=== PATIENT | female | born 1935 | race Caucasian/White ===

== ENCOUNTER → 2016-12-10 | Outpatient (CLI) | payer MEDICARE, BC ==
[2016-12-10 12:11] LABS: Calcium 8.6 mg/dL (8.4-10.2); Potassium 5.7 mmol/L (3.5-5.1)
[2016-12-10 12:31] LABS: Hemoglobin A1C 6.6 % (4.2-6.1)
== END | disposition home or self-care (01) ==
LOC: LABWHC1 10:55
PROVIDERS: ATTEND Internal Medicine
DX: E11.21 Type 2 diabetes mellitus with diabetic nephropathy (principal)
CPT/HCPCS: 36415; 80048; 82043; 83036

== ENCOUNTER → 2017-03-11 | Outpatient (CLI) | payer MEDICARE, BC ==
--- NOTE | 2017-03-12 08:35 | MM ---
Reason for exam: follow-up at short interval from prior study. Last mammogram was performed 9 months ago. History: Patient is postmenopausal. Physical Findings: Nurse did not find any significant physical abnormalities on exam. MG 3D Diag Mammo W/Cad RT CC, MLO, and XCCL view(s) were taken of the right breast. Prior study comparison: June 11, 2016, bilateral MG 3d screening mammo w/cad. May 16, 2015, bilateral MG screening mammo w CAD. The breast tissue is extremely dense which could obscure a lesion on mammography. Benign calcifications. Nodular density in the right breast is less conspicuous. These results were verbally communicated with the patient and result sheet given to the patient on 03/11/17. ASSESSMENT: Benign, BI-RAD 2 RECOMMENDATION: Return to routine screening mammogram schedule for both breasts. Back on schedule for June 2017.
== END | disposition home or self-care (01) ==
LOC: RADMAMWWP 14:19
PROVIDERS: ATTEND Internal Medicine
DX: R92.8 Other abnormal and inconclusive findings on diagnostic imaging of breast (principal)
CPT/HCPCS: G0206; G0279

== ENCOUNTER → 2017-03-12 | Outpatient (CLI) | payer MEDICARE, BC ==
[2017-03-12 14:38] LABS: Calcium 8.7 mg/dL (8.4-10.2); Potassium 5.5 mmol/L (3.5-5.1)
[2017-03-12 20:40] LABS: Hemoglobin A1C 6.7 % (4.2-6.1)
== END | disposition home or self-care (01) ==
LOC: LABWHC1 13:42
PROVIDERS: ATTEND Internal Medicine
DX: E11.21 Type 2 diabetes mellitus with diabetic nephropathy (principal)
CPT/HCPCS: 36415; 80048; 83036

== ENCOUNTER → 2017-06-07 | Outpatient (CLI) | payer MEDICARE, BC ==
[2017-06-07 12:31] LABS: Calcium 8.4 mg/dL (8.4-10.2); Potassium 5.3 mmol/L (3.5-5.1)
[2017-06-07 13:31] LABS: Hemoglobin A1C 6.8 % (4.2-6.1)
== END | disposition home or self-care (01) ==
LOC: LABWHC1 11:13
PROVIDERS: ATTEND Internal Medicine
DX: E11.21 Type 2 diabetes mellitus with diabetic nephropathy (principal)
CPT/HCPCS: 36415; 80048; 83036

== ENCOUNTER → 2017-06-23 | Outpatient (CLI) | payer MEDICARE, BC ==
--- NOTE | 2017-06-24 12:07 | MM ---
Reason for exam: screening (asymptomatic). Last mammogram was performed 3 months ago. History: Patient is postmenopausal. Physical Findings: A clinical breast exam by your physician is recommended on an annual basis and results should be correlated with mammographic findings. MG 3D Screening Mammo W/Cad Bilateral CC and MLO view(s) were taken. Prior study comparison: March 11, 2017, right breast MG 3d diag mammo w/cad RT. June 11, 2016, bilateral MG 3d screening mammo w/cad. May 02, 2014, bilateral MG screening mammo w CAD. January 19, 2013, bilateral digital screening mammo w/CAD. December 16, 2011, bilateral digital screening mammo w/CAD. The breast tissue is heterogeneously dense. This may lower the sensitivity of mammography. Scattered asymmetric densities are unchanged. No significant changes when compared with prior studies. ASSESSMENT: Negative, BI-RAD 1 RECOMMENDATION: Routine screening mammogram of both breasts in 1 year.
== END | disposition home or self-care (01) ==
LOC: RADMAMWWP 15:10
PROVIDERS: ATTEND Internal Medicine
DX: Z12.31 Encounter for screening mammogram for malignant neoplasm of breast (principal)
CPT/HCPCS: 77063; G0202

== ENCOUNTER → 2017-12-17 | Outpatient (CLI) | payer MEDICARE, BC ==
[2017-12-17 12:02] LABS: Albumin 3.9 g/dL (3.5-5.0); Calcium 9.2 mg/dL (8.4-10.2); Potassium 5.7 mmol/L (3.5-5.1); Total Bilirubin 0.3 mg/dL (0.2-1.3)
[2017-12-17 12:11] LABS: Basophils # (A) 0.1 k/uL (0-0.2); Basophils % (A) 1 %; Eosinophils # (A) 0.2 k/uL (0-0.7); Eosinophils % (A) 3 %; HCT 34.9 % (34.0-46.0); HGB 10.5 gm/dL (11.4-16.0); Hypochromasia Slight; Lymphocytes # (A) 1.5 k/uL (1.0-4.8); Lymphocytes % (A) 21 %; MCH 28.8 pg (25.0-35.0); MCHC 30.2 g/dL (31.0-37.0); MCV 95.2 fL (80.0-100.0); Mean Platelet Volume 8.1; Monocytes # (A) 0.4 k/uL (0-1.0); Monocytes % (A) 6 %; Neutrophils # (A) 4.8 k/uL (1.3-7.7); Neutrophils % (A) 67 %; Platelet Count 220 k/uL (150-450); RBC 3.66 m/uL (3.80-5.40); RDW 13.3 % (11.5-15.5); WBC 7.2 k/uL (3.8-10.6)
[2017-12-17 19:09] LABS: Hemoglobin A1C 6.6 % (4.0-6.0)
== END | disposition home or self-care (01) ==
LOC: LABWHC1 10:59
PROVIDERS: ATTEND Internal Medicine
DX: E11.21 Type 2 diabetes mellitus with diabetic nephropathy (principal)
CPT/HCPCS: 36415; 80053; 83036; 85025

== ENCOUNTER 2018-01-14 11:04 | Emergency (ER) | payer MEDICARE, BC ==
[2018-01-14 11:20] VITALS: RESP 18
--- NOTE | 2018-01-14 13:37 | ED ---
General Adult HPI - General Chief complaint: Recheck/Abnormal Lab/Rx Stated complaint: foot infection Time Seen by Provider: 01/14/18 12:27 Source: patient Mode of arrival: wheelchair Limitations: no limitations - History of Present Illness Initial comments: Patient is an 82-year-old female presents with a chief complaint of lower extremity edema bilaterally and a blister and weeping of her left great toe. Patient states that his being on for about 2 days. She states that her toe was more painful yesterday than it is today. Patient cannot identify any inciting incidences. Aggravating factors include bearing weight the patient is still able to ambulate. Alleviating factors or resting with her legs up. Timing is constant. Patient has a history of congestive heart failure and diabetes - Related Data Home Medications Medication Instructions Recorded Confirmed Isosorbide Mononitrate ER [Imdur] 30 mg PO DAILY 07/04/14 01/14/18 glyBURIDE,MICRONIZED [Glyburide 6 mg PO DAILY 07/04/14 01/14/18 Micronized] ALPRAZolam [Xanax] 0.25 mg PO BID PRN 11/11/14 01/14/18 Atenolol [Tenormin] 50 mg PO DAILY 11/11/14 01/14/18 Cranberry Conc/C/Bacill Coag 1 each PO HS 11/11/14 01/14/18 [Cranberry Tablet] Cranberry Conc/C/Bacill Coag 2 each PO DAILY 11/11/14 01/14/18 [Cranberry Tablet] Insulin Glargine [Lantus] 8 units SQ HS 11/11/14 01/14/18 Miconazole 2% Vaginal Cream 1 applic TOPICAL DAILY PRN 11/11/14 01/14/18 [Monistat 7] Simvastatin [Zocor] 40 mg PO DAILY 11/11/14 01/14/18 amLODIPine [Norvasc] 10 mg PO DAILY 11/14/14 01/14/18 Furosemide [Lasix] 20 mg PO DAILY 01/14/18 01/14/18 Vit A/Vit C/Vit E/Zinc/Copper 1 cap PO BID 01/14/18 01/14/18 [ICAPS SOFTGEL] Allergies Allergy/AdvReac Type Severity Reaction Status Date / Time ciprofloxacin [From Cipro] Allergy Swelling Verified 01/14/18 15:21 zolpidem tartrate AdvReac Severe Hallucinati Verified 01/14/18 15:21 [From Ambien] ons Review of Systems ROS Statement: Those systems with pertinent positive or pertinent negative responses have been documented in the HPI. ROS Other: All systems not noted in ROS Statement are negative. Constitutional: Denies: fever, chills Skin: Reports: lesions (Blister on the anterior aspect of her left great toe) Past Medical History Past Medical History: Coronary Artery Disease (CAD), Diabetes Mellitus, Hyperlipidemia, Hypertension History of Any Multi-Drug Resistant Organisms: None Reported Past Surgical History: Cholecystectomy, Heart Catheterization With Stent, Orthopedic Surgery Additional Past Surgical History / Comment(s): CATARACTS BL knees Hysterctomy bladder suspension Date of Last Stent Placement:: unkown Past Psychological History: No Psychological Hx Reported Smoking Status: Former smoker Past Alcohol Use History: None Reported Past Drug Use History: None Reported General Exam Limitations: no limitations General appearance: alert, in no apparent distress Head exam: Present: atraumatic, normocephalic Eye exam: Present: normal appearance ENT exam: Present: normal exam Respiratory exam: Present: normal lung sounds bilaterally. Absent: respiratory distress, wheezes Cardiovascular Exam: Present: regular rate, normal rhythm GI/Abdominal exam: Present: soft. Absent: distended, tenderness Rectal exam: Present: deferred Extremities exam: Present: pedal edema, other (Patient has a lateral lower show any pitting edema with evidence of chronic venous stasis. Calves are nontender. Examination of the patient's left foot shows what appears to be a blood blister on the top part of her left great toe. Blister was opened with an 18-gauge needle, it was nonpainful, nonpurulent. Cultures were sent). Absent: calf tenderness Neurological exam: Present: alert, oriented X3, CN II-XII intact, normal gait Psychiatric exam: Present: normal affect, normal mood Skin exam: Present: warm, dry, intact Course Vital Signs 01/14/18 01/14/18 01/14/18 11:17 11:20 13:41 Temperature 97.8 F Pulse Rate 87 82 Respiratory 18 18 18 Rate Blood Pressure 204/109 216/81 O2 Sat by Pulse 93 L 97 Oximetry 01/14/18 15:00 Temperature 97.7 F Pulse Rate 76 Respiratory 18 Rate Blood Pressure 211/82 O2 Sat by Pulse 96 Oximetry Medical Decision Making - Medical Decision Making Patient presents with a chief complaint of lower extremity edema and a blister on her left toe. On initial evaluation, vital signs are stable. Patient is very hypertensive at 204/109, patient is in no acute distress. Patient will be evaluated for congestive heart failure as she has a previous history. Examination of the left foot does not appear to be infected. There is no tenderness to palpation, there is no red streaking, there is no induration or warmth. The vesicle on her left toe was drained with an 18-gauge needle. Fluid was mostly serous with old clotted blood. There is no foul odor. Cultures were sent. 3:34 PM Evaluation this patient is unremarkable. Chest x-ray did not show evidence of congestive heart failure, BNP is only mildly elevated. Patient is clinically not in heart failure. On reevaluation, the patient is comfortable however she is still hypertensive. The patient's son, who is a nurse upstairs, states that he has her medications and the car she did not get them this morning. It was agreed upon that the patient would receive her dose upon discharge. The patient was instructed to follow-up with primary care in 1-2 days or return to the emergency department for reevaluation if symptoms worsen or change. Patient and her son are agreeable with the current care plan. - Lab Data Result diagrams: 01/14/18 13:30 01/14/18 13:30 Lab Results 01/14/18 01/14/18 01/14/18 Range/Units 13:30 13:30 13:30 WBC 7.8 (3.8-10.6) k/uL RBC 3.39 L (3.80-5.40) m/uL Hgb 9.9 L (11.4-16.0) gm/dL Hct 31.3 L (34.0-46.0) % MCV 92.3 (80.0-100.0) fL MCH 29.2 (25.0-35.0) pg MCHC 31.6 (31.0-37.0) g/dL RDW 13.9 (11.5-15.5) % Plt Count 197 (150-450) k/uL Neutrophils % 67 % Lymphocytes % 23 % Monocytes % 6 % Eosinophils % 2 % Basophils % 1 % Neutrophils # 5.2 (1.3-7.7) k/uL Lymphocytes # 1.8 (1.0-4.8) k/uL Monocytes # 0.5 (0-1.0) k/uL Eosinophils # 0.2 (0-0.7) k/uL Basophils # 0.0 (0-0.2) k/uL Hypochromasia Slight Sodium 142 (137-145) mmol/L Potassium 5.3 H (3.5-5.1) mmol/L Chloride 108 H (98-107) mmol/L Carbon Dioxide 22 (22-30) mmol/L Anion Gap 12 mmol/L BUN 65 H (7-17) mg/dL Creatinine 2.33 H (0.52-1.04) mg/dL Est GFR (CKD-EPI)AfAm 22 (>60 ml/min/1.73 sqM) Est GFR (CKD-EPI)NonAf 19 (>60 ml/min/1.73 sqM) Glucose 90 (74-99) mg/dL Calcium 8.9 (8.4-10.2) mg/dL Troponin I (0.000-0.034) ng/mL NT-Pro-B Natriuret Pep 582 pg/mL 01/14/18 Range/Units 13:30 WBC (3.8-10.6) k/uL RBC (3.80-5.40) m/uL Hgb (11.4-16.0) gm/dL Hct (34.0-46.0) % MCV (80.0-100.0) fL MCH (25.0-35.0) pg MCHC (31.0-37.0) g/dL RDW (11.5-15.5) % Plt Count (150-450) k/uL Neutrophils % % Lymphocytes % % Monocytes % % Eosinophils % % Basophils % % Neutrophils # (1.3-7.7) k/uL Lymphocytes # (1.0-4.8) k/uL Monocytes # (0-1.0) k/uL Eosinophils # (0-0.7) k/uL Basophils # (0-0.2) k/uL Hypochromasia Sodium (137-145) mmol/L Potassium (3.5-5.1) mmol/L Chloride (98-107) mmol/L Carbon Dioxide (22-30) mmol/L Anion Gap mmol/L BUN (7-17) mg/dL Creatinine (0.52-1.04) mg/dL Est GFR (CKD-EPI)AfAm (>60 ml/min/1.73 sqM) Est GFR (CKD-EPI)NonAf (>60 ml/min/1.73 sqM) Glucose (74-99) mg/dL Calcium (8.4-10.2) mg/dL Troponin I <0.012 (0.000-0.034) ng/mL NT-Pro-B Natriuret Pep pg/mL Disposition Clinical Impression: Blister, Lower extremity edema Disposition: HOME SELF-CARE Condition: Good Instructions: Leg Edema (ED) Referrals: Lalo Eng MD [Primary Care Provider] - 1-2 days
--- NOTE | 2018-01-14 14:01 | XR ---
EXAMINATION TYPE: XR chest 2V DATE OF EXAM: 01/14/2018 COMPARISON: 11/13/2014 HISTORY: Bilateral lower extremity swelling and chest pain. TECHNIQUE: Frontal and lateral views of the chest are obtained. FINDINGS: There is no focal air space opacity, pleural effusion, or pneumothorax seen. The cardiac silhouette size is mildly enlarged. The osseous structures are intact. Degenerative changes of the thoracic spine, clavicular joints and acromio clavicular joints are moderate. IMPRESSION: No acute cardiopulmonary process.
--- NOTE | 2018-01-14 14:03 | XR ---
EXAMINATION TYPE: XR foot complete LT DATE OF EXAM: 01/14/2018 CLINICAL HISTORY: Left lower extremity generalized edema and left foot pain. TECHNIQUE: Frontal, lateral, and oblique images of the left foot are obtained. COMPARISON: None FINDINGS: There is moderate generalized edema of the left lower extremity. There is generalized osseo us demineralization. Moderate degenerative changes of the distal interphalangeal joints and mild at t he first metatarsophalangeal joint are present. Hallux valgus deformity is seen. Small vessel calcifi c atheromatous changes are noted. Moderate plantar and small Achilles enthesophytes are also seen. Th ere is no acute fracture/dislocation evident in the left foot. IMPRESSION: Moderate generalized left lower extremity subcutaneous edema with no acute fracture or di slocation.
[2018-01-14 14:08] LABS: Basophils % (A) 1 %; Eosinophils # (A) 0.2 k/uL (0-0.7); Eosinophils % (A) 2 %; HCT 31.3 % (34.0-46.0); HGB 9.9 gm/dL (11.4-16.0); Hypochromasia Slight; Lymphocytes # (A) 1.8 k/uL (1.0-4.8); Lymphocytes % (A) 23 %; MCH 29.2 pg (25.0-35.0); MCHC 31.6 g/dL (31.0-37.0); MCV 92.3 fL (80.0-100.0); Mean Platelet Volume 8.5; Monocytes # (A) 0.5 k/uL (0-1.0); Monocytes % (A) 6 %; Neutrophils # (A) 5.2 k/uL (1.3-7.7); Neutrophils % (A) 67 %; Platelet Count 197 k/uL (150-450); RBC 3.39 m/uL (3.80-5.40); RDW 13.9 % (11.5-15.5); WBC 7.8 k/uL (3.8-10.6)
[2018-01-14 14:17] LABS: Calcium 8.9 mg/dL (8.4-10.2); Potassium 5.3 mmol/L (3.5-5.1)
[2018-01-14 15:17] VITALS: BP 211/82; PULSE 76; TEMP 97.7
== END 2018-01-14 15:59 | disposition home or self-care (01) ==
LOC: EC 11:04
DX: S90.422A Blister (nonthermal), left great toe, initial encounter (principal); R60.0 Localized edema; I87.8 Other specified disorders of veins; E78.5 Hyperlipidemia, unspecified; I11.9 Hypertensive heart disease without heart failure; I50.9 Heart failure, unspecified; I25.10 Atherosclerotic heart disease of native coronary artery without angina pectoris; E11.9 Type 2 diabetes mellitus without complications; Z87.891 Personal history of nicotine dependence; Z79.4 Long term (current) use of insulin; Z79.899 Other long term (current) drug therapy; Z88.1 Allergy status to other antibiotic agents; Z88.8 Allergy status to other drugs, medicaments and biological substances; X58.XXXA Exposure to other specified factors, initial encounter
CPT/HCPCS: 36415; 71046; 80048; 83880; 84484; 85025; 87070; 87075; 87205; 99283

== ENCOUNTER 2018-05-05 17:21 | Emergency (ER) | payer MEDICARE, BC ==
--- NOTE | 2018-05-05 21:17 | XR ---
EXAMINATION TYPE: XR ankle complete RT DATE OF EXAM: 05/05/2018 COMPARISON: NONE HISTORY: Fall. Ankle pain TECHNIQUE: 3 views FINDINGS: There is soft tissue swelling around the ankle joint. There is a plantar calcaneal spur. An kle mortise is anatomic. I see no fracture. IMPRESSION: Soft tissue swelling. No fracture.
--- NOTE | 2018-05-05 21:18 | XR ---
EXAMINATION TYPE: XR foot complete RT DATE OF EXAM: 05/05/2018 COMPARISON: NONE HISTORY: Fall. Foot pain TECHNIQUE: 3 views FINDINGS: There is soft tissue swelling of the foot. There is plantar calcaneal spur. Metatarsals are intact. I see no fracture nor dislocation. IMPRESSION: Soft tissue swelling. No fracture.
--- NOTE | 2018-05-05 21:19 | XR ---
EXAMINATION TYPE: XR Hip Complete RT DATE OF EXAM: 05/05/2018 COMPARISON: NONE HISTORY: Hip pain TECHNIQUE: 2 views FINDINGS: There is some acetabular spurring. I see no fracture nor dislocation. There is vascular rosenda cification. IMPRESSION: No acute abnormality of the right hip.
--- NOTE | 2018-05-05 21:20 | XR ---
EXAMINATION TYPE: XR knee complete RT 3 views DATE OF EXAM: 05/05/2018 COMPARISON: None HISTORY: Knee pain FINDINGS: There is a right knee prosthesis. Components are in anatomic position. There is vascular calcificati on. I see no fracture. IMPRESSION: No acute abnormality of the right knee.
--- NOTE | 2018-05-05 21:21 | XR ---
EXAMINATION TYPE: XR shoulder complete LT DATE OF EXAM: 05/05/2018 COMPARISON: NONE HISTORY: Shoulder pain TECHNIQUE: 3 views FINDINGS: There is subacromial joint space narrowing. There is spurring at the glenohumeral joint. I see no fracture. IMPRESSION: Osteoarthritis and subacromial impingement. No fracture.
--- NOTE | 2018-05-05 22:05 | ED ---
Lower Extremity Injury HPI - General Chief Complaint: Extremity Injury, Lower Stated Complaint: fall/rt leg injury Time Seen by Provider: 05/05/18 19:37 Source: patient, family Mode of arrival: wheelchair Limitations: no limitations - History of Present Illness Initial Comments: 82-year-old female patient presents the emergency department today for evaluation of right leg pain and left shoulder pain after experiencing a fall approximately one week ago. Patient states that she has pain to the right hip, right knee, right ankle, and right foot. States the pain is worse on the right ankle and foot. She states that she also is having pain to the left shoulder. Patient states that she always has pain and left shoulder however this is worse than usual. Patient states that she tripped and fell over her walker. Denies any falls since then. She denies hitting her head or losing consciousness during the fall. She denies any numbness or tingling to her extremities. States that the right ankle and foot is more swollen than usual. Denies any redness, fever, or chills. Denies any neck or back pain. Patient denies any headache, chest pain, shortness of breath, dizziness, weakness, abdominal pain, nausea, vomiting, or difficulties with bowel movements or urination. - Related Data Home Medications Medication Instructions Recorded Confirmed Isosorbide Mononitrate ER [Imdur] 30 mg PO DAILY 07/04/14 05/05/18 glyBURIDE,MICRONIZED [Glyburide 6 mg PO DAILY 07/04/14 05/05/18 Micronized] ALPRAZolam [Xanax] 0.25 mg PO TID PRN 11/11/14 05/05/18 Atenolol [Tenormin] 50 mg PO DAILY 11/11/14 05/05/18 Insulin Glargine [Lantus] 30 units SQ HS 11/11/14 05/05/18 Simvastatin [Zocor] 40 mg PO DAILY 11/11/14 05/05/18 Aspirin EC [Ecotrin Low Dose] 81 mg PO DAILY 05/05/18 05/05/18 Focus Factor 1 tab PO BID 05/05/18 05/05/18 Vit C/E/Zn/Coppr/Lutein/Zeaxan 1 cap PO BID 05/05/18 05/05/18 [Preservision Areds 2 Softgel] amLODIPine [Norvasc] 5 mg PO DAILY 05/05/18 05/05/18 Allergies Allergy/AdvReac Type Severity Reaction Status Date / Time ciprofloxacin [From Cipro] Allergy Swelling Verified 05/05/18 20:03 zolpidem tartrate AdvReac Severe Hallucinati Verified 05/05/18 20:03 [From Ambien] ons Review of Systems ROS Statement: Those systems with pertinent positive or pertinent negative responses have been documented in the HPI. ROS Other: All systems not noted in ROS Statement are negative. Past Medical History Past Medical History: Coronary Artery Disease (CAD), Diabetes Mellitus, Hyperlipidemia, Hypertension History of Any Multi-Drug Resistant Organisms: None Reported Past Surgical History: Cholecystectomy, Heart Catheterization With Stent, Orthopedic Surgery Additional Past Surgical History / Comment(s): CATARACTS BL knees Hysterctomy bladder suspension Date of Last Stent Placement:: unkown Past Psychological History: No Psychological Hx Reported Smoking Status: Former smoker Past Alcohol Use History: None Reported Past Drug Use History: None Reported General Exam Limitations: no limitations General appearance: alert, in no apparent distress, other (This is a well- developed, obese elderly female patient in no acute distress. Vital signs upon presentation are temperature 97.9F, pulse 61, respirations 20, blood pressure 160/58, pulse ox 96% on room air.) Eye exam: Present: normal appearance, PERRL, EOMI. Absent: scleral icterus, conjunctival injection, periorbital swelling ENT exam: Present: normal exam, normal oropharynx, mucous membranes moist Neck exam: Present: normal inspection, other (Nontender, no step-off, no deformity to firm midline palpation of the posterior cervical spine. Full range of motion without pain or limitation.). Absent: tenderness, meningismus, lymphadenopathy Respiratory exam: Present: normal lung sounds bilaterally. Absent: respiratory distress, wheezes, rales, rhonchi, stridor Cardiovascular Exam: Present: regular rate, normal rhythm, normal heart sounds. Absent: systolic murmur, diastolic murmur, rubs, gallop, clicks GI/Abdominal exam: Present: soft, normal bowel sounds. Absent: distended, tenderness, guarding, rebound, rigid Extremities exam: Present: full ROM, tenderness (Tenderness surrounding the right ankle and dorsal aspect of the foot.), normal capillary refill, other ( Patient has right ankle and right foot swelling. No evidence of erythema. Pedal and posttibial pulses are 2+ and equal bilaterally. Skin is pink, warm, and dry. Cap refills less than 3 seconds. Patient has light brown area of ecchymosis over the right anterior knee. There is no evidence of surface trauma to the right hip. No hip tenderness. Left shoulder skin is pink, warm, and dry. Cap refill to the left hand is less than 3 seconds. Radial pulses are 2+ and equal bilaterally. There is no joint tenderness or surrounding the left shoulder. Patient does have started pain at approximately 90 abduction of the left arm.). Absent: normal inspection, pedal edema, joint swelling, calf tenderness Back exam: Present: normal inspection. Absent: vertebral tenderness Neurological exam: Present: alert, oriented X3, CN II-XII intact Psychiatric exam: Present: normal affect, normal mood Skin exam: Present: warm, dry, intact, normal color. Absent: rash Course Vital Signs 05/05/18 05/05/18 17:25 22:21 Temperature 97.9 F 98.4 F Pulse Rate 61 52 L Respiratory 20 18 Rate Blood Pressure 168/58 158/67 O2 Sat by Pulse 96 97 Oximetry Medical Decision Making - Medical Decision Making 82-year-old female patient presented to the emergency department today for evaluation of right leg, ankle, and foot pain as well as left shoulder pain after experiencing a trip and fall approximately one week ago. Physical examination did reveal swelling to the right ankle and foot. Neurovascular status was intact to both lower and upper extremities. X-rays were obtained of the right hip, right knee, right ankle, and right foot. There are does show soft tissue swelling surrounding the right ankle and foot however no fractures are identified in any of the x-rays. Left shoulder x-ray was also obtained, did show some arthritic changes but no evidence of acute fracture. I did discuss findings and results with the patient and her family. I did discuss the patient most likely has a sprain to the right ankle and foot. She'll be placed in ankle stirrup splint. Patient declines pain medication at this time stating that she will take Tylenol at home. She is instructed to follow-up with orthopedics for further evaluation. Return parameters discussed in detail. She verbalizes understanding and agrees with this plan. - Radiology Data Radiology results: report reviewed, image reviewed 3 views of the left shoulder were obtained. There is subacromial joint space narrowing. There is spurring at the glenohumeral joint. I see no fracture. Impression by Dr. Hernandez shows osteoarthritis and subacromial impingement. No fracture. 3 views of the right knee are obtained. There is right knee prosthesis. Components are in anatomic position. There is vascular calcification. I see no fracture. Impression by Dr. Hernandez shows no acute abnormality of the right knee. 2 views of the right hip are obtained. There is some acetabular spurring. I see no fracture or dislocation. There is vascular calcification. Impression by Dr. Hernandez shows no acute abnormality of the right hip. 3 views of the right foot are obtained. There is soft tissue swelling of the foot. There is plantar calcaneal spur. Metatarsals are intact. I see no fracture nor dislocation. Impression by Dr. Hernandez shows soft tissue swelling. No fracture. 3 views of the right ankle are obtained. There is soft tissue swelling around the ankle joint. There is a plantar calcaneal spur. Ankle mortise is anatomic. I see no fracture. Impression by Dr. Hernandez shows soft tissue swelling with no fracture. Disposition Clinical Impression: Right ankle sprain, Osteoarthritis, Calcaneal spur, right, Left shoulder strain Disposition: HOME SELF-CARE Condition: Good Instructions: Ankle Sprain (ED), Osteoarthritis (ED), Shoulder Sprain (ED) Additional Instructions: Keep splint in place for comfort and support. Rest, ice, and elevate the right leg. Follow-up with orthopedics for recheck as soon as possible. Take Tylenol and sparingly ibuprofen for pain control. Return here immediately for any new, worsening, or concerning symptoms. Is patient prescribed a controlled substance at d/c from ED?: No Referrals: Lalo Eng MD [Primary Care Provider] - 1-2 days Carroll Angela MD [Medical Doctor] - 1-2 days Time of Disposition: 22:05
[2018-05-05 22:23] VITALS: BP 158/67; PULSE 52; RESP 18; TEMP 98.4
== END 2018-05-05 22:21 | disposition home or self-care (01) ==
LOC: EC 17:21
DX: S93.401A Sprain of unspecified ligament of right ankle, initial encounter (principal); S46.912A Strain of unspecified muscle, fascia and tendon at shoulder and upper arm level, left arm, initial encounter; M77.31 Calcaneal spur, right foot; M19.012 Primary osteoarthritis, left shoulder; S80.211A Abrasion, right knee, initial encounter; M25.552 Pain in left hip; I25.10 Atherosclerotic heart disease of native coronary artery without angina pectoris; E11.9 Type 2 diabetes mellitus without complications; E78.5 Hyperlipidemia, unspecified; I10 Essential (primary) hypertension; Z95.5 Presence of coronary angioplasty implant and graft; Z87.891 Personal history of nicotine dependence; Z79.4 Long term (current) use of insulin; Z79.82 Long term (current) use of aspirin; Z79.899 Other long term (current) drug therapy; Z88.1 Allergy status to other antibiotic agents; Z88.8 Allergy status to other drugs, medicaments and biological substances; W01.0XXA Fall on same level from slipping, tripping and stumbling without subsequent striking against object, initial encounter
CPT/HCPCS: 73030; 73502; 73562; 73610; 73630; 99283; 29515; L4350

== ENCOUNTER → 2018-07-28 | Outpatient (CLI) | payer MEDICARE, BC ==
--- NOTE | 2018-07-29 10:21 | MM ---
Reason for exam: additional evaluation requested from prior study. Last mammogram was performed 1 year and 1 month ago. History: Patient is postmenopausal. Physical Findings: Nurse Summary: less than 0.5cm nodule in the right breast at 9 o'clock (nurse kp). MG 3D Diag Mammo W/Cad NATA Bilateral CC and MLO view(s) were taken. Prior study comparison: June 23, 2017, bilateral MG 3d screening mammo w/cad. March 11, 2017, right breast MG 3d diag mammo w/cad RT. The breast tissue is extremely dense which could obscure a lesion on mammography. Finding: There are typically benign vascular calcifications in both breasts. There is no discrete abnormality. These results were verbally communicated with the patient and result sheet given to the patient on 07/28/18. ASSESSMENT: Incomplete: need additional imaging evaluation, BI-RAD 0 RECOMMENDATION: Ultrasound of the right breast. (palpable)
--- NOTE | 2018-07-29 10:22 | USB ---
Reason for exam: additional evaluation requested from abnormal screening. History: Patient is postmenopausal. US Breast Limited RT Right limited breast ultrasound including focal area of concern, retroareolar and axilla demonstrates no cystic or solid lesion seen greater than 0.50cm. These results were verbally communicated with the patient and result sheet given to the patient on 07/28/18. ASSESSMENT: Negative, BI-RAD 1 RECOMMENDATION: Routine screening mammogram of both breasts in 1 year. Manage patient on a clinical basis.
== END | disposition home or self-care (01) ==
LOC: RADMAMWWP 13:27
PROVIDERS: ATTEND Internal Medicine
DX: R92.8 Other abnormal and inconclusive findings on diagnostic imaging of breast (principal)
CPT/HCPCS: 77066; 76642; G0279; 77062

== ENCOUNTER 2018-07-29 11:01 | Emergency (ER) | payer MEDICARE, BC ==
[2018-07-29 12:40] LABS: Basophils # (A) 0.1 k/uL (0-0.2); Basophils % (A) 1 %; Eosinophils # (A) 0.4 k/uL (0-0.7); Eosinophils % (A) 6 %; HCT 34.1 % (34.0-46.0); HGB 10.7 gm/dL (11.4-16.0); Hypochromasia Slight; Lymphocytes # (A) 1.9 k/uL (1.0-4.8); Lymphocytes % (A) 27 %; MCH 29.6 pg (25.0-35.0); MCHC 31.3 g/dL (31.0-37.0); MCV 94.6 fL (80.0-100.0); Mean Platelet Volume 8.3; Monocytes # (A) 0.4 k/uL (0-1.0); Monocytes % (A) 6 %; Neutrophils # (A) 4.2 k/uL (1.3-7.7); Neutrophils % (A) 59 %; Platelet Count 217 k/uL (150-450); RDW 13.4 % (11.5-15.5)
[2018-07-29 12:56] LABS: Albumin 3.6 g/dL (3.5-5.0); Calcium 8.8 mg/dL (8.4-10.2); Potassium 5.2 mmol/L (3.5-5.1); Total Bilirubin 0.4 mg/dL (0.2-1.3); Total Protein 6.8 g/dL (6.3-8.2)
[2018-07-29] MEDS ORDERED: SODIUM CHLORIDE 0.9% 1,000 ML IV SCH (13:30)
--- NOTE | 2018-07-29 13:32 | ED ---
Recheck HPI - General Chief Complaint: Recheck/Abnormal Lab/Rx Stated Complaint: Abnormal Labs Time Seen by Provider: 07/29/18 12:08 Source: patient Mode of arrival: wheelchair Limitations: no limitations - History of Present Illness Initial Comments: to a 82-year-old female past medical history of renal disease, type 2 diabetes, hypertension, coronary artery disease, COPD who presents today for chief complaint of abnormal lab values. Patient states that she was called at 8:30 this morning about an elevated BUN/creatinine levels by her primary care physician, as told to present to the emergency department. She was speaking with Dr. Eng's nurse practitioner. Patient states that she has felt shaky for the last 2 days and was concerned that maybe this was associated. Patient does admit to not eating as much because things do not sound appetizing. Patient does admit to low back pain, however she states this is chronic and she has been sitting in a chair. The pain increases with certain positions. Patient denies any other associated symptoms. Patient denies any recent fever, chills, shortness of breath, chest pain, UE/LE weakness, abdominal pain, nausea or vomiting, numbness or tingling, dysuria or hematuria, constipation or diarrhea, headaches or visual changes, or any other complaints. - Related Data Home Medications Medication Instructions Recorded Confirmed Isosorbide Mononitrate ER [Imdur] 30 mg PO DAILY 07/04/14 07/29/18 glyBURIDE,MICRONIZED [Glyburide 6 mg PO DAILY 07/04/14 07/29/18 Micronized] ALPRAZolam [Xanax] 0.25 mg PO TID PRN 11/11/14 07/29/18 Focus Factor 1 tab PO BID 05/05/18 07/29/18 Vit C/E/Zn/Coppr/Lutein/Zeaxan 1 cap PO BID 05/05/18 07/29/18 [Preservision Areds 2 Softgel] Aspirin EC [Ecotrin] 325 mg PO DAILY 07/29/18 07/29/18 Furosemide [Lasix] 20 mg PO DAILY 07/29/18 07/29/18 Ibuprofen [Motrin Ib] 200 mg PO Q8H PRN 07/29/18 07/29/18 Metoprolol Tartrate [Lopressor] 50 mg PO DAILY 07/29/18 07/29/18 Previous Rx's Medication Instructions Recorded Sulfamethox-Tmp 800-160Mg [Bactrim 1 tab PO Q12HR 3 Days #6 tab 07/29/18 DS 800-160 mg] Allergies Allergy/AdvReac Type Severity Reaction Status Date / Time ciprofloxacin [From Cipro] Allergy Swelling Verified 07/29/18 15:22 zolpidem tartrate AdvReac Severe Hallucinati Verified 07/29/18 15:22 [From Ambien] ons Review of Systems ROS Statement: Those systems with pertinent positive or pertinent negative responses have been documented in the HPI. ROS Other: All systems not noted in ROS Statement are negative. Constitutional: Denies: fever, chills Eyes: Denies: eye discharge, vision change ENT: Denies: ear pain, throat pain Respiratory: Denies: cough, dyspnea, wheezes, hemoptysis, stridor Cardiovascular: Denies: chest pain, palpitations, dyspnea on exertion, edema Endocrine: Denies: fatigue Gastrointestinal: Denies: abdominal pain, nausea, vomiting, diarrhea, constipation, hematemesis, melena, hematochezia Genitourinary: Denies: urgency, dysuria, frequency, hematuria Musculoskeletal: Reports: back pain (chronic) Neurological: Denies: headache, weakness, numbness, paresthesias, confusion, abnormal gait Past Medical History Past Medical History: Coronary Artery Disease (CAD), Heart Failure, Diabetes Mellitus, Hyperlipidemia, Hypertension History of Any Multi-Drug Resistant Organisms: None Reported Past Surgical History: Cholecystectomy, Heart Catheterization With Stent, Orthopedic Surgery Additional Past Surgical History / Comment(s): CATARACTS BL knees Hysterctomy bladder suspension Date of Last Stent Placement:: unkown Past Psychological History: No Psychological Hx Reported Smoking Status: Former smoker Past Alcohol Use History: None Reported Past Drug Use History: None Reported General Exam - General Exam Comments Initial Comments: General: The patient is awake and alert, in no distress, and does not appear acutely ill. Eye: +3 mm pupils are equal, round and reactive to light, extra-ocular movements are intact. No nystagmus. There is normal conjunctiva bilaterally. No signs of icterus. Ears, nose, mouth and throat: There are moist mucous membranes and no oral lesions. Neck: The neck is supple, there is no tenderness or JVD. Cardiovascular: There is a regular rate and rhythm. No murmur, rub or gallop is appreciated. Respiratory: Lungs are clear to auscultation, respirations are non-labored, breath sounds are equal. No wheezes, stridor, rales, or rhonchi. Gastrointestinal: Soft, non-distended, non-tender abdomen without masses or organomegaly noted. There is no rebound or guarding present. No CVA tenderness. Bowel sounds are unremarkable. Musculoskeletal: Normal ROM at the lumbar spine, with midline tenderness to palpation of the lumbar spine. Strength 5/5 of the UE and LE equally b/l. Sensation intact of the face, UE, LE equally b/l. DP and radial pulses equal bilaterally 2+. Neurological: A&O x 3. CN II-XII intact, There are no obvious motor or sensory deficits. Coordination appears grossly intact. Speech is normal. Pt is able to walk to the bathroom with coordinated movement/balance. Skin: Skin is warm and dry and no rashes or lesions are noted. Psychiatric: Cooperative, appropriate mood & affect, normal judgment. Limitations: no limitations Course Vital Signs 07/29/18 07/29/18 11:35 15:00 Temperature 98.3 F Pulse Rate 59 L 61 Respiratory 18 18 Rate Blood Pressure 173/62 171/74 O2 Sat by Pulse 95 99 Oximetry Medical Decision Making - Medical Decision Making Benign physical exam. EKG obtained (-) for acute changes. No peaking of T- waves. BUN and Cr were evaluated and compared to previous values, no significant change. Remainder of laboratory values within acceptable limits. Dr. Eng contacted by phone who stated that if patient is presenting for only lab values he doesnt see need for hospitalization and will see patient in office Wednesday. Pt was given 500mL bolus of fluids. [place] for low back pain, this was reproducible and pt has history of chronic low back pain and states it is same in characteristic. UA sample was not able to be collected for 3 hours- ( +) nitrates. Pt states she previously tolerated Bactrim. Pt RX faxed over. Case discussed in detail with Dr. Lin. At this time we feel pt is stable for d/c with return any change or worsening symptoms. Patient and mother agreed plan, denies questions at this time. Patient discharged in stable condition. Vital signs stable-patient blood pressure mildly elevated however patient has not taken any of her home medications today. - Lab Data Result diagrams: 07/29/18 12:30 07/29/18 12:30 Lab Results 07/29/18 07/29/18 07/29/18 Range/Units 12:30 12:30 15:58 WBC 7.0 (3.8-10.6) k/uL RBC 3.60 L (3.80-5.40) m/uL Hgb 10.7 L (11.4-16.0) gm/dL Hct 34.1 (34.0-46.0) % MCV 94.6 (80.0-100.0) fL MCH 29.6 (25.0-35.0) pg MCHC 31.3 (31.0-37.0) g/dL RDW 13.4 (11.5-15.5) % Plt Count 217 (150-450) k/uL Neutrophils % 59 % Lymphocytes % 27 % Monocytes % 6 % Eosinophils % 6 % Basophils % 1 % Neutrophils # 4.2 (1.3-7.7) k/uL Lymphocytes # 1.9 (1.0-4.8) k/uL Monocytes # 0.4 (0-1.0) k/uL Eosinophils # 0.4 (0-0.7) k/uL Basophils # 0.1 (0-0.2) k/uL Hypochromasia Slight Sodium 142 (137-145) mmol/L Potassium 5.2 H (3.5-5.1) mmol/L Chloride 108 H (98-107) mmol/L Carbon Dioxide 24 (22-30) mmol/L Anion Gap 10 mmol/L BUN 95 H (7-17) mg/dL Creatinine 2.79 H (0.52-1.04) mg/dL Est GFR (CKD-EPI)AfAm 17 (>60 ml/min/1.73 sqM) Est GFR (CKD-EPI)NonAf 15 (>60 ml/min/1.73 sqM) Glucose 132 H (74-99) mg/dL Calcium 8.8 (8.4-10.2) mg/dL Total Bilirubin 0.4 (0.2-1.3) mg/dL AST 16 (14-36) U/L ALT 17 (9-52) U/L Alkaline Phosphatase 101 (38-126) U/L Total Protein 6.8 (6.3-8.2) g/dL Albumin 3.6 (3.5-5.0) g/dL Urine Color Yellow Urine Appearance Turbid H (Clear) Urine pH 7.5 (5.0-8.0) Ur Specific [place] 1.011 (1.001-1.035) Urine Protein 1+ H (Negative) Urine Glucose (UA) Negative (Negative) Urine Ketones Negative (Negative) Urine Blood Small H (Negative) Urine Nitrite Positive H (Negative) Urine Bilirubin Negative (Negative) Urine Urobilinogen <2.0 (<2.0) mg/dL Ur Leukocyte Esterase Large H (Negative) Urine RBC 3 (0-5) /hpf Urine WBC 53 H (0-5) /hpf Urine WBC Clumps Moderate H (None) /hpf Ur Squamous Epith Cells 9 H (0-4) /hpf Urine Bacteria Few H (None) /hpf - EKG Data -: EKG Interpreted by Me (and Dr. Lin) EKG Comments: ventricular rate 57 bpm, NE interval 162 ms, QRS duration 74 ms, QT/QTC 436/424 ms-sinus bradycardia. There are no ST elevations, T-wave peaking or inversions. Normal EKG.EKG was evaluated by myself as well as Dr. Lin. Disposition Clinical Impression: Elevated serum creatinine, Elevated BUN, UTI (urinary tract infection) Disposition: HOME SELF-CARE Condition: Good Instructions: Urinary Tract Infection in Women (ED) Additional Instructions: Please use medication as discussed. Please follow-up with family doctor on Wednesday. Please return to emergency room if the symptoms increase or worsen or for any other concerns. Prescriptions: Sulfamethox-Tmp 800-160Mg [Bactrim DS 800-160 mg] 1 tab PO Q12HR 3 Days #6 tab Is patient prescribed a controlled substance at d/c from ED?: No Referrals: Lalo Eng MD [Primary Care Provider] - 1-2 days Time of Disposition: 17:37
[2018-07-29] MEDS ORDERED: SODIUM CHLORIDE 0.9% 500 ML IV ONE (13:57)
[2018-07-29] MEDS ORDERED: HYDROcodone/APAP 7.5-325MG 1 EACH TAB PO ONE (15:29)
[2018-07-29 16:20] LABS: Appearance,Urine Turbid (Clear); Bacteria,Urine Few /hpf; Bilirubin,Urine Negative (Negative); Blood,Urine Small (Negative); Color,Urine Yellow; Glucose,Urine (UA) Negative (Negative); Ketones,Urine Negative (Negative); Leukocyte Esterase,Urine Large (Negative); Nitrite,Urine Positive (Negative); PH, Urine 7.5 (5.0-8.0); Protein,Urine 1+ (Negative); RBC,Urine 3 /hpf (0-5); Specific Gravity,Urine 1.011 (1.001-1.035); Squamous Epithelial Cell,Urine 9 /hpf (0-4); Urobilinogen,Urine <2.0 mg/dL (<2.0); WBC,Urine 53 /hpf (0-5)
[2018-07-29 18:03] VITALS: BP 172/74; PULSE 59; RESP 16; TEMP 97.6
== END 2018-07-29 17:50 | disposition home or self-care (01) ==
LOC: EC 11:01
DX: N39.0 Urinary tract infection, site not specified (principal); R79.89 Other specified abnormal findings of blood chemistry; G89.29 Other chronic pain; M54.5 Low back pain; I25.10 Atherosclerotic heart disease of native coronary artery without angina pectoris; I11.0 Hypertensive heart disease with heart failure; I50.9 Heart failure, unspecified; E11.9 Type 2 diabetes mellitus without complications; Z79.82 Long term (current) use of aspirin; Z79.899 Other long term (current) drug therapy; Z88.1 Allergy status to other antibiotic agents; Z88.8 Allergy status to other drugs, medicaments and biological substances; Z87.891 Personal history of nicotine dependence; Z95.5 Presence of coronary angioplasty implant and graft
CPT/HCPCS: 36415; 80053; 81001; 85025; 87077; 87086; 87186; 93005; 96360; 99283

== ENCOUNTER 2018-08-04 10:13 | Inpatient (IN) | payer MEDICARE, BC ==
[2018-08-04] MEDS ORDERED: ONDANSETRON 4 MG/2 ML VIAL IVP PRN (10:28)
[2018-08-04] MEDS ORDERED: NALOXONE 0.4 MG/ML 1 ML VIAL IV PRN (10:28)
--- NOTE | 2018-08-04 11:15 | XR ---
EXAMINATION TYPE: XR chest 1V portable DATE OF EXAM: 08/04/2018 Comparison: 01/14/2018 Clinical History: 82-year-old female with chest pain Findings: Heart borderline in size. Slightly low lung volumes with crowded vascular markings and strandy atelec tasis mid and lower lungs. Mild interstitial prominence is unchanged. Left base is underpenetrated an d not well assessed. Impression: Chronic changes, possible chronic bronchitis/asthma. The left base is underpenetrated and not well as sessed.
--- NOTE | 2018-08-04 11:30 | P.HPIM ---
History of Present Illness H&P Date: 08/04/18 Chief Complaint: failed outpatient therapy for UTI, weakness and fatigue The patient is a 82-year-old female with a past with a history of coronary artery disease with stenting, congestive heart failure of unknown type , essential hypertension, type 2 diabetes with peripheral neuropathy and chronic kidney disease Who was referred here for direct admission by her PCP Dr. Eng. Per her PCP. The patient was treated for a UTI with Ceftin and has failed outpatient therapy, the patient reports being seen in the ER and diagnosed with a UTI and was discharged home on Bactrim which she took 6 doses, she was subsequently discharged switched to Ceftin by her PCP. During this time the patient has had ongoing weakness fatigue and loss of appetite , she denies any dysuria , but notes polyuria, suprapubic/lower abdominal pain and has had subjective fevers and chills and night sweats . The patient is pretty vague about her chest symptoms today , reporting that she's had some chest pounding and 2 days ago had some mild nonradiating midsternal chest pressure that was unrelated to exertion, she does complain of shortness of breath and reports a intermittently productive cough over the last 3 weeks that she reports now seems to be getting better. Review of records indicates the patient was positive for a UTI growing E. coli and Proteus Mirabilis. Labs from previous ED visit 08/01/18 elevated serum creatinine at 3.3, serum potassium 5.7 Review of Systems Pertinent positives per HPI, all other review of systems are otherwise negative Past Medical History Past Medical History: Coronary Artery Disease (CAD), Heart Failure, Diabetes Mellitus, Hyperlipidemia, Hypertension History of Any Multi-Drug Resistant Organisms: None Reported Past Surgical History: Cholecystectomy, Heart Catheterization With Stent, Orthopedic Surgery Additional Past Surgical History / Comment(s): CATARACTS BL knees Hysterctomy bladder suspension Date of Last Stent Placement:: unkown Past Psychological History: No Psychological Hx Reported Smoking Status: Former smoker Past Alcohol Use History: None Reported Past Drug Use History: None Reported - Past Family History Father Family Medical History: Myocardial Infarction ([place]) Mother Family Medical History: Pneumonia Daughter(s) Family Medical History: Cancer Additional Family Medical History / Comment(s): Daughter has GIST Medications and Allergies Home Medications Medication Instructions Recorded Confirmed Type Isosorbide Mononitrate ER [Imdur] 30 mg PO DAILY 07/04/14 08/04/18 History glyBURIDE,MICRONIZED [Glyburide 6 mg PO DAILY 07/04/14 08/04/18 History Micronized] ALPRAZolam [Xanax] 0.25 mg PO TID PRN 11/11/14 08/04/18 History Focus Factor 1 tab PO BID 05/05/18 08/04/18 History Vit C/E/Zn/Coppr/Lutein/Zeaxan 1 cap PO BID 05/05/18 08/04/18 History [Preservision Areds 2 Softgel] Aspirin EC [Ecotrin] 325 mg PO DAILY 07/29/18 08/04/18 History Furosemide [Lasix] 20 mg PO DAILY 07/29/18 08/04/18 History Ibuprofen [Motrin Ib] 200 mg PO Q8H PRN 07/29/18 08/04/18 History Metoprolol Tartrate [Lopressor] 50 mg PO DAILY 07/29/18 08/04/18 History Diphenox-Atrop 2.5-0.025 mg 1 tab PO QID PRN 08/04/18 08/04/18 History [Lomotil] Famotidine [Pepcid] 20 mg PO DAILY 08/04/18 08/04/18 History traMADol HCL [Ultram] 50 - 100 mg PO Q4HR PRN 08/04/18 08/04/18 History Allergies Allergy/AdvReac Type Severity Reaction Status Date / Time zolpidem tartrate AdvReac Severe Hallucinati Verified 08/04/18 12:03 [From Ambien] ons ciprofloxacin [From Cipro] AdvReac Nausea & Verified 08/04/18 12:03 Vomiting Sulfa (Sulfonamide AdvReac Nausea & Verified 08/04/18 12:03 Antibiotics) Vomiting Physical Exam Vitals: Vital Signs Temp Pulse Resp BP Pulse Ox 08/04/18 10:48 97.5 F L 55 L 18 164/60 100 08/04/18 10:45 97.5 F L 55 L 18 164/60 100 Intake and Output 08/03/18 08/04/18 08/04/18 22:59 06:59 14:59 Other: Weight 92.1 kg Constitutional: No acute distress, conversant, pleasant Eyes: Anicteric sclerae, moist conjunctiva, no lid-lag, PERRLA ENMT: NC/AT,Oropharynx clear, no erythema, exudates Neck:Supple, FROM, no masses, or JVD, No carotid bruits; No thyromegaly Lungs: Clear to auscultation, Clear to percussion, Normal respiratory effort, no accessory muscle use Cardiovascular: Heart regular in rate and rhythm, No murmurs, gallops, or rubs no peripheral edema Abdominal: Soft Nontender, nom distended, no guarding, no rebound or rigidity, Normoactive bowel sounds No hepatomegaly, No splenomegaly, No palpable mass No abdominal wall hernia noted Skin: Normal temperature, tone, texture, turgor, No induration No subcutaneous nodules, No rash, lesions, No ulcers Extremities:No digital cyanosis No clubbing, Pedal pulses intact and symmetrical Radial pulses intact and symmetrical Normal gait and station, No calf tenderness Psychiatric: Alert and oriented to person, place and time, Appropriate affect Intact judgement Neuro: Muscles Strength 5/5 in all 4 extremities, Sensation to light touch grossly present throughout, Cranial nerves II-XII grossly intact. No focal sensory deficits Results CBC & Chem 7: 08/04/18 11:04 08/04/18 11:04 Assessment and Plan Assessment: Chronic medical problems Congestive heart failure of unknown type Osteoarthritis (1) Atypical chest pain Current Visit: Yes Status: Acute Code(s): R07.89 - OTHER CHEST PAIN SNOMED Code(s): 938453231 (2) Acute kidney injury superimposed on chronic kidney disease Current Visit: Yes Status: Acute Code(s): N17.9 - ACUTE KIDNEY FAILURE, UNSPECIFIED; N18.9 - CHRONIC KIDNEY DISEASE, UNSPECIFIED SNOMED Code(s): 75278656 (3) Type 2 diabetes mellitus with peripheral neuropathy Current Visit: Yes Status: Acute Code(s): E11.42 - TYPE 2 DIABETES MELLITUS WITH DIABETIC POLYNEUROPATHY SNOMED Code(s): 2230751229385 (4) Urinary tract infection Current Visit: No Status: Acute Code(s): N39.0 - URINARY TRACT INFECTION, SITE NOT SPECIFIED SNOMED Code(s): 45364807 Plan: The patient is placed on observation pending new Admission labs and workup with atypical chest pain with known history of coronary artery disease with stenting and ongoing CAD risk factors. Continue to observe to rule out ACS, start routine chest pain orders, check EKG, troponins, started on aspirin and resumed on her home antihypertensive regimen. We'll plan to consult cardiology for further recommendations. Also concern for acute kidney injury, possibly precipitated by previous Bactrim use to treat UTI E. coli and Proteus mirabilis. We'll plan to recheck a urinalysis and get reflex cultures. We'll continue antibiotics if indicated. We'll consult nephrology obtain a renal ultrasound and initiate IV fluids at NS @ 100 cc/hr. we'll start patient on Accu -Cheks check an A1c, with correctional scale insulin. Previous A1c's 6.3 indicate well-controlled diabetes. Continue to follow patient's clinical course CODE STATUS Full code Discussed plan of care with : Patient/daughter/son DVT prophylaxis: Heparin subcu Anticipated discharge 1-2 days
[2018-08-04 11:42] LABS: Albumin 3.7 g/dL (3.5-5.0); Calcium 8.6 mg/dL (8.4-10.2); Total Bilirubin 0.3 mg/dL (0.2-1.3); Total Protein 6.8 g/dL (6.3-8.2)
[2018-08-04 11:44] LABS: Basophils # (A) 0.1 k/uL (0-0.2); Basophils % (A) 1 %; Eosinophils # (A) 0.1 k/uL (0-0.7); Eosinophils % (A) 2 %; HCT 37.3 % (34.0-46.0); HGB 10.4 gm/dL (11.4-16.0); Hypochromasia Marked; Lymphocytes # (A) 1.4 k/uL (1.0-4.8); Lymphocytes % (A) 22 %; MCHC 27.8 g/dL (31.0-37.0); Mean Platelet Volume 7.9; Monocytes # (A) 0.4 k/uL (0-1.0); Monocytes % (A) 6 %; Neutrophils # (A) 4.2 k/uL (1.3-7.7); Neutrophils % (A) 68 %; Platelet Count 188 k/uL (150-450); RBC 3.84 m/uL (3.80-5.40); RDW 13.4 % (11.5-15.5); WBC 6.3 k/uL (3.8-10.6)
[2018-08-04 11:51] LABS: Creatine Kinase 51 U/L (30-135)
[2018-08-04] MEDS ORDERED: DEXTROSE 50%-WATER 50 ML SYRINGE IVP STA (11:56)
[2018-08-04] MEDS ORDERED: INSULIN REGULAR 100 UNIT/ML VIAL IV ONE (11:56)
[2018-08-04] MEDS ORDERED: SODIUM BICARB 8.4% 50 ML SYR (1 MEQ/ML) IV ONE (11:57)
[2018-08-04 12:02] LABS: Appearance,Urine Clear (Clear); Bacteria,Urine Rare /hpf; Bilirubin,Urine Negative (Negative); Blood,Urine Negative (Negative); Color,Urine Light Yellow; Glucose,Urine (UA) Negative (Negative); Ketones,Urine Negative (Negative); Leukocyte Esterase,Urine Small (Negative); Nitrite,Urine Negative (Negative); PH, Urine 5.5 (5.0-8.0); Protein,Urine Trace (Negative); RBC,Urine <1 /hpf (0-5); Specific Gravity,Urine 1.009 (1.001-1.035); Squamous Epithelial Cell,Urine 1 /hpf (0-4); Urobilinogen,Urine <2.0 mg/dL (<2.0); WBC,Urine 8 /hpf (0-5)
[2018-08-04 12:03] LABS: Glucose,Whole Blood 57 mg/dL (75-99)
[2018-08-04 12:04] LABS: Creatine Kinase MB 1.5 ng/mL (0.0-2.4); Troponin I <0.012 ng/mL (0.000-0.034)
--- NOTE | 2018-08-04 12:19 | P.NPCON ---
History of Present Illness - Reason for Consult acute renal failure, chronic renal failure - History of Present Illness Reason for consultation: Acute kidney injury on chronic kidney disease History of present illness: Patient is a 82-year-old female sitting in a consultation for acute kidney injury on chronic kidney disease. 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 Patient presented to the hospital with generalized weakness and dizziness. Patient states she came to the ER about a week ago and was diagnosed with a UTI. Her urine culture from July 29 is positive for Proteus and E. coli. She was discharged home on Bactrim which she took for 4 days and then saw her PCP in the office. At that time Bactrim was discontinued and she was given Ceftin which she took for another 3-4 days. Currently she denies any hematuria or dysuria. She did have an episode of vomiting 2 days ago but none since then. Denies recent use of NSAIDs. 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 She does have history of diabetes mellitus which was diagnosed over 30 years ago. Creatinine today is up to 3.32 and potassium is 6.0. Oral intake is good. Denies chest pain or shortness of breath. Vital signs are stable. General: The patient appeared well nourished and normally developed. HEENT: Head exam is unremarkable. Neck is without jugular venous distension. LUNGS: Lungs are clear to auscultation and percussion. Breath sounds decreased. HEART: Rate and Rhythm are regular. First and second heart sounds normal. No murmurs, rubs or gallops. ABDOMEN: Abdominal exam reveals normal bowel sounds. Non-tender and non- distended. No evidence of peritonitis. EXTREMITITES: No clubbing, cyanosis, or edema. Past Medical History Past Medical History: Coronary Artery Disease (CAD), Heart Failure, Diabetes Mellitus, Hyperlipidemia, Hypertension History of Any Multi-Drug Resistant Organisms: None Reported Past Surgical History: Cholecystectomy, Heart Catheterization With Stent, Orthopedic Surgery Additional Past Surgical History / Comment(s): CATARACTS BL knees Hysterctomy bladder suspension Date of Last Stent Placement:: unkown Past Psychological History: No Psychological Hx Reported Smoking Status: Former smoker Past Alcohol Use History: None Reported Past Drug Use History: None Reported Medications and Allergies Home Medications Medication Instructions Recorded Confirmed Type Isosorbide Mononitrate ER [Imdur] 30 mg PO DAILY 07/04/14 08/04/18 History glyBURIDE,MICRONIZED [Glyburide 6 mg PO DAILY 07/04/14 08/04/18 History Micronized] ALPRAZolam [Xanax] 0.25 mg PO TID PRN 11/11/14 08/04/18 History Focus Factor 1 tab PO BID 05/05/18 08/04/18 History Vit C/E/Zn/Coppr/Lutein/Zeaxan 1 cap PO BID 05/05/18 08/04/18 History [Preservision Areds 2 Softgel] Aspirin EC [Ecotrin] 325 mg PO DAILY 07/29/18 08/04/18 History Furosemide [Lasix] 20 mg PO DAILY 07/29/18 08/04/18 History Ibuprofen [Motrin Ib] 200 mg PO Q8H PRN 07/29/18 08/04/18 History Metoprolol Tartrate [Lopressor] 50 mg PO DAILY 07/29/18 08/04/18 History Diphenox-Atrop 2.5-0.025 mg 1 tab PO QID PRN 08/04/18 08/04/18 History [Lomotil] Famotidine [Pepcid] 20 mg PO DAILY 08/04/18 08/04/18 History traMADol HCL [Ultram] 50 - 100 mg PO Q4HR PRN 08/04/18 08/04/18 History Allergies Allergy/AdvReac Type Severity Reaction Status Date / Time zolpidem tartrate AdvReac Severe Hallucinati Verified 08/04/18 12:03 [From Ambien] ons ciprofloxacin [From Cipro] AdvReac Nausea & Verified 08/04/18 12:03 Vomiting Sulfa (Sulfonamide AdvReac Nausea & Verified 08/04/18 12:03 Antibiotics) Vomiting Physical Exam Vitals: Vital Signs Temp Pulse Resp BP Pulse Ox 08/04/18 10:48 97.5 F L 55 L 18 164/60 100 08/04/18 10:45 97.5 F L 55 L 18 164/60 100 Intake and Output 08/03/18 08/04/18 08/04/18 22:59 06:59 14:59 Other: Weight 92.1 kg Results - Lab Results Most recent lab results Calcium 8.6 mg/dL (8.4-10.2) 08/04/18 11:04 08/04/18 11:04 08/04/18 11:04 Assessment and Plan Plan: Assessment: 1. Nonoliguric acute kidney injury mostly prerenal secondary to UTI and Lasix. Additionally she was on Bactrim up until 3 days ago which can falsely elevate the creatinine. Creatinine 3.3 to on admission. Rule out urinary retention. 2. UTI with urine culture positive for E. coli and Proteus from July 29 status post treatment with Bactrim and Ceftin. Currently asymptomatic. 3. Metabolic acidosis secondary to acute kidney injury. 4. Hyperkalemia secondary to acute kidney injury and metabolic acidosis. 5. Insulin-dependent diabetes mellitus. 6. Chronic kidney disease stage IV secondary to diabetic kidney disease with baseline creatinine in the range of 2.3-2.6. 7. Hypertension with chronic kidney disease. Metoprolol resumed. Plan: Start normal saline at 100 mL an hour. I will give her 10 units of IV insulin with an amp of D50 and 2 A of sodium bicarbonate IV push now. Add oral sodium bicarbonate. Low potassium diet. Check bladder scan to rule out urinary retention. Encourage oral intake. Diuretics held. Check UA and urine culture. Follow-up renal ultrasound. Repeat electrolytes in the morning and potassium level this evening. Thank you for the consultation. I will continue to follow the patient with you during her hospital stay.
[2018-08-04 12:22] LABS: Glucose,Whole Blood 59 mg/dL (75-99)
[2018-08-04 13:05] LABS: Glucose,Whole Blood 72 mg/dL (75-99)
--- NOTE | 2018-08-04 13:39 | P.CRDCN ---
History of Present Illness History of present illness: Mrs. Pickens is a pleasant 82-year-old female past medical history significant for coronary artery disease s/p multiple stents, diabetes mellitus, hypertension, chronic kidney disease, carotid artery disease, mitral regurgitation and former nicotine dependence. She follows with Dr. Bowman in the office. We have been asked to see her in consultation for chest pain. She seems slightly confused about the circumstances but her daughter is at the bedside filling in the pieces. Apparently yesterday she had 2 episodes where she was extremely diaphoretic to the point her hair and clothes were wet. She called her daughter who came over and thought her sugar was low and gave her an orange juice then checked her sugar. After the juice her sugar was 92. During that time she was complaining of a discomfort in the midsternal region described as a feeling of someone pressing a thumb against her sternum and holding it there tightly. There was no radiation to the arm, back, neck or jaw. The pain subsided on its own with no specific alleviating factors. She has had no further symptoms of chest pain. She has been following recently with her PCP for a urinary tract infection and outpatient labs revealed creatinineof 3.3 which is change from her baseline of approximately 1.8-2.7. For this reason she was sent to the hospital as a direct admit. EKG reveals sinus bradycardia heart rate [address] or T-wave abnormalities. Chest x-ray is negative for an acute cardiopulmonary process with evidence of possible bronchitis. No heart failure noted. Laboratory data reviewed, hemoglobin 10.4, platelets 188, sodium 139, potassium 6.0, creatinine 3.32, cardiac enzymes negative 1. Current cardiac medication includes aspirin 325 mg daily, Lasix 20 mg daily, Imdur 30 mg daily and metoprolol 50 mg daily. History of cardiac catheterizations include 2000 she received a stent to the proximal ramus as well as proximal OM. 2006 she received a stent to the distal RCA and the proximal OM. Most recent echocardiogram from 2014 revealed mild to moderate mitral regurgitation with ejection fraction 55%. Most recent Lexiscan stress test performed in the office 2014 revealed evidence of reversible anterolateral ischemia. At that time conservative medical management was preferred by the patient as well as Dr. Bowman. Review of Systems At the time of my exam: CONSTITUTIONAL: Denies fever. Denies chills. EYES: Denies blurred vision. Denies vision changes. Denies eye pain. EARS, NOSE, MOUTH & THROAT: Denies headache. Denies sore throat. Denies ear pain. CARDIOVASCULAR: Denies chest pain. Denies shortness of breath. Denies orthopnea. Denies PND. Denies palpitations. RESPIRATORY: Denies cough. GASTROINTESTINAL: Denies abdominal pain. Denies diarrhea. Denies constipation. Denies nausea. Denies vomiting. MUSCULOSKELETAL: Denies myalgias. INTEGUMENTARY: Denies pruitis. Denies rash. NEUROLOGIC: Denies numbness. Denies tingling. Denies weakness. PSYCHIATRIC: Denies anxiety. Denies depression. ENDOCRINE: Denies fatigue. Denies weight change. Denies polydipsia. Denies polyurina. GENITOURINARY: Denies burning, hematuria or urgency with micturation. HEMATOLOGIC: Denies history of anemia. Denies bleeding. Past Medical History Past Medical History: Coronary Artery Disease (CAD), Heart Failure, Diabetes Mellitus, Hyperlipidemia, Hypertension Additional Past Medical History / Comment(s): Pt states yesterday morning she had drenching sweats/slurred speech and vision changes-family gave her OJ and checked blood sugar with result of 92. She had another episode of drenching sweats last evening. She has also recently been having chest discomfort with exertion/shakiness and ALEXANDER. She has been seen by her PCP and told she had a UTI and then was also informed that her labwork showed worsening BUN/ creatinine. Other hx: NIDDM type II, CKD, dry macular degeneration bilaterally , lower leg edema bilaterally, recent fall with small tear achilles tendon and back pain (spur), colovesicular fistula, UTIs. History of Any Multi-Drug Resistant Organisms: None Reported Past Surgical History: Cholecystectomy, Heart Catheterization With Stent, Orthopedic Surgery Additional Past Surgical History / Comment(s): CATARACTS BL knees Hysterctomy bladder suspension Date of Last Stent Placement:: unkown Smoking Status: Former smoker - Past Family History Father Family Medical History: Myocardial Infarction (ID) Mother Family Medical History: Pneumonia Daughter(s) Family Medical History: Cancer Additional Family Medical History / Comment(s): Daughter has GIST Medications and Allergies Home Medications Medication Instructions Recorded Confirmed Type Isosorbide Mononitrate ER [Imdur] 30 mg PO DAILY 07/04/14 08/04/18 History glyBURIDE,MICRONIZED [Glyburide 6 mg PO DAILY 07/04/14 08/04/18 History Micronized] ALPRAZolam [Xanax] 0.25 mg PO TID PRN 11/11/14 08/04/18 History Focus Factor 1 tab PO BID 05/05/18 08/04/18 History Vit C/E/Zn/Coppr/Lutein/Zeaxan 1 cap PO BID 05/05/18 08/04/18 History [Preservision Areds 2 Softgel] Aspirin EC [Ecotrin] 325 mg PO DAILY 07/29/18 08/04/18 History Furosemide [Lasix] 20 mg PO DAILY 07/29/18 08/04/18 History Ibuprofen [Motrin Ib] 200 mg PO Q8H PRN 07/29/18 08/04/18 History Metoprolol Tartrate [Lopressor] 50 mg PO DAILY 07/29/18 08/04/18 History Diphenox-Atrop 2.5-0.025 mg 1 tab PO QID PRN 08/04/18 08/04/18 History [Lomotil] Famotidine [Pepcid] 20 mg PO DAILY 08/04/18 08/04/18 History traMADol HCL [Ultram] 50 - 100 mg PO Q4HR PRN 08/04/18 08/04/18 History Allergies Allergy/AdvReac Type Severity Reaction Status Date / Time zolpidem tartrate AdvReac Severe Hallucinati Verified 08/04/18 12:03 [From Ambien] ons ciprofloxacin [From Cipro] AdvReac Nausea & Verified 08/04/18 12:03 Vomiting Sulfa (Sulfonamide AdvReac Nausea & Verified 08/04/18 12:03 Antibiotics) Vomiting Physical Exam Vitals: Vital Signs Temp Pulse Resp BP Pulse Ox 08/04/18 10:48 97.5 F L 55 L 18 164/60 100 08/04/18 10:45 97.5 F L 55 L 18 164/60 100 Intake and Output 08/03/18 08/04/18 08/04/18 22:59 06:59 14:59 Output Total 760 Balance -760 Output: Post Void Residual 760 Other: Weight 92.1 kg Blood pressure 164/60 heart rate 55 afebrile maintaining oxygen saturation on room air GENERAL: This is a 82-year-old female in no apparent distress at the time of my examination. HEENT: Head is atraumatic, normocephalic. Pupils are equal, round. Sclerae anicteric. Conjunctivae are clear. Mucous membranes of the mouth are moist. Neck is supple. There is no jugular venous distention. No carotid bruit is heard. LUNGS: Clear to auscultation no wheezes, rales or rhonchi. No chest wall tenderness is noted on palpation or with deep breathing. Diminished bilaterally. HEART: Regular rate and rhythm without murmurs, rubs or gallops. S1 and S2 heard. ABDOMEN: Soft, nontender. Bowel sounds are heard. No organomegaly noted. EXTREMITIES: No evidence of peripheral edema and no calf tenderness noted. VASCULAR: Radial and dorsalis pedis pulses palpated, no evidence of clubbing. NEUROLOGIC: Patient is awake, alert and oriented x3. Results 08/04/18 11:04 08/04/18 11:04 Cardiac Enzymes 08/04/18 08/04/18 Range/Units 11:04 11:04 AST 29 (14-36) U/L CK-MB (CK-2) 1.5 (0.0-2.4) ng/mL Troponin I <0.012 (0.000-0.034) ng/mL CBC 08/04/18 Range/Units 11:04 WBC 6.3 (3.8-10.6) k/uL RBC 3.84 (3.80-5.40) m/uL Hgb 10.4 L (11.4-16.0) gm/dL Hct 37.3 (34.0-46.0) % Plt Count 188 (150-450) k/uL Comprehensive Metabolic Panel 08/04/18 Range/Units 11:04 Sodium 139 (137-145) mmol/L Potassium 6.0 H (3.5-5.1) mmol/L Chloride 109 H (98-107) mmol/L Carbon Dioxide 20 L (22-30) mmol/L BUN 68 H (7-17) mg/dL Creatinine 3.32 H (0.52-1.04) mg/dL Glucose 56 L (74-99) mg/dL Calcium 8.6 (8.4-10.2) mg/dL AST 29 (14-36) U/L ALT 27 (9-52) U/L Alkaline Phosphatase 97 (38-126) U/L Total Protein 6.8 (6.3-8.2) g/dL Albumin 3.7 (3.5-5.0) g/dL Current Medications Generic Name Dose Route Start Last Admin Trade Name Freq PRN Reason Stop Dose Admin Acetaminophen 650 mg 08/04/18 10:23 Tylenol Tab PO Q4HR PRN Mild Pain Alprazolam 0.25 mg 08/04/18 11:08 Xanax PO TID PRN Anxiety Aspirin 325 mg 08/04/18 11:15 Aspirin PO DAILY [facility] Heparin Sodium (Porcine) 5,000 unit 08/04/18 16:00 Heparin SQ Q8HR [facility] Sodium Chloride 1,000 mls @ 100 mls/hr 08/04/18 10:30 Saline 0.9% IV .Q10H [facility] Insulin Aspart 0 unit 08/04/18 12:30 Novolog SQ ACHS [facility] Protocol Isosorbide Mononitrate 30 mg 08/04/18 11:15 Imdur PO DAILY [facility] Metoprolol Tartrate 50 mg 08/04/18 11:15 Lopressor PO DAILY [facility] Naloxone HCl 0.2 mg 08/04/18 10:28 Narcan IV Q2M PRN Opioid Reversal Ondansetron HCl 4 mg 08/04/18 10:28 Zofran IVP Q8HR PRN Nausea And Vomiting Sodium Bicarbonate 650 mg 08/04/18 12:00 Sodium Bicarbonate Tab PO BID JANICE Intake and Output 08/03/18 08/04/18 08/04/18 22:59 06:59 14:59 Output Total 760 Balance -760 Output: Post Void Residual 760 Other: Weight 92.1 kg Patient Weight 08/05/18 06:59 Weight 92.1 kg 08/04/18 11:04 08/04/18 11:04 Assessment and Plan Assessment: ASSESSMENT Chest pain, atypical for angina. Acute on chronic kidney disease Hyperkalemia Urinary tract infection History of coronary artery disease s/p multiple stent placements Hypertension Diabetes mellitus Mitral regurgitation History of carotid artery disease followed by Dr. Oshea with serial doppler studies. PLAN Obtain 2D echocardiogram and doppler study to assess cardiac structure and function. Obtain serial cardiac enzymes to rule out an acute coronary event. Continue with lopressor, imdur and aspirin at home doses. Add amlodipine 5 mg for blood pressure control. Cautious fluid administration. We will continue to follow closely and make recommendations accordingly. Thank you kindly for this consultation. Nurse Practitioner note has been reviewed, I agree with a documented findings and plan of care. Patient was seen and examined.
[2018-08-04] MEDS: INSULIN ASPART 100 UNIT/ML 1 ML 10 ML VIAL SQ SCH ×3 (15:15→20:49)
[2018-08-04] MEDS: ISOSORBIDE MONONITRATE ER 30 MG TAB.ER.24H PO SCH (15:19)
[2018-08-04] MEDS: METOPROLOL TARTRATE 50 MG TAB PO SCH (15:19)
[2018-08-04] MEDS: ACETAMINOPHEN TAB 325 MG TAB PO PRN (15:19)
[2018-08-04] MEDS: ASPIRIN 325 MG TAB PO SCH (15:21)
[2018-08-04 17:21] LABS: Glucose,Whole Blood 133 mg/dL (75-99)
[2018-08-04] MEDS: SODIUM BICARBONATE TAB 650 MG TAB PO SCH ×2 (17:46→20:52)
[2018-08-04] MEDS: amLODIPine 5 MG TAB PO SCH (17:47)
[2018-08-04] MEDS: SODIUM CHLORIDE 0.9% 1,000 ML IV SCH ×2 (17:47→20:53)
[2018-08-04] MEDS: HEPARIN SODIUM,PORCINE 5,000 UNIT/ML 1 ML VIAL SQ SCH ×2 (18:13→22:49)
[2018-08-04 18:32] LABS: Creatine Kinase 41 U/L (30-135)
[2018-08-04 18:45] LABS: Creatine Kinase MB 1.5 ng/mL (0.0-2.4); Troponin I <0.012 ng/mL (0.000-0.034)
[2018-08-04 20:33] LABS: Glucose,Whole Blood 93 mg/dL (75-99)
[2018-08-04] MEDS: HYDROcodone/APAP 5-325MG 1 EACH TAB PO PRN (20:52)
[2018-08-04] MEDS: MELATONIN 3 MG TABLET PO SCH (20:53)
[2018-08-04 23:13] LABS: Creatine Kinase 39 U/L (30-135)
[2018-08-04 23:26] LABS: Creatine Kinase MB 1.2 ng/mL (0.0-2.4); Troponin I <0.012 ng/mL (0.000-0.034)
--- NOTE | 2018-08-04 23:34 | US ---
EXAMINATION TYPE: US renals and bladder DATE OF EXAM: 08/04/2018 COMPARISON: NONE CLINICAL HISTORY: MILAD on CKD/UTI . UTI EXAM MEASUREMENTS: Right Kidney: 10.0 x 4.7 x 3.8 cm Left Kidney: 8.9 x 3.4 x 3.0 cm Right Kidney: Cortical thinning lobulated cortex ill defined borders. Left Kidney: Atrophic ill defined borders. Anechoic area seen LP 1.4 x 1.4 x 1.1cm. Bladder: Anechoic not fully distended. Echogenic area with shadowing seen bladder area. Bilateral Jets seen: No There is no evidence for hydronephrosis at this point in time. No nephrolithiasis is seen. The urina ry bladder is anechoic. IMPRESSION: There is bilateral renal cortical atrophy. No hydronephrosis. Left renal cortical cyst.
[2018-08-05] MEDS: ALPRAZolam 0.25 MG TAB PO PRN (00:52)
[2018-08-05] MEDS ORDERED: ALPRAZolam 0.5 MG TAB PO STA (04:56)
[2018-08-05 06:54] LABS: Glucose,Whole Blood 77 mg/dL (75-99)
[2018-08-05] MEDS: SODIUM CHLORIDE 0.9% 1,000 ML IV SCH ×2 (07:01→16:54)
[2018-08-05] MEDS: INSULIN ASPART 100 UNIT/ML 1 ML 10 ML VIAL SQ SCH ×4 (07:42→20:31)
[2018-08-05] MEDS: HEPARIN SODIUM,PORCINE 5,000 UNIT/ML 1 ML VIAL SQ SCH ×3 (07:57→23:29)
[2018-08-05] MEDS: HYDROcodone/APAP 5-325MG 1 EACH TAB PO PRN ×2 (07:57→20:30)
[2018-08-05] MEDS: amLODIPine 5 MG TAB PO SCH ×3 (07:58→15:56)
[2018-08-05] MEDS: ASPIRIN 325 MG TAB PO SCH (07:58)
[2018-08-05] MEDS: METOPROLOL TARTRATE 50 MG TAB PO SCH (07:58)
[2018-08-05] MEDS: ISOSORBIDE MONONITRATE ER 30 MG TAB.ER.24H PO SCH (07:58)
[2018-08-05 08:56] LABS: Calcium 7.9 mg/dL (8.4-10.2); Phosphorus 4.9 mg/dL (2.5-4.5); Potassium 5.9 mmol/L (3.5-5.1)
[2018-08-05] MEDS ORDERED: SODIUM BICARB 8.4% 50 ML SYR (1 MEQ/ML) IV STA (09:07)
[2018-08-05] MEDS ORDERED: DEXTROSE 50%-WATER 50 ML SYRINGE IVP STA ×2 (09:12→15:20)
[2018-08-05] MEDS ORDERED: INSULIN REGULAR 100 UNIT/ML VIAL SQ ONE (09:12)
[2018-08-05] MEDS ORDERED: INSULIN REGULAR 100 UNIT/ML VIAL IV ONE ×2 (09:44→15:20)
[2018-08-05] MEDS: SODIUM BICARBONATE TAB 650 MG TAB PO SCH ×2 (09:47→21:46)
--- NOTE | 2018-08-05 10:13 | P.PN ---
Subjective Patient is seen in follow-up for acute kidney injury on chronic kidney disease. 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 Patient presented to the hospital with generalized weakness and dizziness which have improved. Patient was hyperkalemic which has improved with medical management. Creatinine today is 3.4 and potassium is 5.9. She is noted to have urinary retention with postvoid residual of over 400 mL and had a Jenkins catheter placed this morning. Denies chest pain or shortness of breath. Oral intake is fair. Vital signs are stable. General: The patient appeared well nourished and normally developed. HEENT: Head exam is unremarkable. Neck is without jugular venous distension. LUNGS: Lungs are clear to auscultation and percussion. Breath sounds decreased. HEART: Rate and Rhythm are regular. First and second heart sounds normal. No murmurs, rubs or gallops. ABDOMEN: Abdominal exam reveals normal bowel sounds. Non-tender and non- distended. No evidence of peritonitis. EXTREMITITES: No clubbing, cyanosis, or edema. Objective - Vital Signs Vital signs: Vital Signs Temp 97.9 F 08/05/18 07:30 Pulse 57 L 08/05/18 07:30 Resp 18 08/05/18 08:00 BP 129/55 08/05/18 07:30 Pulse Ox 95 08/05/18 07:30 Intake & Output 08/04/18 08/05/18 08/05/18 18:59 06:59 18:59 Intake Total 240 336 Output Total 1 400 855 Balance 239 -400 -519 Weight 92.1 kg Intake: Oral 240 236 Other 100 Output: Urine 400 450 Straight 400 450 Post Void Residual 404 Stool 1 1 Other: Voiding Method Toilet Toilet Toilet Diaper Diaper Diaper # Voids 1 1 1 - Labs CBC & Chem 7: 08/04/18 11:04 08/05/18 07:39 Labs: Abnormal Lab Results - Last 24 Hours (Table) 08/04/18 08/04/18 08/04/18 Range/Units 10:40 11:04 11:04 Hgb 10.4 L (11.4-16.0) gm/dL MCHC 27.8 L (31.0-37.0) g/dL Potassium 6.0 H (3.5-5.1) mmol/L Chloride 109 H (98-107) mmol/L Carbon Dioxide 20 L (22-30) mmol/L BUN 68 H (7-17) mg/dL Creatinine 3.32 H (0.52-1.04) mg/dL Glucose 56 L (74-99) mg/dL POC Glucose (mg/dL) (75-99) mg/dL Calcium (8.4-10.2) mg/dL Phosphorus (2.5-4.5) mg/dL LDL Cholesterol, Calc (0-99) mg/dL HDL Cholesterol (40-60) mg/dL Urine Protein Trace H (Negative) Ur Leukocyte Esterase Small H (Negative) Urine WBC 8 H (0-5) /hpf Urine Bacteria Rare H (None) /hpf 08/04/18 08/04/18 08/04/18 Range/Units 12:01 12:20 13:02 Hgb (11.4-16.0) gm/dL MCHC (31.0-37.0) g/dL Potassium (3.5-5.1) mmol/L Chloride (98-107) mmol/L Carbon Dioxide (22-30) mmol/L BUN (7-17) mg/dL Creatinine (0.52-1.04) mg/dL Glucose (74-99) mg/dL POC Glucose (mg/dL) 57 L 59 L 72 L (75-99) mg/dL Calcium (8.4-10.2) mg/dL Phosphorus (2.5-4.5) mg/dL LDL Cholesterol, Calc (0-99) mg/dL HDL Cholesterol (40-60) mg/dL Urine Protein (Negative) Ur Leukocyte Esterase (Negative) Urine WBC (0-5) /hpf Urine Bacteria (None) /hpf 08/04/18 08/04/18 08/05/18 Range/Units 17:18 22:14 07:39 Hgb (11.4-16.0) gm/dL MCHC (31.0-37.0) g/dL Potassium 6.2 H* 5.9 H (3.5-5.1) mmol/L Chloride 108 H (98-107) mmol/L Carbon Dioxide (22-30) mmol/L BUN 70 H (7-17) mg/dL Creatinine 3.40 H (0.52-1.04) mg/dL Glucose 68 L (74-99) mg/dL POC Glucose (mg/dL) 133 H (75-99) mg/dL Calcium 7.9 L (8.4-10.2) mg/dL Phosphorus 4.9 H (2.5-4.5) mg/dL LDL Cholesterol, Calc 103 H (0-99) mg/dL HDL Cholesterol 37 L (40-60) mg/dL Urine Protein (Negative) Ur Leukocyte Esterase (Negative) Urine WBC (0-5) /hpf Urine Bacteria (None) /hpf Microbiology - Last 24 Hours (Table) 08/04/18 10:40 Urine Culture - Preliminary Urine,Voided Assessment and Plan Plan: Assessment: 1. Nonoliguric acute kidney injury mostly prerenal secondary to UTI and Lasix. Also component of urinary retention. Additionally she was on Bactrim up until 3 days ago which can falsely elevate the creatinine. Creatinine 3.3 to on admission and is 3.4 today. No evidence of hydronephrosis noted on renal ultrasound. 2. UTI with urine culture positive for E. coli and Proteus from July 29 status post treatment with Bactrim and Ceftin. Currently asymptomatic. 3. Metabolic acidosis secondary to acute kidney injury. Improved. 4. Hyperkalemia secondary to acute kidney injury and metabolic acidosis. Improved. 5. Insulin-dependent diabetes mellitus. 6. Chronic kidney disease stage IV secondary to diabetic kidney disease with baseline creatinine in the range of 2.3-2.6. Cortical thinning noted on renal ultrasound suggestive of underlying chronic kidney disease. 7. Hypertension with chronic kidney disease. Metoprolol resumed. 8. Urinary retention status post Jenkins catheter placement this morning. 9. Hyperphosphatemia secondary to acute kidney injury. Plan: I will decrease rate of normal saline to 70 mL an hour. I will give her 10 units of IV insulin with an amp of D50 and 2 A of sodium bicarbonate IV push today again. Maintain oral sodium bicarbonate. Low potassium diet. Diuretics held. Repeat potassium level this afternoon. Maintain Jenkins catheter. Add PhosLo twice daily with meals.
--- NOTE | 2018-08-05 10:45 | ECHOF ---
Referral Reason:cp MEASUREMENTS -------- HEIGHT: 154.9 cm WEIGHT: 92.1 kg BP: 164/60 RVIDd: 3.1 cm (< 3.3) IVSd: 1.2 cm (0.6 - 1.1) LVIDd: 5.2 cm (3.9 - 5.3) LVPWd: 1.2 cm (0.6 - 1.1) IVSs: 1.6 cm LVIDs: 3.8 cm LVPWs: 1.6 cm LAESV Index (A-L): 48.26 ml/m Ao Diam: 2.6 cm (2.0 - 3.7) AV Cusp: 1.6 cm (1.5 - 2.6) LA Diam: 3.2 cm (2.7 - 3.8) EPSS: 0.8 cm MV E Cali: 0.60 m/s MV DecT: 567 ms MV A Cali: 0.97 m/s MV E/A Ratio: 0.62 RAP: 5.00 mmHg RVSP: 15.32 mmHg MV EF SLOPE: 97.73 mm/s (70 - 150) MV EXCURSION: 0.58 cm (> 18.000) FINDINGS -------- Resting bradycardia (HR<60bpm). This was a technically adequate study. The left ventricular size is normal. There is mild concentric left ventricular hypertrophy. Overa ll left ventricular systolic function is normal with, an EF between 55 - 60 %. The right ventricle is normal in size and function. LA is severely dilated >40 ml/m2 The right atrium is normal in size. Aortic valve is trileaflet and is mildly thickened. There is no evidence of aortic regurgitation. There is no evidence of aortic stenosis. The mitral valve leaflets are mildly thickened. Mild mitral regurgitation is present. Trace tricuspid regurgitation present. Right ventricular systolic pressure is normal at < 35 mmHg. There is no evidence of pulmonary hypertension. The pulmonic valve was not well visualized. The aortic root size is normal. Normal inferior vena cava with normal inspiratory collapse consistent with estimated right atrial pre ssure of 5 mmHg. There is no pericardial effusion. CONCLUSIONS -------- 1. Resting bradycardia (HR<60bpm). 2. This was a technically adequate study. 3. The left ventricular size is normal. 4. There is mild concentric left ventricular hypertrophy. 5. Overall left ventricular systolic function is normal with, an EF between 55 - 60 %. 6. LA is severely dilated >40 ml/m2 7. Aortic valve is trileaflet and is mildly thickened. 8. The mitral valve leaflets are mildly thickened. 9. Mild mitral regurgitation is present. 10. Trace tricuspid regurgitation present. 11. Right ventricular systolic pressure is normal at < 35 mmHg. 12. There is no evidence of pulmonary hypertension. 13. The pulmonic valve was not well visualized. 14. The aortic root size is normal. 15. There is no pericardial effusion. ACCESS SERVICE REPRESENTATIVE: Mc Soliman RDCS
--- NOTE | 2018-08-05 12:12 | P.PN ---
Subjective Progress Note Date: 08/05/18 Patient reports feeling much better today, denies any chest pain or shortness of breath this morning. Has been doing good with her diet. No acute events overnight. Creatinine up to 3.4, potassium as high as 6.2 overnight now at 5.9 this a.m.. Objective - Vital Signs Vital signs: Vital Signs Temp 97.5 F L 08/05/18 11:31 Pulse 52 L 08/05/18 11:31 Resp 18 08/05/18 11:31 BP 116/53 08/05/18 11:31 Pulse Ox 95 08/05/18 11:31 Intake & Output 08/04/18 08/05/18 08/05/18 18:59 06:59 18:59 Intake Total 240 336 Output Total 1 400 855 Balance 239 -400 -519 Weight 92.1 kg Intake: Oral 240 236 Other 100 Output: Urine 400 450 Straight 400 450 Post Void Residual 404 Stool 1 1 Other: Voiding Method Toilet Toilet Toilet Diaper Diaper Diaper # Voids 1 1 1 - Exam Constitutional: No acute distress, conversant, pleasant Eyes: Anicteric sclerae, moist conjunctiva, no lid-lag, PERRLA ENMT: NC/AT,Oropharynx clear, no erythema, exudates Neck:Supple, FROM, no masses, or JVD, No carotid bruits; No thyromegaly Lungs: Clear to auscultation, Clear to percussion, Normal respiratory effort, no accessory muscle use Cardiovascular: Heart regular in rate and rhythm, No murmurs, gallops, or rubs no peripheral edema Abdominal: Soft Nontender, nom distended, no guarding, no rebound or rigidity, Normoactive bowel sounds No hepatomegaly, No splenomegaly, No palpable mass No abdominal wall hernia noted Skin: Normal temperature, tone, texture, turgor, No induration No subcutaneous nodules, No rash, lesions, No ulcers Extremities:No digital cyanosis No clubbing, Pedal pulses intact and symmetrical Radial pulses intact and symmetrical Normal gait and station, No calf tenderness Psychiatric: Alert and oriented to person, place and time, Appropriate affect Intact judgement Neuro: Muscles Strength 5/5 in all 4 extremities, Sensation to light touch grossly present throughout, Cranial nerves II-XII grossly intact. No focal sensory deficits - Labs CBC & Chem 7: 08/04/18 11:04 08/05/18 07:39 Labs: Abnormal Lab Results - Last 24 Hours (Table) 08/04/18 08/04/18 08/04/18 Range/Units 10:40 12:01 12:20 Potassium (3.5-5.1) mmol/L Chloride (98-107) mmol/L BUN (7-17) mg/dL Creatinine (0.52-1.04) mg/dL Glucose (74-99) mg/dL POC Glucose (mg/dL) 57 L 59 L (75-99) mg/dL Calcium (8.4-10.2) mg/dL Phosphorus (2.5-4.5) mg/dL LDL Cholesterol, Calc (0-99) mg/dL HDL Cholesterol (40-60) mg/dL Urine Protein Trace H (Negative) Ur Leukocyte Esterase Small H (Negative) Urine WBC 8 H (0-5) /hpf Urine Bacteria Rare H (None) /hpf 08/04/18 08/04/18 08/04/18 Range/Units 13:02 17:18 22:14 Potassium 6.2 H* (3.5-5.1) mmol/L Chloride (98-107) mmol/L BUN (7-17) mg/dL Creatinine (0.52-1.04) mg/dL Glucose (74-99) mg/dL POC Glucose (mg/dL) 72 L 133 H (75-99) mg/dL Calcium (8.4-10.2) mg/dL Phosphorus (2.5-4.5) mg/dL LDL Cholesterol, Calc (0-99) mg/dL HDL Cholesterol (40-60) mg/dL Urine Protein (Negative) Ur Leukocyte Esterase (Negative) Urine WBC (0-5) /hpf Urine Bacteria (None) /hpf 08/05/18 Range/Units 07:39 Potassium 5.9 H (3.5-5.1) mmol/L Chloride 108 H (98-107) mmol/L BUN 70 H (7-17) mg/dL Creatinine 3.40 H (0.52-1.04) mg/dL Glucose 68 L (74-99) mg/dL POC Glucose (mg/dL) (75-99) mg/dL Calcium 7.9 L (8.4-10.2) mg/dL Phosphorus 4.9 H (2.5-4.5) mg/dL LDL Cholesterol, Calc 103 H (0-99) mg/dL HDL Cholesterol 37 L (40-60) mg/dL Urine Protein (Negative) Ur Leukocyte Esterase (Negative) Urine WBC (0-5) /hpf Urine Bacteria (None) /hpf Microbiology - Last 24 Hours (Table) 08/04/18 10:40 Urine Culture - Preliminary Urine,Voided Assessment and Plan (1) Atypical chest pain Narrative/Plan: * EKG negative for any sedation acute ischemia, troponins have been less than 0.012 sequentially * History of coronary artery disease with multiple stenting, most recent Lexiscan stress test in 2014 showing reversible ischemia, 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 medical therapy * Echocardiogram showing ejection fraction of 55-60%, severely dilated left atrium * Continue antiplatelet therapy with aspirin, continue Lopressor, Imdur and Norvasc added for improved blood pressure control Current Visit: Yes Status: Acute Code(s): R07.89 - OTHER CHEST PAIN SNOMED Code(s): 643709909 (2) Acute kidney injury superimposed on chronic kidney disease Narrative/Plan: * Acute kidney injury superimposed on CKD stage IV likely prerenal secondary to previous UTI Lasix and being on Bactrim nephrology following * Continue fluids NS at 70 mL an hour * Patient with mild hyperkalemia 5.9 today patient to receive IV insulin with an amp of D50 and 2 A of sodium bicarb * Renal ultrasound indicating chronic kidney disease * Patient with urinary retention Jenkins catheter placed this morning Current Visit: Yes Status: Acute Code(s): N17.9 - ACUTE KIDNEY FAILURE, UNSPECIFIED; N18.9 - CHRONIC KIDNEY DISEASE, UNSPECIFIED SNOMED Code(s): 16769265 (3) Type 2 diabetes mellitus with peripheral neuropathy Narrative/Plan: * Blood sugars tightly controlled continue with sliding scale coverage as needed Current Visit: Yes Status: Acute Code(s): E11.42 - TYPE 2 DIABETES MELLITUS WITH DIABETIC POLYNEUROPATHY SNOMED Code(s): 0495358754581 (4) Urinary tract infection Narrative/Plan: * Previous urinary tract infection appears to be treated * Repeat UA on this admission not suggestive of an acute infection culture still pending Current Visit: No Status: Acute Code(s): N39.0 - URINARY TRACT INFECTION, SITE NOT SPECIFIED SNOMED Code(s): 78658170 (5) Urinary retention Narrative/Plan: * A Jenkins catheter placed, consult urology Dr. rios for further recommendations Current Visit: Yes Status: Acute Code(s): R33.9 - RETENTION OF URINE, UNSPECIFIED SNOMED Code(s): 259474630 Plan: Disposition * Anticipated discharge in 1-2 days
[2018-08-05] MEDS: CALCIUM ACETATE 667 MG CAP PO SCH ×2 (12:18→18:22)
[2018-08-05 12:19] LABS: Glucose,Whole Blood 72 mg/dL (75-99)
--- NOTE | 2018-08-05 15:08 | P.PN ---
Subjective Patient is seen and examined in no acute distress. Denies chest pain, shortness of breath, dizziness or palpitations. Cardiac enzymes negative 3, echocardiogram obtained reveals preserved left ventricular systolic function with ejection fraction 55-60%. Blood pressure after receiving amlodipine 94/44 117/51. Laboratory data reviewed, potassium 5.9, creatinine 3.4, LDL 103 and HDL 37. Objective - Vital Signs Vital signs: Vital Signs Temp 97.5 F L 08/05/18 11:31 Pulse 60 08/05/18 14:51 Resp 18 08/05/18 12:00 BP 114/45 08/05/18 14:51 Pulse Ox 95 08/05/18 11:31 Intake & Output 08/04/18 08/05/18 08/05/18 18:59 06:59 18:59 Intake Total 240 576 Output Total 1 400 855 Balance 239 -400 -279 Weight 92.1 kg Intake: Oral 240 476 Other 100 Output: Urine 400 450 Straight 400 450 Post Void Residual 404 Stool 1 1 Other: Voiding Method Toilet Toilet Toilet Diaper Diaper Diaper # Voids 1 1 1 # Bowel Movements 1 - Exam GENERAL: Well-appearing, well-nourished and in no acute distress. NECK: Supple without JVD or thyromegaly. LUNGS: Breath sounds clear to auscultation bilaterally. Respiration equal and unlabored. No wheezes, rales or rhonchi. HEART: Regular rate and rhythm without murmurs, rubs or gallops. S1 and S2 heard. EXTREMITIES: Normal range of motion, no edema. No clubbing or cyanosis. Peripheral pulses intact. - Labs CBC & Chem 7: 08/04/18 11:04 08/05/18 07:39 Labs: Abnormal Lab Results - Last 24 Hours (Table) 08/04/18 08/04/18 08/05/18 Range/Units 17:18 22:14 07:39 Potassium 6.2 H* 5.9 H (3.5-5.1) mmol/L Chloride 108 H (98-107) mmol/L BUN 70 H (7-17) mg/dL Creatinine 3.40 H (0.52-1.04) mg/dL Glucose 68 L (74-99) mg/dL POC Glucose (mg/dL) 133 H (75-99) mg/dL Calcium 7.9 L (8.4-10.2) mg/dL Phosphorus 4.9 H (2.5-4.5) mg/dL LDL Cholesterol, Calc 103 H (0-99) mg/dL HDL Cholesterol 37 L (40-60) mg/dL 08/05/18 Range/Units 12:17 Potassium (3.5-5.1) mmol/L Chloride (98-107) mmol/L BUN (7-17) mg/dL Creatinine (0.52-1.04) mg/dL Glucose (74-99) mg/dL POC Glucose (mg/dL) 72 L (75-99) mg/dL Calcium (8.4-10.2) mg/dL Phosphorus (2.5-4.5) mg/dL LDL Cholesterol, Calc (0-99) mg/dL HDL Cholesterol (40-60) mg/dL Microbiology - Last 24 Hours (Table) 08/04/18 10:40 Urine Culture - Final Urine,Voided Assessment and Plan Assessment: ASSESSMENT Chest pain, atypical for angina. Acute on chronic kidney disease Hyperkalemia Urinary tract infection History of coronary artery disease s/p multiple stent placements Hypertension Diabetes mellitus Mitral regurgitation History of carotid artery disease followed by Dr. Oshea with serial doppler studies. PLAN An acute coronary event has been ruled out. Discontinue amlodipine. Ongoing medical management of acute kidney injury and hyperkalemia. Conservative management from cardiac perspective. Follow up with Dr. Bowman upon discharge. Nurse Practitioner note has been reviewed, I agree with a documented findings and plan of care. Patient was seen and examined.
[2018-08-05] MEDS ORDERED: FUROSEMIDE 10 MG/ML 2 ML VIAL IV ONE (15:20)
--- NOTE | 2018-08-05 16:09 | P.GSCN ---
History of Present Illness Consult date: 08/05/18 History of present illness: The patient is an 82-year-old female who is in the hospital because of persistent urine infection and progression of her chronic renal failure. We are asked see the patient for incomplete bladder emptying. The patient had several episodes of 4-500 mL urine and the catheters placed. She has seen in the past for bladder issues. We are asked see the patient. The patient describes chronic incomplete bladder emptying prior to admission. She has frequent urination. She has chronic incontinence. She had an ultrasound that did not show any evidence of hydronephrosis. I do not think the incomplete bladder emptying is causing the renal insufficiency directly however incomplete treatment of infection could indeed contribute to this. She has intermittent constipation. She has no major back issues. Review of Systems - Constitutional Reports fatigue, Reports fever, Reports malaise - Genitourinary Genitourinary: Reports as per HPI Past Medical History Past Medical History: Coronary Artery Disease (CAD), Heart Failure, Diabetes Mellitus, Hyperlipidemia, Hypertension Additional Past Medical History / Comment(s): Pt states yesterday morning she had drenching sweats/slurred speech and vision changes-family gave her OJ and checked blood sugar with result of 92. She had another episode of drenching sweats last evening. She has also recently been having chest discomfort with exertion/shakiness and ALEXANDER. She has been seen by her PCP and told she had a UTI and then was also informed that her labwork showed worsening BUN/ creatinine. Other hx: NIDDM type II, CKD, dry macular degeneration bilaterally , lower leg edema bilaterally, recent fall with small tear achilles tendon and back pain (spur), colovesicular fistula, UTIs. History of Any Multi-Drug Resistant Organisms: None Reported Past Surgical History: Cholecystectomy, Heart Catheterization With Stent, Orthopedic Surgery Additional Past Surgical History / Comment(s): CATARACTS BL knees Hysterctomy bladder suspension Date of Last Stent Placement:: unkown Past Psychological History: No Psychological Hx Reported Smoking Status: Former smoker Past Alcohol Use History: None Reported Past Drug Use History: None Reported - Past Family History Father Family Medical History: Myocardial Infarction ([place]) Mother Family Medical History: Pneumonia Daughter(s) Family Medical History: Cancer Additional Family Medical History / Comment(s): Daughter has GIST Medications and Allergies Home Medications Medication Instructions Recorded Confirmed Type Isosorbide Mononitrate ER [Imdur] 30 mg PO DAILY 07/04/14 08/04/18 History glyBURIDE,MICRONIZED [Glyburide 6 mg PO DAILY 07/04/14 08/04/18 History Micronized] ALPRAZolam [Xanax] 0.25 mg PO TID PRN 11/11/14 08/04/18 History Focus Factor 1 tab PO BID 05/05/18 08/04/18 History Vit C/E/Zn/Coppr/Lutein/Zeaxan 1 cap PO BID 05/05/18 08/04/18 History [Preservision Areds 2 Softgel] Aspirin EC [Ecotrin] 325 mg PO DAILY 07/29/18 08/04/18 History Furosemide [Lasix] 20 mg PO DAILY 07/29/18 08/04/18 History Ibuprofen [Motrin Ib] 200 mg PO Q8H PRN 07/29/18 08/04/18 History Metoprolol Tartrate [Lopressor] 50 mg PO DAILY 07/29/18 08/04/18 History Diphenox-Atrop 2.5-0.025 mg 1 tab PO QID PRN 08/04/18 08/04/18 History [Lomotil] Famotidine [Pepcid] 20 mg PO DAILY 08/04/18 08/04/18 History traMADol HCL [Ultram] 50 - 100 mg PO Q4HR PRN 08/04/18 08/04/18 History Allergies Allergy/AdvReac Type Severity Reaction Status Date / Time zolpidem tartrate AdvReac Severe Hallucinati Verified 08/04/18 12:03 [From Ambien] ons ciprofloxacin [From Cipro] AdvReac Nausea & Verified 08/04/18 12:03 Vomiting Sulfa (Sulfonamide AdvReac Nausea & Verified 08/04/18 12:03 Antibiotics) Vomiting Surgical - Exam Vital Signs Temp Pulse Resp BP Pulse Ox 97.5 F L 55 L 18 164/60 100 08/04/18 10:45 08/04/18 10:45 08/04/18 10:45 08/04/18 10:45 08/04/18 10:45 - General well developed, well nourished, no distress - Eyes PERRL - ENT no hearing loss - Neck no masses, trachea midline - Respiratory normal expansion, normal respiratory effort - Cardiovascular Rhythm: regular Heart Sounds: normal: S2 - Abdomen Abdomen: soft, non tender - Genitourinary Patient has indwelling catheter. She has a grade 2-3 rectocele and a grade 1 cystocele - Neurologic normal coordination, normal sensation - Musculoskeletal normal posture - Psychiatric oriented to time, oriented to person, oriented to place, speech is normal, memory intact Results - Labs 08/04/18 11:04 08/05/18 14:32 Abnormal Lab Results - Last 24 Hours (Table) 08/04/18 08/04/18 08/05/18 Range/Units 17:18 22:14 07:39 Potassium 6.2 H* 5.9 H (3.5-5.1) mmol/L Chloride 108 H (98-107) mmol/L BUN 70 H (7-17) mg/dL Creatinine 3.40 H (0.52-1.04) mg/dL Glucose 68 L (74-99) mg/dL POC Glucose (mg/dL) 133 H (75-99) mg/dL Calcium 7.9 L (8.4-10.2) mg/dL Phosphorus 4.9 H (2.5-4.5) mg/dL LDL Cholesterol, Calc 103 H (0-99) mg/dL HDL Cholesterol 37 L (40-60) mg/dL 08/05/18 08/05/18 Range/Units 12:17 14:32 Potassium 5.6 H (3.5-5.1) mmol/L Chloride (98-107) mmol/L BUN (7-17) mg/dL Creatinine (0.52-1.04) mg/dL Glucose (74-99) mg/dL POC Glucose (mg/dL) 72 L (75-99) mg/dL Calcium (8.4-10.2) mg/dL Phosphorus (2.5-4.5) mg/dL LDL Cholesterol, Calc (0-99) mg/dL HDL Cholesterol (40-60) mg/dL Microbiology - Last 24 Hours (Table) 08/04/18 10:40 Urine Culture - Final Urine,Voided Diabetes panel 08/04/18 08/05/18 08/05/18 Range/Units 22:14 07:39 14:32 Sodium 139 (137-145) mmol/L Potassium 6.2 H* 5.9 H 5.6 H (3.5-5.1) mmol/L Chloride 108 H (98-107) mmol/L Carbon Dioxide 22 (22-30) mmol/L BUN 70 H (7-17) mg/dL Creatinine 3.40 H (0.52-1.04) mg/dL Glucose 68 L (74-99) mg/dL Calcium 7.9 L (8.4-10.2) mg/dL Triglycerides 105 (<150) mg/dL HDL Cholesterol 37 L (40-60) mg/dL Calcium panel 08/05/18 Range/Units 07:39 Calcium 7.9 L (8.4-10.2) mg/dL Phosphorus 4.9 H (2.5-4.5) mg/dL Pituitary panel 08/04/18 08/05/18 08/05/18 Range/Units 22:14 07:39 14:32 Sodium 139 (137-145) mmol/L Potassium 6.2 H* 5.9 H 5.6 H (3.5-5.1) mmol/L Chloride 108 H (98-107) mmol/L Carbon Dioxide 22 (22-30) mmol/L BUN 70 H (7-17) mg/dL Creatinine 3.40 H (0.52-1.04) mg/dL Glucose 68 L (74-99) mg/dL Calcium 7.9 L (8.4-10.2) mg/dL Adrenal panel 08/04/18 08/05/18 08/05/18 Range/Units 22:14 07:39 14:32 Sodium 139 (137-145) mmol/L Potassium 6.2 H* 5.9 H 5.6 H (3.5-5.1) mmol/L Chloride 108 H (98-107) mmol/L Carbon Dioxide 22 (22-30) mmol/L BUN 70 H (7-17) mg/dL Creatinine 3.40 H (0.52-1.04) mg/dL Glucose 68 L (74-99) mg/dL Calcium 7.9 L (8.4-10.2) mg/dL - Imaging US - abdomen: report reviewed US - pelvic: report reviewed Assessment and Plan Assessment: Impression: Chronic incomplete bladder emptying aggravated by hospitalization IV fluids and immobility. Recurrent urinary infection due to incomplete bladder emptying. Renal insufficiency u nrelated to incomplete bladder emptying Plan: The patient should have the catheter remain indwelling until she is ambulatory. At that point in time the catheter can be removed and we can monitor residuals. Most likely she will improve. I suspect she will have chronic incomplete bladder emptying based on history.
[2018-08-05 17:28] LABS: Glucose,Whole Blood 169 mg/dL (75-99)
[2018-08-05 19:59] LABS: Glucose,Whole Blood 137 mg/dL (75-99)
[2018-08-05] MEDS: MELATONIN 3 MG TABLET PO SCH (21:46)
[2018-08-06 07:10] LABS: Glucose,Whole Blood 98 mg/dL (75-99)
[2018-08-06] MEDS: ACETAMINOPHEN TAB 325 MG TAB PO PRN (07:32)
[2018-08-06] MEDS: ALPRAZolam 0.25 MG TAB PO PRN ×2 (07:33→23:14)
[2018-08-06] MEDS: CALCIUM ACETATE 667 MG CAP PO SCH ×2 (07:33→16:04)
[2018-08-06] MEDS: SODIUM BICARBONATE TAB 650 MG TAB PO SCH ×2 (07:33→20:46)
[2018-08-06] MEDS: METOPROLOL TARTRATE 50 MG TAB PO SCH (07:33)
[2018-08-06] MEDS: ASPIRIN 325 MG TAB PO SCH (07:33)
[2018-08-06] MEDS: HEPARIN SODIUM,PORCINE 5,000 UNIT/ML 1 ML VIAL SQ SCH ×3 (07:34→23:15)
[2018-08-06] MEDS: ISOSORBIDE MONONITRATE ER 30 MG TAB.ER.24H PO SCH (07:34)
[2018-08-06] MEDS: INSULIN ASPART 100 UNIT/ML 1 ML 10 ML VIAL SQ SCH ×4 (07:37→20:48)
[2018-08-06 08:43] LABS: Calcium 7.9 mg/dL (8.4-10.2); Potassium 5.4 mmol/L (3.5-5.1)
[2018-08-06] MEDS: SODIUM CHLORIDE 0.9% 1,000 ML IV SCH ×2 (10:42→23:15)
[2018-08-06 11:18] LABS: Glucose,Whole Blood 261 mg/dL (75-99)
--- NOTE | 2018-08-06 13:01 | P.PN ---
Subjective Progress Note Date: 08/06/18 Principal diagnosis: This is a 81-year-old female followed for acute kidney injury and chronic kidney disease or acute kidney injury is deemed to be from outlet obstruction and neurogenic bladder. A Jenkins catheter was placed in her urine output is 2605, creatinine is improved as well. Patient is fairly asymptomatic. Denies any fever chills cough shortness of breath. She did have some pain on Jenkins catheter insertion yesterday but none today. No nausea vomiting diarrhea abdominal pain. History of present illness; The patient is a 82-year-old female with a past with a history of coronary artery disease with stenting, congestive heart failure of unknown type , essential hypertension, type 2 diabetes with peripheral neuropathy and chronic kidney disease Who was referred here for direct admission by her PCP Dr. Eng. Per her PCP. The patient was treated for a UTI with Ceftin and has failed outpatient therapy, the patient reports being seen in the ER and diagnosed with a UTI and was discharged home on Bactrim which she took 6 doses, she was subsequently discharged switched to Ceftin by her PCP. During this time the patient has had ongoing weakness fatigue and loss of appetite , she denies any dysuria , but notes polyuria, suprapubic/lower abdominal pain and has had subjective fevers and chills and night sweats . The patient is pretty vague about her chest symptoms today , reporting that she's had some chest pounding and 2 days ago had some mild nonradiating midsternal chest pressure that was unrelated to exertion, she does complain of shortness of breath and reports a intermittently productive cough over the last 3 weeks that she reports now seems to be getting better. Review of records indicates the patient was positive for a UTI growing E. coli and Proteus Mirabilis. Labs from previous ED visit 08/01/18 elevated serum creatinine at 3.3, serum potassium 5.7 Objective - Vital Signs Vital signs: Vital Signs Temp 98.1 F 08/06/18 11:21 Pulse 54 L 08/06/18 11:21 Resp 18 08/06/18 11:21 BP 150/70 08/06/18 11:21 Pulse Ox 96 08/06/18 11:21 Intake & Output 08/05/18 08/06/18 08/06/18 18:59 06:59 18:59 Intake Total 576 2020 Output Total 1305 1300 1 Balance -729 720 -1 Intake: Intake, IV Titration 840 Amount Sodium Chloride 0.9% 1, 840 000 ml @ 70 mls/hr IV . [id number] [facility] Rx#:[id number] Oral 476 1180 Other 100 Output: Urine 900 1300 Straight 900 1300 Post Void Residual 404 Stool 1 1 Other: Voiding Method Indwelling Catheter Indwelling Catheter Indwelling Catheter # Voids 1 2 # Bowel Movements 1 1 Exam she is awake alert oriented comfortable HEENT exam no JVP neck is supple no facial asymmetry Lungs are clear to auscultation percussion good air entry bilaterally Heart sounds are unremarkable for any murmur rub gallop Abdomen soft nontender no masses felt Extremity exam was no edema Neurologically awake alert oriented - Labs CBC & Chem 7: 08/04/18 11:04 08/06/18 07:40 Labs: Abnormal Lab Results - Last 24 Hours (Table) 08/05/18 08/05/18 08/05/18 Range/Units 14:32 17:27 18:39 Potassium 5.6 H 5.3 H (3.5-5.1) mmol/L Chloride (98-107) mmol/L BUN (7-17) mg/dL Creatinine (0.52-1.04) mg/dL POC Glucose (mg/dL) 169 H (75-99) mg/dL Calcium (8.4-10.2) mg/dL 08/05/18 08/06/18 08/06/18 Range/Units 19:58 07:40 11:17 Potassium 5.4 H (3.5-5.1) mmol/L Chloride 108 H (98-107) mmol/L BUN 72 H (7-17) mg/dL Creatinine 2.96 H (0.52-1.04) mg/dL POC Glucose (mg/dL) 137 H 261 H (75-99) mg/dL Calcium 7.9 L (8.4-10.2) mg/dL Microbiology - Last 24 Hours (Table) 08/04/18 10:40 Urine Culture - Final Urine,Voided Assessment and Plan Assessment: Impression 1. Acute kidney injury from combination of Bactrim, neurogenic bladder. 2. Recently had E. coli and Proteus mirabilis UTI on 07/29/2018. For which she was discharged and Bactrim for about 4 days. 3. Chronic kidney disease with a baseline creatinine of 2.3 dated 01/14/2018 but she was 2.4 dated 06/28/2018. Likely diabetic nephropathy with microalbumin to creatinine ratio of 3 and 85 dated 12/10/2016 4. Hyperkalemia secondary to combination of outlet obstruction and retention of urine as well as acute kidney injury. Type IV RTA potassium is 5.4 this morning with a concurrent blood sugar of 89. Bicarb is 25. Recommendation. 1. Maintain IV fluids because of the hyperkalemia 2. Maintain sodium bicarb for the hyperkalemia 3. In the future will have to avoid all Lencho inhibitors ARB and potassium sparing diuretics
[2018-08-06] MEDS ORDERED: SODIUM POLYSTYRENE SULFONATE 15 GM/60 ML BOTTLE PO ONE (15:00)
--- NOTE | 2018-08-06 15:53 | P.PN ---
Subjective Progress Note Date: 08/06/18 Principal diagnosis: Urinary retention. Patient was seen and examined. No acute events overnight. Cathed yesterday, urine output 550cc overnight. She denies dysuria or abdominal pain. No fever, nausea, vomiting, CP, SOB, palpitations. Objective - Vital Signs Vital signs: Vital Signs Temp 98.1 F 08/06/18 11:21 Pulse 54 L 08/06/18 11:21 Resp 18 08/06/18 11:21 BP 150/70 08/06/18 11:21 Pulse Ox 96 08/06/18 11:21 Intake & Output 08/05/18 08/06/18 08/06/18 18:59 06:59 18:59 Intake Total 576 2020 Output Total 1305 1300 1 Balance -729 720 -1 Intake: Intake, IV Titration 840 Amount Sodium Chloride 0.9% 1, 840 000 ml @ 70 mls/hr IV . [id number] [facility] Rx#:[id number] Oral 476 1180 Other 100 Output: Urine 900 1300 Straight 900 1300 Post Void Residual 404 Stool 1 1 Other: Voiding Method Indwelling Catheter Indwelling Catheter Indwelling Catheter # Voids 1 2 # Bowel Movements 1 1 - Exam General: [non toxic], [no distress], [appears at stated age] Derm: [warm], [dry] Head: [atraumatic], [normocephalic], [symmetric] Eyes: [EOMI], [no lid lag], [anicteric sclera] Mouth: [no lip lesion], [mucus membranes moist] Cardiovascular: [S1S2 reg], [no murmur, rubs or gallops] Lungs: [CTA Bilaterally], [no rhonchi, no rales] , [no accessory muscle use] Abdominal: [soft], [ nontender to palpation], [no guarding], [no appreciable organomegaly] Ext: [no gross muscle atrophy], [no edema], [no contractures] Psych: [Alert], [oriented], [appropriate affect] - Labs CBC & Chem 7: 08/04/18 11:04 08/06/18 07:40 Labs: Abnormal Lab Results - Last 24 Hours (Table) 08/05/18 08/05/18 08/05/18 Range/Units 14:32 17:27 18:39 Potassium 5.6 H 5.3 H (3.5-5.1) mmol/L Chloride (98-107) mmol/L BUN (7-17) mg/dL Creatinine (0.52-1.04) mg/dL POC Glucose (mg/dL) 169 H (75-99) mg/dL Calcium (8.4-10.2) mg/dL 08/05/18 08/06/18 08/06/18 Range/Units 19:58 07:40 11:17 Potassium 5.4 H (3.5-5.1) mmol/L Chloride 108 H (98-107) mmol/L BUN 72 H (7-17) mg/dL Creatinine 2.96 H (0.52-1.04) mg/dL POC Glucose (mg/dL) 137 H 261 H (75-99) mg/dL Calcium 7.9 L (8.4-10.2) mg/dL Microbiology - Last 24 Hours (Table) 08/04/18 10:40 Urine Culture - Final Urine,Voided Assessment and Plan Assessment: Assessment and Plan 1. MILAD on CKD stage IV: Likely prerenal +/- intrarenal disesase due to use of Lasix, Bactrim and h/o DM (nephrosclerosis). Renal US shows BL cortical atrophy with no hydronephrosis. Urology recommends leaving in indwelling catheter until she is ambulatory. Continue Ca acetate 667 PO BID and NaHCO3 650 mg PO BID. Avoid nephrotoxins. Monitor and replace electrolytes. Continue NS at 70 cc/h. Strict Ins and Outs. Renal diet. FU Nephrology, Urology, BMP 2. Chest pain: Trop < 0.012 x 3, EKG showing sinus bradycardia (ACS ruled out). CXR shows possible chronic bronchitis or asthma. Echo shows EF 55-60% with mild LVH. Cardiology consulted - recommended outPT FU with Dr. Bowman. Telemetry monitoring. 3. Hyperkalemia: K 6.2 on admission. K 5.4 currently. Likely due to metabolic acidosis from renal dysfunction. Patient asymptomatic. EKG 08/05 shows sinus bradycardia, no peaked T waves. Continue NaHCO3 650 mg PO BID. Kayexalate 15 g x 1 today. Telemetry monitoring. FU BMP 4. CAD: h/o stents in 2000 and 2006. Recent Lexiscan in 2014 shows a reversible defect being followed with medical therapy by Dr. Bowman. Continue ASA 325 mg PO QD. Start Lipitor 40 mg PO QHS. FU outPT for discussion of DAPT. 5. DM: POC glucose 261. A1c 6.3 06/2018. ISS. Accuchecks QID. Hypoglycemic precautions. 6. HTN: BP 150/70. Isosorbide 30 mg PO QD, Metoprolol 50 mg PO QD. Monitor vitals, adjust medications as necessary. 7. DVT/GI Prophylaxis: Heparin 5000 units SUBCUT BID.
[2018-08-06 17:18] LABS: Glucose,Whole Blood 111 mg/dL (75-99)
[2018-08-06 19:53] LABS: Glucose,Whole Blood 175 mg/dL (75-99)
[2018-08-06] MEDS: MELATONIN 3 MG TABLET PO SCH (20:46)
[2018-08-06] MEDS: ATORVASTATIN 40 MG TAB PO SCH (20:49)
[2018-08-07 07:15] LABS: Glucose,Whole Blood 122 mg/dL (75-99)
[2018-08-07] MEDS: CALCIUM ACETATE 667 MG CAP PO SCH ×2 (08:02→17:39)
[2018-08-07] MEDS: ISOSORBIDE MONONITRATE ER 30 MG TAB.ER.24H PO SCH (08:02)
[2018-08-07] MEDS: SODIUM BICARBONATE TAB 650 MG TAB PO SCH ×2 (08:02→20:34)
[2018-08-07] MEDS: HEPARIN SODIUM,PORCINE 5,000 UNIT/ML 1 ML VIAL SQ SCH ×2 (08:03→16:02)
[2018-08-07] MEDS: METOPROLOL TARTRATE 50 MG TAB PO SCH (08:03)
[2018-08-07] MEDS: ASPIRIN 325 MG TAB PO SCH (08:03)
[2018-08-07] MEDS: INSULIN ASPART 100 UNIT/ML 1 ML 10 ML VIAL SQ SCH ×4 (08:04→20:34)
[2018-08-07 08:39] LABS: Calcium 7.9 mg/dL (8.4-10.2); Potassium 5.1 mmol/L (3.5-5.1)
[2018-08-07 11:18] LABS: Glucose,Whole Blood 172 mg/dL (75-99)
--- NOTE | 2018-08-07 11:21 | P.PN ---
Subjective Progress Note Date: 08/07/18 Principal diagnosis: Urinary retention, hyperkalemia Patient was seen and examined. No acute events overnight. Jenkins removed this morning the patient unable to urinate. Bladder scan reveals no retention of urine. Patient given water to drink. She denies any dysuria or abdominal pain. No constipation. She has no complaints today. Objective - Vital Signs Vital signs: Vital Signs Temp 97.7 F 08/07/18 05:52 Pulse 60 08/07/18 08:00 Resp 16 08/07/18 08:00 BP 123/71 08/07/18 05:52 Pulse Ox 95 08/07/18 05:52 Intake & Output 08/06/18 08/07/18 08/07/18 18:59 06:59 18:59 Intake Total 1150 Output Total 1102 1 Balance -1102 1150 -1 Weight 92.1 kg Intake: Intake, IV Titration 560 Amount Sodium Chloride 0.9% 1, 560 000 ml @ 70 mls/hr IV . [id number] [facility] Rx#:[id number] Oral 590 Output: Urine 1100 Stool 2 1 Other: Voiding Method Indwelling Catheter Indwelling Catheter # Voids 2 # Bowel Movements 1 - Exam General: [non toxic], [no distress], [appears at stated age] Derm: [warm], [dry] Head: [atraumatic], [normocephalic], [symmetric] Eyes: [EOMI], [no lid lag], [anicteric sclera] Mouth: [no lip lesion], [mucus membranes moist] Cardiovascular: [S1S2 reg], [no murmur, rubs or gallops] Lungs: [CTA Bilaterally], [no rhonchi, no rales] , [no accessory muscle use] Abdominal: [soft], [ nontender to palpation], [no guarding], [no appreciable organomegaly] Ext: [no gross muscle atrophy], [no edema], [no contractures] Psych: [Alert], [oriented], [appropriate affect] - Labs CBC & Chem 7: 08/04/18 11:04 08/07/18 08:01 Labs: Abnormal Lab Results - Last 24 Hours (Table) 08/06/18 08/06/18 08/06/18 Range/Units 11:17 17:16 19:51 Chloride (98-107) mmol/L BUN (7-17) mg/dL Creatinine (0.52-1.04) mg/dL Glucose (74-99) mg/dL POC Glucose (mg/dL) 261 H 111 H 175 H (75-99) mg/dL Calcium (8.4-10.2) mg/dL 08/07/18 08/07/18 Range/Units 07:14 08:01 Chloride 113 H (98-107) mmol/L BUN 56 H (7-17) mg/dL Creatinine 2.34 H (0.52-1.04) mg/dL Glucose 115 H (74-99) mg/dL POC Glucose (mg/dL) 122 H (75-99) mg/dL Calcium 7.9 L (8.4-10.2) mg/dL Assessment and Plan Assessment: Assessment and Plan 1. MILAD on CKD stage IV: Likely prerenal +/- intrarenal disesase due to use of Lasix, Bactrim and h/o DM (nephrosclerosis). Renal US shows BL cortical atrophy with no hydronephrosis. Jenkins removed, encourage ambulation. Trial of Flomax. Continue Ca acetate 667 PO BID and NaHCO3 650 mg PO BID. Avoid nephrotoxins. Monitor and replace electrolytes. Continue NS at 70 cc/h. Strict Ins and Outs. Renal diet. FU Nephrology, Urology, BMP 2. Chest pain: Trop < 0.012 x 3, EKG showing sinus bradycardia (ACS ruled out). CXR shows possible chronic bronchitis or asthma. Echo shows EF 55-60% with mild LVH. Cardiology consulted - recommended outPT FU with Dr. Bowman. Telemetry monitoring. 3. Hyperkalemia: K 6.2 on admission. K 5.1 currently. Likely due to metabolic acidosis from renal dysfunction. Patient asymptomatic. EKG 08/05 shows sinus bradycardia, no peaked T waves. Continue NaHCO3 650 mg PO BID. Telemetry monitoring. FU BMP 4. CAD: h/o stents in 2000 and 2006. Recent Lexiscan in 2014 shows a reversible defect being followed with medical therapy by Dr. Bowman. Continue ASA 325 mg PO QD. Start Lipitor 40 mg PO QHS. FU outPT for discussion of DAPT. 5. DM: POC glucose 115. A1c 6.3 06/2018. ISS. Accuchecks QID. Hypoglycemic precautions. 6. HTN: BP 150/70. Isosorbide 30 mg PO QD, Metoprolol 50 mg PO QD. Monitor vitals, adjust medications as necessary. 7. DVT/GI Prophylaxis: Heparin 5000 units SUBCUT BID.
[2018-08-07] MEDS: SODIUM CHLORIDE 0.9% 1,000 ML IV SCH (12:12)
--- NOTE | 2018-08-07 14:32 | P.PN ---
Subjective Progress Note Date: 08/07/18 Principal diagnosis: This is a 81-year-old female followed for acute kidney injury and chronic kidney disease or acute kidney injury is deemed to be from outlet obstruction and neurogenic bladder. A Jenkins catheter was placed in her urine output is 2605, creatinine improved as well. She was started on Flomax. The catheter has been removed and she is able to go but Patient is fairly asymptomatic. Denies any fever chills cough shortness of breath.No nausea vomiting diarrhea abdominal pain. She is somewhat anxious about being discharged as she lives in [place] and is somewhat for off. History of present illness; The patient is a 82-year-old female with a past with a history of coronary artery disease with stenting, congestive heart failure of unknown type , essential hypertension, type 2 diabetes with peripheral neuropathy and chronic kidney disease Who was referred here for direct admission by her PCP Dr. Eng. Per her PCP. The patient was treated for a UTI with Ceftin and has failed outpatient therapy, the patient reports being seen in the ER and diagnosed with a UTI and was discharged home on Bactrim which she took 6 doses, she was subsequently discharged switched to Ceftin by her PCP. During this time the patient has had ongoing weakness fatigue and loss of appetite , she denies any dysuria , but notes polyuria, suprapubic/lower abdominal pain and has had subjective fevers and chills and night sweats . The patient is pretty vague about her chest symptoms today , reporting that she's had some chest pounding and 2 days ago had some mild nonradiating midsternal chest pressure that was unrelated to exertion, she does complain of shortness of breath and reports a intermittently productive cough over the last 3 weeks that she reports now seems to be getting better. Review of records indicates the patient was positive for a UTI growing E. coli and Proteus Mirabilis. Labs from previous ED visit 08/01/18 elevated serum creatinine at 3.3, serum potassium 5.7 Objective - Vital Signs Vital signs: Vital Signs Temp 97.7 F 08/07/18 05:52 Pulse 60 08/07/18 08:00 Resp 16 08/07/18 08:00 BP 123/71 08/07/18 05:52 Pulse Ox 95 08/07/18 05:52 Intake & Output 09/08/07/18 08/07/18 18:59 06:59 18:59 Intake Total 1150 Output Total 1102 1 Balance -1102 1150 -1 Weight 92.1 kg Intake: Intake, IV Titration 560 Amount Sodium Chloride 0.9% 1, 560 000 ml @ 70 mls/hr IV . [id number] [facility] Rx#:[id number] Oral 590 Output: Urine 1100 Stool 2 1 Other: Voiding Method Indwelling Catheter Indwelling Catheter # Voids 2 # Bowel Movements 1 On examination is awake alert oriented comfortable HEENT exam no JVP neck is supple no facial asymmetry Lungs clear to auscultation fair air entry bilaterally Heart sounds are unremarkable for any murmur rub gallop Abdomen is obese protuberant non-tender Extreme exam reveals trace edema Neurologically awake alert oriented but generalized weakness - Labs CBC & Chem 7: 08/04/18 11:04 08/07/18 08:01 Labs: Abnormal Lab Results - Last 24 Hours (Table) 08/06/18 08/06/18 08/07/18 Range/Units 17:16 19:51 07:14 Chloride (98-107) mmol/L BUN (7-17) mg/dL Creatinine (0.52-1.04) mg/dL Glucose (74-99) mg/dL POC Glucose (mg/dL) 111 H 175 H 122 H (75-99) mg/dL Calcium (8.4-10.2) mg/dL 08/07/18 08/07/18 Range/Units 08:01 11:17 Chloride 113 H (98-107) mmol/L BUN 56 H (7-17) mg/dL Creatinine 2.34 H (0.52-1.04) mg/dL Glucose 115 H (74-99) mg/dL POC Glucose (mg/dL) 172 H (75-99) mg/dL Calcium 7.9 L (8.4-10.2) mg/dL Assessment and Plan Assessment: Impression 1. Acute kidney injury from combination of Bactrim, neurogenic bladder. Creatinine improved from a peak of 3.3 on 08/01/2018, and down to 2.34 this morning dated 08/07/2018. 2. Recently had E. coli and Proteus mirabilis UTI on 07/29/2018. For which she was discharged and Bactrim for about 4 days. 3. Chronic kidney disease with a baseline creatinine of 2.3 dated 01/14/2018 but she was 2.4 dated 06/28/2018. Likely diabetic nephropathy with microalbumin to creatinine ratio of 3 and 85 dated 12/10/2016 4. Hyperkalemia secondary to combination of outlet obstruction and retention of urine as well as acute kidney injury. Type IV RTA potassium was 6.2 at the time she will had acute kidney injury from Bactrim, is down to is 5.1 this morning with a concurrent blood sugar of and 15. Bicarb is 24. Recommendation. 1. Discontinue IV fluid. 2. Maintain sodium bicarb for the hyperkalemia 3. In the future will have to use any Lencho inhibitors ARB and potassium sparing diuretics under extreme caution
[2018-08-07] MEDS: ACETAMINOPHEN TAB 325 MG TAB PO PRN (16:01)
[2018-08-07 17:33] LABS: Glucose,Whole Blood 154 mg/dL (75-99)
[2018-08-07 20:28] LABS: Glucose,Whole Blood 242 mg/dL (75-99)
[2018-08-07] MEDS: ATORVASTATIN 40 MG TAB PO SCH (20:34)
[2018-08-07] MEDS: MELATONIN 3 MG TABLET PO SCH (20:34)
[2018-08-07 22:51] VITALS: RESP 16
[2018-08-08] MEDS: HEPARIN SODIUM,PORCINE 5,000 UNIT/ML 1 ML VIAL SQ SCH ×2 (00:49→08:00)
[2018-08-08] MEDS: SODIUM CHLORIDE 0.9% 1,000 ML IV SCH (05:07)
[2018-08-08 06:09] VITALS: BP 173/72; PULSE 70; TEMP 97.8
[2018-08-08] MEDS: HYDROcodone/APAP 5-325MG 1 EACH TAB PO PRN (06:18)
[2018-08-08 07:12] LABS: Glucose,Whole Blood 105 mg/dL (75-99)
[2018-08-08] MEDS: INSULIN ASPART 100 UNIT/ML 1 ML 10 ML VIAL SQ SCH ×2 (07:56→13:18)
[2018-08-08] MEDS: ASPIRIN 325 MG TAB PO SCH (07:57)
[2018-08-08] MEDS: SODIUM BICARBONATE TAB 650 MG TAB PO SCH (07:59)
[2018-08-08] MEDS: CALCIUM ACETATE 667 MG CAP PO SCH (08:00)
[2018-08-08] MEDS: ISOSORBIDE MONONITRATE ER 30 MG TAB.ER.24H PO SCH (08:00)
[2018-08-08] MEDS: METOPROLOL TARTRATE 50 MG TAB PO SCH (08:00)
[2018-08-08] MEDS ORDERED: TAMSULOSIN 0.4 MG CAP.ER.24H PO SCH (08:30)
[2018-08-08 08:46] LABS: Potassium 4.9 mmol/L (3.5-5.1)
--- NOTE | 2018-08-08 08:51 | IR ---
PICC LINE PLACEMENT: HISTORY: Infection requiring long-term antibiotic therapy PROCEDURE: Ultrasound and fluoroscopic guidance of PICC line placement. COMPLICATIONS: None ANESTHESIA: 1. 1% Lidocaine locally. FINDINGS/TECHNIQUE: The procedure was explained to the patient. The risks, complications, benefits and alternatives were discussed and any questions were answered. Informed consent was obtained. The patient was placed supine on the fluoroscopic table and prepped and draped in the usual sterile fas ion. Utilizing a 21 gauge needle and sonographic and fluoroscopic guidance, access in the vein was achieved and there is placement of a 0.018 guidewire. The vein is patent. A 4-F sheath was placed o nathaly the guidewire. The guidewire and dilator were removed and a 4-F. PICC line was placed through th e sheath with the tip at the level of the SVC. The sheath was removed, the catheter was flushed and sutured into position. The patient was stable throughout the procedure and remained stable upon disc harge from the Department of Radiology. The vein puncture was patent under ultrasound. A nielsen scale image was obtained to document patency of the vein punctured. All elements of the maximal barrier technique were utilized. FLUOROSCOPY TIME: 0.2 minutes of fluoroscopy and one image submitted IMPRESSION: Successful PICC line placement under ultrasound and fluoroscopic guidance.
--- NOTE | 2018-08-08 11:01 | P.PN ---
Subjective Progress Note Date: 08/08/18 Principal diagnosis: Chest pain, or urinary retention Patient seen and examined. No acute events overnight. Patient with an episode of chest tightness this morning EKG done, normal sinus rhythm, resolved on its own. She has been urinating okay with no abdominal pain or dysuria. Objective - Vital Signs Vital signs: Vital Signs Temp 97.8 F 08/08/18 05:00 Pulse 70 08/08/18 05:00 Resp 16 08/08/18 05:00 BP 173/72 08/08/18 05:00 Pulse Ox 93 L 08/08/18 05:00 Intake & Output 08/07/18 08/08/18 08/08/18 18:59 06:59 18:59 Intake Total 560 1180 Output Total 527 900 Balance 33 280 Intake: Intake, IV Titration 560 Amount Sodium Chloride 0.9% 1, 560 000 ml @ 70 mls/hr IV . [id number] [facility] Rx#:[id number] Oral 1180 Output: Urine 525 Post Void Residual 900 Stool 2 Other: Voiding Method Indwelling Catheter Toilet # Voids 2 # Bowel Movements 4 - Exam General: [non toxic], [no distress], [appears at stated age] Derm: [warm], [dry] Head: [atraumatic], [normocephalic], [symmetric] Eyes: [EOMI], [no lid lag], [anicteric sclera] Mouth: [no lip lesion], [mucus membranes moist] Cardiovascular: [S1S2 reg], [no murmur, rubs or gallops] Lungs: [CTA Bilaterally], [no rhonchi, no rales] , [no accessory muscle use] Abdominal: [soft], [ nontender to palpation], [no guarding], [no appreciable organomegaly] Ext: [no gross muscle atrophy], [no edema], [no contractures] Psych: [Alert], [oriented], [appropriate affect] - Labs CBC & Chem 7: 08/04/18 11:04 08/08/18 07:19 Labs: Abnormal Lab Results - Last 24 Hours (Table) 08/07/18 08/07/18 08/07/18 Range/Units 11:17 17:32 20:26 Chloride (98-107) mmol/L BUN (7-17) mg/dL Creatinine (0.52-1.04) mg/dL Glucose (74-99) mg/dL POC Glucose (mg/dL) 172 H 154 H 242 H (75-99) mg/dL Calcium (8.4-10.2) mg/dL 08/08/18 08/08/18 Range/Units 07:07 07:19 Chloride 113 H (98-107) mmol/L BUN 48 H (7-17) mg/dL Creatinine 1.92 H (0.52-1.04) mg/dL Glucose 105 H (74-99) mg/dL POC Glucose (mg/dL) 105 H (75-99) mg/dL Calcium 8.0 L (8.4-10.2) mg/dL Assessment and Plan Assessment: Assessment and Plan 1. MILAD on CKD stage IV: Likely prerenal +/- intrarenal disesase due to use of Lasix, Bactrim and h/o DM (nephrosclerosis). Renal US shows BL cortical atrophy with no hydronephrosis. Jenkins removed, post void retention ~ 200ccs. Continue Flomax 0.4 mg PO QD. Continue Ca acetate 667 PO BID and NaHCO3 650 mg PO BID. Avoid nephrotoxins. Monitor and replace electrolytes. IVF DC'd by Nephrology. Strict Ins and Outs. Renal diet. FU Nephrology, Urology 2. Chest pain: Trop < 0.012 x 3, EKG showing sinus bradycardia (ACS ruled out). CXR shows possible chronic bronchitis or asthma. Echo shows EF 55-60% with mild LVH. Cardiology consulted - recommended outPT FU with Dr. Bowman. Telemetry monitoring. 3. Hyperkalemia: K 6.2 on admission. K 4.9 currently. Likely due to metabolic acidosis from renal dysfunction. Patient asymptomatic. EKG 08/05 shows sinus bradycardia, no peaked T waves. Continue NaHCO3 650 mg PO BID. Telemetry monitoring. FU BMP 4. CAD: h/o stents in 2000 and 2006. Recent Lexiscan in 2014 shows a reversible defect being followed with medical therapy by Dr. Bowman. Continue ASA 325 mg PO QD. Start Lipitor 40 mg PO QHS. FU outPT for discussion of DAPT. 5. DM: POC glucose 105. A1c 6.3 06/2018. ISS. Accuchecks QID. Hypoglycemic precautions. 6. HTN: BP 173/72. Isosorbide 30 mg PO QD, Metoprolol 50 mg PO QD. Monitor vitals, adjust medications as necessary. 7. DVT/GI Prophylaxis: Heparin 5000 units SUBCUT BID. Patient cleared for DC. K is normalized. No hydro on kidney US. Slight urinary retention, started on Flomax. Will need close FU with Urology for difinitive management. FU Nephrology to monitor kidney function. FU PCP within 1-2 days of DC.
[2018-08-08 11:47] LABS: Glucose,Whole Blood 176 mg/dL (75-99)
--- NOTE | 2018-08-08 18:43 | PN ---
PROGRESS NOTE HISTORY: Patient is seen for followup for acute kidney injury. Renal function has been improving with serum creatinine down from 3.3 to 1.92 now. The patient will most likely be discharged today. She is maintained on IV fluids at about 70 mL an hour. She has been eating fairly well. PHYSICAL EXAMINATION: This morning, blood pressure was 149/69, heart rate 57 per minute. She is afebrile. Examination of the heart, S1, S2. Examination of lungs, bilateral breath sounds are heard. Abdomen is soft, nontender. Examination lower extremities shows chronic skin changes. Trace edema. STIFF NECK LOADER exam is grossly intact. LABS: Sodium 141, potassium 4.9, chloride 113, BUN 48, serum creatinine 1.92. ASSESSMENT: 1. Acute kidney injury, nonoliguric, currently improved. 2. Urinary tract infection recently with E coli and Proteus. 3. Chronic kidney disease with baseline creatinine about 2.3, most likely secondary to diabetic nephropathy. 4. Hyperkalemia associated with outlet obstruction urine retention, currently improved. PLAN: Patient is stable for discharge. Continue with sodium bicarb. She will need followup as outpatient. MMODL / IJN: [id number] /
== END 2018-08-08 15:10 | disposition home health service (06) | DRG 683 ==
LOC: 3OBS 10:13 → OBSVTOIN 08-05 11:53 → 5MS5E 08-05 15:39
PROVIDERS: ADMIT Internal Medicine; ATTEND Family Medicine
PROC: 02HV33Z Insertion of Infusion Device into Superior Vena Cava, Percutaneous Approach (ICD-10-PCS; principal; 2018-08-08)
DX: N17.9 Acute kidney failure, unspecified (principal); E87.2 Acidosis; I13.0 Hypertensive heart and chronic kidney disease with heart failure and stage 1 through stage 4 chronic kidney disease, or unspecified chronic kidney disease; E11.22 Type 2 diabetes mellitus with diabetic chronic kidney disease; E11.42 Type 2 diabetes mellitus with diabetic polyneuropathy; E78.5 Hyperlipidemia, unspecified; E83.39 Other disorders of phosphorus metabolism; E87.5 Hyperkalemia; H35.30 Unspecified macular degeneration; T37.0X5A Adverse effect of sulfonamides, initial encounter; T50.1X5A Adverse effect of loop [high-ceiling] diuretics, initial encounter; I25.10 Atherosclerotic heart disease of native coronary artery without angina pectoris; I34.0 Nonrheumatic mitral (valve) insufficiency; K59.00 Constipation, unspecified; M19.90 Unspecified osteoarthritis, unspecified site; N18.4 Chronic kidney disease, stage 4 (severe); N25.89 Other disorders resulting from impaired renal tubular function; N31.9 Neuromuscular dysfunction of bladder, unspecified; R00.1 Bradycardia, unspecified; R07.89 Other chest pain; I50.9 Heart failure, unspecified; N32.0 Bladder-neck obstruction; N81.10 Cystocele, unspecified; R32 Unspecified urinary incontinence; J42 Unspecified chronic bronchitis; J45.909 Unspecified asthma, uncomplicated; N81.6 Rectocele; Z79.82 Long term (current) use of aspirin; Z79.899 Other long term (current) drug therapy; Z79.84 Long term (current) use of oral hypoglycemic drugs; Z88.1 Allergy status to other antibiotic agents; Z88.2 Allergy status to sulfonamides; Z88.8 Allergy status to other drugs, medicaments and biological substances; Z87.440 Personal history of urinary (tract) infections; Z87.891 Personal history of nicotine dependence; Z95.5 Presence of coronary angioplasty implant and graft; Z90.49 Acquired absence of other specified parts of digestive tract; Z90.710 Acquired absence of both cervix and uterus; Z98.42 Cataract extraction status, left eye; Z98.41 Cataract extraction status, right eye; Z96.1 Presence of intraocular lens; Z91.81 History of falling; Z82.49 Family history of ischemic heart disease and other diseases of the circulatory system; Z80.9 Family history of malignant neoplasm, unspecified; Z83.6 Family history of other diseases of the respiratory system; Y92.009 Unspecified place in unspecified non-institutional (private) residence as the place of occurrence of the external cause
CPT/HCPCS: 36569; 71045; 76770; 76937; 77001; 80048; 80053; 80061; 81001; 82550; 82553; 84100; 84132; 84484; 85025; 87086; 93005; 93306

== ENCOUNTER → 2018-08-15 | Outpatient (CLI) | payer MEDICARE, BC ==
[2018-08-15 11:52] LABS: Albumin 3.8 g/dL (3.5-5.0); Calcium 8.7 mg/dL (8.4-10.2); Total Bilirubin 0.5 mg/dL (0.2-1.3)
[2018-08-15 12:01] LABS: Basophils % (A) 1 %; Eosinophils # (A) 0.2 k/uL (0-0.7); Eosinophils % (A) 3 %; HCT 31.9 % (34.0-46.0); HGB 10.3 gm/dL (11.4-16.0); Lymphocytes # (A) 1.5 k/uL (1.0-4.8); Lymphocytes % (A) 21 %; MCH 30.2 pg (25.0-35.0); MCHC 32.5 g/dL (31.0-37.0); MCV 93.1 fL (80.0-100.0); Mean Platelet Volume 7.2; Monocytes # (A) 0.4 k/uL (0-1.0); Monocytes % (A) 5 %; Neutrophils # (A) 4.9 k/uL (1.3-7.7); Neutrophils % (A) 69 %; Platelet Count 201 k/uL (150-450); RBC 3.42 m/uL (3.80-5.40); RDW 13.9 % (11.5-15.5); WBC 7.1 k/uL (3.8-10.6)
[2018-08-15 12:29] LABS: Potassium 4.7 mmol/L (3.5-5.1)
== END | disposition home or self-care (01) ==
LOC: LABWHC1 10:50
PROVIDERS: ATTEND Internal Medicine
DX: E11.65 Type 2 diabetes mellitus with hyperglycemia (principal); I10 Essential (primary) hypertension
CPT/HCPCS: 36415; 80053; 85025

== ENCOUNTER → 2018-08-29 | Outpatient (CLI) | payer MEDICARE, BC ==
[2018-08-29 12:04] LABS: Basophils # (A) 0.1 k/uL (0-0.2); Basophils % (A) 1 %; Calcium 8.5 mg/dL (8.4-10.2); Eosinophils # (A) 0.4 k/uL (0-0.7); Eosinophils % (A) 6 %; HCT 31.8 % (34.0-46.0); HGB 9.9 gm/dL (11.4-16.0); Hypochromasia Slight; Lymphocytes # (A) 1.5 k/uL (1.0-4.8); Lymphocytes % (A) 21 %; MCH 29.9 pg (25.0-35.0); MCHC 31.1 g/dL (31.0-37.0); MCV 95.9 fL (80.0-100.0); Mean Platelet Volume 8.5; Monocytes # (A) 0.4 k/uL (0-1.0); Monocytes % (A) 6 %; Neutrophils # (A) 4.8 k/uL (1.3-7.7); Neutrophils % (A) 67 %; Platelet Count 242 k/uL (150-450); Potassium 4.5 mmol/L (3.5-5.1); RBC 3.31 m/uL (3.80-5.40); RDW 13.8 % (11.5-15.5); WBC 7.2 k/uL (3.8-10.6)
[2018-08-29 20:39] LABS: Hemoglobin A1C 6.7 % (4.0-6.0)
== END | disposition home or self-care (01) ==
LOC: LABWHC1 10:13
PROVIDERS: ATTEND Internal Medicine
DX: E11.21 Type 2 diabetes mellitus with diabetic nephropathy (principal)
CPT/HCPCS: 36415; 80048; 83036; 85025

== ENCOUNTER → 2018-10-04 | Outpatient (CLI) | payer MEDICARE, BC ==
[2018-10-04 12:26] LABS: HGB 11.1 gm/dL (11.4-16.0); Hypochromasia Marked; MCH 30.6 pg (25.0-35.0); MCHC 31.6 g/dL (31.0-37.0); MCV 96.9 fL (80.0-100.0); Mean Platelet Volume 7.8; Platelet Count 239 k/uL (150-450); RBC 3.61 m/uL (3.80-5.40); RDW 13.6 % (11.5-15.5); WBC 10.1 k/uL (3.8-10.6)
[2018-10-04 13:04] LABS: Amorphous Sediment,Urine Occasional /hpf; Appearance,Urine Turbid (Clear); Bacteria,Urine Many /hpf; Bilirubin,Urine Negative (Negative); Blood,Urine Trace (Negative); Color,Urine Light Yellow; Glucose,Urine (UA) Negative (Negative); Ketones,Urine Negative (Negative); Leukocyte Esterase,Urine Large (Negative); Nitrite,Urine Negative (Negative); PH, Urine 5.5 (5.0-8.0); Protein,Urine 1+ (Negative); RBC,Urine 6 /hpf (0-5); Specific Gravity,Urine 1.013 (1.001-1.035); Squamous Epithelial Cell,Urine 3 /hpf (0-4); Urobilinogen,Urine <2.0 mg/dL (<2.0); WBC,Urine 179 /hpf (0-5)
[2018-10-04 17:49] LABS: Vitamin D 25 Hydroxy 12.5 ng/mL (30.0-100.0)
[2018-10-04 18:15] LABS: Albumin 4.1 g/dL (3.80-4.90); Albumin/Globulin Ratio 1.64 (1.20-2.10); Anion Gap 10.2 mmol/L (4.00-12.00); Calcium 8.9 mg/dL (8.7-10.3); Carbon Dioxide 27.8 mmol/L (21.6-31.8); Globulin 2.5 g/dL (2.1-3.7); Magnesium 2.2 mg/dL (1.5-2.4); Phosphorus 4.5 mg/dL (2.4-5.1); Potassium 4.9 mmol/L (3.5-5.5); Total Bilirubin 0.3 mg/dL (0.3-1.2); Total Protein 6.6 g/dL (6.2-8.2); Uric Acid 8.8 mg/dL (2.9-7.7)
[2018-10-04 18:25] LABS: Iron Saturation 0.36 (12.00-45.00)
[2018-10-04 18:26] LABS: Parathyroid Hormone Intact 261.8 pg/mL (14.0-72.0)
[2018-10-05 18:12] LABS: Creatinine,Urine Random 84.8 mg/dL
[2018-10-05 18:50] LABS: Total Protein,Urine Random 40.2 mg/dL (0.0-13.5)
== END | disposition home or self-care (01) ==
LOC: LABWHC1 10:56
PROVIDERS: ATTEND Nurse Practitioner Family
DX: N18.4 Chronic kidney disease, stage 4 (severe) (principal); D63.1 Anemia in chronic kidney disease; N39.0 Urinary tract infection, site not specified; N25.81 Secondary hyperparathyroidism of renal origin; E55.9 Vitamin D deficiency, unspecified; M10.9 Gout, unspecified
CPT/HCPCS: 36415; 80053; 81001; 82306; 82570; 82728; 83540; 83550; 83735; 83970; 84100; 84156; 84550; 85027

== ENCOUNTER → 2018-11-10 | Outpatient (CLI) | payer MEDICARE, BC ==
[2018-11-10 13:36] LABS: Basophils # (A) 0.1 k/uL (0-0.2); Basophils % (A) 1 %; Eosinophils # (A) 0.2 k/uL (0-0.7); Eosinophils % (A) 3 %; HCT 34.9 % (34.0-46.0); HGB 10.9 gm/dL (11.4-16.0); Hypochromasia Slight; Lymphocytes # (A) 1.2 k/uL (1.0-4.8); Lymphocytes % (A) 18 %; MCH 29.9 pg (25.0-35.0); MCHC 31.3 g/dL (31.0-37.0); MCV 95.5 fL (80.0-100.0); Mean Platelet Volume 8.2; Monocytes # (A) 0.4 k/uL (0-1.0); Monocytes % (A) 5 %; Neutrophils # (A) 4.8 k/uL (1.3-7.7); Neutrophils % (A) 72 %; Platelet Count 177 k/uL (150-450); RBC 3.66 m/uL (3.80-5.40); RDW 14.2 % (11.5-15.5); WBC 6.7 k/uL (3.8-10.6)
--- NOTE | 2018-11-10 13:43 | XR ---
EXAMINATION TYPE: XR chest 2V DATE OF EXAM: 11/10/2018 COMPARISON: 08/04/2018 HISTORY: Retention and shortness of breath TECHNIQUE: Frontal and lateral views of the chest are obtained. FINDINGS: There is no focal air space opacity, pleural effusion, or pneumothorax seen. There is chr onic interstitial prominence. The cardiac silhouette size is within normal limits. The osseous stru ctures are intact. Moderate multilevel degenerative changes of the thoracic spine are noted. IMPRESSION: Chronic findings with no acute cardiopulmonary process.
[2018-11-10 15:02] LABS: Appearance,Urine Clear (Clear); Bilirubin,Urine Negative (Negative); Blood,Urine Negative (Negative); Color,Urine Light Yellow; Glucose,Urine (UA) Negative (Negative); Ketones,Urine Negative (Negative); Leukocyte Esterase,Urine Negative (Negative); Nitrite,Urine Negative (Negative); PH, Urine 6.5 (5.0-8.0); Protein,Urine 1+ (Negative); RBC,Urine 1 /hpf (0-5); Specific Gravity,Urine 1.012 (1.001-1.035); Squamous Epithelial Cell,Urine 3 /hpf (0-4); Urobilinogen,Urine <2.0 mg/dL (<2.0); WBC,Urine 1 /hpf (0-5)
[2018-11-10 18:44] LABS: Albumin 3.9 g/dL (3.80-4.90); Albumin/Globulin Ratio 1.86 (1.20-2.10); Anion Gap 10.5 mmol/L (4.00-12.00); Calcium 8.3 mg/dL (8.7-10.3); Carbon Dioxide 26.5 mmol/L (21.6-31.8); Globulin 2.1 g/dL (1.6-3.3); Potassium 4.6 mmol/L (3.5-5.5); Total Bilirubin 0.2 mg/dL (0.3-1.2)
[2018-11-10 18:53] LABS: T4, Free (Free Thyroxine) 1.3 ng/dL (0.80-1.80)
[2018-11-10 23:39] LABS: Hemoglobin A1C 6.4 % (4.0-6.0)
== END | disposition home or self-care (01) ==
LOC: LABWHC1 12:22
PROVIDERS: ATTEND Internal Medicine
DX: I10 Essential (primary) hypertension (principal); E11.65 Type 2 diabetes mellitus with hyperglycemia; N39.0 Urinary tract infection, site not specified; I48.1 Persistent atrial fibrillation
CPT/HCPCS: 36415; 71046; 80053; 81001; 83036; 84439; 84443; 84481; 85025; 87086; 93005

== ENCOUNTER 2018-12-04 10:40 | Inpatient (IN) | payer MEDICARE, BC ==
[2018-12-04] MEDS ORDERED: HYDROcodone/APAP 5-325MG 1 EACH TAB PO STA (11:24)
--- NOTE | 2018-12-04 11:28 | ED ---
General Adult HPI - General Chief complaint: Chest Pain Stated complaint: chest & neck pain Time Seen by Provider: 12/04/18 11:28 Source: patient, family Mode of arrival: wheelchair Limitations: no limitations - Related Data Home Medications Medication Instructions Recorded Confirmed Isosorbide Mononitrate ER [Imdur] 30 mg PO DAILY 07/04/14 12/04/18 ALPRAZolam [Xanax] 0.25 mg PO TID PRN 11/11/14 12/04/18 Vit C/E/Zn/Coppr/Lutein/Zeaxan 1 cap PO BID 05/05/18 12/04/18 [Preservision Areds 2 Softgel] Aspirin EC [Ecotrin] 325 mg PO DAILY 07/29/18 12/04/18 Metoprolol Tartrate [Lopressor] 50 mg PO DAILY 07/29/18 12/04/18 Famotidine [Pepcid] 20 mg PO DAILY 08/04/18 12/04/18 Calcium Carbonate [Tums] 1,000 mg PO TID PRN 12/04/18 12/04/18 Nitrofurantoin Monohyd/M-Cryst 100 mg PO DAILY 12/04/18 12/04/18 [Macrobid] Pioglitazone [Actos] 15 mg PO DAILY 12/04/18 12/04/18 Torsemide 10 mg PO DAILY 12/04/18 12/04/18 Previous Rx's Medication Instructions Recorded Acetaminophen Tab [Tylenol] 650 mg PO Q4HR PRN tab 08/08/18 Atorvastatin [Lipitor] 40 mg PO HS #30 tab 08/08/18 Calcium Acetate [PhosLo] 667 mg PO BID-W/MEALS #60 cap 08/08/18 Sodium Bicarbonate Tab 650 mg PO BID #60 tab 08/08/18 Tamsulosin [Flomax] 0.4 mg PO PC-BRKFST #30 cap.er.24h 08/08/18 Calcitriol [Rocaltrol] 0.25 mcg PO Q48H #15 cap 11/15/18 Allergies Allergy/AdvReac Type Severity Reaction Status Date / Time zolpidem tartrate AdvReac Severe Hallucinati Verified 12/04/18 11:26 [From Ambien] ons amoxicillin [From Augmentin] AdvReac Nausea & Verified 12/04/18 11:26 Vomiting & Diarrhea ciprofloxacin [From Cipro] AdvReac Nausea & Verified 12/04/18 11:26 Vomiting clavulanic acid AdvReac Nausea & Verified 12/04/18 11:26 [From Augmentin] Vomiting & Diarrhea Sulfa (Sulfonamide AdvReac Nausea & Verified 12/04/18 11:26 Antibiotics) Vomiting Review of Systems ROS Statement: Those systems with pertinent positive or pertinent negative responses have been documented in the HPI. ROS Other: All systems not noted in ROS Statement are negative. Past Medical History Past Medical History: Blood Disorder, Coronary Artery Disease (CAD), Heart Failure, Diabetes Mellitus, Hyperlipidemia, Hypertension, Renal Disease Additional Past Medical History / Comment(s): Other hx: NIDDM type II, CKD, dry macular degeneration bilaterally, lower leg edema bilaterally, recent fall with small tear achilles tendon and back pain (spur), colovesicular fistula, UTIs. ANEMIA. History of Any Multi-Drug Resistant Organisms: None Reported Past Surgical History: Cholecystectomy, Heart Catheterization With Stent, Orthopedic Surgery Additional Past Surgical History / Comment(s): CATARACTS BL knees Hysterctomy bladder suspension Date of Last Stent Placement:: unkown Past Psychological History: No Psychological Hx Reported Smoking Status: Former smoker Past Alcohol Use History: None Reported Past Drug Use History: None Reported - Past Family History Father Family Medical History: Myocardial Infarction (AL) Mother Family Medical History: Pneumonia Daughter(s) Family Medical History: Cancer Additional Family Medical History / Comment(s): Daughter has GIST General Exam Limitations: no limitations Course Vital Signs 12/04/18 10:46 Temperature 97.5 F L Pulse Rate 85 Respiratory 16 Rate Blood Pressure 190/74 O2 Sat by Pulse 95 Oximetry Medical Decision Making - Medical Decision Making Dictation was produced using [employer] dictation software. please excuse any grammatical, word or spelling errors. Chief Complaint: 83-year-old female past medical history of multiple stents, coronary artery disease, kidney disease, diabetes presents with chest pressure 1 day. History of Present Illness: Patient states she's been having chest pressure since this morning. Her son is a nurse on our fourth floor. Reports that she woke up with some chest pressure. She states the pain was dull and started him in area of focus and slightly widened to encompass most of her anterior chest. She states that shortly after she had some pain in her neck. She told her son some provided her with some Tums, Tylenol without any improvement of symptoms. Patient was just here last week where she was admitted. Patient is admitted for acute encephalopathy, urinary urgency, acute kidney injury. Patient also has had recent extensive workup for transient ischemic attack. 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 She however had an MRI as well. The ROS documented in this emergency department record has been reviewed and confirmed by me. Those systems with pertinent positive or negative responses have been documented in the HPI. All other systems are other negative and/or noncontributory. PHYSICAL EXAM: General Impression: Alert and oriented x3, not in acute distress HEENT: Normocephalic atraumatic, extra-ocular movements intact, pupils equal and reactive to light bilaterally, mucous membranes moist. Cardiovascular: Heart regular rate and rhythm, S1&S2 audible, no murmurs, rubs or gallops Chest: Mild diffuse crackles Abdomen: Bowel sounds present, abdomen soft, non-tender, non-distended, no organomegaly Musculoskeletal: Pulses present and equal in all extremities, no peripheral edema Motor: Power 5/5 bilaterally, no focal deficits noted Neurological: CN II-XII grossly intact, no focal motor or sensory deficits noted Skin: Intact with no visualized rashes Psych: Normal affect and mood ED course: 83-year-old female presents with chief complaint of chest pressure. Vital signs upon arrival shows blood pressure 190/74. Patient had recent medication changes. She had her insulin medication adjusted, started on Macrobid and is currently on torsemide as well. EKG does not show evidence of AL or cardiac ischemia.Laboratory evaluation obtained. CBC shows hemoglobin 9.4. Coag panel unremarkable. Metabolic panel is within patient's baseline limits. Vinh peptide is 3000. Negative troponin. This point patient's symptoms are concerning for cardiac chest pain. We will plan to have patient admitted to observation for serial troponins and cardiology consultation. Patient given aspirin. EKG interpretation: Ventricular rate 72, sinus rhythm, AK interval 160, QRS 84, QTC 488. No AK prolongation, no QTC prolongation, no ST or T-wave changes noted. Overall, this EKG is unremarkable - Lab Data Result diagrams: 12/04/18 11:56 12/04/18 11:56 Lab Results 12/04/18 12/04/18 12/04/18 Range/Units 11:56 11:56 11:56 WBC 6.3 (3.8-10.6) k/uL RBC 3.09 L (3.80-5.40) m/uL Hgb 9.4 L (11.4-16.0) gm/dL Hct 30.5 L (34.0-46.0) % MCV 98.8 (80.0-100.0) fL MCH 30.4 (25.0-35.0) pg MCHC 30.8 L (31.0-37.0) g/dL RDW 14.5 (11.5-15.5) % Plt Count 173 (150-450) k/uL Neutrophils % 63 % Lymphocytes % 21 % Monocytes % 7 % Eosinophils % 7 % Basophils % 1 % Neutrophils # 4.0 (1.3-7.7) k/uL Lymphocytes # 1.3 (1.0-4.8) k/uL Monocytes # 0.4 (0-1.0) k/uL Eosinophils # 0.4 (0-0.7) k/uL Basophils # 0.0 (0-0.2) k/uL Hypochromasia Moderate PT (9.0-12.0) sec INR (<1.2) APTT (22.0-30.0) sec Sodium 140 (137-145) mmol/L Potassium 4.7 (3.5-5.1) mmol/L Chloride 107 (98-107) mmol/L Carbon Dioxide 26 (22-30) mmol/L Anion Gap 7 mmol/L BUN 58 H (7-17) mg/dL Creatinine 2.74 H (0.52-1.04) mg/dL Est GFR (CKD-EPI)AfAm 18 (>60 ml/min/1.73 sqM) Est GFR (CKD-EPI)NonAf 15 (>60 ml/min/1.73 sqM) Glucose 265 H (74-99) mg/dL Calcium 8.2 L (8.4-10.2) mg/dL Magnesium 1.8 (1.6-2.3) mg/dL Total Bilirubin 0.6 (0.2-1.3) mg/dL AST 24 (14-36) U/L ALT 23 (9-52) U/L Alkaline Phosphatase 72 (38-126) U/L Total Creatine Kinase 72 (30-135) U/L CK-MB (CK-2) 0.9 (0.0-2.4) ng/mL CK-MB (CK-2) Rel Index 1.3 Troponin I <0.012 (0.000-0.034) ng/mL NT-Pro-B Natriuret Pep pg/mL Total Protein 6.2 L (6.3-8.2) g/dL Albumin 3.1 L (3.5-5.0) g/dL Lipase 307 H (23-300) U/L 12/04/18 12/04/18 Range/Units 11:56 11:56 WBC (3.8-10.6) k/uL RBC (3.80-5.40) m/uL Hgb (11.4-16.0) gm/dL Hct (34.0-46.0) % MCV (80.0-100.0) fL MCH (25.0-35.0) pg MCHC (31.0-37.0) g/dL RDW (11.5-15.5) % Plt Count (150-450) k/uL Neutrophils % % Lymphocytes % % Monocytes % % Eosinophils % % Basophils % % Neutrophils # (1.3-7.7) k/uL Lymphocytes # (1.0-4.8) k/uL Monocytes # (0-1.0) k/uL Eosinophils # (0-0.7) k/uL Basophils # (0-0.2) k/uL Hypochromasia PT 10.2 (9.0-12.0) sec INR 0.9 (<1.2) APTT 22.2 (22.0-30.0) sec Sodium (137-145) mmol/L Potassium (3.5-5.1) mmol/L Chloride (98-107) mmol/L Carbon Dioxide (22-30) mmol/L Anion Gap mmol/L BUN (7-17) mg/dL Creatinine (0.52-1.04) mg/dL Est GFR (CKD-EPI)AfAm (>60 ml/min/1.73 sqM) Est GFR (CKD-EPI)NonAf (>60 ml/min/1.73 sqM) Glucose (74-99) mg/dL Calcium (8.4-10.2) mg/dL Magnesium (1.6-2.3) mg/dL Total Bilirubin (0.2-1.3) mg/dL AST (14-36) U/L ALT (9-52) U/L Alkaline Phosphatase (38-126) U/L Total Creatine Kinase (30-135) U/L CK-MB (CK-2) (0.0-2.4) ng/mL CK-MB (CK-2) Rel Index Troponin I (0.000-0.034) ng/mL NT-Pro-B Natriuret Pep 3720 pg/mL Total Protein (6.3-8.2) g/dL Albumin (3.5-5.0) g/dL Lipase (23-300) U/L Disposition Clinical Impression: Chest pain Disposition: ADMITTED IP TO THIS HOSP Condition: Fair Referrals: Lalo Eng MD [Primary Care Provider] - 1-2 days Decision Time: 14:36
[2018-12-04] MEDS ORDERED: ASPIRIN 81 MG PO STA (11:39)
[2018-12-04 12:16] LABS: Basophils % (A) 1 %; Eosinophils # (A) 0.4 k/uL (0-0.7); Eosinophils % (A) 7 %; HCT 30.5 % (34.0-46.0); HGB 9.4 gm/dL (11.4-16.0); Hypochromasia Moderate; Lymphocytes # (A) 1.3 k/uL (1.0-4.8); Lymphocytes % (A) 21 %; MCH 30.4 pg (25.0-35.0); MCHC 30.8 g/dL (31.0-37.0); MCV 98.8 fL (80.0-100.0); Mean Platelet Volume 8.5; Monocytes # (A) 0.4 k/uL (0-1.0); Monocytes % (A) 7 %; Neutrophils % (A) 63 %; Platelet Count 173 k/uL (150-450); RBC 3.09 m/uL (3.80-5.40); RDW 14.5 % (11.5-15.5); WBC 6.3 k/uL (3.8-10.6)
--- NOTE | 2018-12-04 12:29 | XR ---
EXAMINATION TYPE: XR chest 2V DATE OF EXAM: 12/04/2018 COMPARISON: Prior chest x-ray 11/12/2018 HISTORY: Chest pain TECHNIQUE: Frontal and lateral views of the chest are obtained. FINDINGS: There are prominent lung volumes which may be indicative of underlying COPD. There are marichuy nary artery calcifications, aorta is dense. Heart is enlarged although it may be accentuated by techn ique, rotation. No pneumothorax or pleural effusion. Persistent retrocardiac density suspected. There are cardiac leads. IMPRESSION: Difficult to exclude basilar pneumonia. Follow-up suggested.
[2018-12-04 12:36] LABS: INR 0.9 (<1.2); Partial Thromboplastin Time 22.2 sec (22.0-30.0); Prothrombin Time 10.2 sec (9.0-12.0)
[2018-12-04 12:40] LABS: Creatine Kinase 72 U/L (30-135)
[2018-12-04 12:42] LABS: Albumin 3.1 g/dL (3.5-5.0); Calcium 8.2 mg/dL (8.4-10.2); Total Bilirubin 0.6 mg/dL (0.2-1.3); Total Protein 6.2 g/dL (6.3-8.2)
[2018-12-04 12:50] LABS: Magnesium 1.8 mg/dL (1.6-2.3); Potassium 4.7 mmol/L (3.5-5.1)
[2018-12-04 12:53] LABS: Creatine Kinase MB 0.9 ng/mL (0.0-2.4); Troponin I <0.012 ng/mL (0.000-0.034)
[2018-12-04] MEDS ORDERED: NITROGLYCERIN SL TABS 0.4 MG TAB SUBLINGUAL PRN (14:32)
[2018-12-04 14:47] LABS: Appearance,Urine Cloudy (Clear); Bacteria,Urine Many /hpf; Bilirubin,Urine Negative (Negative); Blood,Urine Negative (Negative); Color,Urine Yellow; Glucose,Urine (UA) Negative (Negative); Hyaline Casts,Urine 1 /lpf (0-2); Ketones,Urine Negative (Negative); Leukocyte Esterase,Urine Moderate (Negative); Nitrite,Urine Positive (Negative); PH, Urine 5.5 (5.0-8.0); Protein,Urine 1+ (Negative); RBC,Urine 1 /hpf (0-5); Specific Gravity,Urine 1.011 (1.001-1.035); Squamous Epithelial Cell,Urine 8 /hpf (0-4); Urobilinogen,Urine <2.0 mg/dL (<2.0)
--- NOTE | 2018-12-04 15:14 | P.HPIM ---
History of Present Illness H&P Date: 12/04/18 Chief Complaint: Chest pain The patient is a 83-year-old female with a past medical history of coronary artery disease, essential hypertension, CKD stage IV and type 2 diabetes who presents to the ER via private vehicle with her son with chief complaints of chest pain. Apparently the patient woke up in approximately 1 AM than the morning with complaints of severe substernal chest pressure with possible radiation into the neck, with associated shortness of breath and nausea. Patient denied any diaphoresis, denied palpitations, she reports worsening lower extremity swelling. Patient's son who is a nurse gave her Tums and Tylenol without any significant improvement in her symptoms. The patient son reports decreasing urination. The patient denies any dysuria suprapubic tenderness or flank pain. She denies subjective fevers chills or night sweats as well The patient was admitted earlier this year with encephalopathy, urinary retention and chronic kidney disease. Her son reports that she was recently seen by nephrology and started on torsemide a few days ago, without significant improvement of her lower extremity edema. During last hospitalization the patient was apparently seen also by Dr. Francisco for urinary retention and has a history of recurrent UTI and was being treated with Macrobid for prophylaxis Review of records indicates the patient last had a echocardiogram in 07/26 indicating preserved LVEF of 55-60% In the ER the patient had a conference of workup, she was noted to have elevated blood pressures she was given nitroglycerin, aspirin. EKG performed showing sinus mechanism with no suggestion of any acute ischemia, NT proBNP was 3720, troponin was less than 0.012. Creatinine was 2.75 GFR 15, urinalysis showed nitrite positive moderate leukocyte esterase and urine WBCs of 16. Chest x-ray unable to exclude pneumonia Review of Systems Pertinent positives per HPI all other review of systems otherwise negative Past Medical History Past Medical History: Blood Disorder, Coronary Artery Disease (CAD), Heart Failure, Diabetes Mellitus, Hyperlipidemia, Hypertension, Renal Disease Additional Past Medical History / Comment(s): Other hx: NIDDM type II, CKD, dry macular degeneration bilaterally, lower leg edema bilaterally, recent fall with small tear achilles tendon and back pain (spur), colovesicular fistula, UTIs. ANEMIA. History of Any Multi-Drug Resistant Organisms: None Reported Past Surgical History: Cholecystectomy, Heart Catheterization With Stent, Orthopedic Surgery Additional Past Surgical History / Comment(s): CATARACTS BL knees Hysterctomy bladder suspension Date of Last Stent Placement:: unkown Past Psychological History: No Psychological Hx Reported Smoking Status: Former smoker Past Alcohol Use History: None Reported Past Drug Use History: None Reported - Past Family History Father Family Medical History: Myocardial Infarction ([place]) Mother Family Medical History: Pneumonia Daughter(s) Family Medical History: Cancer Additional Family Medical History / Comment(s): Daughter has GIST Medications and Allergies Home Medications Medication Instructions Recorded Confirmed Type Isosorbide Mononitrate ER [Imdur] 30 mg PO DAILY 07/04/14 12/04/18 History ALPRAZolam [Xanax] 0.25 mg PO TID PRN 11/11/14 12/04/18 History Vit C/E/Zn/Coppr/Lutein/Zeaxan 1 cap PO BID 05/05/18 12/04/18 History [Preservision Areds 2 Softgel] Aspirin EC [Ecotrin] 325 mg PO DAILY 07/29/18 12/04/18 History Metoprolol Tartrate [Lopressor] 50 mg PO DAILY 07/29/18 12/04/18 History Famotidine [Pepcid] 20 mg PO DAILY 08/04/18 12/04/18 History Acetaminophen Tab [Tylenol] 650 mg PO Q4HR PRN tab 08/08/18 12/04/18 Rx Atorvastatin [Lipitor] 40 mg PO HS #30 tab 08/08/18 12/04/18 Rx Calcium Acetate [PhosLo] 667 mg PO BID-W/MEALS #60 cap 08/08/18 12/04/18 Rx Sodium Bicarbonate Tab 650 mg PO BID #60 tab 08/08/18 12/04/18 Rx Tamsulosin [Flomax] 0.4 mg PO PC-BRKFST #30 cap.er.24h 08/08/18 12/04/18 Rx Calcitriol [Rocaltrol] 0.25 mcg PO Q48H #15 cap 11/15/18 12/04/18 Rx Calcium Carbonate [Tums] 1,000 mg PO TID PRN 12/04/18 12/04/18 History Nitrofurantoin Monohyd/M-Cryst 100 mg PO DAILY 12/04/18 12/04/18 History [Macrobid] Pioglitazone [Actos] 15 mg PO DAILY 12/04/18 12/04/18 History Torsemide 10 mg PO DAILY 12/04/18 12/04/18 History Allergies Allergy/AdvReac Type Severity Reaction Status Date / Time zolpidem tartrate AdvReac Severe Hallucinati Verified 12/04/18 11:26 [From Ambien] ons amoxicillin [From Augmentin] AdvReac Nausea & Verified 12/04/18 11:26 Vomiting & Diarrhea ciprofloxacin [From Cipro] AdvReac Nausea & Verified 12/04/18 11:26 Vomiting clavulanic acid AdvReac Nausea & Verified 12/04/18 11:26 [From Augmentin] Vomiting & Diarrhea Sulfa (Sulfonamide AdvReac Nausea & Verified 12/04/18 11:26 Antibiotics) Vomiting Physical Exam Vitals: Vital Signs Temp Pulse Resp BP Pulse Ox 12/04/18 10:46 97.5 F L 85 16 190/74 95 Intake and Output 12/04/18 12/04/18 12/04/18 06:59 14:59 22:59 Other: Weight 88.451 kg Constitutional: No acute distress, conversant, pleasant Eyes: Anicteric sclerae, moist conjunctiva, no lid-lag, PERRLA ENMT: NC/AT,Oropharynx clear, no erythema, exudates Neck:Supple, FROM, no masses, +2 JVD, No carotid bruits; No thyromegaly Lungs: Crackles heard in the mid to lower lung bases bilaterally Clear to percussion, Normal respiratory effort, no accessory muscle use Cardiovascular: Heart regular in rate and rhythm, No murmurs, gallops, or rubs+ 3 pitting lower extremity peripheral edema Abdominal: Soft Nontender, nom distended, no guarding, no rebound or rigidity, Normoactive bowel sounds No hepatomegaly, No splenomegaly, No palpable mass No abdominal wall hernia noted Skin: Normal temperature, tone, texture, turgor, No induration No subcutaneous nodules, No rash, lesions, No ulcers Extremities:No digital cyanosis No clubbing, Pedal pulses intact and symmetrical Radial pulses intact and symmetrical Normal gait and station, No calf tenderness Psychiatric: Alert and oriented to person, place and time, Appropriate affect Intact judgement Neuro: Muscles Strength 5/5 in all 4 extremities, Sensation to light touch grossly present throughout, Cranial nerves II-XII grossly intact. No focal sensory deficits Results CBC & Chem 7: 12/04/18 11:56 12/04/18 11:56 Labs: Abnormal Lab Results - Last 24 Hours (Table) 12/04/18 12/04/18 12/04/18 Range/Units 11:56 11:56 14:05 RBC 3.09 L (3.80-5.40) m/uL Hgb 9.4 L (11.4-16.0) gm/dL Hct 30.5 L (34.0-46.0) % MCHC 30.8 L (31.0-37.0) g/dL BUN 58 H (7-17) mg/dL Creatinine 2.74 H (0.52-1.04) mg/dL Glucose 265 H (74-99) mg/dL Calcium 8.2 L (8.4-10.2) mg/dL Total Protein 6.2 L (6.3-8.2) g/dL Albumin 3.1 L (3.5-5.0) g/dL Lipase 307 H (23-300) U/L Urine Appearance Cloudy H (Clear) Urine Protein 1+ H (Negative) Urine Nitrite Positive H (Negative) Ur Leukocyte Esterase Moderate H (Negative) Urine WBC 16 H (0-5) /hpf Ur Squamous Epith Cells 8 H (0-4) /hpf Urine Bacteria Many H (None) /hpf Assessment and Plan Assessment: Chronic medical problems Bilateral carotid artery disease Hyperlipidemia CAD Recurrent UTIs History of neurogenic bladder with bladder obstruction CODE STATUS Full code Surrogate decision-maker: Anticipated discharge 1-2 days/ DVT prophylaxis SCDs/heparin (1) Atypical chest pain Current Visit: No Status: Acute Code(s): R07.89 - OTHER CHEST PAIN SNOMED Code(s): 206513181 (2) Hypertensive urgency Current Visit: Yes Status: Acute Code(s): I16.0 - HYPERTENSIVE URGENCY SNOMED Code(s): 128414900 (3) Chronic kidney disease, stage IV (severe) Current Visit: Yes Status: Acute Code(s): N18.4 - CHRONIC KIDNEY DISEASE, STAGE 4 (SEVERE) SNOMED Code(s): 261864109 (4) Type 2 diabetes mellitus with peripheral neuropathy Current Visit: No Status: Acute Code(s): E11.42 - TYPE 2 DIABETES MELLITUS WITH DIABETIC POLYNEUROPATHY SNOMED Code(s): 82482927 (5) Urinary retention Current Visit: No Status: Acute Code(s): R33.9 - RETENTION OF URINE, UNSPECIFIED SNOMED Code(s): 887081297 (6) History of recurrent UTIs Current Visit: Yes Status: Acute Code(s): Z87.440 - PERSONAL HISTORY OF URINARY (TRACT) INFECTIONS SNOMED Code(s): 361566842 Plan: The patient is placed on observation anticipated lesser than 2 midnight stay after initially presenting with atypical chest pain witjout any evidence of any acute ischemia EKG in sinus mechanism, troponins initially were negative but with elevated proBNP at 3000 range, with a history of chronic kidney disease stage IV, volume overload on exam, and presented with hypertensive urgency. We' ll continue routine chest pain orders, nitroglycerin, aspirin, sequential troponins, check echocardiogram plans for cardiology consultation. Initiated on empiric IV antibiotics with Rocephin, due to concern for recurrent UTI we'll obtain urine culture, will consult urology. Plan to place a Jenkins catheter and also diurese patient with Lasix. Nephrology is consulted for ongoing management , patient appears to be approaching the need to have hemodialysis. Blood pressure was initially severely elevated however it came down after receiving nitroglycerin, the patient was resumed on her home and hypertensive regimen. She is placed on SCDs for DVT prophylaxis. We'll continue to follow her clinical course
[2018-12-04] MEDS ORDERED: ACETAMINOPHEN TAB 325 MG TAB PO PRN (15:16)
[2018-12-04] MEDS ORDERED: CALCIUM CARBONATE 500 MG CHEWABLE PO PRN (15:16)
[2018-12-04 16:41] LABS: Glucose,Whole Blood 189 mg/dL (75-99)
[2018-12-04 16:50] VITALS: BMI 39.5
[2018-12-04] MEDS: CALCIUM ACETATE 667 MG CAP PO SCH (18:07)
[2018-12-04 18:50] LABS: Creatine Kinase MB 1.1 ng/mL (0.0-2.4); Troponin I 0.034 ng/mL (0.000-0.034)
[2018-12-04 20:19] LABS: Glucose,Whole Blood 236 mg/dL (75-99)
[2018-12-04] MEDS: ATORVASTATIN 40 MG TAB PO SCH (20:33)
[2018-12-04] MEDS: SODIUM BICARBONATE TAB 650 MG TAB PO SCH (20:33)
[2018-12-04] MEDS: INSULIN ASPART 100 UNIT/ML 1 ML 10 ML VIAL SQ SCH (20:34)
[2018-12-04] MEDS: HEPARIN SODIUM,PORCINE 5,000 UNIT/ML 1 ML VIAL SQ SCH (20:34)
[2018-12-04] MEDS ORDERED: FUROSEMIDE 10 MG/ML 4 ML VIAL IV SCH (21:00)
[2018-12-04] MEDS: ALPRAZolam 0.25 MG TAB PO PRN (21:32)
[2018-12-05 01:20] LABS: Troponin I 0.035 ng/mL (0.000-0.034)
[2018-12-05 04:28] LABS: Cholesterol 114 mg/dL (<200); HDL Cholesterol 44 mg/dL (40-60); LDL Cholesterol,Calculated 55 mg/dL (0-99); Triglycerides 77 mg/dL (<150)
[2018-12-05 06:28] LABS: Basophils % (A) 1 %; Eosinophils # (A) 0.6 k/uL (0-0.7); Eosinophils % (A) 10 %; HCT 26.9 % (34.0-46.0); HGB 8.3 gm/dL (11.4-16.0); Hypochromasia Moderate; Lymphocytes # (A) 2.1 k/uL (1.0-4.8); Lymphocytes % (A) 33 %; MCH 30.2 pg (25.0-35.0); MCHC 30.9 g/dL (31.0-37.0); MCV 97.6 fL (80.0-100.0); Mean Platelet Volume 8.5; Monocytes # (A) 0.5 k/uL (0-1.0); Monocytes % (A) 7 %; Neutrophils # (A) 2.8 k/uL (1.3-7.7); Neutrophils % (A) 46 %; Platelet Count 160 k/uL (150-450); RBC 2.76 m/uL (3.80-5.40); RDW 14.4 % (11.5-15.5); WBC 6.1 k/uL (3.8-10.6)
[2018-12-05 07:15] LABS: Potassium 4.2 mmol/L (3.5-5.1)
[2018-12-05 07:26] LABS: Glucose,Whole Blood 173 mg/dL (75-99)
--- NOTE | 2018-12-05 08:47 | P.NPCON ---
History of Present Illness - Reason for Consult acute renal failure, chronic renal failure - History of Present Illness Reason for consultation: Acute kidney injury on chronic kidney disease History of present illness: Patient is a 83-year-old female seen in renal consultation for acute kidney injury on chronic kidney disease. 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 Creatinine is up to 2.92 today. Patient presented to the hospital with chest pain. Patient is quite anxious at this time. She is awaiting for her son to arrive. No vomiting or diarrhea. She currently is a Jenkins catheter in place. Denies use of NSAIDs. Oral intake is fair. No hematuria or dysuria. Patient follows with me as an outpatient and has been referred to vascular surgery for AV fistula placement. Vital signs are stable. General: The patient appeared well nourished and normally developed. HEENT: Head exam is unremarkable. Neck is without jugular venous distension. LUNGS: Lungs are clear to auscultation and percussion. Breath sounds decreased. HEART: Rate and Rhythm are regular. First and second heart sounds normal. No murmurs, rubs or gallops. ABDOMEN: Abdominal exam reveals normal bowel sounds. Non-tender and non- distended. No evidence of peritonitis. EXTREMITITES: Trace edema. Chronic changes noted. Past Medical History Past Medical History: Blood Disorder, Coronary Artery Disease (CAD), Heart Failure, Diabetes Mellitus, Hyperlipidemia, Hypertension, Renal Disease Additional Past Medical History / Comment(s): Other hx: NIDDM type II, CKD, dry macular degeneration bilaterally, lower leg edema bilaterally, recent fall with small tear achilles tendon and back pain (spur), colovesicular fistula, UTIs. ANEMIA. History of Any Multi-Drug Resistant Organisms: None Reported Past Surgical History: Cholecystectomy, Heart Catheterization With Stent, Orthopedic Surgery Additional Past Surgical History / Comment(s): CATARACTS BL knees Hysterctomy bladder suspension Past Anesthesia/Blood Transfusion Reactions: No Reported Reaction Date of Last Stent Placement:: 2009 Past Psychological History: No Psychological Hx Reported Additional Psychological History / Comment(s): Pt resides alone. She uses a cane to ambulate and has a wheeled walker and wheelchair. She no longer drives. Her family takes her to [employer]. Her daughter Ewelina and son Uday RN manages her meds. Patient has been recently discharged from the hospital and has been living with her children Smoking Status: Former smoker Past Alcohol Use History: None Reported Additional Past Alcohol Use History / Comment(s): Pt started smoking in 1964 and quit in 1994. Past Drug Use History: None Reported - Past Family History Father Family Medical History: Myocardial Infarction ([place]) Mother Family Medical History: Pneumonia Daughter(s) Family Medical History: Cancer Additional Family Medical History / Comment(s): Daughter has GIST Medications and Allergies Home Medications Medication Instructions Recorded Confirmed Type Isosorbide Mononitrate ER [Imdur] 30 mg PO DAILY 07/04/14 12/04/18 History ALPRAZolam [Xanax] 0.25 mg PO TID PRN 11/11/14 12/04/18 History Vit C/E/Zn/Coppr/Lutein/Zeaxan 1 cap PO BID 05/05/18 12/04/18 History [Preservision Areds 2 Softgel] Aspirin EC [Ecotrin] 325 mg PO DAILY 07/29/18 12/04/18 History Metoprolol Tartrate [Lopressor] 50 mg PO DAILY 07/29/18 12/04/18 History Famotidine [Pepcid] 20 mg PO DAILY 08/04/18 12/04/18 History Acetaminophen Tab [Tylenol] 650 mg PO Q4HR PRN tab 08/08/18 12/04/18 Rx Atorvastatin [Lipitor] 40 mg PO HS #30 tab 08/08/18 12/04/18 Rx Calcium Acetate [PhosLo] 667 mg PO BID-W/MEALS #60 cap 08/08/18 12/04/18 Rx Sodium Bicarbonate Tab 650 mg PO BID #60 tab 08/08/18 12/04/18 Rx Tamsulosin [Flomax] 0.4 mg PO PC-BRKFST #30 cap.er.24h 08/08/18 12/04/18 Rx Calcitriol [Rocaltrol] 0.25 mcg PO Q48H #15 cap 11/15/18 12/04/18 Rx Calcium Carbonate [Tums] 1,000 mg PO TID PRN 12/04/18 12/04/18 History Nitrofurantoin Monohyd/M-Cryst 100 mg PO DAILY 12/04/18 12/04/18 History [Macrobid] Pioglitazone [Actos] 15 mg PO DAILY 12/04/18 12/04/18 History Torsemide 10 mg PO DAILY 12/04/18 12/04/18 History Allergies Allergy/AdvReac Type Severity Reaction Status Date / Time zolpidem tartrate AdvReac Severe Hallucinati Verified 12/04/18 11:26 [From Ambien] ons amoxicillin [From Augmentin] AdvReac Nausea & Verified 12/04/18 11:26 Vomiting & Diarrhea ciprofloxacin [From Cipro] AdvReac Nausea & Verified 12/04/18 11:26 Vomiting clavulanic acid AdvReac Nausea & Verified 12/04/18 11:26 [From Augmentin] Vomiting & Diarrhea Sulfa (Sulfonamide AdvReac Nausea & Verified 12/04/18 11:26 Antibiotics) Vomiting Physical Exam Vitals: Vital Signs Temp Pulse Pulse Resp BP BP Pulse Ox 12/05/18 07:49 97.8 F 69 12 145/79 91 L 12/05/18 05:58 74 16 146/77 97 12/05/18 04:00 97.8 F 62 18 145/65 92 L 12/05/18 00:00 98.2 F 64 18 157/62 93 L 12/04/18 23:41 18 12/04/18 20:00 18 12/04/18 19:40 98.2 F 64 18 132/54 97 12/04/18 16:23 97.8 F 60 18 190/71 94 L 12/04/18 16:22 16 12/04/18 15:30 80 13 133/64 95 12/04/18 15:00 54 L 17 162/71 96 12/04/18 14:00 51 L 17 142/42 93 L 12/04/18 13:30 50 L 12 124/60 93 L 12/04/18 10:46 97.5 F L 85 16 190/74 95 Intake and Output 12/04/18 12/05/18 12/05/18 22:59 06:59 14:59 Output Total 388 850 Balance -388 -850 Output: Urine 350 850 Post Void Residual 38 Other: Voiding Method Indwelling Catheter Indwelling Catheter Weight 89.6 kg Results - Lab Results Most recent lab results Calcium 8.0 mg/dL (8.4-10.2) L 12/05/18 05:28 Magnesium 1.8 mg/dL (1.6-2.3) 12/04/18 11:56 12/05/18 05:28 12/05/18 05:28 Assessment and Plan Plan: Assessment: 1. Acute kidney injury mostly prerenal secondary to diuresis. Creatinine up to 2.92 today. 2. Chronic kidney disease stage IV with baseline creatinine in the range of 2.3 -2.6 secondary to diabetic kidney disease. 3. Chest pain. Rule out acute coronary syndrome. Cardiology following. 4. Insulin dependent diabetes mellitus. 5. Anemia of chronic kidney disease. 6. Chronic kidney disease mineral bone disease maintained on PhosLo and calcitriol. 7. History of urinary retention. Currently is a Jenkins catheter. 8. UTI maintained on antibiotics. Plan: I will decrease dose of torsemide to 20 mg daily. Follow-up cultures. Check iron studies. Add Aranesp. Repeat electrolytes the morning. No urgent need for renal replacement therapy at this time. Thank you for the consultation. I will continue to follow the patient with you during her hospital stay.
[2018-12-05] MEDS ORDERED: TORSEMIDE 20 MG TAB PO SCH ×2 (09:00)
[2018-12-05] MEDS ORDERED: ASPIRIN 325 MG TAB PO SCH (09:00)
[2018-12-05] MEDS ORDERED: PIOGLITAZONE 15 MG TAB PO SCH (09:00)
[2018-12-05] MEDS ORDERED: DARBEPOETIN ALFA 40 MCG/0.4 ML SYRINGE SQ SCH (09:00)
[2018-12-05] MEDS ORDERED: NITROFURANTOIN MONOHYD/M-CRYST 100 MG CAP PO SCH (09:00)
[2018-12-05] MEDS ORDERED: METOPROLOL TARTRATE 50 MG TAB PO SCH (09:00)
[2018-12-05 09:07] LABS: Glucose,Whole Blood 219 mg/dL (75-99)
[2018-12-05] MEDS: ASPIRIN 81 MG PO SCH (09:25)
[2018-12-05] MEDS: TAMSULOSIN 0.4 MG CAP.ER.24H PO SCH (09:25)
[2018-12-05] MEDS: CALCIUM ACETATE 667 MG CAP PO SCH ×2 (09:25→17:29)
[2018-12-05] MEDS: SODIUM BICARBONATE TAB 650 MG TAB PO SCH ×2 (09:25→21:24)
[2018-12-05] MEDS: HEPARIN SODIUM,PORCINE 5,000 UNIT/ML 1 ML VIAL SQ SCH ×2 (09:25→21:24)
[2018-12-05] MEDS: FAMOTIDINE 20 MG TAB PO SCH (09:25)
[2018-12-05] MEDS: ISOSORBIDE MONONITRATE ER 30 MG TAB.ER.24H PO SCH (09:25)
[2018-12-05] MEDS: CALCITRIOL 0.25 MCG CAP PO SCH (09:26)
[2018-12-05] MEDS: INSULIN ASPART 100 UNIT/ML 1 ML 10 ML VIAL SQ SCH ×4 (09:28→21:24)
[2018-12-05] MEDS: CARVEDILOL 3.125 MG TAB PO SCH ×2 (09:34→17:29)
[2018-12-05] MEDS: ALPRAZolam 0.25 MG TAB PO PRN ×2 (09:34→21:24)
--- NOTE | 2018-12-05 09:39 | ECHOF ---
Referral Reason:elevated BNP MEASUREMENTS -------- HEIGHT: 152.4 cm WEIGHT: 89.4 kg BP: 146/77 FINDINGS -------- NORMAL LV SIZE AND FUNCTION MODERATE MR LIMITED STUDY [place] SUPERVISOR: Mayela Gupat RDCS
[2018-12-05] MEDS: TORSEMIDE 20 MG TAB PO SCH (09:40)
[2018-12-05 10:12] LABS: Hemoglobin A1C 6.7 % (4.0-6.0)
--- NOTE | 2018-12-05 11:24 | P.CRDCN ---
History of Present Illness History of present illness: This is a pleasant 83-year-old female past medical history significant for coronary artery disease s/p multiple angioplasties, hypertension , dyslipidemia, peripheral vascular disease, diabetes mellitus and former nicotine dependence. She follows in the office with Dr. Bowman. We have been asked to see her in consultation for chest pain. She is a poor historian, however her son is at the bedside. He states she spent the night at this house Wednesday night. She woke up around 0100 with a tightness in her chest and was very anxious and agitated. Her son gave her a xanax and sat with her for a couple hours until she fell back asleep. She woke up Wednesday morning again complaining of a tight pressure sensation chest. She also has been coughing with intermittent shortness of breath. The pain in her chest is described as a tight sensation in the entire anterior chest wall feels like it is tightening and caving into the midsternal region. She at times says the pain goes up into her neck and she denies radiation through to the back, arm or jaw. She also complains of lower back discomfort. Blood pressure on arrival was 190/74. She was started on IV Lasix per primary care team and has a Jenkins catheter in place secondary to urinary retention. 1200 mL of urine output noted. EKG on arrival reveals sinus mechanism with ST depression noted inferiorly laterally. Chest x-ray reveals bibasilar pneumonia. Laboratory data reviewed, WBC 6.1, hemoglobin 8.3, platelets 160, sodium 141, potassium 4.2, creatinine 2.92, cardiac enzymes 0.012, 0.034 0.035, NT proBNP 3720 on admission. Current cardiac medications include aspirin 325 mg daily, torsemide 10 mg daily , Lopressor 50 mg daily, Imdur 30 mg daily, atorvastatin 40 mg daily. History of cardiac catheterizations include 2000 she received a stent to the proximal ramus as well as proximal OM. 2006 she received a stent to the distal RCA and the proximal OM. Most recent Lexiscan stress test performed in the office 2014 revealed evidence of reversible anterolateral ischemia. At that time conservative medical management was preferred by the patient as well as Dr. Bowman. Most recent echocardiogram obtained July 2018 reveals preserved left ventricular systolic function with ejection fraction 55-60%, severely dilated left atrium, mild MR and trace TR noted. At the time of my exam: CONSTITUTIONAL: Denies fever. Denies chills. EYES: Denies blurred vision. Denies vision changes. Denies eye pain. EARS, NOSE, MOUTH & THROAT: Denies headache. Denies sore throat. Denies ear pain. CARDIOVASCULAR: Denies chest pain. Complains of shortness of breath. Denies orthopnea. Denies PND. Denies palpitations. RESPIRATORY: Denies cough. GASTROINTESTINAL: Denies abdominal pain. Denies diarrhea. Denies constipation. Denies nausea. Denies vomiting. MUSCULOSKELETAL: Denies myalgias. INTEGUMENTARY: Denies pruitis. Denies rash. NEUROLOGIC: Denies numbness. Denies tingling. Denies weakness. PSYCHIATRIC: Complains of anxiety. Denies depression. ENDOCRINE: Denies fatigue. Denies weight change. Denies polydipsia. Denies polyurina. GENITOURINARY: Denies burning, hematuria or urgency with micturation. HEMATOLOGIC: Denies history of anemia. Denies bleeding. Blood pressure 145/79 heart rate 69 afebrile and taking oxygen saturation on room air GENERAL: This is a 83-year-old female in no apparent distress at the time of my examination. Very anxious. HEENT: Head is atraumatic, normocephalic. Pupils are equal, round. Sclerae anicteric. Conjunctivae are clear. Mucous membranes of the mouth are moist. Neck is supple. There is no jugular venous distention. No carotid bruit is heard. LUNGS: Bibasilar rales, no wheezes or rhonchi. No chest wall tenderness is noted on palpation or with deep breathing. HEART: Regular rate and rhythm without murmurs, rubs or gallops. S1 and S2 heard. ABDOMEN: Soft, nontender. Bowel sounds are heard. No organomegaly noted. EXTREMITIES: 1+ bilateral lower extremity pitting edema right greater than left and no calf tenderness noted. VASCULAR: Radial and dorsalis pedis pulses palpated, no evidence of clubbing. NEUROLOGIC: Patient is awake, alert and oriented x3. ASSESSMENT Chest pain at rest, atypical for angina. Acute on chronic diastolic heart failure. Mild troponin elevation is not indicative of an acute coronary event. Most likely related to kidney function also could be secondary to hypoxia. Shortness of breath Acute on chronic kidney disease, stage IV Anemia of chronic kidney disease Urinary tract infection History of coronary artery disease status post multiple angioplasties. Hypertension Dyslipidemia PLAN An acute coronary event has been ruled out. Maximum medical therapy recommended. Lengthy discussion had with the patient and her son who is at the bedside regarding her prognosis and plan of care. We recommend discontinuing IV diuretics and starting her on torsemide at 20 mg daily by mouth. Discontinue aspirin 325 mg daily and recommend 81 mg daily. Discontinue Lopressor and start her on carvedilol 3.125 mg twice a day. Check d-dimer and subsequent VQ scan if abnormal. Repeat BMP in the morning. Recent echocardiogram obtained reveals preserved left ventricular systolic function with ejection fraction 55-60%. We will not repeat an echocardiogram at this time. Nephrology is following as well making recommendations regarding diuretic therapy. We will continue to follow and make recommendations accordingly. Thank you kindly for this consultation. Nurse Practitioner note has been reviewed, I agree with a documented findings and plan of care. Patient was seen and examined. Past Medical History Past Medical History: Blood Disorder, Coronary Artery Disease (CAD), Heart Failure, Diabetes Mellitus, Hyperlipidemia, Hypertension, Renal Disease Additional Past Medical History / Comment(s): Other hx: NIDDM type II, CKD, dry macular degeneration bilaterally, lower leg edema bilaterally, recent fall with small tear achilles tendon and back pain (spur), colovesicular fistula, UTIs. ANEMIA. History of Any Multi-Drug Resistant Organisms: None Reported Past Surgical History: Cholecystectomy, Heart Catheterization With Stent, Orthopedic Surgery Additional Past Surgical History / Comment(s): CATARACTS BL knees Hysterctomy bladder suspension Past Anesthesia/Blood Transfusion Reactions: No Reported Reaction Date of Last Stent Placement:: 2009 Past Psychological History: No Psychological Hx Reported Additional Psychological History / Comment(s): Pt resides alone. She uses a cane to ambulate and has a wheeled walker and wheelchair. She no longer drives. Her family takes her to [facility]. Her daughter Ewelina and son Uday RN manages her meds. Patient has been recently discharged from the hospital and has been living with her children Smoking Status: Former smoker Past Alcohol Use History: None Reported Additional Past Alcohol Use History / Comment(s): Pt started smoking in 1964 and quit in 1994. Past Drug Use History: None Reported - Past Family History Father Family Medical History: Myocardial Infarction ([place]) Mother Family Medical History: Pneumonia Daughter(s) Family Medical History: Cancer Additional Family Medical History / Comment(s): Daughter has GIST Medications and Allergies Home Medications Medication Instructions Recorded Confirmed Type Isosorbide Mononitrate ER [Imdur] 30 mg PO DAILY 07/04/14 12/04/18 History ALPRAZolam [Xanax] 0.25 mg PO TID PRN 11/11/14 12/04/18 History Vit C/E/Zn/Coppr/Lutein/Zeaxan 1 cap PO BID 05/05/18 12/04/18 History [Preservision Areds 2 Softgel] Aspirin EC [Ecotrin] 325 mg PO DAILY 07/29/18 12/04/18 History Metoprolol Tartrate [Lopressor] 50 mg PO DAILY 07/29/18 12/04/18 History Famotidine [Pepcid] 20 mg PO DAILY 08/04/18 12/04/18 History Acetaminophen Tab [Tylenol] 650 mg PO Q4HR PRN tab 08/08/18 12/04/18 Rx Atorvastatin [Lipitor] 40 mg PO HS #30 tab 08/08/18 12/04/18 Rx Calcium Acetate [PhosLo] 667 mg PO BID-W/MEALS #60 cap 08/08/18 12/04/18 Rx Sodium Bicarbonate Tab 650 mg PO BID #60 tab 08/08/18 12/04/18 Rx Tamsulosin [Flomax] 0.4 mg PO PC-BRKFST #30 cap.er.24h 08/08/18 12/04/18 Rx Calcitriol [Rocaltrol] 0.25 mcg PO Q48H #15 cap 11/15/18 12/04/18 Rx Calcium Carbonate [Tums] 1,000 mg PO TID PRN 12/04/18 12/04/18 History Nitrofurantoin Monohyd/M-Cryst 100 mg PO DAILY 12/04/18 12/04/18 History [Macrobid] Pioglitazone [Actos] 15 mg PO DAILY 12/04/18 12/04/18 History Torsemide 10 mg PO DAILY 12/04/18 12/04/18 History Allergies Allergy/AdvReac Type Severity Reaction Status Date / Time zolpidem tartrate AdvReac Severe Hallucinati Verified 12/04/18 11:26 [From Ambien] ons amoxicillin [From Augmentin] AdvReac Nausea & Verified 12/04/18 11:26 Vomiting & Diarrhea ciprofloxacin [From Cipro] AdvReac Nausea & Verified 12/04/18 11:26 Vomiting clavulanic acid AdvReac Nausea & Verified 12/04/18 11:26 [From Augmentin] Vomiting & Diarrhea Sulfa (Sulfonamide AdvReac Nausea & Verified 12/04/18 11:26 Antibiotics) Vomiting Physical Exam Vitals: Vital Signs Temp Pulse Pulse Resp BP BP Pulse Ox 12/05/18 07:49 97.8 F 69 12 145/79 91 L 12/05/18 05:58 74 16 146/77 97 12/05/18 04:00 97.8 F 62 18 145/65 92 L 12/05/18 00:00 98.2 F 64 18 157/62 93 L 12/04/18 23:41 18 12/04/18 20:00 18 12/04/18 19:40 98.2 F 64 18 132/54 97 12/04/18 16:23 97.8 F 60 18 190/71 94 L 12/04/18 16:22 16 12/04/18 15:30 80 13 133/64 95 12/04/18 15:00 54 L 17 162/71 96 12/04/18 14:00 51 L 17 142/42 93 L 12/04/18 13:30 50 L 12 124/60 93 L 12/04/18 10:46 97.5 F L 85 16 190/74 95 Intake and Output 12/04/18 12/05/18 12/05/18 22:59 06:59 14:59 Output Total 388 850 Balance -388 -850 Output: Urine 350 850 Post Void Residual 38 Other: Voiding Method Indwelling Catheter Indwelling Catheter Weight 89.6 kg Results 12/05/18 05:28 12/05/18 05:28 Cardiac Enzymes 12/04/18 12/04/18 12/04/18 Range/Units 11:56 11:56 17:50 AST 24 (14-36) U/L CK-MB (CK-2) 0.9 1.1 (0.0-2.4) ng/mL Troponin I <0.012 0.034 (0.000-0.034) ng/mL 12/05/18 Range/Units 00:08 AST (14-36) U/L CK-MB (CK-2) 1.0 (0.0-2.4) ng/mL Troponin I 0.035 H* (0.000-0.034) ng/mL Coagulation 12/04/18 Range/Units 11:56 PT 10.2 (9.0-12.0) sec APTT 22.2 (22.0-30.0) sec Lipids 12/04/18 Range/Units 11:56 Triglycerides 77 (<150) mg/dL Cholesterol 114 (<200) mg/dL HDL Cholesterol 44 (40-60) mg/dL CBC 12/04/18 12/05/18 Range/Units 11:56 05:28 WBC 6.3 6.1 (3.8-10.6) k/uL RBC 3.09 L 2.76 L (3.80-5.40) m/uL Hgb 9.4 L 8.3 L (11.4-16.0) gm/dL Hct 30.5 L 26.9 L (34.0-46.0) % Plt Count 173 160 (150-450) k/uL Comprehensive Metabolic Panel 12/04/18 12/05/18 Range/Units 11:56 05:28 Sodium 140 141 (137-145) mmol/L Potassium 4.7 4.2 (3.5-5.1) mmol/L Chloride 107 107 (98-107) mmol/L Carbon Dioxide 26 28 (22-30) mmol/L BUN 58 H 57 H (7-17) mg/dL Creatinine 2.74 H 2.92 H (0.52-1.04) mg/dL Glucose 265 H 143 H (74-99) mg/dL Calcium 8.2 L 8.0 L (8.4-10.2) mg/dL AST 24 (14-36) U/L ALT 23 (9-52) U/L Alkaline Phosphatase 72 (38-126) U/L Total Protein 6.2 L (6.3-8.2) g/dL Albumin 3.1 L (3.5-5.0) g/dL Current Medications Generic Name Dose Route Start Last Admin Trade Name Freq PRN Reason Stop Dose Admin Acetaminophen 650 mg 12/04/18 15:16 Tylenol Tab PO Q4HR PRN Mild Pain Alprazolam 0.25 mg 12/04/18 15:16 12/04/18 21:32 Xanax PO 0.25 mg TID PRN Administration Anxiety Aspirin 325 mg 12/05/18 09:00 Aspirin PO DAILY [facility] Atorvastatin Calcium 40 mg 12/04/18 21:00 12/04/18 20:33 Lipitor PO 40 mg HS [facility] Administration Calcitriol 0.25 mcg 12/05/18 09:00 Rocaltrol PO Q48H [facility] Calcium Acetate 667 mg 12/04/18 17:30 12/04/18 18:07 Phoslo PO 667 mg BID-W/MEALS [facility] Administration Calcium Carbonate/Glycine 1,000 mg 12/04/18 15:16 Tums PO TID PRN Heartburn Famotidine 20 mg 12/05/18 09:00 Pepcid PO DAILY [facility] Heparin Sodium (Porcine) 5,000 unit 12/04/18 21:00 12/04/18 20:34 Heparin SQ 5,000 unit Q12HR [facility] Administration Ceftriaxone Sodium 1,000 mg/ 50 mls @ 100 mls/hr 12/05/18 09:00 Sodium Chloride IVPB Q24HR [facility] Insulin Aspart 0 unit 12/04/18 21:00 12/04/18 20:34 Novolog SQ 3 unit ACHS [facility] Administration Protocol Isosorbide Mononitrate 30 mg 12/05/18 09:00 Imdur PO DAILY [facility] Metoprolol Tartrate 50 mg 12/05/18 09:00 Lopressor PO DAILY [facility] Nitroglycerin 0.4 mg 12/04/18 14:32 12/05/18 06:02 Nitrostat SUBLINGUAL 0.4 mg Q5M PRN Administration Chest Pain Sodium Bicarbonate 650 mg 12/04/18 21:00 12/04/18 20:33 Sodium Bicarbonate Tab PO 650 mg BID [facility] Administration Tamsulosin HCl 0.4 mg 12/05/18 08:30 Flomax PO PC-BRKFST [facility] Torsemide 10 mg 12/05/18 09:00 Demadex PO DAILY [facility] Intake and Output 12/04/18 12/05/18 12/05/18 22:59 06:59 14:59 Output Total 388 850 Balance -388 -850 Output: Urine 350 850 Post Void Residual 38 Other: Voiding Method Indwelling Catheter Indwelling Catheter Weight 89.6 kg 12/05/18 05:28 12/05/18 05:28
[2018-12-05 11:38] LABS: Glucose,Whole Blood 217 mg/dL (75-99)
--- NOTE | 2018-12-05 13:42 | P.GSCN ---
History of Present Illness Consult date: 12/05/18 Reason for Consult: Urinary Retention Requesting physician: Gareth Argueta History of present illness: This is an 83 yo female known to Dr. Francisco. She has a known hypotonic neurogenic bladder with recurrent UTI's. She incompletely empties her bladder which makes her at risk for recurrent UTI's. She is not a candidate for CIC, and an indwelling catheter also places her at risk of recurrent UTIs. She was last seen in the office by Dr. Francisco on 11/17/2018. Her postvoid residual at that time was 207 mL. A urine culture showed a Staphylococcus epidermidis UTI, and Macrobid was prescribed. Dr. Francisco advised her to double void. She presented to the emergency room yesterday for evaluation of chest pain, and was found to have a postvoid residual of 850 mL. The Jenkins catheter was therefore replaced. Review of Systems - Constitutional Denies chills, Denies fever - Cardiovascular Reports chest pain - Genitourinary Genitourinary: Denies dysuria, Denies hematuria Past Medical History Past Medical History: Blood Disorder, Coronary Artery Disease (CAD), Heart Failure, Diabetes Mellitus, Hyperlipidemia, Hypertension, Renal Disease Additional Past Medical History / Comment(s): Other hx: NIDDM type II, CKD, dry macular degeneration bilaterally, lower leg edema bilaterally, recent fall with small tear achilles tendon and back pain (spur), colovesicular fistula, UTIs. ANEMIA. History of Any Multi-Drug Resistant Organisms: None Reported Past Surgical History: Cholecystectomy, Heart Catheterization With Stent, Orthopedic Surgery Additional Past Surgical History / Comment(s): CATARACTS BL knees Hysterctomy bladder suspension Past Anesthesia/Blood Transfusion Reactions: No Reported Reaction Date of Last Stent Placement:: 2009 Past Psychological History: No Psychological Hx Reported Additional Psychological History / Comment(s): Pt resides alone. She uses a cane to ambulate and has a wheeled walker and wheelchair. She no longer drives. Her family takes her to [facility]. Her daughter Ewelina and son Uday RN manages her meds. Patient has been recently discharged from the hospital and has been living with her children Smoking Status: Former smoker Past Alcohol Use History: None Reported Additional Past Alcohol Use History / Comment(s): Pt started smoking in 1964 and quit in 1994. Past Drug Use History: None Reported - Past Family History Father Family Medical History: Myocardial Infarction ([place]) Mother Family Medical History: Pneumonia Daughter(s) Family Medical History: Cancer Additional Family Medical History / Comment(s): Daughter has GIST Medications and Allergies Home Medications Medication Instructions Recorded Confirmed Type Isosorbide Mononitrate ER [Imdur] 30 mg PO DAILY 07/04/14 12/04/18 History ALPRAZolam [Xanax] 0.25 mg PO TID PRN 11/11/14 12/04/18 History Vit C/E/Zn/Coppr/Lutein/Zeaxan 1 cap PO BID 05/05/18 12/04/18 History [Preservision Areds 2 Softgel] Aspirin EC [Ecotrin] 325 mg PO DAILY 07/29/18 12/04/18 History Metoprolol Tartrate [Lopressor] 50 mg PO DAILY 07/29/18 12/04/18 History Famotidine [Pepcid] 20 mg PO DAILY 08/04/18 12/04/18 History Acetaminophen Tab [Tylenol] 650 mg PO Q4HR PRN tab 08/08/18 12/04/18 Rx Atorvastatin [Lipitor] 40 mg PO HS #30 tab 08/08/18 12/04/18 Rx Calcium Acetate [PhosLo] 667 mg PO BID-W/MEALS #60 cap 08/08/18 12/04/18 Rx Sodium Bicarbonate Tab 650 mg PO BID #60 tab 08/08/18 12/04/18 Rx Tamsulosin [Flomax] 0.4 mg PO PC-BRKFST #30 cap.er.24h 08/08/18 12/04/18 Rx Calcitriol [Rocaltrol] 0.25 mcg PO Q48H #15 cap 11/15/18 12/04/18 Rx Calcium Carbonate [Tums] 1,000 mg PO TID PRN 12/04/18 12/04/18 History Nitrofurantoin Monohyd/M-Cryst 100 mg PO DAILY 12/04/18 12/04/18 History [Macrobid] Pioglitazone [Actos] 15 mg PO DAILY 12/04/18 12/04/18 History Torsemide 10 mg PO DAILY 12/04/18 12/04/18 History Allergies Allergy/AdvReac Type Severity Reaction Status Date / Time zolpidem tartrate AdvReac Severe Hallucinati Verified 12/04/18 11:26 [From Ambien] ons amoxicillin [From Augmentin] AdvReac Nausea & Verified 12/04/18 11:26 Vomiting & Diarrhea ciprofloxacin [From Cipro] AdvReac Nausea & Verified 12/04/18 11:26 Vomiting clavulanic acid AdvReac Nausea & Verified 12/04/18 11:26 [From Augmentin] Vomiting & Diarrhea Sulfa (Sulfonamide AdvReac Nausea & Verified 12/04/18 11:26 Antibiotics) Vomiting Surgical - Exam Vital Signs Temp Pulse Resp BP Pulse Ox 97.5 F L 85 16 190/74 95 12/04/18 10:46 12/04/18 10:46 12/04/18 10:46 12/04/18 10:46 12/04/18 10:46 - General well developed, well nourished, no distress - Respiratory normal respiratory effort - Abdomen Abdomen: soft, non tender, no guarding, no rigid, no rebound - Psychiatric oriented to time, oriented to person, oriented to place, speech is normal, memory intact Results - Labs 12/05/18 05:28 12/05/18 05:28 Abnormal Lab Results - Last 24 Hours (Table) 12/04/18 12/04/18 12/04/18 Range/Units 11:56 11:56 14:05 RBC 3.09 L (3.80-5.40) m/uL Hgb 9.4 L (11.4-16.0) gm/dL Hct 30.5 L (34.0-46.0) % MCHC 30.8 L (31.0-37.0) g/dL BUN 58 H (7-17) mg/dL Creatinine 2.74 H (0.52-1.04) mg/dL Glucose 265 H (74-99) mg/dL POC Glucose (mg/dL) (75-99) mg/dL Calcium 8.2 L (8.4-10.2) mg/dL Troponin I (0.000-0.034) ng/mL Total Protein 6.2 L (6.3-8.2) g/dL Albumin 3.1 L (3.5-5.0) g/dL Lipase 307 H (23-300) U/L Urine Appearance Cloudy H (Clear) Urine Protein 1+ H (Negative) Urine Nitrite Positive H (Negative) Ur Leukocyte Esterase Moderate H (Negative) Urine WBC 16 H (0-5) /hpf Ur Squamous Epith Cells 8 H (0-4) /hpf Urine Bacteria Many H (None) /hpf 12/04/18 12/04/18 12/05/18 Range/Units 16:40 20:18 00:08 RBC (3.80-5.40) m/uL Hgb (11.4-16.0) gm/dL Hct (34.0-46.0) % MCHC (31.0-37.0) g/dL BUN (7-17) mg/dL Creatinine (0.52-1.04) mg/dL Glucose (74-99) mg/dL POC Glucose (mg/dL) 189 H 236 H (75-99) mg/dL Calcium (8.4-10.2) mg/dL Troponin I 0.035 H* (0.000-0.034) ng/mL Total Protein (6.3-8.2) g/dL Albumin (3.5-5.0) g/dL Lipase (23-300) U/L Urine Appearance (Clear) Urine Protein (Negative) Urine Nitrite (Negative) Ur Leukocyte Esterase (Negative) Urine WBC (0-5) /hpf Ur Squamous Epith Cells (0-4) /hpf Urine Bacteria (None) /hpf 12/05/18 12/05/18 Range/Units 05:28 05:28 RBC 2.76 L (3.80-5.40) m/uL Hgb 8.3 L (11.4-16.0) gm/dL Hct 26.9 L (34.0-46.0) % MCHC 30.9 L (31.0-37.0) g/dL BUN 57 H (7-17) mg/dL Creatinine 2.92 H (0.52-1.04) mg/dL Glucose 143 H (74-99) mg/dL POC Glucose (mg/dL) (75-99) mg/dL Calcium 8.0 L (8.4-10.2) mg/dL Troponin I (0.000-0.034) ng/mL Total Protein (6.3-8.2) g/dL Albumin (3.5-5.0) g/dL Lipase (23-300) U/L Urine Appearance (Clear) Urine Protein (Negative) Urine Nitrite (Negative) Ur Leukocyte Esterase (Negative) Urine WBC (0-5) /hpf Ur Squamous Epith Cells (0-4) /hpf Urine Bacteria (None) /hpf Microbiology - Last 24 Hours (Table) 12/04/18 14:05 Urine Culture - Preliminary Urine,Voided Diabetes panel 12/04/18 12/04/18 12/05/18 Range/Units 11:56 11:56 05:28 Sodium 140 141 (137-145) mmol/L Potassium 4.7 4.2 (3.5-5.1) mmol/L Chloride 107 107 (98-107) mmol/L Carbon Dioxide 26 28 (22-30) mmol/L BUN 58 H 57 H (7-17) mg/dL Creatinine 2.74 H 2.92 H (0.52-1.04) mg/dL Glucose 265 H 143 H (74-99) mg/dL Calcium 8.2 L 8.0 L (8.4-10.2) mg/dL AST 24 (14-36) U/L ALT 23 (9-52) U/L Alkaline Phosphatase 72 (38-126) U/L Total Protein 6.2 L (6.3-8.2) g/dL Albumin 3.1 L (3.5-5.0) g/dL Triglycerides 77 (<150) mg/dL HDL Cholesterol 44 (40-60) mg/dL Calcium panel 12/04/18 12/05/18 Range/Units 11:56 05:28 Calcium 8.2 L 8.0 L (8.4-10.2) mg/dL Albumin 3.1 L (3.5-5.0) g/dL Pituitary panel 12/04/18 12/05/18 Range/Units 11:56 05:28 Sodium 140 141 (137-145) mmol/L Potassium 4.7 4.2 (3.5-5.1) mmol/L Chloride 107 107 (98-107) mmol/L Carbon Dioxide 26 28 (22-30) mmol/L BUN 58 H 57 H (7-17) mg/dL Creatinine 2.74 H 2.92 H (0.52-1.04) mg/dL Glucose 265 H 143 H (74-99) mg/dL Calcium 8.2 L 8.0 L (8.4-10.2) mg/dL Adrenal panel 12/04/18 12/05/18 Range/Units 11:56 05:28 Sodium 140 141 (137-145) mmol/L Potassium 4.7 4.2 (3.5-5.1) mmol/L Chloride 107 107 (98-107) mmol/L Carbon Dioxide 26 28 (22-30) mmol/L BUN 58 H 57 H (7-17) mg/dL Creatinine 2.74 H 2.92 H (0.52-1.04) mg/dL Glucose 265 H 143 H (74-99) mg/dL Calcium 8.2 L 8.0 L (8.4-10.2) mg/dL Total Bilirubin 0.6 (0.2-1.3) mg/dL AST 24 (14-36) U/L ALT 23 (9-52) U/L Alkaline Phosphatase 72 (38-126) U/L Total Protein 6.2 L (6.3-8.2) g/dL Albumin 3.1 L (3.5-5.0) g/dL Assessment and Plan (1) Urinary retention Current Visit: No Status: Acute Code(s): R33.9 - RETENTION OF URINE, UNSPECIFIED SNOMED Code(s): 682886117 (2) Urinary tract infection Current Visit: No Status: Acute Code(s): N39.0 - URINARY TRACT INFECTION, SITE NOT SPECIFIED SNOMED Code(s): 20428523 Plan: Mrs. Pickens appears to have a recurrent UTI based on urinalysis. A urine culture is pending, and she is currently receiving ceftriaxone. The Jenkins catheter will be removed tomorrow, and bladder emptying will be monitored. She was advised to continue to double void to improve bladder emptying.
--- NOTE | 2018-12-05 14:52 | P.PN ---
Subjective Progress Note Date: 12/05/18 The patient is an 83 yo F with a PMH of CAD s/p multiple stents, CKD stage IV, diastolic CHF, DM, HTN, HLD, neurogenic bladder on macrobid maintenance, and anemia of chronic disease presented to the ED for chest pain, SOB, and nausea. In the ED, she was in hypertensive urgency with MILAD and UA consistent with UTI and MILAD. She was admitted under observation for r/o ACS and for Urology and Nephrology evaluation. Troponin plateued at 0.035. Cardiology recommended maximal medical therapy. Recent Echo revealed preserved LVEF of 55-60%. On the morning of 12/05/18, the patient had an episode of dyspnea with chest discomfort and hypoxia which resolved within a few minutes spontaneously. A d-dimer was ordered and was 1.22 with subsequent V/Q scan ordered for possible PE. The patient was seen and examined with son at the bedside (son is an RN by profession). She was in good spirits and denied any complaints. During the episode in the morning as relayed by the patient and her nurse, the patient developed sudden onset L sided sharp chest pain with SOB and hypoxia. She denied palpitations, nausea, vomiting, diaphoresis, or dizziness at that time. After the episode in the morning, she hasn't had any additional symptoms and denied chest pain, SOB, nausea, vomiting, dizziness, headache, palpitations, diaphoresis, diarrhea, fever, chills, or cough. Objective - Vital Signs Vital signs: Vital Signs Temp 97.1 F L 12/05/18 09:00 Pulse 67 12/05/18 12:00 Resp 18 12/05/18 12:00 BP 161/73 12/05/18 12:00 Pulse Ox 100 12/05/18 12:00 Intake & Output 12/04/18 12/05/18 12/05/18 18:59 06:59 18:59 Output Total 188 1050 Balance -188 -1050 Weight 88.451 kg 89.6 kg Output: Urine 150 1050 Post Void Residual 38 Other: Voiding Method Toilet Indwelling Catheter Indwelling Catheter - Exam General: Non-toxic, in no acute distress, appears stated age, obese HEENT: NC/AT, anicteric sclerae, moist conjunctiva, no lid-lag, PERRLA Cardiovascular: S1/S2 wnl, no murmurs, rubs, or gallops Lungs: Bilateral mild ronchi, normal respiratory effort, no accessory muscle use Abdominal: Soft, non-tender, non-distended, no guarding, rebound, or rigidity Skin: Warm, dry Extremities: 1+ LE edema yasmine Psychiatric: Alert and oriented to person, place and time, appropriate affect Neuro: CN II-XII grossly intact, Strength 5/5 in all 4 extremities, Speech intact, Sensation to light touch grossly intact throughout - Labs CBC & Chem 7: 12/05/18 05:28 12/05/18 05:28 Labs: Abnormal Lab Results - Last 24 Hours (Table) 12/04/18 12/04/18 12/04/18 Range/Units 11:56 11:56 14:05 RBC (3.80-5.40) m/uL Hgb (11.4-16.0) gm/dL Hct (34.0-46.0) % MCHC (31.0-37.0) g/dL D-Dimer (<0.60) mg/L FEU BUN 58 H (7-17) mg/dL Creatinine 2.74 H (0.52-1.04) mg/dL Glucose 265 H (74-99) mg/dL POC Glucose (mg/dL) (75-99) mg/dL Hemoglobin A1c 6.7 H (4.0-6.0) % Calcium 8.2 L (8.4-10.2) mg/dL Troponin I (0.000-0.034) ng/mL Total Protein 6.2 L (6.3-8.2) g/dL Albumin 3.1 L (3.5-5.0) g/dL Lipase 307 H (23-300) U/L Urine Appearance Cloudy H (Clear) Urine Protein 1+ H (Negative) Urine Nitrite Positive H (Negative) Ur Leukocyte Esterase Moderate H (Negative) Urine WBC 16 H (0-5) /hpf Ur Squamous Epith Cells 8 H (0-4) /hpf Urine Bacteria Many H (None) /hpf 12/04/18 12/04/18 12/05/18 Range/Units 16:40 20:18 00:08 RBC (3.80-5.40) m/uL Hgb (11.4-16.0) gm/dL Hct (34.0-46.0) % MCHC (31.0-37.0) g/dL D-Dimer (<0.60) mg/L FEU BUN (7-17) mg/dL Creatinine (0.52-1.04) mg/dL Glucose (74-99) mg/dL POC Glucose (mg/dL) 189 H 236 H (75-99) mg/dL Hemoglobin A1c (4.0-6.0) % Calcium (8.4-10.2) mg/dL Troponin I 0.035 H* (0.000-0.034) ng/mL Total Protein (6.3-8.2) g/dL Albumin (3.5-5.0) g/dL Lipase (23-300) U/L Urine Appearance (Clear) Urine Protein (Negative) Urine Nitrite (Negative) Ur Leukocyte Esterase (Negative) Urine WBC (0-5) /hpf Ur Squamous Epith Cells (0-4) /hpf Urine Bacteria (None) /hpf 12/05/18 12/05/18 12/05/18 Range/Units 05:28 05:28 05:28 RBC 2.76 L (3.80-5.40) m/uL Hgb 8.3 L (11.4-16.0) gm/dL Hct 26.9 L (34.0-46.0) % MCHC 30.9 L (31.0-37.0) g/dL D-Dimer 1.22 H (<0.60) mg/L FEU BUN 57 H (7-17) mg/dL Creatinine 2.92 H (0.52-1.04) mg/dL Glucose 143 H (74-99) mg/dL POC Glucose (mg/dL) (75-99) mg/dL Hemoglobin A1c (4.0-6.0) % Calcium 8.0 L (8.4-10.2) mg/dL Troponin I (0.000-0.034) ng/mL Total Protein (6.3-8.2) g/dL Albumin (3.5-5.0) g/dL Lipase (23-300) U/L Urine Appearance (Clear) Urine Protein (Negative) Urine Nitrite (Negative) Ur Leukocyte Esterase (Negative) Urine WBC (0-5) /hpf Ur Squamous Epith Cells (0-4) /hpf Urine Bacteria (None) /hpf 12/05/18 12/05/18 12/05/18 Range/Units 07:24 09:02 11:37 RBC (3.80-5.40) m/uL Hgb (11.4-16.0) gm/dL Hct (34.0-46.0) % MCHC (31.0-37.0) g/dL D-Dimer (<0.60) mg/L FEU BUN (7-17) mg/dL Creatinine (0.52-1.04) mg/dL Glucose (74-99) mg/dL POC Glucose (mg/dL) 173 H 219 H 217 H (75-99) mg/dL Hemoglobin A1c (4.0-6.0) % Calcium (8.4-10.2) mg/dL Troponin I (0.000-0.034) ng/mL Total Protein (6.3-8.2) g/dL Albumin (3.5-5.0) g/dL Lipase (23-300) U/L Urine Appearance (Clear) Urine Protein (Negative) Urine Nitrite (Negative) Ur Leukocyte Esterase (Negative) Urine WBC (0-5) /hpf Ur Squamous Epith Cells (0-4) /hpf Urine Bacteria (None) /hpf Microbiology - Last 24 Hours (Table) 12/04/18 14:05 Urine Culture - Preliminary Urine,Voided Assessment and Plan Plan: Chest pain, atypical, ACS ruled out -Cardiology recs appreciated -D-dimer elevated, V/Q scan pending -Cardiac monitoring Coronary artery disease -C/w Aspirin 81 mg qd, Coreg 3.125 bid, Torsemide 20 mg po qd as per Cardiology and Nephrology -C/w Lipitor 40 mg qhs MILAD on CKD 4 -Nephrology recs appreciated -Torsemide 20 mg qd, PhosLo and Calcitriol Chronic neurogenic bladder w/ recurrent UTIs and abnormal UA -Urology recs appreciated. Post-void residual 850 ml w/ maldonado replaced -C/w Ceftriaxone for now pending urine cultures -Maldonado to be removed tomorrow Hypertensive urgency -C/w Coreg 3.125, Imdur 30 mg po qd -Cardiology recs appreciated Chronic conditions: Type 2 DM, HLD -DOREEN with FS -C/w Lipitor Normocytic anemia, likely of chronic disease from CKD -Iron studies pending -Started on Aranesp by Nephrology DVT//GI prophylaxis -Heparin -No indication for GI prophylaxis Discussed with: Patient, son Anticipated discharge date: 12/06/[address]: Home A total of 35 minutes was spent on the care of this complex patient more than 50 % of the time was spent in counseling and care coordination. Time with Patient: Greater than 30
[2018-12-05 16:48] LABS: Glucose,Whole Blood 159 mg/dL (75-99)
[2018-12-05 17:54] LABS: Iron Saturation 36.98 (12.00-45.00)
[2018-12-05 20:39] LABS: Glucose,Whole Blood 166 mg/dL (75-99)
[2018-12-05] MEDS: ATORVASTATIN 40 MG TAB PO SCH (21:24)
[2018-12-06 06:33] LABS: Glucose,Whole Blood 124 mg/dL (75-99)
[2018-12-06 07:11] LABS: Calcium 7.9 mg/dL (8.4-10.2); Magnesium 1.7 mg/dL (1.6-2.3); Potassium 4.3 mmol/L (3.5-5.1)
--- NOTE | 2018-12-06 08:53 | NM ---
EXAMINATION TYPE: NM pul vent and perfuse DATE OF EXAM: 12/06/2018 COMPARISON: Chest x-ray from 2 days ago. HISTORY: Elevated d-dimer with shortness of breath TECHNIQUE: Utilizing inhalation of 70.3 mCi Tc 99m DTPA aerosol and intravenous injection of 5.14 mC i of Tc 99m MAA, ventilation and perfusion images are acquired post injection in multiple projections . FINDINGS: Radiolucent defect from cardiomegaly is noted. There are small matching defects identified. There are additional basilar small to moderate size mismatched defects. IMPRESSION: Intermediate or indeterminate probability for pulmonary embolism. Consider CTA or direct catheter ang iogram to further evaluate based on degree of clinical suspicion.
[2018-12-06] MEDS: INSULIN ASPART 100 UNIT/ML 1 ML 10 ML VIAL SQ SCH ×4 (09:01→20:31)
[2018-12-06] MEDS: ISOSORBIDE MONONITRATE ER 30 MG TAB.ER.24H PO SCH (09:13)
[2018-12-06] MEDS: SODIUM BICARBONATE TAB 650 MG TAB PO SCH (09:13)
[2018-12-06] MEDS: FAMOTIDINE 20 MG TAB PO SCH (09:13)
[2018-12-06] MEDS: CARVEDILOL 3.125 MG TAB PO SCH ×2 (09:13→17:34)
[2018-12-06] MEDS: TAMSULOSIN 0.4 MG CAP.ER.24H PO SCH (09:13)
[2018-12-06] MEDS: ASPIRIN 81 MG PO SCH (09:13)
[2018-12-06] MEDS: TORSEMIDE 20 MG TAB PO SCH (09:14)
[2018-12-06] MEDS: CALCIUM ACETATE 667 MG CAP PO SCH ×2 (09:15→17:34)
[2018-12-06] MEDS: HEPARIN SODIUM,PORCINE 5,000 UNIT/ML 1 ML VIAL SQ SCH ×2 (09:15→19:41)
--- NOTE | 2018-12-06 09:56 | P.PN ---
Subjective Patient is seen in follow-up for acute kidney injury on chronic kidney disease. 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 Creatinine up at 3.1 today. She is nonoliguric. No active chest pain or shortness of breath. She underwent a VQ scan this morning which revealed intermediate probability of PE. Echo revealed preserved ejection fraction. Vital signs are stable. General: The patient appeared well nourished and normally developed. HEENT: Head exam is unremarkable. Neck is without jugular venous distension. LUNGS: Lungs are clear to auscultation and percussion. Breath sounds decreased. HEART: Rate and Rhythm are regular. First and second heart sounds normal. No murmurs, rubs or gallops. ABDOMEN: Abdominal exam reveals normal bowel sounds. Non-tender and non- distended. No evidence of peritonitis. EXTREMITITES: 1+ edema. Objective - Vital Signs Vital signs: Vital Signs Temp 99 F 12/06/18 07:30 Pulse 63 12/06/18 07:30 Resp 18 12/06/18 07:30 BP 155/66 12/06/18 07:30 Pulse Ox 97 12/06/18 07:30 Intake & Output 12/05/18 12/06/18 12/06/18 18:59 06:59 18:59 Intake Total 250 118 240 Output Total 1000 500 Balance -750 -382 240 Intake: Intake, IV Titration 50 Amount cefTRIAXone 1,000 mg In 50 Sodium Chloride 0.9% 50 ml @ 100 mls/hr IVPB Q24HR [facility] Rx#:[id number] Oral 200 118 240 Output: Urine 1000 500 Other: Voiding Method Indwelling Catheter Indwelling Catheter - Labs CBC & Chem 7: 12/05/18 05:28 12/06/18 06:03 Labs: Abnormal Lab Results - Last 24 Hours (Table) 12/04/18 12/05/18 12/05/18 Range/Units 11:56 05:28 11:37 Carbon Dioxide (22-30) mmol/L BUN (7-17) mg/dL Creatinine (0.52-1.04) mg/dL Glucose (74-99) mg/dL POC Glucose (mg/dL) 217 H (75-99) mg/dL Hemoglobin A1c 6.7 H (4.0-6.0) % Calcium (8.4-10.2) mg/dL TIBC 192 L (228-460) ug/dL 12/05/18 12/05/18 12/06/18 Range/Units 16:40 20:35 06:03 Carbon Dioxide 33 H (22-30) mmol/L BUN 56 H (7-17) mg/dL Creatinine 3.10 H (0.52-1.04) mg/dL Glucose 113 H (74-99) mg/dL POC Glucose (mg/dL) 159 H 166 H (75-99) mg/dL Hemoglobin A1c (4.0-6.0) % Calcium 7.9 L (8.4-10.2) mg/dL TIBC (228-460) ug/dL 12/06/18 Range/Units 06:31 Carbon Dioxide (22-30) mmol/L BUN (7-17) mg/dL Creatinine (0.52-1.04) mg/dL Glucose (74-99) mg/dL POC Glucose (mg/dL) 124 H (75-99) mg/dL Hemoglobin A1c (4.0-6.0) % Calcium (8.4-10.2) mg/dL TIBC (228-460) ug/dL Microbiology - Last 24 Hours (Table) 12/04/18 14:05 Urine Culture - Final Urine,Voided Assessment and Plan Plan: Assessment: 1. Acute kidney injury mostly prerenal secondary to diuresis. Creatinine up to 3.1 today. 2. Chronic kidney disease stage IV with baseline creatinine in the range of 2.3 -2.6 secondary to diabetic kidney disease. 3. Chest pain. Rule out acute coronary syndrome. Cardiology following. Intermediate probability of PE on VQ scan. 4. Insulin dependent diabetes mellitus. 5. Anemia of chronic kidney disease. Iron replete. Maintained on Aranesp. 6. Chronic kidney disease mineral bone disease maintained on PhosLo and calcitriol. 7. History of urinary retention. Currently is a Jenkins catheter. 8. UTI maintained on antibiotics. Plan: I will decrease dose of torsemide to 10 mg daily. Follow-up cultures. Repeat electrolytes the morning. No urgent need for renal replacement therapy at this time. Discontinue Jenkins catheter. She is to follow-up with vascular surgery as an outpatient for AV fistula surgery.
--- NOTE | 2018-12-06 11:18 | P.PN ---
Subjective Progress Note Date: 12/06/18 The patient is an 83 yo F with a PMH of CAD s/p multiple stents, CKD stage IV, diastolic CHF, DM, HTN, HLD, neurogenic bladder on macrobid maintenance, and anemia of chronic disease presented to the ED for chest pain, SOB, and nausea. In the ED, she was in hypertensive urgency with MILAD and UA consistent with UTI and MILAD. She was admitted under observation for r/o ACS and for Urology and Nephrology evaluation. Troponin plateued at 0.035. Cardiology recommended maximal medical therapy. Recent Echo revealed preserved LVEF of 55-60%. On the morning of 12/05/18, the patient had an episode of dyspnea with chest discomfort and hypoxia which resolved within a few minutes spontaneously. A d-dimer was ordered and was 1.22 with subsequent V/Q scan ordered for possible PE. The V/Q scan resulted on 12/06/18 as intermediate or indeterminate probability of PE. The patient was seen with son at the bedside. The patient has been asymptomatic since the episode from yesterday morning which lasted a few minutes. She has been saturating 97-98% on RA. She denied chest pain, SOB, diaphoresis, nausea, vomiting, dizziness, headache, or palpitations. Objective - Vital Signs Vital signs: Vital Signs Temp 99 F 12/06/18 07:30 Pulse 63 12/06/18 07:30 Resp 18 12/06/18 07:30 BP 155/66 12/06/18 07:30 Pulse Ox 97 12/06/18 07:30 Intake & Output 12/05/18 12/06/18 12/06/18 18:59 06:59 18:59 Intake Total 250 118 360 Output Total 6864 754 9053 Balance -426 -011 -933 Intake: Intake, IV Titration 50 Amount cefTRIAXone 1,000 mg In 50 Sodium Chloride 0.9% 50 ml @ 100 mls/hr IVPB Q24HR [facility] Rx#:[id number] Oral 200 118 360 Output: Urine 1042 429 1433 Straight 1000 Other: Voiding Method Indwelling Catheter Indwelling Catheter Indwelling Catheter - Exam General: Non-toxic, in no acute distress, appears stated age, obese HEENT: NC/AT, anicteric sclerae, moist conjunctiva, no lid-lag, PERRLA Cardiovascular: S1/S2 wnl, no murmurs, rubs, or gallops Lungs: Bilateral mild ronchi, normal respiratory effort, no accessory muscle use Abdominal: Soft, non-tender, non-distended, no guarding, rebound, or rigidity Skin: Warm, dry Extremities: 1+ LE edema yasmine, no calf tenderness yasmine, both legs equal in size, no erythema noted Psychiatric: Alert and oriented to person, place and time, appropriate affect Neuro: CN II-XII grossly intact, Strength 5/5 in all 4 extremities, Speech intact, Sensation to light touch grossly intact throughout - Labs CBC & Chem 7: 12/05/18 05:28 12/06/18 06:03 Labs: Abnormal Lab Results - Last 24 Hours (Table) 12/05/18 12/05/18 12/05/18 Range/Units 05:28 11:37 16:40 Carbon Dioxide (22-30) mmol/L BUN (7-17) mg/dL Creatinine (0.52-1.04) mg/dL Glucose (74-99) mg/dL POC Glucose (mg/dL) 217 H 159 H (75-99) mg/dL Calcium (8.4-10.2) mg/dL TIBC 192 L (228-460) ug/dL 12/05/18 12/06/18 12/06/18 Range/Units 20:35 06:03 06:31 Carbon Dioxide 33 H (22-30) mmol/L BUN 56 H (7-17) mg/dL Creatinine 3.10 H (0.52-1.04) mg/dL Glucose 113 H (74-99) mg/dL POC Glucose (mg/dL) 166 H 124 H (75-99) mg/dL Calcium 7.9 L (8.4-10.2) mg/dL TIBC (228-460) ug/dL Microbiology - Last 24 Hours (Table) 12/04/18 14:05 Urine Culture - Final Urine,Voided Assessment and Plan Plan: Abnormal V/Q scan, episode of chest pain, SOB, and hypoxia yesterday -Will obtain LE duplex and consult Pulmonary for further guidance . Unable to perform CTA in setting of MILAD on CKD Chest pain, atypical, ACS ruled out -Cardiology recs appreciated -C/w Tele monitoring Coronary artery disease -C/w Aspirin 81 mg qd, Coreg 3.125 bid -Torsemide decreased to 10 mg po qd as per Nephrology -C/w Lipitor 40 mg qhs MILAD on CKD 4 -Creatinine worsened to 3.1 -Nephrology recs appreciated -Torsemide 10 mg qd, PhosLo and Calcitriol Chronic neurogenic bladder w/ recurrent UTIs and abnormal UA -Urology recs appreciated. Post-void residual 850 ml w/ maldonado replaced -Urine cultures negative -Maldonado to be removed as per Nephrology -C/w Ceftriaxone pending Urology recs. Patient on maintenance Macrobid Hypertensive urgency -C/w Coreg 3.125, Imdur 30 mg po qd -Cardiology recs appreciated Chronic conditions: Type 2 DM, HLD -DOREEN with FS -C/w Lipitor Anemia of chronic disease -Iron studies reviewed -Started on Aranesp by Nephrology DVT//GI prophylaxis -Heparin -No indication for GI prophylaxis Discussed with: Patient, son Anticipated discharge date: 12/08/[address]: Home A total of 35 minutes was spent on the care of this complex patient more than 50 % of the time was spent in counseling and care coordination.
[2018-12-06 11:41] LABS: Glucose,Whole Blood 211 mg/dL (75-99)
--- NOTE | 2018-12-06 13:39 | P.PN ---
Subjective This is a pleasant 83-year-old female past medical history significant for coronary artery disease s/p multiple angioplasties, hypertension , dyslipidemia, peripheral vascular disease, diabetes mellitus and former nicotine dependence. She follows in the office with Dr. Bowman. She is seen and examined sitting up in bed eating breakfast. She states overall she is feeling better. She denies active chest pain or shortness of breath. Creatinine has gone up today and nephrology has decreased her torsemide to 10 mg daily. Sodium 142, potassium 4.3. Blood pressure 160/53 herat rate 59. D-dimer was elevated and VQ scan obtained reveals intermediate or indeterminate probability of PE. She has a negative fluid balance of 440cc. GENERAL: This is a 83-year-old female in no apparent distress at the time of my examination. Very anxious. HEENT: Head is atraumatic, normocephalic. Pupils are equal, round. Sclerae anicteric. Conjunctivae are clear. Mucous membranes of the mouth are moist. Neck is supple. There is no jugular venous distention. No carotid bruit is heard. LUNGS: Clear to auscultation. No rales, wheezes or rhonchi. No chest wall tenderness is noted on palpation or with deep breathing. HEART: Regular rate and rhythm without murmurs, rubs or gallops. S1 and S2 heard. EXTREMITIES: 1+ bilateral lower extremity pitting edema right greater than left and no calf tenderness noted. ASSESSMENT Chest pain at rest, atypical for angina. Acute on chronic diastolic heart failure. Mild troponin elevation is not indicative of an acute coronary event. Most likely related to kidney function also could be secondary to hypoxia. Shortness of breath Acute on chronic kidney disease, stage IV Anemia of chronic kidney disease Urinary tract infection History of coronary artery disease status post multiple angioplasties. Hypertension Dyslipidemia PLAN VQ scan is inconclusive, however with her worsening kidney function CTA is not a consideration. Recommend opinion of pulmonary care team. From a cardiac perspective, ongoing medical management. Follow up with Dr. Bowman upon discharge. Nurse Practitioner note has been reviewed, I agree with a documented findings and plan of care. Patient was seen and examined. Objective - Vital Signs Vital signs: Vital Signs Temp 98.4 F 12/06/18 11:27 Pulse 59 L 12/06/18 11:27 Resp 18 12/06/18 11:27 BP 160/53 12/06/18 11:27 Pulse Ox 93 L 12/06/18 11:27 Intake & Output 12/05/18 12/06/18 12/06/18 18:59 06:59 18:59 Intake Total 250 118 560 Output Total 5048 181 9405 Balance -488 -382 440 Intake: Intake, IV Titration 50 Amount cefTRIAXone 1,000 mg In 50 Sodium Chloride 0.9% 50 ml @ 100 mls/hr IVPB Q24HR [facility] Rx#:[id number] Oral 200 118 560 Output: Urine 0565 492 8428 Straight 1000 Other: Voiding Method Indwelling Catheter Indwelling Catheter Indwelling Catheter - Labs CBC & Chem 7: 12/05/18 05:28 12/06/18 06:03 Labs: Abnormal Lab Results - Last 24 Hours (Table) 12/05/18 12/05/18 12/05/18 Range/Units 05:28 16:40 20:35 Carbon Dioxide (22-30) mmol/L BUN (7-17) mg/dL Creatinine (0.52-1.04) mg/dL Glucose (74-99) mg/dL POC Glucose (mg/dL) 159 H 166 H (75-99) mg/dL Calcium (8.4-10.2) mg/dL TIBC 192 L (228-460) ug/dL 12/06/18 12/06/18 12/06/18 Range/Units 06:03 06:31 11:40 Carbon Dioxide 33 H (22-30) mmol/L BUN 56 H (7-17) mg/dL Creatinine 3.10 H (0.52-1.04) mg/dL Glucose 113 H (74-99) mg/dL POC Glucose (mg/dL) 124 H 211 H (75-99) mg/dL Calcium 7.9 L (8.4-10.2) mg/dL TIBC (228-460) ug/dL Microbiology - Last 24 Hours (Table) 12/04/18 14:05 Urine Culture - Final Urine,Voided
--- NOTE | 2018-12-06 14:06 | US ---
EXAMINATION TYPE: US venous doppler duplex LE DATE OF EXAM: 12/06/2018 1:28 PM COMPARISON: NONE CLINICAL HISTORY: R/o DVT. left leg swelling that has since gone away SIDE PERFORMED: Bilateral TECHNIQUE: The lower extremity deep venous system is examined utilizing real time linear array sonog ayan with graded compression, doppler sonography and color-flow sonography. VESSELS IMAGED: External Iliac Vein (EIV) Common Femoral Vein Deep Femoral Vein Greater Saphenous Vein * Femoral Vein Popliteal Vein Small Saphenous Vein * Proximal Calf Veins (* superficial vessels) Right Leg: Appears negative for DVT Left Leg: Appears negative for DVT Grayscale, color doppler, spectral doppler imaging performed of the deep veins of the bilateral lower extremities. There is normal flow, compressibility, vascular waveforms. IMPRESSION: No ultrasound evidence for acute DVT in either lower extremity.
[2018-12-06] MEDS ORDERED: IPRATROPIUM-ALBUTEROL 3 ML NEB INHALATION PRN (15:10)
--- NOTE | 2018-12-06 15:57 | CONS ---
CONSULTATION This is an 83-year-old female who presented to the emergency department on December 04. She apparently came in with complaints of chest pain and neck pain. The patient was seen in the ER. No additional history is noted on the consultation done by the ER doctor. In addition, the patient complains of some shortness of breath. She also complains of a bit of a chest cold with cough and phlegm production. In addition, she mentioned to me that she has got some edema and swelling of the lower extremities. Anyway, we were consulted, primarily because there was some concern about pulmonary embolism. Her history just does not fit with pulmonary embolism. In addition, the patient had a Doppler of the lower extremities which was negative for DVT and a ventilation-perfusion lung scan that was indeterminate for pulmonary embolism. The patient has been seen by a number of experts. I am only consulted after 3-1/2 days. Anyway, the patient states that she is feeling fine. She denies any chest pain or shortness of breath at this time. She is not on any supplemental oxygen. She seems to think whatever caused her to come in has gotten better. A chest x-ray was done on December 04. It showed possible bibasilar infiltrates. The lung scan and venous Doppler studies were also evaluated. HOME MEDICATIONS: Included: 1. Imdur. 2. Xanax. 3. Eye vitamins. 4. Aspirin. 5. Lopressor. 6. Pepcid. 7. Tums. 8. Macrobid. 9. Actos. 10.Lasix. 11.Tylenol. 12.Lipitor. 13.PhosLo. 14.Sodium bicarbonate tablets. 15.Calcitriol. 16.Flomax. ALLERGIES: INCLUDE: 1. AMBIEN. 2. AMOXICILLIN. 3. CIPROFLOXACIN. 4. CLAVULANIC ACID. 5. SULFA ANTIBIOTICS. MEDICAL HISTORY: Includes: 1. Chronic indwelling Jenkins with chronic urinary tract infections. 2. CAD. 3. Heart failure. 4. Diabetes. 5. Hyperlipidemia. 6. Hypertension. 7. Chronic kidney disease. 8. Dry macular degeneration. 9. Achilles tendon rupture. 10.Chronic back pain. 11.Colovesical fistula. 12.Chronic anemia. SURGICAL HISTORY: Includes: 1. Cholecystectomy. 2. Heart catheterization with stent. 3. Cataracts done on both eyes. 4. Knee surgery. 5. Hysterectomy. 6. Bladder suspension. SOCIAL HISTORY: Positive for previous tobacco use. It is unclear as to how long she smoked; maybe about 35 to 40 years. She denies any alcohol use or illicit drug use. FAMILY HISTORY: Positive for myocardial infarction, pneumonia and cancer. REVIEW OF SYSTEMS: CONSTITUTIONAL: Weakness. NEUROLOGIC: Negative. HEENT: Negative. CARDIOVASCULAR: Negative. PULMONARY: Shortness of breath, chest congestion, cough, minimal phlegm production. GI/: Negative. RHEUMATOLOGIC/IMMUNOLOGIC: Negative. ENDOCRINOLOGIC: Negative. DERMATOLOGIC: Negative. PHYSICAL EXAMINATION: Current vital signs are reviewed. Temperature is 98.4, heart rate 63, respiratory rate 18, blood pressure 155/66 with mean of 95, and two-liter saturation 97%, room-air saturation 93%. Appears in no acute distress. Not wearing supplemental oxygen when I saw her. HEENT examination is grossly unremarkable. Mucous membranes are moist. NECK: Supple. Full range of motion. No adenopathy, thyromegaly or neck vein distention. Cardiovascular examination reveals a regular rhythm and rate. Heart sounds are distant. S1, S2 normal. LUNGS: Bibasilar crackles. There are a few scattered bilateral rhonchi. No wheezes. Breath sounds are diminished. ABDOMEN: Soft. Bowel sounds are heard. Extremities reveal 1+ to 2+ edema. It is pitting. Skin without rash. Neurologic examination is difficult to assess, but she appears to have a nonfocal exam. IMAGING: Chest x-ray, as mentioned, shows evidence of bibasilar infiltrates. LAB DATA: Reviewed. White count was 6.1, hemoglobin 8.3, hematocrit 26.9, platelet count normal. D-dimer was 1.22. Sodium 142, potassium 4.3, chloride 106, CO2 33, anion gap 3. BUN and creatinine were 56 and 3.10. Magnesium 1.7. Troponins were 0.034 and 0.035. N- terminal proBNP was 3720. Her lipase was 307. Urine shows findings that were consistent with a urinary tract infection. Venous Doppler was negative for DVT. It was negative both in the right and left leg. Lung scan was nondiagnostic in intermediate determination for PE. This is because the chest x-ray was abnormal. Microbiology data is negative. Medications are reviewed. The patient is on Rocephin as a single antibiotic. ASSESSMENT: 1. Shortness of breath, likely multifactorial, in part related to mild fluid overload, possible bilateral lower lobe infiltrates/pneumonia and mild chronic obstructive pulmonary disease exacerbation. I seriously doubt pulmonary embolism in this woman. Dopplers of the legs were negative. V/Q scan was indeterminate primarily because the chest x-ray was abnormal. Currently, the patient is asymptomatic. 2. History of chronic indwelling Jenkins catheter with chronic urinary tract infections. 3. Hyperlipidemia. 4. Chronic kidney disease. 5. Coronary artery disease. 6. Congestive heart failure by history. 7. Diabetes mellitus. 8. Hyperlipidemia. 9. Hypertension. 10.Macular degeneration with impaired sight. 11.Achilles rupture. 12.Chronic back pain. 13.Urinary tract infections. 14.Anemia. 15.Colovesical fistula. PLAN: The patient in my opinion could be placed on some antibiotics. She also should receive breathing treatments. Additional recommendations and suggestions are forthcoming. I do not believe she has a pulmonary embolism. That is just my opinion. Additional recommendations and suggestions are forthcoming. Will follow as needed. MMODL / IJN: [id number] /
[2018-12-06 17:06] LABS: Glucose,Whole Blood 197 mg/dL (75-99)
[2018-12-06] MEDS: SYMBICORT 160-4.5 MCG INHALER INHALATION SCH (19:26)
[2018-12-06] MEDS: IPRATROPIUM-ALBUTEROL 3 ML NEB INHALATION SCH (19:26)
[2018-12-06] MEDS: ATORVASTATIN 40 MG TAB PO SCH (19:41)
[2018-12-06 20:27] LABS: Glucose,Whole Blood 164 mg/dL (75-99)
[2018-12-06] MEDS: ALPRAZolam 0.25 MG TAB PO PRN ×2 (23:08→23:09)
[2018-12-07 04:46] LABS: HCT 26.6 % (34.0-46.0); HGB 8.1 gm/dL (11.4-16.0); Hypochromasia Slight; MCH 29.5 pg (25.0-35.0); MCHC 30.3 g/dL (31.0-37.0); MCV 97.4 fL (80.0-100.0); Mean Platelet Volume 8.2; Platelet Count 147 k/uL (150-450); RBC 2.73 m/uL (3.80-5.40); RDW 14.4 % (11.5-15.5); WBC 6.5 k/uL (3.8-10.6)
[2018-12-07 05:01] LABS: Calcium 8.2 mg/dL (8.4-10.2); Magnesium 1.7 mg/dL (1.6-2.3); Potassium 4.2 mmol/L (3.5-5.1)
[2018-12-07 06:39] LABS: Glucose,Whole Blood 144 mg/dL (75-99)
[2018-12-07] MEDS: AZITHROMYCIN 500 MG TAB PO SCH (07:32)
[2018-12-07] MEDS: FAMOTIDINE 20 MG TAB PO SCH (07:32)
[2018-12-07] MEDS: TAMSULOSIN 0.4 MG CAP.ER.24H PO SCH (07:32)
[2018-12-07] MEDS: CARVEDILOL 3.125 MG TAB PO SCH ×2 (07:32→17:00)
[2018-12-07] MEDS: CALCIUM ACETATE 667 MG CAP PO SCH ×2 (07:32→17:00)
[2018-12-07] MEDS: ASPIRIN 81 MG PO SCH (07:32)
[2018-12-07] MEDS: ISOSORBIDE MONONITRATE ER 30 MG TAB.ER.24H PO SCH (07:32)
[2018-12-07] MEDS: TORSEMIDE 20 MG TAB PO SCH (07:33)
[2018-12-07] MEDS: HEPARIN SODIUM,PORCINE 5,000 UNIT/ML 1 ML VIAL SQ SCH (07:33)
[2018-12-07] MEDS: INSULIN ASPART 100 UNIT/ML 1 ML 10 ML VIAL SQ SCH ×4 (07:34→21:13)
[2018-12-07] MEDS: IPRATROPIUM-ALBUTEROL 3 ML NEB INHALATION SCH ×3 (07:41→19:49)
[2018-12-07] MEDS: SYMBICORT 160-4.5 MCG INHALER INHALATION SCH ×2 (07:41→19:49)
[2018-12-07] MEDS ORDERED: ISOSORBIDE MONONITRATE ER 30 MG TAB.ER.24H PO STA (09:23)
--- NOTE | 2018-12-07 09:28 | P.PN ---
Subjective Patient is seen in follow-up for acute kidney injury on chronic kidney disease. 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 Renal function is little better with creatinine at 2.9 today. She is nonoliguric. Jenkins catheter removed. No active chest pain or shortness of breath. Echo revealed preserved ejection fraction. Vital signs are stable. General: The patient appeared well nourished and normally developed. HEENT: Head exam is unremarkable. Neck is without jugular venous distension. LUNGS: Lungs are clear to auscultation and percussion. Breath sounds decreased. HEART: Rate and Rhythm are regular. First and second heart sounds normal. No murmurs, rubs or gallops. ABDOMEN: Abdominal exam reveals normal bowel sounds. Non-tender and non- distended. No evidence of peritonitis. EXTREMITITES: Trace edema. Objective - Vital Signs Vital signs: Vital Signs Temp 98.3 F 12/07/18 07:00 Pulse 72 12/07/18 07:43 Resp 12 12/07/18 07:43 BP 162/66 12/07/18 07:00 Pulse Ox 90 L 12/07/18 07:43 Intake & Output 12/06/18 12/07/18 12/07/18 18:59 06:59 18:59 Intake Total 560 240 Output Total 1000 1150 301 Balance -440 -1150 -61 Weight 93.9 kg Intake: Oral 560 240 Output: Urine 1000 1150 301 Straight 1000 Other: Voiding Method Indwelling Catheter Indwelling Catheter # Voids 1 1 300 - Labs CBC & Chem 7: 12/07/18 04:31 12/07/18 04:31 Labs: Abnormal Lab Results - Last 24 Hours (Table) 12/06/18 12/06/18 12/06/18 Range/Units 11:40 17:02 20:20 RBC (3.80-5.40) m/uL Hgb (11.4-16.0) gm/dL Hct (34.0-46.0) % MCHC (31.0-37.0) g/dL Plt Count (150-450) k/uL Carbon Dioxide (22-30) mmol/L BUN (7-17) mg/dL Creatinine (0.52-1.04) mg/dL Glucose (74-99) mg/dL POC Glucose (mg/dL) 211 H 197 H 164 H (75-99) mg/dL Calcium (8.4-10.2) mg/dL 12/07/18 12/07/18 12/07/18 Range/Units 04:31 04:31 06:33 RBC 2.73 L (3.80-5.40) m/uL Hgb 8.1 L (11.4-16.0) gm/dL Hct 26.6 L (34.0-46.0) % MCHC 30.3 L (31.0-37.0) g/dL Plt Count 147 L (150-450) k/uL Carbon Dioxide 32 H (22-30) mmol/L BUN 56 H (7-17) mg/dL Creatinine 2.98 H (0.52-1.04) mg/dL Glucose 135 H (74-99) mg/dL POC Glucose (mg/dL) 144 H (75-99) mg/dL Calcium 8.2 L (8.4-10.2) mg/dL Assessment and Plan Plan: Assessment: 1. Acute kidney injury mostly prerenal secondary to diuresis. Renal function a little better today. Creatinine 2.98. 2. Chronic kidney disease stage IV with baseline creatinine in the range of 2.3 -2.6 secondary to diabetic kidney disease. 3. Chest pain. Rule out acute coronary syndrome. Cardiology following. Intermediate probability of PE on VQ scan. 4. Insulin dependent diabetes mellitus. 5. Anemia of chronic kidney disease. Iron replete. Maintained on Aranesp. 6. Chronic kidney disease mineral bone disease maintained on PhosLo and calcitriol. 7. History of urinary retention. Jenkins catheter removed yesterday. 8. UTI maintained on antibiotics. Plan: Maintain torsemide 10 mg daily. Follow-up cultures. Repeat electrolytes the morning. No urgent need for renal replacement therapy at this time. She is to follow-up with vascular surgery as an outpatient for AV fistula surgery. Avoid placement to rehab.
[2018-12-07] MEDS: CALCITRIOL 0.25 MCG CAP PO SCH (09:50)
--- NOTE | 2018-12-07 10:30 | P.PN ---
Subjective Progress Note Date: 12/07/18 The patient has a known history of recurrent urine infections. She has chronic incomplete bladder emptying. Her residuals run between 2 and 300 mL. The patient has declined intermittent catheterization or an indwelling catheter. Because of this is really not much treatment other than as we have done with antibiotics and break catheterization and recuperation. The catheter is out and she seems to be voiding adequately. I will check 1 residual and if it is not to high then nothing further will need to be done. Objective - Vital Signs Vital signs: Vital Signs Temp 98.3 F 12/07/18 07:00 Pulse 72 12/07/18 07:43 Resp 12 12/07/18 07:43 BP 162/66 12/07/18 07:00 Pulse Ox 94 L 12/07/18 09:00 Intake & Output 12/06/18 12/07/18 12/07/18 18:59 06:59 18:59 Intake Total 560 240 Output Total 1000 1150 301 Balance -440 -1150 -61 Weight 93.9 kg Intake: Oral 560 240 Output: Urine 1000 1150 301 Straight 1000 Other: Voiding Method Indwelling Catheter Indwelling Catheter # Voids 1 1 300 - Labs CBC & Chem 7: 12/07/18 04:31 12/07/18 04:31 Labs: Abnormal Lab Results - Last 24 Hours (Table) 12/06/18 12/06/18 12/06/18 Range/Units 11:40 17:02 20:20 RBC (3.80-5.40) m/uL Hgb (11.4-16.0) gm/dL Hct (34.0-46.0) % MCHC (31.0-37.0) g/dL Plt Count (150-450) k/uL Carbon Dioxide (22-30) mmol/L BUN (7-17) mg/dL Creatinine (0.52-1.04) mg/dL Glucose (74-99) mg/dL POC Glucose (mg/dL) 211 H 197 H 164 H (75-99) mg/dL Calcium (8.4-10.2) mg/dL 12/07/18 12/07/18 12/07/18 Range/Units 04:31 04:31 06:33 RBC 2.73 L (3.80-5.40) m/uL Hgb 8.1 L (11.4-16.0) gm/dL Hct 26.6 L (34.0-46.0) % MCHC 30.3 L (31.0-37.0) g/dL Plt Count 147 L (150-450) k/uL Carbon Dioxide 32 H (22-30) mmol/L BUN 56 H (7-17) mg/dL Creatinine 2.98 H (0.52-1.04) mg/dL Glucose 135 H (74-99) mg/dL POC Glucose (mg/dL) 144 H (75-99) mg/dL Calcium 8.2 L (8.4-10.2) mg/dL
[2018-12-07 11:48] LABS: Glucose,Whole Blood 175 mg/dL (75-99)
--- NOTE | 2018-12-07 13:13 | P.PN ---
Subjective Progress Note Date: 12/07/18 The patient is an 83 yo F with a PMH of CAD s/p multiple stents, CKD stage IV, diastolic CHF, DM, HTN, HLD, neurogenic bladder on macrobid maintenance, and anemia of chronic disease presented to the ED for chest pain, SOB, and nausea. In the ED, she was in hypertensive urgency with MILAD and UA consistent with UTI and MILAD. She was admitted under observation for r/o ACS and for Urology and Nephrology evaluation. Troponin plateued at 0.035. Cardiology recommended maximal medical therapy. Recent Echo revealed preserved LVEF of 55-60%. On the morning of 12/05/18, the patient had an episode of dyspnea with chest discomfort and hypoxia which resolved within a few minutes spontaneously. A d-dimer was ordered and was 1.22 with subsequent V/Q scan ordered for possible PE. The V/Q scan resulted on 12/06/18 as intermediate or indeterminate probability of PE. LE duplex was ordered and was negative for a DVT. Pulmonary was consulted and recommended that the patient's symptoms are possibly due to mild fluid overload and pneumonia with low likelihood of a PE. The patient was seen and examined at the bedside. The patient was in good spirits and notes that she hasn't had any further episodes of chest pain or shortness of breath. She denied fever, cough, chills, nausea, vomiting, or palpitations. Objective - Vital Signs Vital signs: Vital Signs Temp 98.2 F 12/07/18 11:32 Pulse 64 12/07/18 11:32 Resp 18 12/07/18 11:32 BP 158/72 12/07/18 11:32 Pulse Ox 93 L 12/07/18 11:32 Intake & Output 12/06/18 12/07/18 12/07/18 18:59 06:59 18:59 Intake Total 560 240 Output Total 1000 1150 900 Balance -440 -1150 -660 Weight 93.9 kg Intake: Oral 560 240 Output: Urine 1000 1150 900 Straight 1000 Other: Voiding Method Indwelling Catheter Indwelling Catheter # Voids 1 1 2 - Exam General: Non-toxic, in no acute distress, appears stated age, obese HEENT: NC/AT, anicteric sclerae, moist conjunctiva, no lid-lag, PERRLA Cardiovascular: S1/S2 wnl, no murmurs, rubs, or gallops Lungs: Mild bibasilar rales, normal respiratory effort, no accessory muscle use Abdominal: Soft, non-tender, non-distended, no guarding, rebound, or rigidity Skin: Warm, dry Extremities: Trace LE edema yasmine, no calf tenderness yasmine, both legs equal in size , no erythema noted Psychiatric: Alert and oriented to person, place and time, appropriate affect Neuro: CN II-XII grossly intact, Strength 5/5 in all 4 extremities, Speech intact, Sensation to light touch grossly intact throughout - Labs CBC & Chem 7: 12/07/18 04:31 12/07/18 04:31 Labs: Abnormal Lab Results - Last 24 Hours (Table) 12/06/18 12/06/18 12/07/18 Range/Units 17:02 20:20 04:31 RBC (3.80-5.40) m/uL Hgb (11.4-16.0) gm/dL Hct (34.0-46.0) % MCHC (31.0-37.0) g/dL Plt Count (150-450) k/uL Carbon Dioxide 32 H (22-30) mmol/L BUN 56 H (7-17) mg/dL Creatinine 2.98 H (0.52-1.04) mg/dL Glucose 135 H (74-99) mg/dL POC Glucose (mg/dL) 197 H 164 H (75-99) mg/dL Calcium 8.2 L (8.4-10.2) mg/dL 12/07/18 12/07/18 12/07/18 Range/Units 04:31 06:33 11:46 RBC 2.73 L (3.80-5.40) m/uL Hgb 8.1 L (11.4-16.0) gm/dL Hct 26.6 L (34.0-46.0) % MCHC 30.3 L (31.0-37.0) g/dL Plt Count 147 L (150-450) k/uL Carbon Dioxide (22-30) mmol/L BUN (7-17) mg/dL Creatinine (0.52-1.04) mg/dL Glucose (74-99) mg/dL POC Glucose (mg/dL) 144 H 175 H (75-99) mg/dL Calcium (8.4-10.2) mg/dL Assessment and Plan Plan: Community acquired pneumonia -Will c/w Azithromycin and Ceftriaxone to complete a 7 day course MILAD on CKD 4, improved -Nephrology recs appreciated -Torsemide 10 mg qd, PhosLo and Calcitriol Chest pain, atypical, ACS ruled out -Cardiology recs appreciated -C/w Tele monitoring Coronary artery disease -C/w Aspirin 81 mg qd, Coreg 3.125 bid -Torsemide decreased to 10 mg po qd as per Nephrology -C/w Lipitor 40 mg qhs Chronic neurogenic bladder w/ recurrent UTIs and abnormal UA -Urology recs appreciated -Urine cultures negative -Voiding well HTN -Imdur increased to 60 mg qd. C/w Coreg 3.125 mg bid Chronic conditions: Type 2 DM, HLD -DOREEN with FS -C/w Lipitor Anemia of chronic disease and thrombocytopenia -Iron studies reviewed -Started on Aranesp by Nephrology -Thrombocytopenia could be secondary to UTI/pneumonia and abx. Will monitor. Will hold Heparin. DVT//GI prophylaxis -IPCDs -No indication for GI prophylaxis Discussed with: Patient Anticipated discharge date: 12/09/[address]: Sub-acute rehab facility A total of 35 minutes was spent on the care of this complex patient more than 50 % of the time was spent in counseling and care coordination.
--- NOTE | 2018-12-07 14:25 | P.PN ---
Subjective Progress Note Date: 12/07/18 Principal diagnosis: Shortness of breath, multifactorial, mild congestive heart failure, possible lower lobe infiltrate/pneumonia, mild COPD exacerbation Patient is seen today 12/07/2017 in follow-up on the observation unit. She is currently awake and alert in no acute distress. She is resting comfortably in bed. Maintaining good O2 saturations in the 90s on room air. She's been afebrile. Hemodynamically stable. White count 6.5. Hemoglobin 8.1. Platelet count 147. Creatinine 2.98. He is maintained on bronchodilators, antibiotics, diuretics. Objective - Vital Signs Vital signs: Vital Signs Temp 98.2 F 12/07/18 11:32 Pulse 76 12/07/18 12:58 Resp 14 12/07/18 12:52 BP 158/72 12/07/18 11:32 Pulse Ox 93 L 12/07/18 11:32 Intake & Output 12/06/18 12/07/18 12/07/18 18:59 06:59 18:59 Intake Total 560 340 Output Total 1000 1150 1200 Balance -440 -1150 -860 Weight 93.9 kg Intake: Oral 560 340 Output: Urine 1000 1150 1200 Straight 1000 Other: Voiding Method Indwelling Catheter Indwelling Catheter # Voids 1 1 1 - Exam GENERAL EXAM: Alert, active, comfortable in no apparent distress. On room air HEAD: Normocephalic. EYES: Normal reaction of pupils, equal size. NOSE: Clear with pink turbinates. THROAT: No erythema or exudates. NECK: No masses, no JVD. CHEST: No chest wall deformity. LUNGS: Equal air entry with faint crackles in the posterior. CVS: S1 and S2 normal with no audible murmur, regular rhythm. ABDOMEN: No hepatosplenomegaly, normal bowel sounds, no guarding or rigidity. SPINE: No scoliosis or deformity SKIN: No rashes CENTRAL NERVOUS SYSTEM: No focal deficits, tone is normal in all 4 extremities. EXTREMITIES: There is no peripheral edema. No clubbing, no cyanosis. Peripheral pulses are intact. - Labs CBC & Chem 7: 12/07/18 04:31 12/07/18 04:31 Labs: Abnormal Lab Results - Last 24 Hours (Table) 12/06/18 12/06/18 12/07/18 Range/Units 17:02 20:20 04:31 RBC (3.80-5.40) m/uL Hgb (11.4-16.0) gm/dL Hct (34.0-46.0) % MCHC (31.0-37.0) g/dL Plt Count (150-450) k/uL Carbon Dioxide 32 H (22-30) mmol/L BUN 56 H (7-17) mg/dL Creatinine 2.98 H (0.52-1.04) mg/dL Glucose 135 H (74-99) mg/dL POC Glucose (mg/dL) 197 H 164 H (75-99) mg/dL Calcium 8.2 L (8.4-10.2) mg/dL 12/07/18 12/07/18 12/07/18 Range/Units 04:31 06:33 11:46 RBC 2.73 L (3.80-5.40) m/uL Hgb 8.1 L (11.4-16.0) gm/dL Hct 26.6 L (34.0-46.0) % MCHC 30.3 L (31.0-37.0) g/dL Plt Count 147 L (150-450) k/uL Carbon Dioxide (22-30) mmol/L BUN (7-17) mg/dL Creatinine (0.52-1.04) mg/dL Glucose (74-99) mg/dL POC Glucose (mg/dL) 144 H 175 H (75-99) mg/dL Calcium (8.4-10.2) mg/dL Assessment and Plan Assessment: Impression: #1 Acute hypoxic respiratory failure secondary to an acute exacerbation of mild chronic obstructive pulmonary disease, bilateral pulmonary infiltrates/pneumonia , mild exacerbation of diastolic congestive heart failure. #2 History of chronic indwelling Jenkins catheter with chronic urinary tract infections. #3 Chronic kidney disease. #4 Coronary artery disease. #5 Hyperlipidemia. #6 History of congestive heart failure, diastolic. #7 Diabetes mellitus. #8 Hyperlipidemia. #9 Hypertension. #10 Macular degeneration. #11 Achilles rupture. #12 Chronic Back Pain. Plan: The patient was seen and evaluated by Dr. Figueroa. She is currently stable from the pulmonary standpoint. Upon discharge she could complete a course of antibiotics. Continue bronchodilators. We will follow the patient on as- needed basis. I, the cosigning physician, performed a history & physical examination of the patient. Lungs sounds faint crackles in the posterior bases. Maintaining good O2 saturations in the 90s on room air. I discussed the assessment and plan of care with my nurse practitioner, Opal Lopez. I attest to the above note as dictated by her.
[2018-12-07 17:06] LABS: Glucose,Whole Blood 170 mg/dL (75-99)
[2018-12-07] MEDS: ATORVASTATIN 40 MG TAB PO SCH ×2 (19:45→19:46)
[2018-12-07 20:43] LABS: Glucose,Whole Blood 171 mg/dL (75-99)
[2018-12-07] MEDS: ALPRAZolam 0.25 MG TAB PO PRN (22:38)
[2018-12-08 06:17] LABS: Calcium 8.2 mg/dL (8.4-10.2); Magnesium 1.7 mg/dL (1.6-2.3)
[2018-12-08 06:46] LABS: Glucose,Whole Blood 118 mg/dL (75-99)
[2018-12-08] MEDS: SYMBICORT 160-4.5 MCG INHALER INHALATION SCH ×2 (07:32→19:19)
[2018-12-08] MEDS: IPRATROPIUM-ALBUTEROL 3 ML NEB INHALATION SCH ×2 (07:32→13:28)
[2018-12-08] MEDS: TAMSULOSIN 0.4 MG CAP.ER.24H PO SCH (08:02)
[2018-12-08] MEDS: ISOSORBIDE MONONITRATE ER 60 MG TAB.ER.24H PO SCH (08:02)
[2018-12-08] MEDS: ASPIRIN 81 MG PO SCH (08:02)
[2018-12-08] MEDS: AZITHROMYCIN 500 MG TAB PO SCH (08:02)
[2018-12-08] MEDS: CARVEDILOL 3.125 MG TAB PO SCH ×2 (08:02→17:19)
[2018-12-08] MEDS: FAMOTIDINE 20 MG TAB PO SCH (08:02)
[2018-12-08] MEDS: TORSEMIDE 20 MG TAB PO SCH (08:03)
[2018-12-08] MEDS: INSULIN ASPART 100 UNIT/ML 1 ML 10 ML VIAL SQ SCH ×4 (08:03→20:33)
[2018-12-08] MEDS: CALCIUM ACETATE 667 MG CAP PO SCH ×2 (08:03→17:19)
[2018-12-08] MEDS: ALPRAZolam 0.25 MG TAB PO PRN ×2 (08:43→20:32)
--- NOTE | 2018-12-08 08:43 | P.PN ---
Subjective Patient is seen in follow-up for acute kidney injury on chronic kidney disease. 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 Renal function is little better with creatinine at 2.8 today. She is nonoliguric. Jenkins catheter removed on December 06. No active chest pain or shortness of breath. Echo revealed preserved ejection fraction. Vital signs are stable. General: The patient appeared well nourished and normally developed. HEENT: Head exam is unremarkable. Neck is without jugular venous distension. LUNGS: Lungs are clear to auscultation and percussion. Breath sounds decreased. HEART: Rate and Rhythm are regular. First and second heart sounds normal. No murmurs, rubs or gallops. ABDOMEN: Abdominal exam reveals normal bowel sounds. Non-tender and non- distended. No evidence of peritonitis. EXTREMITITES: Trace edema. Objective - Vital Signs Vital signs: Vital Signs Temp 98.2 F 12/08/18 07:06 Pulse 73 12/08/18 08:39 Resp 14 12/08/18 04:36 BP 130/59 12/08/18 08:39 Pulse Ox 94 L 12/08/18 08:39 Intake & Output 12/07/18 12/08/18 12/08/18 18:59 06:59 18:59 Intake Total 640 Output Total 1600 1400 Balance -960 -1400 Weight 93.9 kg 92.9 kg Intake: Oral 640 Output: Urine 1600 1400 Other: Voiding Method Indwelling Catheter # Voids 1 1 - Labs CBC & Chem 7: 12/07/18 04:31 12/08/18 05:32 Labs: Abnormal Lab Results - Last 24 Hours (Table) 12/07/18 12/07/18 12/07/18 Range/Units 11:46 17:01 20:41 Carbon Dioxide (22-30) mmol/L BUN (7-17) mg/dL Creatinine (0.52-1.04) mg/dL Glucose (74-99) mg/dL POC Glucose (mg/dL) 175 H 170 H 171 H (75-99) mg/dL Calcium (8.4-10.2) mg/dL 12/08/18 12/08/18 Range/Units 05:32 06:44 Carbon Dioxide 31 H (22-30) mmol/L BUN 53 H (7-17) mg/dL Creatinine 2.80 H (0.52-1.04) mg/dL Glucose 114 H (74-99) mg/dL POC Glucose (mg/dL) 118 H (75-99) mg/dL Calcium 8.2 L (8.4-10.2) mg/dL Assessment and Plan Plan: Assessment: 1. Acute kidney injury mostly prerenal secondary to diuresis. Renal function a little better today. Creatinine 2.8. 2. Chronic kidney disease stage IV with baseline creatinine in the range of 2.3 -2.6 secondary to diabetic kidney disease. 3. Chest pain. Rule out acute coronary syndrome. Cardiology following. Intermediate probability of PE on VQ scan. 4. Insulin dependent diabetes mellitus. 5. Anemia of chronic kidney disease. Iron replete. Maintained on Aranesp. 6. Chronic kidney disease mineral bone disease maintained on PhosLo and calcitriol. 7. History of urinary retention. Jenkins catheter removed yesterday. 8. UTI maintained on antibiotics. Plan: Maintain torsemide 10 mg daily. Follow-up cultures. Repeat electrolytes the morning. No urgent need for renal replacement therapy at this time. She is to follow-up with vascular surgery as an outpatient for AV fistula surgery. Avoid placement to rehab. No changes from nephrology standpoint today.
--- NOTE | 2018-12-08 10:50 | P.PN ---
Subjective The patient is an 83 yo F with a PMH of CAD s/p multiple stents, CKD stage IV, diastolic CHF, DM, HTN, HLD, neurogenic bladder on macrobid maintenance, and anemia of chronic disease presented to the ED for chest pain, SOB, and nausea. In the ED, she was in hypertensive urgency with MILAD and UA consistent with UTI and MILAD. She was admitted under observation for r/o ACS and for Urology and Nephrology evaluation. Troponin plateued at 0.035. Cardiology recommended maximal medical therapy. Recent Echo revealed preserved LVEF of 55-60%. On the morning of 12/05/18, the patient had an episode of dyspnea with chest discomfort and hypoxia which resolved within a few minutes spontaneously. A d-dimer was ordered and was 1.22 with subsequent V/Q scan ordered for possible PE. The V/Q scan resulted on 12/06/18 as intermediate or indeterminate probability of PE. LE duplex was ordered and was negative for a DVT. Pulmonary was consulted and recommended that the patient's symptoms are possibly due to mild fluid overload and pneumonia with low likelihood of a PE. The patient was seen and examined at the bedside. The patient denied any further episodes of chest pain, shortness of breath, cough, or fever or chills. The patient also denied abdominal pain, nausea, vomiting, or dysuria. He Objective - Vital Signs Vital signs: Vital Signs Temp 98.2 F 12/08/18 07:06 Pulse 73 12/08/18 08:39 Resp 14 12/08/18 04:36 BP 130/59 12/08/18 08:39 Pulse Ox 94 L 12/08/18 08:39 Intake & Output 12/07/18 12/08/18 12/08/18 18:59 06:59 18:59 Intake Total 640 Output Total 1600 1400 1100 Balance -960 -1400 -1100 Weight 93.9 kg 92.9 kg Intake: Oral 640 Output: Urine 1600 1400 1100 Other: Voiding Method Indwelling Catheter # Voids 1 1 3 - Exam General: Non-toxic, in no acute distress, appears stated age, obese HEENT: NC/AT, anicteric sclerae, moist conjunctiva, no lid-lag, PERRLA Cardiovascular: S1/S2 wnl, no murmurs, rubs, or gallops Lungs: Clear to auscultation bilaterally, normal respiratory effort, no accessory muscle use Abdominal: Soft, non-tender, non-distended, no guarding, rebound, or rigidity Skin: Warm, dry Extremities: Trace LE edema yasmine, no calf tenderness yasmine, both legs equal in size , no erythema noted Psychiatric: Alert and oriented to person, place and time, appropriate affect Neuro: CN II-XII grossly intact, Strength 5/5 in all 4 extremities, Speech intact, Sensation to light touch grossly intact throughout - Labs CBC & Chem 7: 12/07/18 04:31 12/08/18 05:32 Labs: Abnormal Lab Results - Last 24 Hours (Table) 12/07/18 12/07/18 12/07/18 Range/Units 11:46 17:01 20:41 Carbon Dioxide (22-30) mmol/L BUN (7-17) mg/dL Creatinine (0.52-1.04) mg/dL Glucose (74-99) mg/dL POC Glucose (mg/dL) 175 H 170 H 171 H (75-99) mg/dL Calcium (8.4-10.2) mg/dL 12/08/18 12/08/18 Range/Units 05:32 06:44 Carbon Dioxide 31 H (22-30) mmol/L BUN 53 H (7-17) mg/dL Creatinine 2.80 H (0.52-1.04) mg/dL Glucose 114 H (74-99) mg/dL POC Glucose (mg/dL) 118 H (75-99) mg/dL Calcium 8.2 L (8.4-10.2) mg/dL Assessment and Plan Plan: Community acquired pneumonia -Will c/w Azithromycin and Ceftriaxone to complete a 7 day course MILAD on CKD 4, improved -Nephrology recs appreciated -Torsemide 10 mg qd, PhosLo and Calcitriol Chest pain, atypical, ACS ruled out -Cardiology recs appreciated -C/w Tele monitoring Coronary artery disease -C/w Aspirin 81 mg qd, Coreg 3.125 bid -C/w Lipitor 40 mg qhs Chronic neurogenic bladder w/ recurrent UTIs and abnormal UA -Urology recs appreciated -Urine cultures negative -Voiding well HTN -C/w Imdur 60 mg qd and Coreg 3.125 mg bid Chronic conditions: Type 2 DM, HLD -DOREEN with FS -C/w Lipitor Anemia of chronic disease and thrombocytopenia -Iron studies reviewed -Started on Aranesp by Nephrology -Will obtain repeat CBC and monitor platelets. DVT//GI prophylaxis -IPCDs -No indication for GI prophylaxis Discussed with: Patient Anticipated discharge date: 12/09/[address]: Sub-acute rehab facility A total of 35 minutes was spent on the care of this complex patient more than 50 % of the time was spent in counseling and care coordination.
[2018-12-08 11:10] LABS: Glucose,Whole Blood 207 mg/dL (75-99)
[2018-12-08 11:37] LABS: HCT 27.4 % (34.0-46.0); HGB 8.2 gm/dL (11.4-16.0); Hypochromasia Moderate; MCH 29.7 pg (25.0-35.0); MCV 98.9 fL (80.0-100.0); Mean Platelet Volume 10.2; Platelet Count 142 k/uL (150-450); RBC 2.77 m/uL (3.80-5.40); RDW 14.3 % (11.5-15.5); WBC 6.3 k/uL (3.8-10.6)
[2018-12-08 17:11] LABS: Glucose,Whole Blood 136 mg/dL (75-99)
[2018-12-08 20:41] LABS: Glucose,Whole Blood 208 mg/dL (75-99)
[2018-12-08 23:39] VITALS: RESP 16
[2018-12-09 06:43] LABS: Glucose,Whole Blood 131 mg/dL (75-99)
[2018-12-09 06:51] LABS: HCT 27.2 % (34.0-46.0); HGB 8.3 gm/dL (11.4-16.0); Hypochromasia Slight; MCH 29.5 pg (25.0-35.0); MCHC 30.5 g/dL (31.0-37.0); MCV 96.7 fL (80.0-100.0); Mean Platelet Volume 8.6; Platelet Count 154 k/uL (150-450); RBC 2.82 m/uL (3.80-5.40); RDW 14.3 % (11.5-15.5)
[2018-12-09 07:00] LABS: Calcium 7.9 mg/dL (8.4-10.2)
[2018-12-09 07:02] LABS: Potassium 4.5 mmol/L (3.5-5.1)
--- NOTE | 2018-12-09 07:39 | P.PN ---
Subjective Patient is seen in follow-up for acute kidney injury on chronic kidney disease. 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 Renal function continues to improve with creatinine down to 2.4 today. She is nonoliguric. Jenkins catheter removed on December 06. No active chest pain or shortness of breath. Echo revealed preserved ejection fraction. Vital signs are stable. General: The patient appeared well nourished and normally developed. HEENT: Head exam is unremarkable. Neck is without jugular venous distension. LUNGS: Lungs are clear to auscultation and percussion. Breath sounds decreased. HEART: Rate and Rhythm are regular. First and second heart sounds normal. No murmurs, rubs or gallops. ABDOMEN: Abdominal exam reveals normal bowel sounds. Non-tender and non- distended. No evidence of peritonitis. EXTREMITITES: Trace edema. Objective - Vital Signs Vital signs: Vital Signs Temp 98.5 F 12/08/18 23:39 Pulse 67 12/08/18 23:39 Resp 16 12/09/18 03:35 BP 186/67 12/08/18 23:39 Pulse Ox 93 L 12/08/18 23:39 Intake & Output 12/08/18 12/09/18 12/09/18 18:59 06:59 18:59 Intake Total 400 Output Total 1100 500 Balance -700 -500 Intake: Oral 400 Output: Urine 1100 500 Other: Voiding Method Toilet # Voids 3 2 - Labs CBC & Chem 7: 12/09/18 06:16 12/09/18 06:16 Labs: Abnormal Lab Results - Last 24 Hours (Table) 12/08/18 12/08/18 12/08/18 Range/Units 05:32 11:08 16:59 RBC 2.77 L (3.80-5.40) m/uL Hgb 8.2 L (11.4-16.0) gm/dL Hct 27.4 L (34.0-46.0) % MCHC 30.0 L (31.0-37.0) g/dL Plt Count 142 L (150-450) k/uL BUN (7-17) mg/dL Creatinine (0.52-1.04) mg/dL Glucose (74-99) mg/dL POC Glucose (mg/dL) 207 H 136 H (75-99) mg/dL Calcium (8.4-10.2) mg/dL 12/08/18 12/09/18 12/09/18 Range/Units 20:26 06:16 06:16 RBC 2.82 L (3.80-5.40) m/uL Hgb 8.3 L (11.4-16.0) gm/dL Hct 27.2 L (34.0-46.0) % MCHC 30.5 L (31.0-37.0) g/dL Plt Count (150-450) k/uL BUN 55 H (7-17) mg/dL Creatinine 2.48 H (0.52-1.04) mg/dL Glucose 124 H (74-99) mg/dL POC Glucose (mg/dL) 208 H (75-99) mg/dL Calcium 7.9 L (8.4-10.2) mg/dL 12/09/18 Range/Units 06:41 RBC (3.80-5.40) m/uL Hgb (11.4-16.0) gm/dL Hct (34.0-46.0) % MCHC (31.0-37.0) g/dL Plt Count (150-450) k/uL BUN (7-17) mg/dL Creatinine (0.52-1.04) mg/dL Glucose (74-99) mg/dL POC Glucose (mg/dL) 131 H (75-99) mg/dL Calcium (8.4-10.2) mg/dL Assessment and Plan Plan: Assessment: 1. Acute kidney injury mostly prerenal secondary to diuresis. Renal function continues to improve. Creatinine 2.4 today. 2. Chronic kidney disease stage IV with baseline creatinine in the range of 2.3 -2.6 secondary to diabetic kidney disease. 3. Chest pain. Rule out acute coronary syndrome. Cardiology following. Intermediate probability of PE on VQ scan. 4. Insulin dependent diabetes mellitus. 5. Anemia of chronic kidney disease. Iron replete. Maintained on Aranesp. 6. Chronic kidney disease mineral bone disease maintained on PhosLo and calcitriol. 7. History of urinary retention. Jenkins catheter removed yesterday. 8. UTI maintained on antibiotics. Plan: Maintain torsemide 10 mg daily. Follow-up cultures. Repeat electrolytes the morning. No urgent need for renal replacement therapy at this time. She is to follow-up with vascular surgery as an outpatient for AV fistula surgery. Awaits placement to rehab. No changes from nephrology standpoint today.
[2018-12-09] MEDS: AZITHROMYCIN 500 MG TAB PO SCH (08:08)
[2018-12-09] MEDS: FAMOTIDINE 20 MG TAB PO SCH (08:08)
[2018-12-09] MEDS: CALCIUM ACETATE 667 MG CAP PO SCH (08:08)
[2018-12-09] MEDS: CALCITRIOL 0.25 MCG CAP PO SCH (08:08)
[2018-12-09] MEDS: ASPIRIN 81 MG PO SCH (08:08)
[2018-12-09] MEDS: TAMSULOSIN 0.4 MG CAP.ER.24H PO SCH (08:08)
[2018-12-09] MEDS: TORSEMIDE 20 MG TAB PO SCH (08:08)
[2018-12-09] MEDS: CARVEDILOL 3.125 MG TAB PO SCH (08:08)
[2018-12-09] MEDS: INSULIN ASPART 100 UNIT/ML 1 ML 10 ML VIAL SQ SCH (08:08)
[2018-12-09] MEDS: ISOSORBIDE MONONITRATE ER 60 MG TAB.ER.24H PO SCH (08:08)
[2018-12-09 08:24] VITALS: BP 187/73; PULSE 70; TEMP 98.1
[2018-12-09] MEDS: SYMBICORT 160-4.5 MCG INHALER INHALATION SCH (08:48)
[2018-12-09] MEDS: IPRATROPIUM-ALBUTEROL 3 ML NEB INHALATION SCH ×2 (08:48→08:53)
--- NOTE | 2018-12-09 11:02 | P.DS ---
Providers Date of admission: 12/06/18 08:35 Expected date of discharge: 12/09/18 Attending physician: Gareth Argueta MD Consults: 12/04/18 14:32 Consult Physician Urgent Consulting Provider: Gina Bowman Consult Reason/Comments: chest pain Do you want consulting provider notified?: Yes 12/04/18 15:14 Consult Physician Routine Consulting Provider: Vaishali Daley Consult Reason/Comments: ckd stage IV, HD? Do you want consulting provider notified?: Yes 12/04/18 15:15 Consult Physician Routine Consulting Provider: Star Francisco Consult Reason/Comments: urinary retention Do you want consulting provider notified?: Yes 12/06/18 11:03 Consult Physician Urgent Consulting Provider: Mejia Armenta Consult Reason/Comments: PE Do you want consulting provider notified?: Yes Primary care physician: [facility] Course: The patient is an 83 yo F with a PMH of CAD s/p multiple stents, CKD stage IV, diastolic CHF, DM, HTN, HLD, neurogenic bladder on macrobid maintenance, and anemia of chronic disease presented to the ED for chest pain, SOB, and nausea. In the ED, she was in hypertensive urgency with MILAD and UA consistent with UTI and MILAD. She was admitted under observation for r/o ACS and for Urology and Nephrology evaluation. Troponin plateued at 0.035. Cardiology recommended maximal medical therapy. Recent Echo revealed preserved LVEF of 55-60%. On the morning of 12/05/18, the patient had an episode of dyspnea with chest discomfort and hypoxia which resolved within a few minutes spontaneously. A d-dimer was ordered and was 1.22 with subsequent V/Q scan ordered for possible PE. The V/Q scan resulted on 12/06/18 as intermediate or indeterminate probability of PE. LE duplex was ordered and was negative for a DVT. Pulmonary was consulted and recommended that the patient's symptoms are possibly due to mild fluid overload and pneumonia with low likelihood of a PE. The patient was started on patient acquired pneumonia treatment along with bronchodilators. The patient was seen and examined at the bedside. She was in good spirits and denied any active complaints. She hasn't had any further episodes of chest pain, shortness of breath, palpitations, nausea, vomiting. She also denied abdominal pain, dysuria , fever, or chills. The patient's kidney function stabilized and she is presently stable and ready for discharge to a rehab facility. Physical Examination General: Non-toxic, in no acute distress, appears stated age, obese HEENT: NC/AT, anicteric sclerae, moist conjunctiva, no lid-lag, PERRLA Cardiovascular: S1/S2 wnl, no murmurs, rubs, or gallops Lungs: Clear to auscultation bilaterally, normal respiratory effort, no accessory muscle use Abdominal: Soft, non-tender, non-distended, no guarding, rebound, or rigidity Skin: Warm, dry Extremities: Trace LE edema yasmine, no calf tenderness yasmine, both legs equal in size , no erythema noted Psychiatric: Alert and oriented to person, place and time, appropriate affect Neuro: CN II-XII grossly intact, Strength 5/5 in all 4 extremities, Speech intact, Sensation to light touch grossly intact throughout Discharge diagnosis: Community acquired pneumonia; MILAD and CKD; chest pain atypical ACS ruled out; coronary artery disease; neurogenic bladder with chronic urinary retention and recurrent UTIs; hypertension; type 2 diabetes mellitus; hyperlipidemia; anemia of chronic disease A total of 45 minutes of time were spent preparing this complex discharge summary. Pertinent Studies: As per HPI Procedures: As per HPI Patient Condition at Discharge: Fair Plan - Discharge Summary Discharge Rx Participant: Yes New Discharge Prescriptions: New Amoxicillin/Potassium Clav [Augmentin 500-125 Tablet] 1 tab PO Q12HR #4 tab Aspirin 81 mg PO DAILY chew Azithromycin [Zithromax] 500 mg PO DAILY #2 tab Budesonide-Formot 160-4.5 Mcg [Symbicort 160-4.5 Mcg Inhaler] 2 puff INHALATION RT-BID puff Carvedilol [Coreg] 3.125 mg PO BID-W/MEALS tab Darbepoetin Hay [Aranesp] 40 mcg SQ Q7D syringe hydrALAZINE HCL [Apresoline] 50 mg PO TID #90 tab Isosorbide Mononitrate ER [Imdur] 60 mg PO DAILY tab.er.24h Continue ALPRAZolam [Xanax] 0.25 mg PO TID PRN PRN Reason: Anxiety Vit C/E/Zn/Coppr/Lutein/Zeaxan [Preservision Areds 2 Softgel] 1 cap PO BID Famotidine [Pepcid] 20 mg PO DAILY Acetaminophen Tab [Tylenol] 650 mg PO Q4HR PRN tab PRN Reason: Mild Pain Atorvastatin [Lipitor] 40 mg PO HS #30 tab Calcium Acetate [PhosLo] 667 mg PO BID-W/MEALS #60 cap Sodium Bicarbonate Tab 650 mg PO BID #60 tab Tamsulosin [Flomax] 0.4 mg PO PC-BRKFST #30 cap.er.24h Calcitriol [Rocaltrol] 0.25 mcg PO Q48H #15 cap Calcium Carbonate [Tums] 1,000 mg PO TID PRN PRN Reason: Heartburn Nitrofurantoin Monohyd/M-Cryst [Macrobid] 100 mg PO DAILY Pioglitazone [Actos] 15 mg PO DAILY Torsemide 10 mg PO DAILY Discontinued Isosorbide Mononitrate ER [Imdur] 30 mg PO DAILY Aspirin EC [Ecotrin] 325 mg PO DAILY Metoprolol Tartrate [Lopressor] 50 mg PO DAILY Discharge Medication List ALPRAZolam [Xanax] 0.25 mg PO TID PRN 11/11/14 [History] Vit C/E/Zn/Coppr/Lutein/Zeaxan [Preservision Areds 2 Softgel] 1 cap PO BID 05/05 [History] Famotidine [Pepcid] 20 mg PO DAILY 08/04/18 [History] Acetaminophen Tab [Tylenol] 650 mg PO Q4HR PRN tab 08/08/18 [Rx] Atorvastatin [Lipitor] 40 mg PO HS #30 tab 08/08/18 [Rx] Calcium Acetate [PhosLo] 667 mg PO BID-W/MEALS #60 cap 08/08/18 [Rx] Sodium Bicarbonate Tab 650 mg PO BID #60 tab 08/08/18 [Rx] Tamsulosin [Flomax] 0.4 mg PO PC-BRKFST #30 cap.er.24h 08/08/18 [Rx] Calcitriol [Rocaltrol] 0.25 mcg PO Q48H #15 cap 11/15/18 [Rx] Calcium Carbonate [Tums] 1,000 mg PO TID PRN 12/04/18 [History] Nitrofurantoin Monohyd/M-Cryst [Macrobid] 100 mg PO DAILY 12/04/18 [History] Pioglitazone [Actos] 15 mg PO DAILY 12/04/18 [History] Torsemide 10 mg PO DAILY 12/04/18 [History] Amoxicillin/Potassium Clav [Augmentin 500-125 Tablet] 1 tab PO Q12HR #4 tab 11/26 [Rx] Aspirin 81 mg PO DAILY chew 12/09/18 [Rx] Azithromycin [Zithromax] 500 mg PO DAILY #2 tab 12/09/18 [Rx] Budesonide-Formot 160-4.5 Mcg [Symbicort 160-4.5 Mcg Inhaler] 2 puff INHALATION RT-BID puff 12/09/18 [Rx] Carvedilol [Coreg] 3.125 mg PO BID-W/MEALS tab 12/09/18 [Rx] Darbepoetin Hay [Aranesp] 40 mcg SQ Q7D syringe 12/09/18 [Rx] Isosorbide Mononitrate ER [Imdur] 60 mg PO DAILY tab.er.24h 12/09/18 [Rx] hydrALAZINE HCL [Apresoline] 50 mg PO TID #90 tab 12/09/18 [Rx] Follow up Appointment(s)/Referral(s): Gina Bowman MD [Family Provider] - 1 Week Lalo Eng MD [Primary Care Provider] - 1-2 days Discharge Disposition: TRANSFER TO SNF/ECF
[2018-12-09 11:51] LABS: Glucose,Whole Blood 182 mg/dL (75-99)
[2018-12-09] MEDS ORDERED: hydrALAZINE HCL 50 MG TAB PO SCH (16:00)
== END 2018-12-09 12:10 | DRG 291 ==
LOC: EC 10:40 → 1SOBS 14:32 → OBSVTOIN 12-06 08:35
PROVIDERS: ADMIT Family Medicine; ATTEND Family Medicine
DX: I13.0 Hypertensive heart and chronic kidney disease with heart failure and stage 1 through stage 4 chronic kidney disease, or unspecified chronic kidney disease (principal); I50.33 Acute on chronic diastolic (congestive) heart failure; J18.9 Pneumonia, unspecified organism; J96.01 Acute respiratory failure with hypoxia; J44.0 Chronic obstructive pulmonary disease with (acute) lower respiratory infection; N17.9 Acute kidney failure, unspecified; N18.4 Chronic kidney disease, stage 4 (severe); N32.1 Vesicointestinal fistula; N39.0 Urinary tract infection, site not specified; B95.7 Other staphylococcus as the cause of diseases classified elsewhere; D63.1 Anemia in chronic kidney disease; E11.22 Type 2 diabetes mellitus with diabetic chronic kidney disease; E11.42 Type 2 diabetes mellitus with diabetic polyneuropathy; E11.51 Type 2 diabetes mellitus with diabetic peripheral angiopathy without gangrene; E78.5 Hyperlipidemia, unspecified; G89.29 Other chronic pain; H35.30 Unspecified macular degeneration; I16.0 Hypertensive urgency; I25.10 Atherosclerotic heart disease of native coronary artery without angina pectoris; N31.9 Neuromuscular dysfunction of bladder, unspecified; S86.019A Strain of unspecified Achilles tendon, initial encounter; T50.2X5A Adverse effect of carbonic-anhydrase inhibitors, benzothiadiazides and other diuretics, initial encounter; Z79.4 Long term (current) use of insulin; Z79.82 Long term (current) use of aspirin; Z79.899 Other long term (current) drug therapy; Z82.49 Family history of ischemic heart disease and other diseases of the circulatory system; Z87.440 Personal history of urinary (tract) infections; Z87.891 Personal history of nicotine dependence; Z90.710 Acquired absence of both cervix and uterus; Z95.5 Presence of coronary angioplasty implant and graft; Z88.1 Allergy status to other antibiotic agents; Z88.2 Allergy status to sulfonamides; Z88.8 Allergy status to other drugs, medicaments and biological substances; Z90.49 Acquired absence of other specified parts of digestive tract; Z98.49 Cataract extraction status, unspecified eye
CPT/HCPCS: 36415; 71046; 78582; 80048; 80053; 80061; 81001; 82550; 82553; 82728; 83036; 83540; 83550; 83690; 83735; 83880; 84484; 85025; 85027; 85379; 85610; 85730; 87086; 93005; 93308; 93970; 94640; 94760; 99285

== ENCOUNTER → 2019-01-25 | Outpatient (CLI) | payer MEDICARE, BC ==
[2019-01-25 12:49] LABS: Appearance,Urine Turbid (Clear); Bilirubin,Urine Negative (Negative); Blood,Urine Trace (Negative); Color,Urine Yellow; Glucose,Urine (UA) Negative (Negative); Ketones,Urine Negative (Negative); Leukocyte Esterase,Urine Large (Negative); Mucus,Urine Rare /hpf; Nitrite,Urine Negative (Negative); PH, Urine 7.5 (5.0-8.0); Protein,Urine 2+ (Negative); RBC,Urine 10 /hpf (0-5); Squamous Epithelial Cell,Urine 49 /hpf (0-4); Urobilinogen,Urine <2.0 mg/dL (<2.0); WBC,Urine 118 /hpf (0-5)
[2019-01-25 12:54] LABS: Basophils % (A) 1 %; Eosinophils # (A) 0.5 k/uL (0-0.7); Eosinophils % (A) 7 %; HCT 39.7 % (34.0-46.0); Hypochromasia Moderate; Lymphocytes # (A) 1.5 k/uL (1.0-4.8); Lymphocytes % (A) 23 %; MCH 30.3 pg (25.0-35.0); MCHC 30.7 g/dL (31.0-37.0); MCV 98.7 fL (80.0-100.0); Mean Platelet Volume 7.9; Monocytes # (A) 0.4 k/uL (0-1.0); Monocytes % (A) 7 %; Neutrophils # (A) 3.9 k/uL (1.3-7.7); Neutrophils % (A) 60 %; Platelet Count 164 k/uL (150-450); RBC 4.02 m/uL (3.80-5.40); WBC 6.5 k/uL (3.8-10.6)
[2019-01-25 12:56] LABS: HGB 12.2 gm/dL (11.4-16.0)
[2019-01-25 16:42] LABS: Parathyroid Hormone Intact 154.9 pg/mL (14.0-72.0)
[2019-01-25 16:48] LABS: Iron Saturation 23.24 (12.00-45.00)
[2019-01-25 16:56] LABS: Vitamin D 25 Hydroxy 25.7 ng/mL (30.0-100.0)
[2019-01-25 17:02] LABS: Albumin 4.2 g/dL (3.80-4.90); Albumin/Globulin Ratio 1.56 (1.60-3.17); Anion Gap 9.8 mmol/L (4.00-12.00); Calcium 9.3 mg/dL (8.7-10.3); Carbon Dioxide 30.2 mmol/L (21.6-31.8); Globulin 2.7 g/dL (1.6-3.3); Magnesium 1.8 mg/dL (1.5-2.4); Phosphorus 4.1 mg/dL (2.4-5.1); Potassium 4.4 mmol/L (3.5-5.5); Total Bilirubin 0.4 mg/dL (0.3-1.2); Total Protein 6.9 g/dL (6.2-8.2); Uric Acid 7.5 mg/dL (2.9-7.7)
== END | disposition home or self-care (01) ==
LOC: LABWHC1 11:48
PROVIDERS: ATTEND Nurse Practitioner Family
DX: N39.0 Urinary tract infection, site not specified (principal); E55.9 Vitamin D deficiency, unspecified; M10.9 Gout, unspecified; N25.81 Secondary hyperparathyroidism of renal origin; D63.1 Anemia in chronic kidney disease; N18.4 Chronic kidney disease, stage 4 (severe); E11.21 Type 2 diabetes mellitus with diabetic nephropathy; I12.9 Hypertensive chronic kidney disease with stage 1 through stage 4 chronic kidney disease, or unspecified chronic kidney disease; E11.22 Type 2 diabetes mellitus with diabetic chronic kidney disease
CPT/HCPCS: 36415; 80053; 81001; 82043; 82306; 82570; 82728; 83036; 83540; 83550; 83735; 83970; 84100; 84550; 85025

== ENCOUNTER 2019-02-09 11:38 | Emergency (ER) | payer MEDICARE, BC ==
[2019-02-09 11:43] VITALS: RESP 18
--- NOTE | 2019-02-09 12:52 | CT ---
EXAMINATION TYPE: CT brain kailashine wo con DATE OF EXAM: 02/09/2019 COMPARISON: Brain 11/12/2018 HISTORY: 83-year-old female pain after fall 5 days ago, raccoon eyes CT DLP: 910.9 mGycm Automated exposure control for dose reduction was used. Technique: Examination of the head was done in axial plane without intravenous contrast. Coronal and sagittal reconstructions performed. CT of the cervical spine was obtained in axial plane without intravenous injection of contrast mater ial. Coronal and sagittal reformatted images were obtained from the axial views for evaluation of f ractures, spinal alignment and canal. FINDINGS: Head: There is no evidence of acute intracranial hemorrhage, acute ischemic changes, mass, mass-effect, or extra-axial fluid collection. There is no effacement of cerebral sulci or basal subarachnoid cister ns. There is no hydrocephalus. There is no midline shift. Fry-white matter distinction is preserv ed. Similar moderate patchy periventricular white matter hypodensities likely relating to changes of finance clerk erika small vessel ischemic disease. Moderate to large right frontal scalp hematoma. No underlying calvarial fracture. Normal variation wi th hyperostosis frontalis interna. Mastoid air cells well pneumatized. Facial bones reported separately. Cervical spine: Peripherally calcified 1 cm nodule left lobe of the thyroid gland. Moderate to advanced disc/endplate degenerative change especially mid to lower cervical spine. Revers al of the normal cervical lordosis along the upper thoracic spine. There is one anterolisthesis at C7-T1 and T1-T2. No acute fracture of the cervical spine. No craniocervical junction antibody, predental space widening, or prevertebral soft tissue swelling. Degenerative changes at the C1 dens articulation as well as the right atlantooccipital articulation. Assessment of the spinal canal is suboptimal from C5 and below due to artifact from the patient's jerry ulders. Variable moderate foraminal stenoses mid to lower cervical spine. Sagittal and coronal reformatted images confirm above findings. COMBINED IMPRESSION: 1. Moderate to large right frontal scalp contusion/hematoma. No underlying calvarial fracture or acut e intracranial abnormality seen. 2. No acute fracture of the cervical spine. Moderate to advanced spondylotic change mid to lower cerv ical spine with grade 1 anterolistheses at C7-T1 and T1-T2. 3. Facial bones reported separately.
--- NOTE | 2019-02-09 12:54 | CT ---
EXAMINATION TYPE: CT facial bones wo con DATE OF EXAM: 02/09/2019 COMPARISON: None HISTORY: 83-year-old female pain after fall 5 days ago, raccoon eyes TECHNIQUE: Contiguous axial scanning of the facial bones without IV contrast. Coronal reconstructions performed. CT DLP: No dose, calculated in brain scan Automated exposure control for dose reduction was used. FINDINGS: Mild mucosal thickening bilateral maxillary and ethmoid sinuses. Rightward nasal septal deviation. The nasal bone, zygomatic arches, pterygoid plates, and orbits and globes are intact. No facial bone fracture seen. IMPRESSION: RIGHTWARD NASAL SEPTAL DEVIATION AND MILD CHRONIC MAXILLARY AND ETHMOID SINUS DISEASE. NO ACUTE FACIAL BONE FRACTURE.
--- NOTE | 2019-02-09 13:13 | ED ---
Fall HPI - General Chief Complaint: Fall Stated Complaint: Fall Time Seen by Provider: 02/09/19 12:06 Source: patient, family, RN notes reviewed, old records reviewed Mode of arrival: wheelchair - History of Present Illness Initial Comments: Pt presents from PCP office after a fall 5 days ago. Patient tripped on a blanket in living room, and hit her face. She complains of contusion over arms. She is only on aspirin for blood thinner. She went to PCP today and he was concerned for patient facial swelling and bruising. She had no LOC. - Related Data Home Medications Medication Instructions Recorded Confirmed Vit C/E/Zn/Coppr/Lutein/Zeaxan 1 cap PO BID 05/05/18 02/09/19 [Preservision Areds 2 Softgel] Famotidine [Pepcid] 20 mg PO DAILY 08/04/18 02/09/19 Pioglitazone [Actos] 30 mg PO DAILY 12/04/18 02/09/19 Torsemide 10 mg PO BID 12/04/18 02/09/19 Aspirin 325 mg PO DAILY 02/09/19 02/09/19 hydrALAZINE HCL [Apresoline] 25 mg PO BID 02/09/19 02/09/19 Previous Rx's Medication Instructions Recorded Acetaminophen Tab [Tylenol] 650 mg PO Q4HR PRN tab 08/08/18 Atorvastatin [Lipitor] 40 mg PO HS #30 tab 08/08/18 Calcium Acetate [PhosLo] 667 mg PO BID-W/MEALS #60 cap 08/08/18 Tamsulosin [Flomax] 0.4 mg PO PC-BRKFST #30 cap.er.24h 08/08/18 ALPRAZolam [Xanax] 0.25 mg PO TID PRN #30 tablet 12/09/18 Carvedilol [Coreg] 3.125 mg PO BID-W/MEALS tab 12/09/18 Isosorbide Mononitrate ER [Imdur] 60 mg PO DAILY tab.er.24h 12/09/18 Allergies Allergy/AdvReac Type Severity Reaction Status Date / Time zolpidem tartrate AdvReac Severe Hallucinati Verified 02/09/19 12:44 [From Ambien] ons amoxicillin [From Augmentin] AdvReac Nausea & Verified 02/09/19 12:44 Vomiting & Diarrhea ciprofloxacin [From Cipro] AdvReac Nausea & Verified 02/09/19 12:44 Vomiting clavulanic acid AdvReac Nausea & Verified 02/09/19 12:44 [From Augmentin] Vomiting & Diarrhea Sulfa (Sulfonamide AdvReac Nausea & Verified 02/09/19 12:44 Antibiotics) Vomiting Review of Systems ROS Statement: Those systems with pertinent positive or pertinent negative responses have been documented in the HPI. ROS Other: All systems not noted in ROS Statement are negative. Past Medical History Past Medical History: Blood Disorder, Coronary Artery Disease (CAD), Heart Failure, Diabetes Mellitus, Hyperlipidemia, Hypertension, Renal Disease Additional Past Medical History / Comment(s): Other hx: NIDDM type II, CKD, dry macular degeneration bilaterally, lower leg edema bilaterally, recent fall with small tear achilles tendon and back pain (spur), colovesicular fistula, UTIs. ANEMIA. History of Any Multi-Drug Resistant Organisms: None Reported Past Surgical History: Cholecystectomy, Heart Catheterization With Stent, Orthopedic Surgery Additional Past Surgical History / Comment(s): CATARACTS BL knees Hysterctomy bladder suspension Past Anesthesia/Blood Transfusion Reactions: No Reported Reaction Date of Last Stent Placement:: 2009 Past Psychological History: No Psychological Hx Reported Smoking Status: Former smoker Past Alcohol Use History: None Reported Past Drug Use History: None Reported - Past Family History Father Family Medical History: Myocardial Infarction (ID) Mother Family Medical History: Pneumonia Daughter(s) Family Medical History: Cancer Additional Family Medical History / Comment(s): Daughter has GIST General Exam - General Exam Comments Initial Comments: 83 year old female, alert and oriented. Limitations: no limitations General appearance: alert, in no apparent distress Head exam: Present: atraumatic, normocephalic, normal inspection, other (large hematoma with green and purple bruising over forehead) Eye exam: Present: normal appearance, PERRL, EOMI, periorbital swelling, periorbital tenderness (noted kvng bilateral orbits with contusoin noted. ). Absent: scleral icterus, conjunctival injection ENT exam: Present: normal exam, mucous membranes moist Neck exam: Present: normal inspection. Absent: tenderness, meningismus, lymphadenopathy Respiratory exam: Present: normal lung sounds bilaterally. Absent: respiratory distress, wheezes, rales, rhonchi, stridor Cardiovascular Exam: Present: regular rate, normal rhythm, normal heart sounds. Absent: systolic murmur, diastolic murmur, rubs, gallop, clicks Neurological exam: Present: alert Psychiatric exam: Present: normal affect, normal mood Skin exam: Present: warm, dry, intact, normal color. Absent: rash Course Vital Signs 02/09/19 02/09/19 11:40 14:13 Temperature 97.4 F L 97.7 F Pulse Rate 70 69 Respiratory 18 18 Rate Blood Pressure 225/80 182/67 O2 Sat by Pulse 96 96 Oximetry Medical Decision Making - Medical Decision Making 83 year old female presents with facial contusions 5 days after trip and fall. She arrived with elevated BP, did not take her medications today. Patient given dose in ED .Patient CT brain, cspine and facial bones show no acute significant abnormality, no fracture. No focal deficits on neuro exam. Patient has no other concerns after fall. Family informed of importance for monitiron for changes in mentation. Discussed that if symptoms were to occur after head injury, most would be noticed 5 days after injury. Patient will follow up with PCP. Return parameters discussed. - Radiology Data Radiology results: report reviewed Rightward nasal septal deviation chronic maxillary and ethmoid sinus disease. No acute facial bone fracture. Moderate to large frontal scalp contusion hematoma. No scapular refracture acute intracranial around the scene. No acute fracture of cervical spine. Mild directed to exam spondylitic change in the mid lower cervical spine with grade 1 and chills ceases at C5 C7 and T1 and T2. Disposition Clinical Impression: Fall, Facial contusion, Hypertension Disposition: HOME SELF-CARE Condition: Good Instructions (If sedation given, give patient instructions): Fall Prevention for Older Adults (ED), Facial Contusion (ED) Additional Instructions: Continue to apply cool compresses over the area of bruising and swelling. Follow-up with your primary care doctor. Return to the emergency department if any alarming signs or symptoms occur. Is patient prescribed a controlled substance at d/c from ED?: No Referrals: Lalo Eng MD [Primary Care Provider] - 1-2 days Time of Disposition: 14:07
[2019-02-09] MEDS ORDERED: CARVEDILOL 3.125 MG TAB PO STA (13:44)
[2019-02-09] MEDS ORDERED: hydrALAZINE HCL 50 MG TAB PO STA (13:44)
[2019-02-09 14:15] VITALS: BP 182/67; PULSE 69; TEMP 97.7
== END 2019-02-09 14:21 | disposition home or self-care (01) ==
LOC: EC 11:38
DX: S00.83XA Contusion of other part of head, initial encounter (principal); W01.10XA Fall on same level from slipping, tripping and stumbling with subsequent striking against unspecified object, initial encounter; Y92.008 Other place in unspecified non-institutional (private) residence as the place of occurrence of the external cause; E78.5 Hyperlipidemia, unspecified; I25.10 Atherosclerotic heart disease of native coronary artery without angina pectoris; E11.22 Type 2 diabetes mellitus with diabetic chronic kidney disease; I13.0 Hypertensive heart and chronic kidney disease with heart failure and stage 1 through stage 4 chronic kidney disease, or unspecified chronic kidney disease; N18.9 Chronic kidney disease, unspecified; Z87.891 Personal history of nicotine dependence; Z79.82 Long term (current) use of aspirin; Z79.899 Other long term (current) drug therapy; Z88.0 Allergy status to penicillin; Z88.1 Allergy status to other antibiotic agents; Z88.2 Allergy status to sulfonamides; Z88.8 Allergy status to other drugs, medicaments and biological substances; Z95.5 Presence of coronary angioplasty implant and graft
CPT/HCPCS: 70450; 70486; 72125; 99284

== ENCOUNTER → 2019-02-28 | Outpatient (CLI) | payer MEDICARE, BC ==
[2019-02-28 11:21] LABS: HCT 37.3 % (34.0-46.0); HGB 11.7 gm/dL (11.4-16.0); Hypochromasia Slight; MCH 30.3 pg (25.0-35.0); MCHC 31.5 g/dL (31.0-37.0); MCV 96.2 fL (80.0-100.0); Mean Platelet Volume 7.6; Platelet Count 180 k/uL (150-450); RBC 3.87 m/uL (3.80-5.40); RDW 13.6 % (11.5-15.5)
[2019-02-28 16:35] LABS: Iron Saturation 29.01 (12.00-45.00)
[2019-02-28 16:54] LABS: Albumin 4.1 g/dL (3.80-4.90); Albumin/Globulin Ratio 1.58 (1.60-3.17); Anion Gap 14.1 mmol/L (4.00-12.00); Calcium 9.4 mg/dL (8.7-10.3); Carbon Dioxide 26.9 mmol/L (21.6-31.8); Globulin 2.6 g/dL (1.6-3.3); Phosphorus 3.9 mg/dL (2.4-5.1); Potassium 5.1 mmol/L (3.5-5.5); Total Bilirubin 0.3 mg/dL (0.3-1.2); Total Protein 6.7 g/dL (6.2-8.2); Uric Acid 7.4 mg/dL (2.9-7.7)
[2019-02-28 18:46] LABS: Vitamin D 25 Hydroxy 30.6 ng/mL (30.0-100.0)
== END | disposition home or self-care (01) ==
LOC: LABWHC1 09:20
PROVIDERS: ATTEND Nurse Practitioner Family
DX: N39.0 Urinary tract infection, site not specified (principal); M10.9 Gout, unspecified; E21.3 Hyperparathyroidism, unspecified; D63.1 Anemia in chronic kidney disease; E55.9 Vitamin D deficiency, unspecified; N18.4 Chronic kidney disease, stage 4 (severe); D50.9 Iron deficiency anemia, unspecified; N25.81 Secondary hyperparathyroidism of renal origin
CPT/HCPCS: 36415; 80053; 82043; 82306; 82570; 82728; 83540; 83550; 83735; 83970; 84100; 84550; 85027

== ENCOUNTER → 2019-03-16 | Outpatient (CLI) | payer MEDICARE, BC ==
[2019-03-16 11:01] LABS: Basophils % (A) 1 %; Eosinophils # (A) 0.5 k/uL (0-0.7); Eosinophils % (A) 6 %; HCT 34.1 % (34.0-46.0); Hypochromasia Slight; Lymphocytes # (A) 1.6 k/uL (1.0-4.8); Lymphocytes % (A) 22 %; MCH 30.6 pg (25.0-35.0); MCHC 32.2 g/dL (31.0-37.0); MCV 95.2 fL (80.0-100.0); Mean Platelet Volume 7.6; Monocytes # (A) 0.4 k/uL (0-1.0); Monocytes % (A) 6 %; Neutrophils # (A) 4.6 k/uL (1.3-7.7); Neutrophils % (A) 64 %; Platelet Count 203 k/uL (150-450); RBC 3.58 m/uL (3.80-5.40); RDW 13.9 % (11.5-15.5); WBC 7.2 k/uL (3.8-10.6)
[2019-03-16 11:54] LABS: Amorphous Sediment,Urine Rare /hpf; Appearance,Urine Turbid (Clear); Bacteria,Urine Moderate /hpf; Bilirubin,Urine Negative (Negative); Blood,Urine Negative (Negative); Color,Urine Light Yellow; Glucose,Urine (UA) Negative (Negative); Ketones,Urine Negative (Negative); Leukocyte Esterase,Urine Large (Negative); Mucus,Urine Rare /hpf; Nitrite,Urine Positive (Negative); PH, Urine 7.5 (5.0-8.0); Protein,Urine 1+ (Negative); Specific Gravity,Urine 1.012 (1.001-1.035); Squamous Epithelial Cell,Urine 2 /hpf (0-4); Urobilinogen,Urine <2.0 mg/dL (<2.0)
[2019-03-16 17:23] LABS: Albumin 3.9 g/dL (3.80-4.90); Albumin/Globulin Ratio 1.63 (1.60-3.17); Anion Gap 9.6 mmol/L (4.00-12.00); Calcium 8.9 mg/dL (8.7-10.3); Carbon Dioxide 30.4 mmol/L (21.6-31.8); Globulin 2.4 g/dL (1.6-3.3); Potassium 4.6 mmol/L (3.5-5.5); Total Bilirubin 0.3 mg/dL (0.2-1.2); Total Protein 6.3 g/dL (6.2-8.2)
[2019-03-16 18:24] LABS: Hemoglobin A1C 8.9 % (4.0-6.0)
== END | disposition home or self-care (01) ==
LOC: LABWHC1 09:53
PROVIDERS: ATTEND Internal Medicine
DX: E11.65 Type 2 diabetes mellitus with hyperglycemia (principal); N39.0 Urinary tract infection, site not specified
CPT/HCPCS: 36415; 80053; 81001; 83036; 85025; 87086

== ENCOUNTER 2019-04-27 07:37 | Inpatient (IN) | payer MEDICARE, BC ==
[2019-04-27 11:11] LABS: Anisocytosis Slight; HCT 30.3 % (34.0-46.0); HGB 9.5 gm/dL (11.4-16.0); Hypochromasia Slight; MCH 29.6 pg (25.0-35.0); MCHC 31.3 g/dL (31.0-37.0); MCV 94.8 fL (80.0-100.0); Mean Platelet Volume 8.2; Platelet Count 177 k/uL (150-450); RDW 16.1 % (11.5-15.5); WBC 8.7 k/uL (3.8-10.6)
[2019-04-27] MEDS ORDERED: MELATONIN 3 MG TABLET PO PRN (11:16)
[2019-04-27] MEDS ORDERED: ONDANSETRON 4 MG/2 ML VIAL IVP PRN (11:16)
[2019-04-27] MEDS ORDERED: NALOXONE 0.4 MG/ML 1 ML VIAL IV PRN (11:16)
[2019-04-27] MEDS ORDERED: ACETAMINOPHEN TAB 325 MG TAB PO PRN (11:16)
[2019-04-27 11:22] LABS: Calcium 8.9 mg/dL (8.4-10.2); Magnesium 1.9 mg/dL (1.6-2.3); Phosphorus 4.6 mg/dL (2.5-4.5); Potassium 4.5 mmol/L (3.5-5.1)
[2019-04-27] MEDS ORDERED: FAMOTIDINE 20 MG TAB PO SCH (11:30)
[2019-04-27] MEDS: hydrALAZINE HCL 50 MG TAB PO SCH ×2 (11:46→21:12)
[2019-04-27] MEDS: ISOSORBIDE MONONITRATE ER 60 MG TAB.ER.24H PO SCH (11:46)
[2019-04-27] MEDS: CALCITRIOL 0.25 MCG CAP PO SCH (11:46)
[2019-04-27] MEDS: CARVEDILOL 3.125 MG TAB PO SCH ×2 (11:49→17:54)
[2019-04-27 11:56] LABS: Glucose,Whole Blood 265 mg/dL (75-99)
[2019-04-27] MEDS: INSULIN ASPART (NovoLOG) 100 UNIT/ML VIAL SQ SCH ×3 (13:56→20:09)
[2019-04-27 16:45] LABS: Glucose,Whole Blood 172 mg/dL (75-99)
[2019-04-27] MEDS: SODIUM CHLORIDE 0.9% 1,000 ML IV SCH ×2 (17:54→21:56)
[2019-04-27] MEDS: CALCIUM ACETATE 667 MG CAP PO SCH (17:54)
--- NOTE | 2019-04-27 17:54 | P.HPIM ---
History of Present Illness H&P Date: 04/27/19 (Delayed charting seen at 11 AM) Chief Complaint: Confusion Patient is an 83-year-old female with a past medical history of chronic kidney disease stage IV not wanting dialysis, ordinary artery disease, heart failure, diabetes, hypertension, dyslipidemia, and macular degeneration who presented as a direct admission from Dr. cardenas's office due to acute renal failure and worsening confusion. Per family she is been worsening over the last several months. She had initially been at [facility] was discharged approximately 2.5 months ago. Since then she has had worsening confusion. Over the last 1 week she has had decreased appetite, increasing weakness, and lack of energy. She has also been struggling to recognize family members. She is incontinent of urine and stool at times. Patient seen and examined at bedside with son present. They report that she was discharged from [facility] 2.5 months ago. Since that time family has been struggling to take care of her. On arrival to the floor she was complaining of chest pain which started shortly after eating Communion wafers. Is associated with some shortness of breath, lightheadedness, no presyncope, no nausea, no vomiting. It did radiate from the center of her chest into her left elbow. She reports she's been having some intermittent chest pain. Her son reports that she has chronic diarrhea and is often incontinent. She does have some difficulty with urinary frequency and incontinence. He reports that her confusion has been increasing and she is becomes so weak she is unable to ambulate on her own. They also report that her memory has been worsening and she is unable to recognize family members that time. He reports that yesterday she had an episode of vomiting. She's also had decreased appetite. She follows with nephrology and has adamantly refused dialysis. Review of Systems Pertinent positives and negatives as discussed in HPI, a complete review of systems was performed and all other systems are negative. Past Medical History Past Medical History: Atrial Flutter, Blood Disorder, Coronary Artery Disease (CAD), Heart Failure, Diabetes Mellitus, Eye Disorder, Hyperlipidemia, Hypertension, Memory Impairment, Renal Disease Additional Past Medical History / Comment(s): NIDDM type II, CKD stage IV, chronic anemia, neurogenic bladder, urinary retention, recurrent UTIs, colovesicular fistula, urinary incontinence-leaks, dry macular degeneration bilaterally, lower leg edema bilaterally, chronic back pain, past L achilles tendon tear-now healed History of Any Multi-Drug Resistant Organisms: None Reported Past Surgical History: Bladder Surgery, Cholecystectomy, Heart Catheterization With Stent, Hysterectomy, Joint Replacement, Orthopedic Surgery Additional Past Surgical History / Comment(s): PCI with total of 7 stents, bilateral total knee replacements, bilateral carpal tunnel releases, bladder suspencion, colonoscopies. Past Anesthesia/Blood Transfusion Reactions: No Reported Reaction Date of Last Stent Placement:: 2009 Smoking Status: Former smoker Past Alcohol Use History: None Reported Additional History: Living with her son, uses a walker - Past Family History Father Family Medical History: Myocardial Infarction ([place]) Mother Family Medical History: Pneumonia Daughter(s) Family Medical History: Cancer Additional Family Medical History / Comment(s): Daughter has GIST Medications and Allergies Home Medications Medication Instructions Recorded Confirmed Type Vit C/E/Zn/Coppr/Lutein/Zeaxan 1 cap PO BID 05/05/18 04/27/19 History [Preservision Areds 2 Softgel] Famotidine [Pepcid] 20 mg PO BID 08/04/18 04/27/19 History Atorvastatin [Lipitor] 40 mg PO HS #30 tab 08/08/18 04/27/19 Rx Calcium Acetate [PhosLo] 667 mg PO BID-W/MEALS #60 cap 08/08/18 04/27/19 Rx Tamsulosin [Flomax] 0.4 mg PO PC-BRKFST #30 cap.er.24h 08/08/18 04/27/19 Rx Pioglitazone [Actos] 30 mg PO DAILY 12/04/18 04/27/19 History Torsemide 10 mg PO BID 12/04/18 04/27/19 History ALPRAZolam [Xanax] 0.25 mg PO TID PRN #30 tablet 12/09/18 04/27/19 Rx Carvedilol [Coreg] 3.125 mg PO BID-W/MEALS tab 12/09/18 04/27/19 Rx Isosorbide Mononitrate ER [Imdur] 60 mg PO DAILY tab.er.24h 12/09/18 04/27/19 Rx Aspirin 325 mg PO HS 02/09/19 04/27/19 History hydrALAZINE HCL [Apresoline] 25 mg PO BID 02/09/19 04/27/19 History Calcitriol 0.25 mcg PO Q48H 04/27/19 04/27/19 History Promethazine [Phenergan] 12.5 - 25 mg PO Q4HR 04/27/19 04/27/19 History Venlafaxine HCl ER [Effexor Xr] 37.5 mg PO DAILY 04/27/19 04/27/19 History Allergies Allergy/AdvReac Type Severity Reaction Status Date / Time zolpidem tartrate AdvReac Severe Hallucinati Verified 04/27/19 10:34 [From Ambien] ons amoxicillin [From Augmentin] AdvReac Nausea & Verified 04/27/19 10:34 Vomiting & Diarrhea ciprofloxacin [From Cipro] AdvReac Nausea & Verified 04/27/19 10:34 Vomiting clavulanic acid AdvReac Nausea & Verified 04/27/19 10:34 [From Augmentin] Vomiting & Diarrhea Sulfa (Sulfonamide AdvReac Nausea & Verified 04/27/19 10:34 Antibiotics) Vomiting Physical Exam Osteopathic Statement: *. No significant issues noted on an osteopathic structural exam other than those noted in the History and Physical/Consult. Vitals: Vital Signs Temp Pulse Resp BP Pulse Ox 04/27/19 16:20 69 16 04/27/19 14:12 97.7 F 69 16 154/76 96 04/27/19 10:36 97.2 F L 99 20 196/82 97 04/27/19 08:30 97.8 F 94 17 186/78 93 L Intake and Output 04/27/19 04/27/19 04/27/19 06:59 14:59 22:59 Intake Total 240 Balance 240 Intake: Oral 240 Other: # Voids 3 3 Weight 93 kg General: non toxic, no distress, appears at stated age, obese Derm: no unusual rashes/lesions no unusual ecchymoses, warm, dry Head: atraumatic, normocephalic, symmetric Eyes: EOMI, no lid lag, anicteric sclera, pupils equal round reactive to light ENT: Nose and ears atraumatic, no thrush, no pharyngeal erythema Neck: No thyromegaly, no cervical lymphadenopathy, trachea midline, supple Mouth: no lip lesion, mucus membranes moist Cardiovascular: S1S2 reg, no murmur, positive posterior tibial pulse bilateral, no edema, capillary refill less than 2 seconds Lungs: Breath sounds bilateral bases, no rhonchi, no rales , no accessory muscle use Abdominal: soft, nontender to palpation, no guarding, no appreciable organomegaly, normal bowel sounds Ext: no gross muscle atrophy, strength 4 out of 5 in bilateral upper extremities and 3 out of 5 in bilateral lower extremities, no contractures, Neuro: CN II-XI grossly intact, light touch intact all 4 extremities, finger to nose within normal limits, Psych: Alert, oriented to self, struggles recalling medical information Results CBC & Chem 7: 04/27/19 10:50 04/27/19 10:50 Labs: Abnormal Lab Results - Last 24 Hours (Table) 04/27/19 04/27/19 04/27/19 Range/Units 10:50 10:50 11:35 RBC 3.20 L (3.80-5.40) m/uL Hgb 9.5 L (11.4-16.0) gm/dL Hct 30.3 L (34.0-46.0) % RDW 16.1 H (11.5-15.5) % BUN 76 H (7-17) mg/dL Creatinine 4.30 H (0.52-1.04) mg/dL Glucose 261 H (74-99) mg/dL POC Glucose (mg/dL) 265 H (75-99) mg/dL Phosphorus 4.6 H (2.5-4.5) mg/dL 04/27/19 Range/Units 16:43 RBC (3.80-5.40) m/uL Hgb (11.4-16.0) gm/dL Hct (34.0-46.0) % RDW (11.5-15.5) % BUN (7-17) mg/dL Creatinine (0.52-1.04) mg/dL Glucose (74-99) mg/dL POC Glucose (mg/dL) 172 H (75-99) mg/dL Phosphorus (2.5-4.5) mg/dL Thrombosis Risk Factor Assmnt - Choose All That Apply Any of the Below Risk Factors Present?: Yes Each Factor Represents 1 point: Obesity (BMI >25), Swollen legs (current) Other Risk Factors: Yes Each Risk Factor Represents 3 Points: Age 75 years or older Other congenital or acquired thrombophilia - If yes, enter type in comment: No Thrombosis Risk Factor Assessment Total Risk Factor Score: 5 Thrombosis Risk Factor Assessment Level: High Risk Assessment and Plan Assessment: Accelerated hypertension on arrival with blood pressure 186/78 -Resume home medications of hydralazine, Coreg, and Imdur -Continue to follow blood pressures -Hold torsemide -check PVR with hx of urinary retention, if able Chest pain -EKG ordered stat reviewed by myself which showed no acute ischemic changes -Troponin first was negative, check every 6 hours 2 -Continue with her, statin, patient had already taken her daily aspirin and this will continue -Likely related to anxiety Acute renal failure on chronic kidney disease stage V -Gentle IV fluids -Avoid nephrotoxic agents -Consult nephrology Toxic metabolic encephalopathy on top of probable dementia -Safe and supportive environment Generalized weakness -Likely related to advanced age in combination with renal failure -PT/OT evaluation Diabetes mellitus type 2 -Hold oral medications -Sliding-scale insulin -Follow blood sugars -Check hemoglobin A1c Morbid obesity -Structured outpatient weight loss Diastolic CHF, EF 55-60% - hold diuretics - no chronically on ACEI - strict I and O, daily weights - continue coreg Chronic: Dyslipidemia Atrial flutter-not on chronic anticoagulation Coronary artery disease-status post PCI 7 The patient is admitted with an anticipated greater than 2 midnight stay for evaluation of acute renal failure. Surrogate decision-maker: Surinder Frye CODE STATUS:See ACP discussion DVT prophylaxis: Heparin Discussed with: Patient, Son, nursing Anticipated discharge date: 3-[address]: SNF A total of 45 minutes was spent on the care of this complex patient more than 50% of the time was spent in counseling and care coordination.
[2019-04-27] MEDS ORDERED: HEPARIN SODIUM,PORCINE 5,000 UNIT/ML 1 ML VIAL IV PRN (19:18)
[2019-04-27] MEDS ORDERED: HEPARIN SODIUM,PORCINE 5,000 UNIT/ML 1 ML VIAL IV ONE (19:18)
[2019-04-27] MEDS: ATORVASTATIN 40 MG TAB PO SCH (19:39)
[2019-04-27] MEDS: ASPIRIN 325 MG TAB PO SCH (19:39)
[2019-04-27 19:44] LABS: Glucose,Whole Blood 67 mg/dL (75-99)
[2019-04-27 19:44] LABS: INR 0.9 (<1.2); Partial Thromboplastin Time 23.4 sec (22.0-30.0); Prothrombin Time 10.1 sec (9.0-12.0)
[2019-04-27] MEDS: HEPARIN SOD,PORK IN 0.45% NACL 25,000 UNIT in 0.45% NACL 1 250ML.BAG IV SCH (19:51)
[2019-04-27 20:04] LABS: Glucose,Whole Blood 81 mg/dL (75-99)
[2019-04-27] MEDS ORDERED: HEPARIN SODIUM,PORCINE 5,000 UNIT/ML 1 ML VIAL SQ SCH (21:00)
[2019-04-28] MEDS ORDERED: NITROGLYCERIN SL TABS 0.4 MG TAB SUBLINGUAL ONE (05:56)
[2019-04-28] MEDS ORDERED: NITROGLYCERIN SL TABS 0.4 MG TAB SUBLINGUAL STA (06:00)
[2019-04-28] MEDS: INSULIN ASPART (NovoLOG) 100 UNIT/ML VIAL SQ SCH ×2 (06:17→20:56)
[2019-04-28 06:29] LABS: Glucose,Whole Blood 131 mg/dL (75-99)
[2019-04-28] MEDS: CARVEDILOL 3.125 MG TAB PO SCH (06:38)
[2019-04-28] MEDS: SODIUM CHLORIDE 0.9% 1,000 ML IV SCH ×3 (06:41→17:43)
[2019-04-28 07:23] LABS: Calcium 8.6 mg/dL (8.4-10.2); Phosphorus 4.5 mg/dL (2.5-4.5); Potassium 4.7 mmol/L (3.5-5.1)
[2019-04-28] MEDS: hydrALAZINE HCL 50 MG TAB PO SCH ×2 (09:28→19:41)
[2019-04-28] MEDS: TAMSULOSIN 0.4 MG CAP.ER.24H PO SCH (09:28)
[2019-04-28] MEDS: ISOSORBIDE MONONITRATE ER 60 MG TAB.ER.24H PO SCH (09:28)
[2019-04-28] MEDS: FAMOTIDINE 20 MG TAB PO SCH (09:29)
[2019-04-28] MEDS: CALCIUM ACETATE 667 MG CAP PO SCH ×2 (09:29→17:41)
--- NOTE | 2019-04-28 09:36 | P.NPCON ---
History of Present Illness - Reason for Consult acute renal failure, chronic renal failure - History of Present Illness Reason for consultation: Acute kidney injury on chronic kidney disease History of present illness: Patient is a 83-year-old female seen in renal consultation for acute kidney injury on chronic kidney disease. Patient has chronic kidney disease stage V with baseline creatinine in the range of 3-3.8 recently. Etiology is diabetic kidney disease. Patient was sent to the hospital from her primary care physician's office due to worsening renal function and confusion. According to family she's been deteriorating over the last several months. She said decreased appetite along with increasing weakness. She is also not able to recognize her family members routinely. She has been voiding. Denies hematuria or dysuria. She is nauseous. Creatinine was 4.3 on admission and is 4.18 today. Home diuretics were held. She is not on IV fluids. Hemodynamically stable. Patient follows with me outpatient and has refused renal replacement therapy. This is also been discussed with her family members. Vital signs are stable. General: The patient appeared well nourished and normally developed. HEENT: Head exam is unremarkable. Neck is without jugular venous distension. LUNGS: Lungs are clear to auscultation and percussion. Breath sounds decreased. HEART: Rate and Rhythm are regular. First and second heart sounds normal. No murmurs, rubs or gallops. ABDOMEN: Abdominal exam reveals normal bowel sounds. Non-tender and non- distended. No evidence of peritonitis. EXTREMITITES: Trace edema. Past Medical History Past Medical History: Atrial Flutter, Blood Disorder, Coronary Artery Disease (CAD), Heart Failure, Diabetes Mellitus, Eye Disorder, Hyperlipidemia, Hypertension, Memory Impairment, Renal Disease Additional Past Medical History / Comment(s): NIDDM type II, CKD stage IV, chronic anemia, neurogenic bladder, urinary retention, recurrent UTIs, colovesicular fistula, urinary incontinence-leaks, dry macular degeneration bilaterally, lower leg edema bilaterally, chronic back pain, past L achilles tendon tear-now healed History of Any Multi-Drug Resistant Organisms: None Reported Past Surgical History: Bladder Surgery, Cholecystectomy, Heart Catheterization With Stent, Hysterectomy, Joint Replacement, Orthopedic Surgery Additional Past Surgical History / Comment(s): PCI with total of 7 stents, bilateral total knee replacements, bilateral carpal tunnel releases, bladder suspencion, colonoscopies. Past Anesthesia/Blood Transfusion Reactions: No Reported Reaction Date of Last Stent Placement:: 2009 Smoking Status: Former smoker Past Alcohol Use History: None Reported - Past Family History Father Family Medical History: Myocardial Infarction ([place]) Mother Family Medical History: Pneumonia Daughter(s) Family Medical History: Cancer Additional Family Medical History / Comment(s): Daughter has GIST Medications and Allergies Home Medications Medication Instructions Recorded Confirmed Type Vit C/E/Zn/Coppr/Lutein/Zeaxan 1 cap PO BID 05/05/18 04/27/19 History [Preservision Areds 2 Softgel] Famotidine [Pepcid] 20 mg PO BID 08/04/18 04/27/19 History Atorvastatin [Lipitor] 40 mg PO HS #30 tab 08/08/18 04/27/19 Rx Calcium Acetate [PhosLo] 667 mg PO BID-W/MEALS #60 cap 08/08/18 04/27/19 Rx Tamsulosin [Flomax] 0.4 mg PO PC-BRKFST #30 cap.er.24h 08/08/18 04/27/19 Rx Pioglitazone [Actos] 30 mg PO DAILY 12/04/18 04/27/19 History Torsemide 10 mg PO BID 12/04/18 04/27/19 History ALPRAZolam [Xanax] 0.25 mg PO TID PRN #30 tablet 12/09/18 04/27/19 Rx Carvedilol [Coreg] 3.125 mg PO BID-W/MEALS tab 12/09/18 04/27/19 Rx Isosorbide Mononitrate ER [Imdur] 60 mg PO DAILY tab.er.24h 12/09/18 04/27/19 Rx Aspirin 325 mg PO HS 02/09/19 04/27/19 History hydrALAZINE HCL [Apresoline] 25 mg PO BID 02/09/19 04/27/19 History Calcitriol 0.25 mcg PO Q48H 04/27/19 04/27/19 History Promethazine [Phenergan] 12.5 - 25 mg PO Q4HR 04/27/19 04/27/19 History Venlafaxine HCl ER [Effexor Xr] 37.5 mg PO DAILY 04/27/19 04/27/19 History Allergies Allergy/AdvReac Type Severity Reaction Status Date / Time zolpidem tartrate AdvReac Severe Hallucinati Verified 04/27/19 10:34 [From Ambien] ons amoxicillin [From Augmentin] AdvReac Nausea & Verified 04/27/19 10:34 Vomiting & Diarrhea ciprofloxacin [From Cipro] AdvReac Nausea & Verified 04/27/19 10:34 Vomiting clavulanic acid AdvReac Nausea & Verified 04/27/19 10:34 [From Augmentin] Vomiting & Diarrhea Sulfa (Sulfonamide AdvReac Nausea & Verified 04/27/19 10:34 Antibiotics) Vomiting Physical Exam Vitals: Vital Signs Temp Pulse Resp BP Pulse Ox 04/28/19 04:00 97.7 F 63 18 149/64 93 L 04/28/19 00:00 98.0 F 69 18 163/66 96 04/27/19 21:00 98.3 F 69 18 134/60 95 04/27/19 16:20 69 16 04/27/19 14:12 97.7 F 69 16 154/76 96 04/27/19 10:36 97.2 F L 99 20 196/82 97 Intake and Output 04/27/19 04/28/19 04/28/19 22:59 06:59 14:59 Intake Total 240 80 Balance 240 80 Intake: Intake, IV Titration 80 Amount Sodium Chloride 0.9% 1, 80 000 ml @ 100 mls/hr IV . Q10H [facility] Rx#:[id number] Oral 240 Other: Voiding Method Toilet Toilet # Voids 3 Weight 93 kg Results - Lab Results Most recent lab results Calcium 8.6 mg/dL (8.4-10.2) 04/28/19 06:04 Phosphorus 4.5 mg/dL (2.5-4.5) 04/28/19 06:04 Magnesium 2.0 mg/dL (1.6-2.3) 04/28/19 06:04 04/27/19 10:50 04/28/19 06:04 Assessment and Plan Plan: Assessment: 1. Acute kidney injury mostly prerenal secondary to diuretics versus progression of underlying chronic kidney disease. Creatinine was 4.3 on admis nayana and is 4.18 today. 2. Chronic kidney disease stage V secondary to diabetic kidney disease. Ba princessine creatinine in the range of 3-3.8 recently. 3. Intermittent confusion along with weakness and decreased appetite. Concern for uremia. 4. Anemia of chronic kidney disease. Rule out iron deficiency. 5. Diabetes mellitus. 6. Hypertension with chronic kidney disease. 7. 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 8. Elevated troponins. Maintain on heparin drip. Cardiology consulted. 9. Diastolic CHF. Plan: Start normal saline at 50 mL an hour. Hold diuretics. Continue to monitor renal function and urine output. Patient continues to refuse renal replacement therapy. Thank you for the consultation. I will continue to follow the patient with you during her hospital stay.
[2019-04-28 10:01] LABS: Anisocytosis Slight; Basophils # (A) 0.1 k/uL (0-0.2); Basophils % (A) 1 %; Eosinophils # (A) 0.8 k/uL (0-0.7); Eosinophils % (A) 10 %; HCT 28.8 % (34.0-46.0); HGB 9.1 gm/dL (11.4-16.0); Hypochromasia Slight; Lymphocytes # (A) 2.9 k/uL (1.0-4.8); Lymphocytes % (A) 38 %; MCHC 31.6 g/dL (31.0-37.0); MCV 94.6 fL (80.0-100.0); Mean Platelet Volume 9.4; Monocytes # (A) 0.5 k/uL (0-1.0); Monocytes % (A) 7 %; Neutrophils # (A) 3.3 k/uL (1.3-7.7); Neutrophils % (A) 42 %; Platelet Count 189 k/uL (150-450); RBC 3.05 m/uL (3.80-5.40); RDW 16.3 % (11.5-15.5); WBC 7.8 k/uL (3.8-10.6)
--- NOTE | 2019-04-28 10:23 | P.CRDCN ---
History of Present Illness Consult date: 04/28/19 History of present illness: This is a 83-year-old female with history of ischemic heart disease who is being followed by Dr. Bowman. She is had several stents in the past and had a positive stress test in 2014 but patient opted to be on maximal medical therapy. She is also has chronic renal failure. She is being followed by algologist. Apparently her kidney function has been deteriorating and she is admitted to the hospital with confusion and deteriorating kidney functions. Apparently patient refuses dialysis. Her creatinine is in the range of 4.8. We're asked to see the patient because of abnormal troponin values. In view of significant elevation in creatinine, it is difficult to assess the significance of abnormal troponin values. The possibility of non-ST elevation cannot be ruled out. She did have a couple of bouts of chest pain which is relieved with nitroglycerin. Patient is currently on Coreg and also Imdur along with heparin. I'm going to increase the dose of the Coreg and Imdur and continue heparin for 24 hours. I'll get an echocardiogram. If patient symptoms are controlled, conservative management is suggested. Prognosis is guarded Review of Systems As per the chart Past Medical History Past Medical History: Atrial Flutter, Blood Disorder, Coronary Artery Disease (CAD), Heart Failure, Diabetes Mellitus, Eye Disorder, Hyperlipidemia, Hypertension, Memory Impairment, Renal Disease Additional Past Medical History / Comment(s): NIDDM type II, CKD stage IV, chronic anemia, neurogenic bladder, urinary retention, recurrent UTIs, co lovesicular fistula, urinary incontinence-leaks, dry macular degeneration bilaterally, lower leg edema bilaterally, chronic back pain, past L achilles tendon tear-now healed History of Any Multi-Drug Resistant Organisms: None Reported Past Surgical History: Bladder Surgery, Cholecystectomy, Heart Catheterization With Stent, Hysterectomy, Joint Replacement, Orthopedic Surgery Additional Past Surgical History / Comment(s): PCI with total of 7 stents, bilateral total knee replacements, bilateral carpal tunnel releases, bladder suspencion, colonoscopies. Past Anesthesia/Blood Transfusion Reactions: No Reported Reaction Date of Last Stent Placement:: 2009 Smoking Status: Former smoker Past Alcohol Use History: None Reported - Past Family History Father Family Medical History: Myocardial Infarction (NM) Mother Family Medical History: Pneumonia Daughter(s) Family Medical History: Cancer Additional Family Medical History / Comment(s): Daughter has GIST Medications and Allergies Home Medications Medication Instructions Recorded Confirmed Type Vit C/E/Zn/Coppr/Lutein/Zeaxan 1 cap PO BID 05/05/18 04/27/19 History [Preservision Areds 2 Softgel] Famotidine [Pepcid] 20 mg PO BID 08/04/18 04/27/19 History Atorvastatin [Lipitor] 40 mg PO HS #30 tab 08/08/18 04/27/19 Rx Calcium Acetate [PhosLo] 667 mg PO BID-W/MEALS #60 cap 08/08/18 04/27/19 Rx Tamsulosin [Flomax] 0.4 mg PO PC-BRKFST #30 cap.er.24h 08/08/18 04/27/19 Rx Pioglitazone [Actos] 30 mg PO DAILY 12/04/18 04/27/19 History Torsemide 10 mg PO BID 12/04/18 04/27/19 History ALPRAZolam [Xanax] 0.25 mg PO TID PRN #30 tablet 12/09/18 04/27/19 Rx Carvedilol [Coreg] 3.125 mg PO BID-W/MEALS tab 12/09/18 04/27/19 Rx Isosorbide Mononitrate ER [Imdur] 60 mg PO DAILY tab.er.24h 12/09/18 04/27/19 Rx Aspirin 325 mg PO HS 02/09/19 04/27/19 History hydrALAZINE HCL [Apresoline] 25 mg PO BID 02/09/19 04/27/19 History Calcitriol 0.25 mcg PO Q48H 04/27/19 04/27/19 History Promethazine [Phenergan] 12.5 - 25 mg PO Q4HR 04/27/19 04/27/19 History Venlafaxine HCl ER [Effexor Xr] 37.5 mg PO DAILY 04/27/19 04/27/19 History Allergies Allergy/AdvReac Type Severity Reaction Status Date / Time zolpidem tartrate AdvReac Severe Hallucinati Verified 04/27/19 10:34 [From Ambien] ons amoxicillin [From Augmentin] AdvReac Nausea & Verified 04/27/19 10:34 Vomiting & Diarrhea ciprofloxacin [From Cipro] AdvReac Nausea & Verified 04/27/19 10:34 Vomiting clavulanic acid AdvReac Nausea & Verified 04/27/19 10:34 [From Augmentin] Vomiting & Diarrhea Sulfa (Sulfonamide AdvReac Nausea & Verified 04/27/19 10:34 Antibiotics) Vomiting Physical Exam Vitals: Vital Signs Temp Pulse Resp BP Pulse Ox 04/28/19 04:00 97.7 F 63 18 149/64 93 L 04/28/19 00:00 98.0 F 69 18 163/66 96 04/27/19 21:00 98.3 F 69 18 134/60 95 04/27/19 16:20 69 16 04/27/19 14:12 97.7 F 69 16 154/76 96 04/27/19 10:36 97.2 F L 99 20 196/82 97 Intake and Output 04/27/19 04/28/19 04/28/19 22:59 06:59 14:59 Intake Total 240 80 Balance 240 80 Intake: Intake, IV Titration 80 Amount Sodium Chloride 0.9% 1, 80 000 ml @ 100 mls/hr IV . Q10H [facility] Rx#:[id number] Oral 240 Other: Voiding Method Toilet Toilet # Voids 3 Weight 93 kg GENERAL EXAM: Patient is alert and seems to be partially disoriented and c onfused. HEENT: Normocephalic. Normal reaction of pupils, equal size, normal range of extraocular motion. No erythema or exudates in the throat. NECK: No masses, no nuchal rigidity. CHEST: No chest wall deformity. LUNGS: Equal air entry with no crackles or wheeze. HEART: S1 and S2 normal with no audible mumurs or gallops. Regular rhythm, femorals equal on both sides.. ABDOMEN: No hepatosplenomegaly, normal bowel sounds, no guarding or rigidity. SKIN: No rashes CENTRAL NERVOUS SYSTEM: No focal deficits. EXTREMITIES: No cyanosis, clubbing or edema. Results 04/28/19 06:04 04/28/19 06:04 Cardiac Enzymes 04/27/19 04/27/19 04/28/19 Range/Units 10:50 18:10 00:48 Troponin I <0.012 0.260 H* 0.306 H* (0.000-0.034) ng/mL Coagulation 04/27/19 04/28/19 04/28/19 Range/Units 10:50 00:48 06:04 PT 10.1 (9.0-12.0) sec APTT 23.4 63.4 H 71.2 H (22.0-30.0) sec CBC 04/27/19 04/28/19 Range/Units 10:50 06:04 WBC 8.7 7.8 (3.8-10.6) k/uL RBC 3.20 L 3.05 L (3.80-5.40) m/uL Hgb 9.5 L 9.1 L (11.4-16.0) gm/dL Hct 30.3 L 28.8 L (34.0-46.0) % Plt Count 177 189 (150-450) k/uL Comprehensive Metabolic Panel 04/27/19 04/28/19 Range/Units 10:50 06:04 Sodium 139 138 (137-145) mmol/L Potassium 4.5 4.7 (3.5-5.1) mmol/L Chloride 100 102 (98-107) mmol/L Carbon Dioxide 29 28 (22-30) mmol/L BUN 76 H 84 H (7-17) mg/dL Creatinine 4.30 H 4.18 H (0.52-1.04) mg/dL Glucose 261 H 123 H (74-99) mg/dL Calcium 8.9 8.6 (8.4-10.2) mg/dL Current Medications Generic Name Dose Route Start Last Admin Trade Name Freq PRN Reason Stop Dose Admin Acetaminophen 650 mg 04/27/19 11:16 Tylenol Tab PO Q6HR PRN Mild Pain or Fever > 100.5 Alprazolam 0.25 mg 04/27/19 11:20 Xanax PO TID PRN Anxiety Aspirin 325 mg 04/27/19 21:00 04/27/19 19:39 Aspirin PO 325 mg HS JANICE Administration Atorvastatin Calcium 40 mg 04/27/19 21:00 04/27/19 19:39 Lipitor PO 40 mg HS JANICE Administration Calcitriol 0.25 mcg 04/27/19 11:30 04/27/19 11:46 Rocaltrol PO 0.25 mcg Q48H JANICE Administration Calcium Acetate 667 mg 04/27/19 17:30 04/28/19 09:29 Phoslo PO Not Given BID-W/MEALS JANICE Carvedilol 6.25 mg 04/28/19 17:30 Coreg PO BID-W/MEALS JANICE Famotidine 20 mg 04/28/19 09:00 04/28/19 09:29 Pepcid PO 20 mg DAILY JANICE Administration Heparin Sodium (Porcine) 0 unit 04/27/19 19:18 Heparin IV PER PROTOCOL PRN Low PTT Protocol Hydralazine HCl 25 mg 04/27/19 11:30 04/28/19 09:28 Apresoline PO 25 mg BID JANICE Administration Sodium Chloride 1,000 mls @ 100 mls/hr 04/27/19 11:30 04/28/19 06:41 Saline 0.9% IV 100 mls/hr .Q10H JANICE Administration Heparin Sodium/Sodium Chloride 250 mls @ 9.998 mls/hr 04/27/19 19:30 04/27/19 19:51 25,000 unit/ Sodium Chloride IV 10.75 units/kg/hr .Q24H JANICE 9.998 mls/hr Administration Protocol 10.75 UNITS/KG/HR Isosorbide Mononitrate 90 mg 04/29/19 09:00 Imdur PO DAILY JANICE Melatonin 3 mg 04/27/19 11:16 Melatonin PO HS PRN Insomnia Naloxone HCl 0.2 mg 04/27/19 11:16 Narcan IV Q2M PRN Opioid Reversal Ondansetron HCl 4 mg 04/27/19 11:16 Zofran IVP Q8HR PRN Nausea And Vomiting Tamsulosin HCl 0.4 mg 04/28/19 08:30 04/28/19 09:28 Flomax PO 0.4 mg PC-BRKFST JANICE Administration Venlafaxine HCl 37.5 mg 04/28/19 09:00 Effexor Xr PO DAILY JANICE Intake and Output 04/27/19 04/28/19 04/28/19 22:59 06:59 14:59 Intake Total 240 80 Balance 240 80 Intake: Intake, IV Titration 80 Amount Sodium Chloride 0.9% 1, 80 000 ml @ 100 mls/hr IV . Q10H J[facility]ICE Rx#:[id number] Oral 240 Other: Voiding Method Toilet Toilet # Voids 3 Weight 93 kg 04/28/19 06:04 04/28/19 06:04 Assessment and Plan (1) Acute kidney injury superimposed on chronic kidney disease Current Visit: No Status: Acute Code(s): N17.9 - ACUTE KIDNEY FAILURE, UNSPECIFIED; N18.9 - CHRONIC KIDNEY DISEASE, UNSPECIFIED SNOMED Code(s): 59243218 (2) CAD (coronary artery disease) Current Visit: No Status: Acute Code(s): I25.10 - ATHSCL HEART DISEASE OF [place] CORONARY ARTERY W/O ANG PCTRS SNOMED Code(s): 79257223 (3) Chronic kidney disease, stage IV (severe) Current Visit: No Status: Acute Code(s): N18.4 - CHRONIC KIDNEY DISEASE, STAGE 4 (SEVERE) SNOMED Code(s): 785659376 (4) Diabetes Current Visit: No Status: Acute Code(s): E11.9 - TYPE 2 DIABETES MELLITUS WITHOUT COMPLICATIONS SNOMED Code(s): 01690269 (5) Elevated troponin Current Visit: Yes Status: Acute Code(s): R74.8 - ABNORMAL LEVELS OF OTHER SERUM ENZYMES SNOMED Code(s): 145878960 Plan: This patient is mainly admitted with altered mental status and also worsening renal failure. Since admission patient had couple of bouts of chest pain relieved with nitroglycerin. EKGs did not reveal any acute changes. Cardiac enzymes showed abnormal troponin values but difficult to assess the significance in view of her high creatinine. We'll continue to maximize medical therapy including heparin. We'll increase the dose of the beta ana, nitrates. An echocardiogram will be obtained. If patient symptoms are controlled, conservative management is suggested. Patient also preferred to be on medical therapy,inspite of positive stress test in the past.
[2019-04-28 11:46] LABS: Glucose,Whole Blood 184 mg/dL (75-99)
[2019-04-28] MEDS: VENLAFAXINE HCL ER 37.5 MG CAP PO SCH (12:03)
[2019-04-28 16:47] LABS: Glucose,Whole Blood 205 mg/dL (75-99)
[2019-04-28] MEDS: CARVEDILOL 6.25 MG TAB PO SCH (17:42)
[2019-04-28] MEDS: ASPIRIN 325 MG TAB PO SCH (19:41)
[2019-04-28] MEDS: ATORVASTATIN 40 MG TAB PO SCH (19:41)
[2019-04-28] MEDS: HEPARIN SOD,PORK IN 0.45% NACL 25,000 UNIT in 0.45% NACL 1 250ML.BAG IV SCH (19:41)
--- NOTE | 2019-04-28 20:07 | P.PN ---
Subjective Progress Note Date: 04/28/19 (Delayed charting seen and 11 AM) Principal diagnosis: Weakness Patient is an 83-year-old female with a past medical history of chronic kidney disease stage IV not wanting dialysis, ordinary artery disease, heart failure, diabetes, hypertension, dyslipidemia, and macular degeneration who presented as a direct admission from Dr. carednas's office due to acute renal failure and worsening confusion. Per family she is been worsening over the last several months. She had initially been at [facility] was discharged approximately 2.5 months ago. Since then she has had worsening confusion. Over the last 1 week she has had decreased appetite, increasing weakness, and lack of energy. She has also been struggling to recognize family members. She is incontinent of urine and stool at times. On arrival on 04/28 she started having chest pain. Was found to have an elevated troponin. Was given aspirin and started on a heparin drip. Seen by cardiology who recommends conservative management and continuation of the heparin drip. They also increased her Coreg and Imdur. Seen by nephrology who confirms that she had not wanted dialysis in the past and agrees with holding her diuretics and gentle IV fluid hydration. Patient does not want to go to ECF but realizes that she needs more help. Patient seen and examined at bedside. She denies any chest pain, but states she had some this morning it resolved with 2 nitroglycerin. She denies any shortness of breath, denies any edema (though there is some present), no nausea or vomiting. Objective - Vital Signs Vital signs: Vital Signs Temp 98.0 F 04/28/19 16:00 Pulse 63 04/28/19 16:00 Resp 14 04/28/19 16:00 BP 193/70 04/28/19 16:00 Pulse Ox 93 L 04/28/19 12:00 Intake & Output 04/28/19 04/28/19 04/29/19 06:59 18:59 06:59 Intake Total 320 222 238.286 Output Total 400 Balance 320 -178 238.286 Intake: Intake, IV Titration 80 238.286 Amount Heparin Sod,Pork in 0.45% 238.286 NaCl 25,000 unit In 0.45 % NaCl 1 250ml.bag @ 10. 75 UNITS/KG/HR 9.998 mls/ hr IV .Q24H [facility] Rx#: [id number] Sodium Chloride 0.9% 1, 80 000 ml @ 100 mls/hr IV . Q10H [facility] Rx#:[id number] Oral 240 222 Output: Urine 400 Other: Voiding Method Toilet Toilet - Exam General:, Obese, no distress, appears at stated age Derm: warm, dry Head: atraumatic, normocephalic, symmetric Eyes: EOMI, no lid lag, anicteric sclera Mouth: no lip lesion, mucus membranes moist Cardiovascular: S1S2 reg, no murmur, positive posterior tibial pulse bilateral, Lungs: Decreased breath sounds bilateral, no rhonchi, no rales , no accessory muscle use Abdominal: soft, nontender to palpation, no guarding, no appreciable organomegaly Ext: no gross muscle atrophy, 1+ edema bilateral lower extremities, no contractu res Neuro: CN II-XI grossly intact, no focal neuro deficits Psych: Alert, oriented at times but then intermittently confused, appropriate affect - Labs CBC & Chem 7: 04/28/19 06:04 04/28/19 06:04 Labs: Abnormal Lab Results - Last 24 Hours (Table) 04/28/19 04/28/19 04/28/19 Range/Units 00:48 00:48 06:04 RBC 3.05 L (3.80-5.40) m/uL Hgb 9.1 L (11.4-16.0) gm/dL Hct 28.8 L (34.0-46.0) % RDW 16.3 H (11.5-15.5) % Eosinophils # 0.8 H (0-0.7) k/uL APTT 63.4 H (22.0-30.0) sec BUN (7-17) mg/dL Creatinine (0.52-1.04) mg/dL Glucose (74-99) mg/dL POC Glucose (mg/dL) (75-99) mg/dL Troponin I 0.306 H* (0.000-0.034) ng/mL 04/28/19 04/28/19 04/28/19 Range/Units 06:04 06:04 06:12 RBC (3.80-5.40) m/uL Hgb (11.4-16.0) gm/dL Hct (34.0-46.0) % RDW (11.5-15.5) % Eosinophils # (0-0.7) k/uL APTT 71.2 H (22.0-30.0) sec BUN 84 H (7-17) mg/dL Creatinine 4.18 H (0.52-1.04) mg/dL Glucose 123 H (74-99) mg/dL POC Glucose (mg/dL) 131 H (75-99) mg/dL Troponin I (0.000-0.034) ng/mL 04/28/19 04/28/19 Range/Units 11:45 16:43 RBC (3.80-5.40) m/uL Hgb (11.4-16.0) gm/dL Hct (34.0-46.0) % RDW (11.5-15.5) % Eosinophils # (0-0.7) k/uL APTT (22.0-30.0) sec BUN (7-17) mg/dL Creatinine (0.52-1.04) mg/dL Glucose (74-99) mg/dL POC Glucose (mg/dL) 184 H 205 H (75-99) mg/dL Troponin I (0.000-0.034) ng/mL Assessment and Plan Assessment: Acute renal failure on chronic kidney disease stage V -Gentle IV fluids, diuretics held -Avoid nephrotoxic agents -Nephrology recommendations appreciated Troponin elevation, likely non-STEMI -Continue heparin drip 24 more hours -Cardiology recommendations appreciated -Await echocardiogram -Beta ana and Imdur increased by cardiology -Continue with her statin and daily aspirin -Telemetry Toxic metabolic encephalopathy on top of probable dementia -Safe and supportive environment Generalized weakness -Likely related to advanced age in combination with renal failure -PT/OT evaluation Diabetes mellitus type 2 -Hold oral medications -had episode of hypoglycemia 04/27, now with elevating BS likely as actos is coming out of system -Follow blood sugars -Hemoglobin A1c 8.9 03/26 Hypertension -hydralazine, Coreg, and Imdur -Continue to follow blood pressures -Hold torsemide Morbid obesity -Structured outpatient weight loss Diastolic CHF, EF 55-60% - hold diuretics - no chronically on ACEI - strict I and O, daily weights - continue coreg Chronic: Dyslipidemia Atrial flutter-not on chronic anticoagulation Coronary artery disease-status post PCI 7 Accelerated hypertension on arrival with blood pressure 186/78, improved DVT prophylaxis: Heparin Discussed with: Patient, nursing Anticipated discharge date: 2-[address]: SNF A total of 25 minutes was spent on the care of this complex patient more than 50% of the time was spent in counseling and care coordination.
[2019-04-28 20:25] VITALS: RESP 18
[2019-04-28 20:47] LABS: Glucose,Whole Blood 173 mg/dL (75-99)
[2019-04-29] MEDS: SODIUM CHLORIDE 0.9% 1,000 ML IV SCH ×4 (02:34→20:55)
[2019-04-29 02:38] LABS: Glucose,Whole Blood 171 mg/dL (75-99)
[2019-04-29] MEDS: CALCIUM ACETATE 667 MG CAP PO SCH ×2 (06:21→17:21)
[2019-04-29] MEDS: CARVEDILOL 6.25 MG TAB PO SCH ×2 (06:21→17:21)
[2019-04-29] MEDS: INSULIN ASPART (NovoLOG) 100 UNIT/ML VIAL SQ SCH ×4 (06:22→20:20)
[2019-04-29 06:23] LABS: Glucose,Whole Blood 136 mg/dL (75-99)
[2019-04-29 07:01] LABS: Anisocytosis Slight; Basophils # (A) 0.1 k/uL (0-0.2); Basophils % (A) 1 %; Eosinophils # (A) 0.7 k/uL (0-0.7); Eosinophils % (A) 11 %; HCT 29.5 % (34.0-46.0); HGB 9.4 gm/dL (11.4-16.0); Hypochromasia Slight; Lymphocytes # (A) 2.2 k/uL (1.0-4.8); Lymphocytes % (A) 34 %; MCH 30.1 pg (25.0-35.0); MCHC 31.9 g/dL (31.0-37.0); MCV 94.4 fL (80.0-100.0); Monocytes # (A) 0.3 k/uL (0-1.0); Monocytes % (A) 5 %; Neutrophils % (A) 47 %; Platelet Count 184 k/uL (150-450); RBC 3.12 m/uL (3.80-5.40); RDW 16.5 % (11.5-15.5); WBC 6.4 k/uL (3.8-10.6)
[2019-04-29] MEDS: VENLAFAXINE HCL ER 37.5 MG CAP PO SCH (08:06)
[2019-04-29] MEDS: FAMOTIDINE 20 MG TAB PO SCH (08:07)
[2019-04-29] MEDS: CALCITRIOL 0.25 MCG CAP PO SCH (08:07)
[2019-04-29 08:08] LABS: Calcium 8.5 mg/dL (8.4-10.2); Potassium 4.4 mmol/L (3.5-5.1)
[2019-04-29] MEDS: TAMSULOSIN 0.4 MG CAP.ER.24H PO SCH (08:08)
[2019-04-29] MEDS: hydrALAZINE HCL 50 MG TAB PO SCH (08:09)
[2019-04-29] MEDS: ISOSORBIDE MONONITRATE ER 30 MG TAB.ER.24H PO SCH (08:12)
--- NOTE | 2019-04-29 09:08 | P.PN ---
Subjective Progress Note Date: 04/29/19 Seen and examined for the follow-up of acute kidney injury. She has chronic kidney disease stage V secondary to nephrosclerosis and diabetes with a baseline creatinine of 3.0-3.8 MG per DL. Admitted with a creatinine of 4.3 to per DL and improving. No nausea vomiting or diarrhea. Objective - Vital Signs Vital signs: Vital Signs Temp 98 F 04/29/19 03:33 Pulse 66 04/29/19 03:33 Resp 18 04/29/19 03:33 BP 152/78 04/29/19 03:33 Pulse Ox 96 04/29/19 03:33 Intake & Output 04/28/19 04/29/19 04/29/19 18:59 06:59 18:59 Intake Total 222 478.286 180 Output Total 400 1700 Balance -178 -1221.714 180 Weight 94.1 kg Intake: Intake, IV Titration 238.286 Amount Heparin Sod,Pork in 0.45% 238.286 NaCl 25,000 unit In 0.45 % NaCl 1 250ml.bag @ 10. 75 UNITS/KG/HR 9.998 mls/ hr IV .Q24H [facility] Rx#: [id number] Oral 222 240 180 Output: Urine 400 1700 Other: Voiding Method Toilet Toilet # Voids 1 - Exam No acute distress S1-S2 heard Lungs clear No edema - Labs CBC & Chem 7: 04/29/19 06:38 04/29/19 06:38 Labs: Abnormal Lab Results - Last 24 Hours (Table) 04/28/19 04/28/19 04/28/19 Range/Units 06:04 11:45 16:43 RBC 3.05 L (3.80-5.40) m/uL Hgb 9.1 L (11.4-16.0) gm/dL Hct 28.8 L (34.0-46.0) % RDW 16.3 H (11.5-15.5) % Eosinophils # 0.8 H (0-0.7) k/uL APTT (22.0-30.0) sec BUN (7-17) mg/dL Creatinine (0.52-1.04) mg/dL Glucose (74-99) mg/dL POC Glucose (mg/dL) 184 H 205 H (75-99) mg/dL 04/28/19 04/29/19 04/29/19 Range/Units 20:45 02:36 06:21 RBC (3.80-5.40) m/uL Hgb (11.4-16.0) gm/dL Hct (34.0-46.0) % RDW (11.5-15.5) % Eosinophils # (0-0.7) k/uL APTT (22.0-30.0) sec BUN (7-17) mg/dL Creatinine (0.52-1.04) mg/dL Glucose (74-99) mg/dL POC Glucose (mg/dL) 173 H 171 H 136 H (75-99) mg/dL 04/29/19 04/29/19 04/29/19 Range/Units 06:38 06:38 06:38 RBC 3.12 L (3.80-5.40) m/uL Hgb 9.4 L (11.4-16.0) gm/dL Hct 29.5 L (34.0-46.0) % RDW 16.5 H (11.5-15.5) % Eosinophils # (0-0.7) k/uL APTT 69.7 H (22.0-30.0) sec BUN 79 H (7-17) mg/dL Creatinine 3.67 H (0.52-1.04) mg/dL Glucose 142 H (74-99) mg/dL POC Glucose (mg/dL) (75-99) mg/dL Assessment and Plan Assessment: #1 acute kidney injury secondary to prerenal process from over diuresis. Creatinine improving. #2 CK D5 secondary to diabetic kidney disease and nephrosclerosis with a baseline creatinine of 3.0-3.8 MG per DL. 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 Plan: #1 creatinine improved currently at baseline. #2 continue with fluids today can be stopped by tomorrow. #3 avoid nephrotoxic agents and hypotensive episodes. #4 she had multiple discussions regarding renal replacement therapy in the past and wishes not to have dialysis if needed.
[2019-04-29 11:53] LABS: Glucose,Whole Blood 219 mg/dL (75-99)
--- NOTE | 2019-04-29 12:20 | P.PN ---
Subjective Progress Note Date: 04/29/19 This is a 83-year-old female with history of ischemic heart disease who is being followed by Dr. Bowman. She is had several stents in the past and had a positive stress test in 2014 but patient opted to be on maximal medical therapy. She is also has chronic renal failure. She is being followed by mortgage funder. Apparently her kidney function has been deteriorating and she is admitted to the hospital with confusion and deteriorating kidney functions. Apparently patient refuses dialysis. Her creatinine is in the range of 4.8. We're asked to see the patient because of abnormal troponin values. In view of significant elevation in creatinine, it is difficult to assess the significance of abnormal troponin values. The possibility of non-ST elevation cannot be ruled out. She did have a couple of bouts of chest pain which is relieved with nitroglycerin. Patient is currently on Coreg and also Imdur along with heparin. I'm going to increase the dose of the Coreg and Imdur and continue heparin for 24 hours. I'll get an echocardiogram. If patient symptoms are controlled, conservative management is suggested. Prognosis is guarded. 04/29/2019 She was seen and examined this morning, overall doing well. Blood pressure 156/80 with a heart rate in the 60s, 94% on room air. White blood cell count 6.4, hemoglobin 9.4, platelet count 184. Sodium 141, potassium 4.4, BUN 79 and creatinine 3.6. Troponin abnormality did not indicate any significant CAD, we'll continue maximal medical therapy at this time. Objective - Vital Signs Vital signs: Vital Signs Temp 98.3 F 04/29/19 11:58 Pulse 58 L 04/29/19 12:00 Resp 18 04/29/19 12:00 BP 161/68 04/29/19 11:58 Pulse Ox 93 L 04/29/19 11:58 Intake & Output 04/28/19 04/29/19 04/29/19 18:59 06:59 18:59 Intake Total 222 478.286 180 Output Total 400 1700 Balance -178 -1221.714 180 Weight 94.1 kg Intake: Intake, IV Titration 238.286 Amount Heparin Sod,Pork in 0.45% 238.286 NaCl 25,000 unit In 0.45 % NaCl 1 250ml.bag @ 10. 75 UNITS/KG/HR 9.998 mls/ hr IV .Q24H [facility] Rx#: [id number] Oral 222 240 180 Output: Urine 400 1700 Other: Voiding Method Toilet Toilet Toilet # Voids 1 - Exam GENERAL EXAM: Patient is alert and seems to be partially disoriented and confused. HEENT: Normocephalic. Normal reaction of pupils, equal size, normal range of extraocular motion. No erythema or exudates in the throat. NECK: No masses, no nuchal rigidity. CHEST: No chest wall deformity. LUNGS: Equal air entry with no crackles or wheeze. HEART: S1 and S2 normal with no audible mumurs or gallops. Regular rhythm, femorals equal on both sides.. ABDOMEN: No hepatosplenomegaly, normal bowel sounds, no guarding or rigidity. SKIN: No rashes CENTRAL NERVOUS SYSTEM: No focal deficits. EXTREMITIES: No cyanosis, clubbing or edema. - Labs CBC & Chem 7: 04/29/19 06:38 04/29/19 06:38 Labs: Abnormal Lab Results - Last 24 Hours (Table) 04/28/19 04/28/19 04/29/19 Range/Units 16:43 20:45 02:36 RBC (3.80-5.40) m/uL Hgb (11.4-16.0) gm/dL Hct (34.0-46.0) % RDW (11.5-15.5) % APTT (22.0-30.0) sec BUN (7-17) mg/dL Creatinine (0.52-1.04) mg/dL Glucose (74-99) mg/dL POC Glucose (mg/dL) 205 H 173 H 171 H (75-99) mg/dL 04/29/19 04/29/19 04/29/19 Range/Units 06:21 06:38 06:38 RBC 3.12 L (3.80-5.40) m/uL Hgb 9.4 L (11.4-16.0) gm/dL Hct 29.5 L (34.0-46.0) % RDW 16.5 H (11.5-15.5) % APTT 69.7 H (22.0-30.0) sec BUN (7-17) mg/dL Creatinine (0.52-1.04) mg/dL Glucose (74-99) mg/dL POC Glucose (mg/dL) 136 H (75-99) mg/dL 04/29/19 04/29/19 Range/Units 06:38 11:32 RBC (3.80-5.40) m/uL Hgb (11.4-16.0) gm/dL Hct (34.0-46.0) % RDW (11.5-15.5) % APTT (22.0-30.0) sec BUN 79 H (7-17) mg/dL Creatinine 3.67 H (0.52-1.04) mg/dL Glucose 142 H (74-99) mg/dL POC Glucose (mg/dL) 219 H (75-99) mg/dL Assessment and Plan Plan: Assessment and plan #1 acute on chronic kidney disease stage V #2 troponin abnormality, likely secondary to abnormal renal function, does not indicate any significant CAD. #3 metabolic encephalopathy #4 generalized weakness #5 diabetes #6 hypertension #7 diastolic congestive heart failure acute on chronic #8 hyperlipidemia #9 CAD Plan From cardiology's perspective, we'll recommend to continue this patient on her current medications. Discontinue IV heparin. We will follow this patient with you now on an as-needed basis only, please don't hesitate to call if you have any questions. DNP note has been reviewed, I agree with a documented findings and plan of care. Patient was seen and examined.
--- NOTE | 2019-04-29 16:23 | P.PN ---
Subjective Progress Note Date: 04/29/19 (Delayed charting patient seen at 11) Principal diagnosis: Weakness Patient is an 83-year-old female with a past medical history of chronic kidney disease stage IV not wanting dialysis, ordinary artery disease, heart failure, diabetes, hypertension, dyslipidemia, and macular degeneration who presented as a direct admission from Dr. cardenas's office due to acute renal failure and worsening confusion. Per family she is been worsening over the last several months. She had initially been at [facility] was discharged approximately 2.5 months ago. Since then she has had worsening confusion. Over the last 1 week she has had decreased appetite, increasing weakness, and lack of energy. She has also been struggling to recognize family members. She is incontinent of urine and stool at times. On arrival on 04/28 she started having chest pain. Was found to have an elevated troponin. Was given aspirin and started on a heparin drip. Seen by cardiology who recommends conservative management and continuation of the heparin drip. They also increased her Coreg and Imdur. Seen by nephrology who confirms that she had not wanted dialysis in the past and agrees with holding her diuretics and gentle IV fluid hydration. Patient does not want to go to ECF but realizes that she needs more help. In the morning of 04/27 to her creatinine returned to baseline. Patient seen and examined at bedside. She denies any more chest pain, shortness breath, nausea, vomiting, or edema. She is reluctant to go to rehab. We again had a discussion about why she does need rehab. Objective - Vital Signs Vital signs: Vital Signs Temp 98.3 F 04/29/19 11:58 Pulse 58 L 04/29/19 12:00 Resp 18 04/29/19 12:00 BP 161/68 04/29/19 11:58 Pulse Ox 93 L 04/29/19 11:58 Intake & Output 04/28/19 04/29/19 04/29/19 18:59 06:59 18:59 Intake Total 222 478.286 530 Output Total 400 1700 Balance -178 -1221.714 530 Weight 94.1 kg Intake: Intake, IV Titration 238.286 350 Amount Heparin Sod,Pork in 0.45% 238.286 NaCl 25,000 unit In 0.45 % NaCl 1 250ml.bag @ 10. 75 UNITS/KG/HR 9.998 mls/ hr IV .Q24H [facility] Rx#: [id number] Sodium Chloride 0.9% 1, 350 000 ml @ 50 mls/hr IV . Q20H [facility] Rx#:[id number] Oral 222 240 180 Output: Urine 400 1700 Other: Voiding Method Toilet Toilet Toilet # Voids 1 - Exam General:, Obese, no distress, appears at stated age Derm: warm, dry Head: atraumatic, normocephalic, symmetric Eyes: EOMI, no lid lag, anicteric sclera Mouth: no lip lesion, mucus membranes moist Cardiovascular: S1S2 reg, no murmur, positive posterior tibial pulse bilateral, Lungs: Decreased breath sounds bilateral, no rhonchi, no rales , no accessory muscle use Abdominal: soft, nontender to palpation, no guarding, no appreciable organo megaly Ext: no gross muscle atrophy, 1+ edema bilateral lower extremities, no contractures Neuro: CN II-XI grossly intact, no focal neuro deficits Psych: Alert, oriented at times but then intermittently confused, appropriate affect - Labs CBC & Chem 7: 04/29/19 06:38 04/29/19 06:38 Labs: Abnormal Lab Results - Last 24 Hours (Table) 04/28/19 04/28/19 04/29/19 Range/Units 16:43 20:45 02:36 RBC (3.80-5.40) m/uL Hgb (11.4-16.0) gm/dL Hct (34.0-46.0) % RDW (11.5-15.5) % APTT (22.0-30.0) sec BUN (7-17) mg/dL Creatinine (0.52-1.04) mg/dL Glucose (74-99) mg/dL POC Glucose (mg/dL) 205 H 173 H 171 H (75-99) mg/dL 04/29/19 04/29/19 04/29/19 Range/Units 06:21 06:38 06:38 RBC 3.12 L (3.80-5.40) m/uL Hgb 9.4 L (11.4-16.0) gm/dL Hct 29.5 L (34.0-46.0) % RDW 16.5 H (11.5-15.5) % APTT 69.7 H (22.0-30.0) sec BUN (7-17) mg/dL Creatinine (0.52-1.04) mg/dL Glucose (74-99) mg/dL POC Glucose (mg/dL) 136 H (75-99) mg/dL 04/29/19 04/29/19 Range/Units 06:38 11:32 RBC (3.80-5.40) m/uL Hgb (11.4-16.0) gm/dL Hct (34.0-46.0) % RDW (11.5-15.5) % APTT (22.0-30.0) sec BUN 79 H (7-17) mg/dL Creatinine 3.67 H (0.52-1.04) mg/dL Glucose 142 H (74-99) mg/dL POC Glucose (mg/dL) 219 H (75-99) mg/dL Assessment and Plan Assessment: Acute renal failure on chronic kidney disease stage V- Cr back to baseline -Gentle IV fluids, diuretics held -Avoid nephrotoxic agents -Nephrology recommendations appreciated: IV fluids 24 more hours Troponin elevation, likely non-STEMI -Completed heparin drip -Cardiology recommendations appreciated -She has been maximized medically with increasing her Imdur and Coreg. She also takes aspirin. She is on a beta ana. She is on Lipitor. -Echocardiogram pending -Telemetry - Hx of + stress test, but patient elected for medical therapy. Toxic metabolic encephalopathy on top of probable dementia -Safe and supportive environment Generalized weakness -Likely related to advanced age in combination with renal failure -PT/OT evaluation Diabetes mellitus type 2 -Hold oral medications -had episode of hypoglycemia 04/27, now with elevating BS likely as actos is coming out of system - SSI, add levemir 5 units at night. -Follow blood sugars -Hemoglobin A1c 8.9 03/26 Hypertension, uncontrolled -hydralazine to TID - continue Coreg, and Imdur -Continue to follow blood pressures -Hold torsemide Morbid obesity -Structured outpatient weight loss Diastolic CHF, EF 55-60% - hold diuretics - no chronically on ACEI - strict I and O, daily weights - continue coreg Chronic: Dyslipidemia Atrial flutter-not on chronic anticoagulation Coronary artery disease-status post PCI 7 Accelerated hypertension on arrival with blood pressure 186/78, improved DVT prophylaxis: Heparin Discussed with: Patient, nursing Anticipated discharge date: [address]: SNF A total of 25 minutes was spent on the care of this complex patient more than 50% of the time was spent in counseling and care coordination.
[2019-04-29] MEDS: hydrALAZINE HCL 25 MG TAB PO SCH (19:48)
[2019-04-29] MEDS: ASPIRIN 325 MG TAB PO SCH (19:48)
[2019-04-29] MEDS: ATORVASTATIN 40 MG TAB PO SCH (19:48)
[2019-04-29 20:06] LABS: Glucose,Whole Blood 178 mg/dL (75-99)
[2019-04-29] MEDS: INSULIN DETEMIR (LEVEMIR) 100 UNIT/ML SYR SQ SCH (20:20)
[2019-04-30 01:59] LABS: Glucose,Whole Blood 122 mg/dL (75-99)
[2019-04-30] MEDS: CARVEDILOL 6.25 MG TAB PO SCH ×2 (06:22→17:11)
[2019-04-30] MEDS: CALCIUM ACETATE 667 MG CAP PO SCH ×2 (06:22→17:11)
[2019-04-30] MEDS: INSULIN ASPART (NovoLOG) 100 UNIT/ML VIAL SQ SCH ×4 (06:31→20:59)
[2019-04-30 06:35] LABS: Glucose,Whole Blood 103 mg/dL (75-99)
[2019-04-30 07:14] LABS: Basophils # (A) 0.1 k/uL (0-0.2); Basophils % (A) 1 %; Eosinophils # (A) 0.7 k/uL (0-0.7); Eosinophils % (A) 11 %; HCT 26.8 % (34.0-46.0); HGB 8.3 gm/dL (11.4-16.0); Hypochromasia Slight; Lymphocytes # (A) 1.9 k/uL (1.0-4.8); Lymphocytes % (A) 32 %; MCH 29.4 pg (25.0-35.0); MCHC 30.9 g/dL (31.0-37.0); MCV 95.2 fL (80.0-100.0); Mean Platelet Volume 7.8; Monocytes # (A) 0.5 k/uL (0-1.0); Monocytes % (A) 8 %; Neutrophils # (A) 2.8 k/uL (1.3-7.7); Neutrophils % (A) 46 %; Platelet Count 165 k/uL (150-450); RBC 2.82 m/uL (3.80-5.40); RDW 15.9 % (11.5-15.5)
[2019-04-30 07:24] LABS: Calcium 8.6 mg/dL (8.4-10.2); Potassium 4.1 mmol/L (3.5-5.1)
[2019-04-30] MEDS: SODIUM CHLORIDE 0.9% 1,000 ML IV SCH ×2 (07:53)
[2019-04-30] MEDS: VENLAFAXINE HCL ER 37.5 MG CAP PO SCH (07:59)
[2019-04-30] MEDS: hydrALAZINE HCL 25 MG TAB PO SCH ×3 (07:59→19:37)
[2019-04-30] MEDS: FAMOTIDINE 20 MG TAB PO SCH (07:59)
[2019-04-30] MEDS: TAMSULOSIN 0.4 MG CAP.ER.24H PO SCH (07:59)
[2019-04-30] MEDS: ISOSORBIDE MONONITRATE ER 30 MG TAB.ER.24H PO SCH (08:01)
--- NOTE | 2019-04-30 09:25 | ECHOF ---
Referral Reason:NSTEMI MEASUREMENTS -------- HEIGHT: 154.9 cm WEIGHT: 93.9 kg BP: RVIDd: 3.4 cm (< 3.3) IVSd: 1.3 cm (0.6 - 1.1) LVIDd: 4.2 cm (3.9 - 5.3) LVPWd: 1.3 cm (0.6 - 1.1) IVSs: 1.7 cm LVIDs: 2.1 cm LVPWs: 1.9 cm LAESV Index (A-L): 26.12 ml/m Ao Diam: 3.3 cm (2.0 - 3.7) AV Cusp: 1.7 cm (1.5 - 2.6) LA Diam: 4.0 cm (2.7 - 3.8) MV EXCURSION: 10.065 mm (> 18.000) MV EF SLOPE: 62 mm/s (70 - 150) EPSS: 0.6 cm MV E Cali: 1.18 m/s MV DecT: 278 ms MV A Cali: 0.95 m/s MV E/A Ratio: 1.24 AV maxP.53 mmHg AV meanP.05 mmHg RAP: 5.00 mmHg RVSP: 15.07 mmHg FINDINGS -------- Sinus rhythm. This was a technically good study. The left ventricular size is normal. There is moderate concentric left ventricular hypertrophy. O verall left ventricular systolic function is normal with, an EF between 55 - 60 %. Thickened bright a nd speckled appearance ? Amyloid The right ventricle is mildly enlarged. The left atrium is mildly dilated. Normal LA size by volume 22+/-6 ml/m2. The right atrial size is normal. Interatrial and interventricular septum intact. Aortic valve is trileaflet and is mildly thickened. There is mild aortic valve sclerosis. Peak/me an gradient across the Aortic Valve is 12.53mmHg / 5.05mmHg. The mitral valve leaflets are mildly thickened. Moderate mitral regurgitation is present. Mild tricuspid regurgitation present. The right ventricular systolic pressure, as measured by Doppl er, is 15.07mmHg. There is no pulmonic regurgitation present. The aortic root size is normal. IVC Not well visulized. There is a trivial pericardial effusion present. CONCLUSIONS -------- 1. Sinus rhythm. 2. This was a technically good study. 3. The left ventricular size is normal. 4. There is moderate concentric left ventricular hypertrophy. 5. Overall left ventricular systolic function is normal with, an EF between 55 - 60 %. 6. The right ventricle is mildly enlarged. 7. The left atrium is mildly dilated. 8. Normal LA size by volume 22+/-6 ml/m2. 9. The right atrial size is normal. 10. Interatrial and interventricular septum intact. 11. Aortic valve is trileaflet and is mildly thickened. 12. There is mild aortic valve sclerosis. 13. Peak/mean gradient across the Aortic Valve is 12.53mmHg / 5.05mmHg. 14. The mitral valve leaflets are mildly thickened. 15. Moderate mitral regurgitation is present. 16. Mild tricuspid regurgitation present. 17. The right ventricular systolic pressure, as measured by Doppler, is 15.07mmHg. 18. There is no pulmonic regurgitation present. 19. The aortic root size is normal. 20. IVC Not well visulized. 21. There is a trivial pericardial effusion present. KILNMAN: Dalia Hinson RDCS
[2019-04-30 10:58] LABS: Glucose,Whole Blood 203 mg/dL (75-99)
[2019-04-30] MEDS: ALPRAZolam 0.25 MG TAB PO PRN ×2 (11:09→19:37)
--- NOTE | 2019-04-30 13:14 | P.PN ---
Subjective Progress Note Date: 04/30/19 Seen and examined for the follow-up of acute kidney injury. She has chronic kidney disease stage V secondary to nephrosclerosis and diabetes with a baseline creatinine of 3.0-3.8 MG per DL. Admitted with a creatinine of 4.3 to per DL and improving. No nausea vomiting or diarrhea, slightly confused as per the nursing staff. Objective - Vital Signs Vital signs: Vital Signs Temp 96.9 F L 04/30/19 12:00 Pulse 71 04/30/19 12:00 Resp 18 04/30/19 12:00 BP 155/70 04/30/19 12:00 Pulse Ox 96 04/30/19 12:00 Intake & Output 04/29/19 04/30/19 04/30/19 18:59 06:59 18:59 Intake Total 1320 240 Output Total 850 Balance 470 240 Weight 88.4 kg Intake: Intake, IV Titration 350 Amount Sodium Chloride 0.9% 1, 350 000 ml @ 50 mls/hr IV . Q20H [facility] Rx#:[id number] Oral 970 240 Output: Urine 850 Other: Voiding Method Toilet Toilet Toilet # Voids 1 1 - Exam No acute distress S1-S2 heard Lungs clear No edema - Labs CBC & Chem 7: 04/30/19 05:59 04/30/19 05:59 Labs: Abnormal Lab Results - Last 24 Hours (Table) 04/29/19 04/30/19 04/30/19 Range/Units 19:54 01:58 05:59 RBC 2.82 L (3.80-5.40) m/uL Hgb 8.3 L (11.4-16.0) gm/dL Hct 26.8 L (34.0-46.0) % MCHC 30.9 L (31.0-37.0) g/dL RDW 15.9 H (11.5-15.5) % BUN (7-17) mg/dL Creatinine (0.52-1.04) mg/dL POC Glucose (mg/dL) 178 H 122 H (75-99) mg/dL 04/30/19 04/30/19 04/30/19 Range/Units 05:59 06:31 10:57 RBC (3.80-5.40) m/uL Hgb (11.4-16.0) gm/dL Hct (34.0-46.0) % MCHC (31.0-37.0) g/dL RDW (11.5-15.5) % BUN 74 H (7-17) mg/dL Creatinine 3.41 H (0.52-1.04) mg/dL POC Glucose (mg/dL) 103 H 203 H (75-99) mg/dL Assessment and Plan Assessment: #1 acute kidney injury secondary to prerenal process from over diuresis. Creatinine improving. #2 CK D5 secondary to diabetic kidney disease and nephrosclerosis with a baseline creatinine of 3.0-3.8 MG per DL. 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 Plan: #1 creatinine improved currently at baseline. #2 stop IV fluids #3 avoid nephrotoxic agents and hypotensive episodes. #4 she had multiple discussions regarding renal replacement therapy in the past with Dr. Castro and wishes not to have dialysis if needed. Stable from nephrology point of view for discharge to be followed up in the clinic
[2019-04-30 16:53] LABS: Glucose,Whole Blood 163 mg/dL (75-99)
--- NOTE | 2019-04-30 19:20 | P.PN ---
Subjective Progress Note Date: 04/30/19 (Delayed charting seen at approximately 1045) Principal diagnosis: Weakness Patient is an 83-year-old female with a past medical history of chronic kidney disease stage IV not wanting dialysis, ordinary artery disease, heart failure, diabetes, hypertension, dyslipidemia, and macular degeneration who presented as a direct admission from Dr. cardenas's office due to acute renal failure and worsening confusion. Per family she is been worsening over the last several months. She had initially been at [facility] was discharged approximately 2.5 months ago. Since then she has had worsening confusion. Over the last 1 week she has had decreased appetite, increasing weakness, and lack of energy. She has also been struggling to recognize family members. She is incontinent of urine and stool at times. On arrival on 04/28 she started having chest pain. Was found to have an elevated troponin. Was given aspirin and started on a heparin drip. Seen by cardiology who recommends conservative management and continuation of the heparin drip. They also increased her Coreg and Imdur. Seen by nephrology who confirms that she had not wanted dialysis in the past and agrees with holding her diuretics and gentle IV fluid hydration. Patient does not want to go to ECF but realizes that she needs more help. In the morning of 04/29 her creatinine returned to baseline. Increasing confusion noted on 04/30. Patient seen and examined at bedside. More confused today. Seeing people that are not present, I'm worried about small children that are not present. She denies any chest pain or shortness of breath. Easily frustrated. Objective - Vital Signs Vital signs: Vital Signs Temp 97.0 F L 04/30/19 16:00 Pulse 69 04/30/19 16:00 Resp 18 04/30/19 16:00 BP 101/52 04/30/19 16:00 Pulse Ox 95 04/30/19 16:00 Intake & Output 04/30/19 04/30/19 05/01/19 06:59 18:59 06:59 Intake Total 506 Balance 506 Weight 88.4 kg Intake: Oral 506 Other: Voiding Method Toilet Toilet # Voids 1 3 - Exam General:, Obese, no distress, appears at stated age Derm: warm, dry Head: atraumatic, normocephalic, symmetric Eyes: EOMI, no lid lag, anicteric sclera Mouth: no lip lesion, mucus membranes moist Cardiovascular: S1S2 reg, no murmur, positive posterior tibial pulse bilateral, Lungs: Decreased breath sounds bilateral, no rhonchi, no rales , no accessory muscle use Abdominal: soft, nontender to palpation, no guarding, no appreciable organomegaly Ext: no gross muscle atrophy, 1+ edema bilateral lower extremities, no contractures Neuro: CN II-XI grossly intact, no focal neuro deficits Psych: Alert, confused, anxious and easily upset - Labs CBC & Chem 7: 04/30/19 05:59 04/30/19 05:59 Labs: Abnormal Lab Results - Last 24 Hours (Table) 04/29/19 04/30/19 04/30/19 Range/Units 19:54 01:58 05:59 RBC 2.82 L (3.80-5.40) m/uL Hgb 8.3 L (11.4-16.0) gm/dL Hct 26.8 L (34.0-46.0) % MCHC 30.9 L (31.0-37.0) g/dL RDW 15.9 H (11.5-15.5) % BUN (7-17) mg/dL Creatinine (0.52-1.04) mg/dL POC Glucose (mg/dL) 178 H 122 H (75-99) mg/dL 04/30/19 04/30/19 04/30/19 Range/Units 05:59 06:31 10:57 RBC (3.80-5.40) m/uL Hgb (11.4-16.0) gm/dL Hct (34.0-46.0) % MCHC (31.0-37.0) g/dL RDW (11.5-15.5) % BUN 74 H (7-17) mg/dL Creatinine 3.41 H (0.52-1.04) mg/dL POC Glucose (mg/dL) 103 H 203 H (75-99) mg/dL 04/30/19 Range/Units 16:51 RBC (3.80-5.40) m/uL Hgb (11.4-16.0) gm/dL Hct (34.0-46.0) % MCHC (31.0-37.0) g/dL RDW (11.5-15.5) % BUN (7-17) mg/dL Creatinine (0.52-1.04) mg/dL POC Glucose (mg/dL) 163 H (75-99) mg/dL Assessment and Plan Assessment: Acute renal failure on chronic kidney disease stage V- Cr back to baseline -diuretics held -Avoid nephrotoxic agents -Nephrology recommendations appreciated Troponin elevation, likely non-STEMI -Completed heparin drip -Cardiology recommendations appreciated -She has been maximized medically with increasing her Imdur and Coreg. She also takes aspirin. She is on a beta ana. She is on Lipitor. -Echocardiogram with preserved ejection fraction and no signs of wall motion abnormalities -Telemetry - Hx of + stress test, but patient elected for medical therapy. Toxic metabolic encephalopathy on top of dementia -Safe and supportive environment Generalized weakness -Likely related to advanced age in combination with renal failure -PT/OT evaluation Diabetes mellitus type 2 -Hold oral medications -had episode of hypoglycemia 04/27, now with elevating BS likely as actos is com ing out of system - SSI, levemir 5 units at night. -Follow blood sugars -Hemoglobin A1c 8.9 03/26 Hypertension -hydralazine TID - continue Coreg, and Imdur -Continue to follow blood pressures -Hold torsemide Morbid obesity -Structured outpatient weight loss Diastolic CHF, EF 55-60% - hold diuretics - no chronically on ACEI - strict I and O, daily weights - continue coreg Chronic: Dyslipidemia Atrial flutter-not on chronic anticoagulation Coronary artery disease-status post PCI 7 Accelerated hypertension on arrival with blood pressure 186/78, improved Awaiting SNF placement DVT prophylaxis: Heparin Discussed with: Patient, nursing Anticipated discharge date: [address]: SNF A total of 25 minutes was spent on the care of this complex patient more than 50% of the time was spent in counseling and care coordination.
[2019-04-30] MEDS: ATORVASTATIN 40 MG TAB PO SCH (19:37)
[2019-04-30] MEDS: ASPIRIN 325 MG TAB PO SCH (19:37)
[2019-04-30 20:36] LABS: Glucose,Whole Blood 205 mg/dL (75-99)
[2019-04-30] MEDS: INSULIN DETEMIR (LEVEMIR) 100 UNIT/ML SYR SQ SCH (21:00)
[2019-05-01 01:38] LABS: Glucose,Whole Blood 149 mg/dL (75-99)
[2019-05-01 06:58] LABS: Glucose,Whole Blood 126 mg/dL (75-99)
[2019-05-01] MEDS: INSULIN ASPART (NovoLOG) 100 UNIT/ML VIAL SQ SCH ×2 (07:34→15:40)
[2019-05-01 07:49] LABS: Calcium 8.6 mg/dL (8.4-10.2); Potassium 4.6 mmol/L (3.5-5.1)
[2019-05-01 07:52] LABS: Basophils % (A) 1 %; Eosinophils # (A) 0.6 k/uL (0-0.7); Eosinophils % (A) 12 %; HCT 28.5 % (34.0-46.0); HGB 8.9 gm/dL (11.4-16.0); Hypochromasia Slight; Lymphocytes # (A) 1.7 k/uL (1.0-4.8); Lymphocytes % (A) 33 %; MCHC 31.4 g/dL (31.0-37.0); MCV 95.7 fL (80.0-100.0); Mean Platelet Volume 8.1; Monocytes # (A) 0.4 k/uL (0-1.0); Monocytes % (A) 7 %; Neutrophils # (A) 2.3 k/uL (1.3-7.7); Neutrophils % (A) 45 %; Platelet Count 171 k/uL (150-450); RBC 2.98 m/uL (3.80-5.40); RDW 15.8 % (11.5-15.5); WBC 5.2 k/uL (3.8-10.6)
[2019-05-01] MEDS: FAMOTIDINE 20 MG TAB PO SCH (08:52)
[2019-05-01] MEDS: TAMSULOSIN 0.4 MG CAP.ER.24H PO SCH (08:52)
[2019-05-01] MEDS: ISOSORBIDE MONONITRATE ER 30 MG TAB.ER.24H PO SCH (08:52)
[2019-05-01] MEDS: hydrALAZINE HCL 25 MG TAB PO SCH ×2 (08:52→16:46)
[2019-05-01] MEDS: CARVEDILOL 6.25 MG TAB PO SCH (08:52)
[2019-05-01] MEDS: VENLAFAXINE HCL ER 37.5 MG CAP PO SCH (08:53)
[2019-05-01] MEDS: CALCIUM ACETATE 667 MG CAP PO SCH (09:21)
--- NOTE | 2019-05-01 10:02 | P.PN ---
Subjective Patient is seen in follow-up for acute kidney injury on chronic kidney disease. Patient has chronic kidney disease stage V secondary to diabetic kidney disease. Renal function is improved since admission. Creatinine 3.2 today. Patient is now the reliable historian. Currently sleeping. Denies chest pain or shortness of breath. Hemodynamically stable. No edema. Vital signs are stable. General: The patient appeared well nourished and normally developed. HEENT: Head exam is unremarkable. Neck is without jugular venous distension. LUNGS: Lungs are clear to auscultation and percussion. Breath sounds decreased. HEART: Rate and Rhythm are regular. First and second heart sounds normal. No murmurs, rubs or gallops. ABDOMEN: Abdominal exam reveals normal bowel sounds. Non-tender and non- distended. No evidence of peritonitis. EXTREMITITES: No clubbing, cyanosis, or edema. Objective - Vital Signs Vital signs: Vital Signs Temp 97.8 F 05/01/19 05:00 Pulse 67 05/01/19 05:00 Resp 18 05/01/19 05:00 BP 145/82 05/01/19 05:00 Pulse Ox 95 05/01/19 05:00 Intake & Output 04/30/19 05/01/19 05/01/19 18:59 06:59 18:59 Intake Total 506 Balance 506 Weight 89.5 kg Intake: Oral 506 Other: Voiding Method Toilet Toilet Toilet Diaper Incontinent # Voids 3 1 - Labs CBC & Chem 7: 05/01/19 07:07 05/01/19 07:07 Labs: Abnormal Lab Results - Last 24 Hours (Table) 04/30/19 04/30/19 04/30/19 Range/Units 10:57 16:51 20:30 RBC (3.80-5.40) m/uL Hgb (11.4-16.0) gm/dL Hct (34.0-46.0) % RDW (11.5-15.5) % BUN (7-17) mg/dL Creatinine (0.52-1.04) mg/dL Glucose (74-99) mg/dL POC Glucose (mg/dL) 203 H 163 H 205 H (75-99) mg/dL 05/01/19 05/01/19 05/01/19 Range/Units 01:36 06:56 07:07 RBC 2.98 L (3.80-5.40) m/uL Hgb 8.9 L (11.4-16.0) gm/dL Hct 28.5 L (34.0-46.0) % RDW 15.8 H (11.5-15.5) % BUN (7-17) mg/dL Creatinine (0.52-1.04) mg/dL Glucose (74-99) mg/dL POC Glucose (mg/dL) 149 H 126 H (75-99) mg/dL 05/01/19 Range/Units 07:07 RBC (3.80-5.40) m/uL Hgb (11.4-16.0) gm/dL Hct (34.0-46.0) % RDW (11.5-15.5) % BUN 71 H (7-17) mg/dL Creatinine 3.20 H (0.52-1.04) mg/dL Glucose 119 H (74-99) mg/dL POC Glucose (mg/dL) (75-99) mg/dL Assessment and Plan Plan: Assessment: 1. Acute kidney injury mostly prerenal secondary to diuretics versus progression of underlying chronic kidney disease. Creatinine was 4.3 on admi ssion and is 3.2 today. 2. Chronic kidney disease stage V secondary to diabetic kidney disease. Ba seline creatinine in the range of 3-3.8 recently. 3. Intermittent confusion along with weakness and decreased appetite. Concern for uremia. Symptoms improved. 4. Anemia of chronic kidney disease. Rule out iron deficiency. 5. Diabetes mellitus. 6. Hypertension with chronic kidney disease. 7. 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 8. Elevated troponins. Cardiology following. Off IV heparin. 9. Diastolic CHF. Compensated. Plan: Off IV fluids. Continue to hold diuretics. Continue to monitor renal function and urine output. Patient has refused renal replacement therapy if indicated.
[2019-05-01] MEDS ORDERED: DARBEPOETIN ALFA 40 MCG/0.4 ML SYRINGE SQ SCH (10:15)
[2019-05-01 11:42] LABS: Glucose,Whole Blood 135 mg/dL (75-99)
[2019-05-01 12:32] VITALS: BP 106/52; PULSE 70; TEMP 97.6
[2019-05-01 14:47] VITALS: BMI 37.3
--- NOTE | 2019-05-01 14:58 | P.DS ---
Providers Date of admission: 04/27/19 08:19 Expected date of discharge: 05/01/19 Attending physician: Ana Borja DO Consults: 04/27/19 11:20 Consult Physician Routine Consulting Provider: Toño Castro Consult Reason/Comments: MILAD on CKD IV Do you want consulting provider notified?: Yes 04/27/19 22:42 Consult Physician Routine Consulting Provider: Gina Bowman Consult Reason/Comments: NSTEMI Do you want consulting provider notified?: Yes Primary care physician: Lalo Eng Hospital Course: Discharge Diagnosis: Acute renal failure on chronic kidney disease stage V Troponin elevation, probable non-STEMI Toxic metabolic encephalopathy on top of dementia Generalized weakness Diabetes mellitus type 2 Hypertension Morbid obesity Diastolic congestive heart failure Dyslipidemia Atrial flutter, non-chronic anticoagulation Coronary artery disease status post stenting Accelerated hypertension, resolved Hospital Course: Patient is an 83-year-old female with a past medical history of chronic kidney disease stage IV not wanting dialysis, ordinary artery disease, heart failure, diabetes, hypertension, dyslipidemia, and macular degeneration who presented as a direct admission from Dr. eng's office due to acute renal failure and worsening confusion. Per family she is been worsening over the last several months. She had initially been at [facility] was discharged approximately 2.5 months ago. Since then she has had worsening confusion. Over the last 1 week she has had decreased appetite, increasing weakness, and lack of energy. She has also been struggling to recognize family members. She is incontinent of urine and stool at times. On arrival on 04/28 she started having chest pain. Was found to have an elevated troponin. Was given aspirin and started on a heparin drip. Seen by cardiology who recommends conservative management and continuation of the heparin drip. They increased her Coreg and Imdur. Seen by nephrology who confirms that she had not wanted dialysis in the past and agrees with holding her diuretics and gentle IV fluid hydration. Patient does not want to go to ECF but realizes that she needs more help. In the morning of 04/29 her creatinine returned to baseline. Increasing confusion noted on 04/30 but easily reoriented. She was determined stable for discharge. She will resume her Torasimide 20 mg once daily. She will have a repeat CBC and BMP in 5-7 days. She will be seen by Dr. Eng at [facility]. She will follow-up with Dr. Castro in 1 week. Patient seen and examined at bedside. No chest pain, SOB, nausea, denies edema but there is some present. Vital signs reviewed and stable. General: non toxic, no distress, appears at stated age Derm: warm, dry Head: atraumatic, normocephalic, symmetric Eyes: EOMI, no lid lag, anicteric sclera Mouth: no lip lesion, mucus membranes moist Cardiovascular: S1S2 reg, no murmur, positive posterior tibial pulse bilateral, Lungs: Decreased bs bilateral, no rhonchi, no rales , no accessory muscle use Abdominal: soft, nontender to palpation, no guarding, no appreciable organomegaly Ext: no gross muscle atrophy, trace edema, no contractures Neuro: CN II-XI grossly intact, no focal neuro deficits Psych: Alert, oriented to self only A total of 35 minutes of time were spent preparing this complex discharge summary . Pertinent Studies: Echocardiogram-ejection fraction 55-60%, moderate concentric LVH, moderate mitral regurgitation Patient Condition at Discharge: Fair Plan - Discharge Summary Discharge Rx Participant: No New Discharge Prescriptions: New hydrALAZINE HCL [Apresoline] 25 mg PO TID tab Melatonin 3 mg PO HS PRN tablet PRN Reason: Insomnia Continue Vit C/E/Zn/Coppr/Lutein/Zeaxan [Preservision Areds 2 Softgel] 1 cap PO BID Famotidine [Pepcid] 20 mg PO BID Atorvastatin [Lipitor] 40 mg PO HS #30 tab Calcium Acetate [PhosLo] 667 mg PO BID-W/MEALS #60 cap Tamsulosin [Flomax] 0.4 mg PO PC-BRKFST #30 cap.er.24h Pioglitazone [Actos] 30 mg PO DAILY Carvedilol [Coreg] 3.125 mg PO BID-W/MEALS tab Isosorbide Mononitrate ER [Imdur] 60 mg PO DAILY tab.er.24h Aspirin 325 mg PO HS Calcitriol 0.25 mcg PO Q48H Venlafaxine HCl ER [Effexor XR] 37.5 mg PO DAILY ALPRAZolam [Xanax] 0.25 mg PO TID PRN #9 tablet PRN Reason: Anxiety Changed Torsemide 10 mg PO AC-BID #0 Discontinued hydrALAZINE HCL [Apresoline] 25 mg PO BID Promethazine [Phenergan] 12.5 - 25 mg PO Q4HR Discharge Medication List Vit C/E/Zn/Coppr/Lutein/Zeaxan [Preservision Areds 2 Softgel] 1 cap PO BID 05/05/18 [History] Famotidine [Pepcid] 20 mg PO BID 08/04/18 [History] Atorvastatin [Lipitor] 40 mg PO HS #30 tab 08/08/18 [Rx] Calcium Acetate [PhosLo] 667 mg PO BID-W/MEALS #60 cap 08/08/18 [Rx] Tamsulosin [Flomax] 0.4 mg PO PC-BRKFST #30 cap.er.24h 08/08/18 [Rx] Pioglitazone [Actos] 30 mg PO DAILY 12/04/18 [History] Carvedilol [Coreg] 3.125 mg PO BID-W/MEALS tab 12/09/18 [Rx] Isosorbide Mononitrate ER [Imdur] 60 mg PO DAILY tab.er.24h 12/09/18 [Rx] Aspirin 325 mg PO HS 02/09/19 [History] Calcitriol 0.25 mcg PO Q48H 04/27/19 [History] Venlafaxine HCl ER [Effexor XR] 37.5 mg PO DAILY 04/27/19 [History] ALPRAZolam [Xanax] 0.25 mg PO TID PRN #9 tablet 05/01/19 [Rx] Melatonin 3 mg PO HS PRN tablet 05/01/19 [Rx] Torsemide 10 mg PO AC-BID #0 05/01/19 [Rx] hydrALAZINE HCL [Apresoline] 25 mg PO TID tab 05/01/19 [Rx] Follow up Appointment(s)/Referral(s): Lalo Eng MD [Primary Care Provider] - 1 Week Toño Castro DO [STAFF PHYSICIAN] - 1 Week Activity/Diet/Wound Care/Special Instructions: Diet: Carbohydrate consistent, renal diet Activity: As tolerated, fall precaution -Repeat CBC and basic metabolic profile in 5-7 days diagnosis anemia, chronic kidney disease Discharge Disposition: TRANSFER TO SNF/ECF
[2019-05-01] MEDS: CALCITRIOL 0.25 MCG CAP PO SCH (15:40)
[2019-05-01 16:51] LABS: Iron Saturation 22.51 (12.00-45.00)
== END 2019-05-01 16:49 | DRG 682 ==
LOC: 3NMEDONC 08:19 → 3SCARD 20:55 → 3NMEDONC 04-30 21:55
PROVIDERS: ADMIT Internal Medicine; ATTEND Internal Medicine
DX: N17.9 Acute kidney failure, unspecified (principal); I21.4 Non-ST elevation (NSTEMI) myocardial infarction; I50.33 Acute on chronic diastolic (congestive) heart failure; G92 Toxic encephalopathy; I13.2 Hypertensive heart and chronic kidney disease with heart failure and with stage 5 chronic kidney disease, or end stage renal disease; I48.92 Unspecified atrial flutter; N32.1 Vesicointestinal fistula; Z66 Do not resuscitate; N18.5 Chronic kidney disease, stage 5; E11.22 Type 2 diabetes mellitus with diabetic chronic kidney disease; E11.649 Type 2 diabetes mellitus with hypoglycemia without coma; E66.01 Morbid (severe) obesity due to excess calories; N31.9 Neuromuscular dysfunction of bladder, unspecified; R15.9 Full incontinence of feces; D63.1 Anemia in chronic kidney disease; F03.90 Unspecified dementia, unspecified severity, without behavioral disturbance, psychotic disturbance, mood disturbance, and anxiety; F41.9 Anxiety disorder, unspecified; E78.5 Hyperlipidemia, unspecified; H35.30 Unspecified macular degeneration; I25.10 Atherosclerotic heart disease of native coronary artery without angina pectoris; E83.89 Other disorders of mineral metabolism; T50.2X5A Adverse effect of carbonic-anhydrase inhibitors, benzothiadiazides and other diuretics, initial encounter; G89.29 Other chronic pain; R33.9 Retention of urine, unspecified; M54.9 Dorsalgia, unspecified; R32 Unspecified urinary incontinence; K52.9 Noninfective gastroenteritis and colitis, unspecified; Z79.82 Long term (current) use of aspirin; Z79.899 Other long term (current) drug therapy; Z87.440 Personal history of urinary (tract) infections; Z87.891 Personal history of nicotine dependence; Z90.710 Acquired absence of both cervix and uterus; Z95.5 Presence of coronary angioplasty implant and graft; Z96.653 Presence of artificial knee joint, bilateral; Z90.49 Acquired absence of other specified parts of digestive tract; Z88.1 Allergy status to other antibiotic agents; Z88.2 Allergy status to sulfonamides; Z88.8 Allergy status to other drugs, medicaments and biological substances; Z68.37 Body mass index [BMI] 37.0-37.9, adult; Z80.9 Family history of malignant neoplasm, unspecified; Z82.49 Family history of ischemic heart disease and other diseases of the circulatory system
CPT/HCPCS: 80048; 82728; 83540; 83550; 83735; 84100; 84484; 85025; 85027; 85610; 85730; 93005; 93306